=== PATIENT | female | born 1995 | race Caucasian/White ===

== ENCOUNTER → 2018-04-14 16:23 | Outpatient (CLI) | payer BC, SELFPAY ==
[2018-04-14 19:50] LABS: Chlamydia Trachomatis by PCR Negative (Negative); Neisserai gonorrhoeae by PCR Negative (Negative); Probe Check PASS; Sample Adequacy Control PASS; Specimen Processing Control PASS
[2018-04-19 11:04] LABS: HPV Reflexed? NOT INDICATED
== END ==
PROVIDERS: Visit Provider Obstetrics & Gynecology
DX: Z12.4 Encounter for screening for malignant neoplasm of cervix (principal); Z11.3 Encounter for screening for infections with a predominantly sexual mode of transmission
CPT/HCPCS: 87491; 87591; 88175; G0145

== ENCOUNTER → 2019-06-27 11:53 | Outpatient (CLI) | payer BC, SELFPAY ==
[2017-06-30 07:44] VITALS: BMI 26.7
[2019-06-27 16:48] LABS: Estradiol 56.1 pg/mL; Follicle Stimulating Hormone 3.7 mIU/mL; Free T3 3.3 pg/mL (2.18-3.98); Prolactin 6.4 ng/mL; T4 Free Direct 0.84 ng/dL (0.76-1.46); Thyroid Stim Hormone (TSH) 1.53 uIU/mL (0.358-3.74)
[2019-06-27 16:53] LABS: Vitamin D,25 Hydroxy 18.6 ng/mL (29.95-100.01)
[2019-06-30 04:07] LABS: DHEA Sulfate 304.4 ug/dL (110.0-431.7)
[2019-06-30 13:21] LABS: Sex Hormone-binding Globulin 51.8 nmol/L (24.6-122.0)
[2019-07-04 12:08] LABS: 17-Hydroxyprogesterone 73 ng/dL (.)
== END ==
PROVIDERS: Visit Provider Obstetrics & Gynecology
DX: N91.2 Amenorrhea, unspecified (principal); R73.09 Other abnormal glucose
CPT/HCPCS: 36415; 82306; 82533; 82627; 82670; 83001; 83498; 84144; 84146; 84270; 84403; 84439; 84443; 84481; 82626

== ENCOUNTER → 2020-08-20 | Outpatient (CLI) | payer BC, SELFPAY ==
[2017-06-30 07:44] VITALS: BMI 26.7
[2020-08-23 12:07] LABS: Chlamydia By Nucleic Acid AMP Negative (Negative)
[2020-08-23 18:02] LABS: Gonococcus By Nucleic Acid AMP Negative (Negative)
[2020-08-25 13:53] LABS: HPV Reflexed? NOT INDICATED
== END | disposition home or self-care (01) ==
LOC: LABSPEC 15:51
PROVIDERS: Visit Provider Obstetrics & Gynecology
DX: Z12.4 Encounter for screening for malignant neoplasm of cervix (principal); Z11.3 Encounter for screening for infections with a predominantly sexual mode of transmission
CPT/HCPCS: 87491; 87591; 88175; G0145

== ENCOUNTER → 2020-09-07 03:29 | Outpatient (CLI) | payer SELFPAY ==
[2020-09-08 09:46] LABS: Hepatitis B Surface Antibody Reactive
== END ==
DX: Z11.59 Encounter for screening for other viral diseases (principal)
CPT/HCPCS: 86706

== ENCOUNTER 2021-10-09 11:27 | Outpatient (CLI) | payer BC, SELFPAY ==
[2021-10-09 13:52] LABS: Vitamin D,25 Hydroxy 28.2 ng/mL
[2021-10-12 15:08] LABS: Chlamydia By Nucleic Acid AMP Negative (Negative)
[2021-10-12 20:51] LABS: Gonococcus By Nucleic Acid AMP Negative (Negative)
== END 2021-10-09 23:59 | disposition home or self-care (01) ==
PROVIDERS: Visit Provider Obstetrics & Gynecology
DX: E55.9 Vitamin D deficiency, unspecified (principal); Z13.1 Encounter for screening for diabetes mellitus; Z11.3 Encounter for screening for infections with a predominantly sexual mode of transmission; E28.2 Polycystic ovarian syndrome
CPT/HCPCS: 36415; 82306; 83036; 87491; 87591

== ENCOUNTER → 2022-03-04 | Outpatient (CLI) | payer BC, SELFPAY ==
[2022-03-04 09:56] LABS: hCG Titer Quant., Serum 350 mIU/mL (1-3)
== END | disposition home or self-care (01) ==
LOC: PAVLAB 09:03
PROVIDERS: Referring Provider Obstetrics & Gynecology; Visit Provider Obstetrics & Gynecology
DX: O36.80X0 Pregnancy with inconclusive fetal viability, not applicable or unspecified (principal)
CPT/HCPCS: 36415; 84702

== ENCOUNTER → 2022-03-06 | Outpatient (CLI) | payer BC, SELFPAY ==
[2022-03-06 07:05] LABS: hCG Titer Quant., Serum 487 mIU/mL (1-3)
== END | disposition home or self-care (01) ==
LOC: LABSPEC 02:07
PROVIDERS: Visit Provider Obstetrics & Gynecology
DX: O36.80X0 Pregnancy with inconclusive fetal viability, not applicable or unspecified (principal)
CPT/HCPCS: 84702

== ENCOUNTER 2022-03-07 10:56 | Outpatient (CLI) | payer BC, SELFPAY ==
[2022-03-07 12:56] LABS: hCG Titer Quant., Serum 562 mIU/mL (1-3)
== END 2022-03-07 23:59 | disposition home or self-care (01) ==
LOC: LAB 10:59
PROVIDERS: Visit Provider Obstetrics & Gynecology
DX: O36.80X0 Pregnancy with inconclusive fetal viability, not applicable or unspecified (principal)
CPT/HCPCS: 36415; 84702

== ENCOUNTER 2022-03-07 13:21 | Emergency (ER) | payer BC, SELFPAY ==
[2022-03-07 13:23] VITALS: BP 130/78; PULSE 80; RESP 16; TEMP 36.2; O2SAT 100; BMI 34.3
--- NOTE | 2022-03-07 13:39 | US_ITS ---
EXAM: US , TRANSVAGINAL CLINICAL INDICATION: pelvic pain -- brown discharge TECHNIQUE: Real-time transvaginal obstetrical ultrasound of the maternal pelvis and a first trimester with image documentation. Transvaginal imaging was used for better evaluation of the fetus and adnexa. This report was created using [employer] ([email or web address]) report generation technology. COMPARISON: None. FINDINGS: GESTATION: There is a hypoechoic area in the fundus of the endometrium that measures 1.0 x 0.4 cm. This does not have the appearance of the gestational sac. PLACENTA/AMNIOTIC FLUID: Cannot be adequately evaluated due to the early gestational age. UTERUS/CERVIX: Uterus measures 7.2 x 3.8 x 5.6 cm. The endometrium measures 9 mm. No myometrial mass. OVARIES: The right ovary measures 2.9 x 2.3 x 2.0 cm. The left ovary measures 2.5-2 0.1 x 2.2 cm. There is a 1.8 x 1.6 x 2.2 cm thick walled cyst in left ovary which may represent a corpus luteum. No mass. FREE FLUID: No free fluid. US/Transvaginal w/Preg US IMPRESSION: Thick-walled cystic structure in the left ovary may represent a corpus luteum. There is no normal-appearing gestational sac present. There is a slightly hypoechoic area seen in the endometrium which is not cystic and does not have the appearance of the gestational sac. No other abnormalities are identified. Electronically Signed: Paul Samuel MD at 15:22 EDT ,
--- NOTE | 2022-03-07 13:40 | ED.VIS.FEGU ---
HPI HPI - Female History of Present Illness Chief Complaint: Vag Bld, Preg Narrative Narrative: Patient has had some vaginal spotting and some intermittent abdominal cramping. She is 5 weeks by dates, she has not had an ultrasound this , this is her first . Currently she has minimal abdominal pain. She has no fevers or chills, she has no dysuria hematuria or frequency. [facility] Medical History PCOS (polycystic ovarian syndrome) Home Medications norethindrone 1 mg-ethinyl estradiol 20 mcg (24)-iron 75 mg (4) tablet (Blisovi 24 Fe) 1 ea PO DAILY 06/30/17 [History Last Taken Unknown] Allergy/AdvReac Type Severity Reaction Status Date / Time No Known Allergies Allergy Verified 03/07/22 13:22 Social History Smoking Status: Never smoker ROS ROS ED ROS Narrative Past medical history: Reviewed Medications: Reviewed Social history: Noncontributory Review of systems: All systems negative except as indicated General: No fever Eyes: No visual changes ENT: No upper airway congestion, normal voice Neck: No neck pain Cardiovascular: No chest pain Respiratory: No shortness of breath or cough Gastrointestinal: Intermittent abdominal cramping mostly in the pelvic region. Genitourinary: As in HPI Musculoskeletal: Denies myalgias no difficulty with ambulation Skin: No rash Neurological: No memory loss, confusion or any focal weakness Psych: No recent behavioral changes Hematologic: No easy bleeding or easy bruising EXAM Physical Exam Narrative Exam Narrative: Physical exam General: Well nourished, Well developed, No Acute Distress Head: Normocephalic, Atraumatic Eyes: Conjunctiva not pale ENT: Moist mucous membranes Neck: Supple, Nontender, No lymphadenopathy Cardiovascular: Regular rate, Regular rhythm Respiratory: No distress, CTA bilaterally Abdomen: Soft, Nontender, Nondistended Back: Nontender, Normal Inspection. Negative for: CVA tenderness Extremities: Nontender, No edema Skin: Normal color, No rash Neurological: Alert, Normal Strength, Normal Sensation Psychological: Normal affect Const Vital Signs: 03/07/22 13:23 Temperature 97.2 F L Temperature Source Temporal Pulse Rate 80 Respiratory Rate 16 Blood Pressure 130/78 H Blood Pressure Mean 95 Pulse Ox 100 Oxygen Delivery Method Room Air MDM MDM MDM Narrative Medical decision making narrative: Patient likely has an ectopic . She has a complex thick-walled structure in the left ovary which likely represent a corpus luteum, she does not have an intrauterine thus I believe she has an ectopic . She does meet criteria for methotrexate. I will check LFTs, if these are normal she can get the methotrexate I will turn the patient over to the oncoming ED physician. Lab Data Labs: Laboratory Results - last 24 hr 03/07/22 03/07/22 13:45 13:59 Urine Color Yellow Urine Clarity Sl. Cloudy Urine pH 6.5 Ur Specific [place] 1.015 Urine Protein Negative Urine Glucose (UA) Normal Urine Ketones Negative Urine Occult Blood 150 H Urine Nitrite Negative Urine Bilirubin Negative Urine Urobilinogen 1 H Ur Leukocyte Esterase Negative Urine RBC 10-25 SEEN Urine WBC 0 SEEN Ur Squamous Epith Cells 0-5 SEEN Urine Bacteria 1+ Urine Mucus 0 SEEN Blood Type O POSITIVE Radiography Diagnostic Testing: Clinical Impression(s) from Imaging Studies Obstetrics Ultrasound 03/07/22 13:39 IMPRESSION: Thick-walled cystic structure in the left ovary may represent a corpus luteum. There is no normal-appearing gestational sac present. There is a slightly hypoechoic area seen in the endometrium which is not cystic and does not have the appearance of the gestational sac. No other abnormalities are identified. Electronically Signed: Paul Samuel MD at 15:22 EDT Reading Location ID and State: [facility] / [place] Tel , Service support , Discharge Plan Triage Chief Complaint: Vag Bld, Preg ED Provider: Jayant Prieto Dx/Rx/DC Orders Clinical Impression: Ectopic , Pelvic pain Instructions: ED Methotrexate for Ectopic ... Prescriptions: No Action norethindrone-e.estradiol-iron [Blisovi 24 Fe] 1 EACH tablet 1 ea PO DAILY Primary Care Provider: Oma Bentley Referrals: Danette Garber [Registered Nurse] - Oma Bentley DO [Primary Care Provider] - 3-5 Days Disposition Disposition: Home, Self Care
[2022-03-07 13:58] LABS: Mucous, Urine 0 SEEN /hpf (<or=2+); White Blood Cells 0 SEEN /hpf (0-5)
[2022-03-07 14:20] LABS: Color, Urine Yellow (Yellow); Glucose, Dipstick Normal (Normal); Ketone-Dipstick Negative (Negative); Leukocyte Esterase-Dipstick Negative /ul (Negative); Nitrite-Dipstick Negative (Negative); Occult Blood-Urine 150 /ul (Negative); Protein-Dipstick Negative (Negative); Specific Gravity, Urine 1.015 (1.002-1.030); Urine Bilirubin Dipstick Negative (Negative); Urine Clarity Sl. Cloudy (Clear); Urine Urobilinogen 1 mg/dl (Normal); Urine pH 6.5 (5.0 - 8.0)
[2022-03-07 14:26] LABS: Bacteria 1+ /hpf (None Seen); Red Blood Cells-Urine 10-25 SEEN /hpf (0-5); Squamous Epithelial Cells - UA 0-5 SEEN /hpf (5-10)
[2022-03-07 15:57] VITALS: RESP 16
[2022-03-07 16:11] LABS: Absolute Lymphocyte Count 2.67 X10^3/uL (0.83-4.51); Absolute Neutrophil Count 4.3 X10^3/uL (2.0-7.7); Basophil# 0.04 X10^3/uL; Basophil% 0.5 % (0-1); Eosinophil# 0.04 X10^3/uL; Eosinophils% 0.5 % (0-5); Hematocrit 37.4 % (37-47); Hemoglobin 12.6 g/dL (12.0-15.0); Lymphocyte # 2.67 X10^3/ul (0.83-4.51); Lymphocyte % 35.3 % (19-41); Mean Corp Hgb Conc 33.7 g/dL (32-36); Mean Corpuscular Hgb 28.3 pg (27.0-32.0); Mean Platelet Vol. 9.3 fl (6.2-12.0); Monocyte# 0.45 X10^3/uL; NRBC Flagged by Analyzer 0 % (0-5); Neutrophil # 4.34 X10^3/uL (2.7-7.7); Neutrophil % 57.4 % (47-70); Platelet Count 287 K/mm3 (150-450); RBC Distribution Width CV 12.9 % (11.6-14.6); RBC Distribution Width SD 39.3 fl (35.1-43.9); Red Blood Count 4.45 M/mm3 (4.2-5.4); White Blood Count 7.6 K/mm3 (4.4-11.0)
[2022-03-07 16:28] LABS: ALB/GLOB Ratio 1.1 RATIO (0.9-2.4); AST(SGOT) 32 U/L (15-37); Alanine Aminotransfer ALT/SGPT 43 U/L (13-56); Albumin, Serum 3.7 g/dL (3.2-5.0); Alkaline Phosphatase 90 U/L (45-117); Anion Gap 5 (5-15); BUN 7 mg/dL (7-18); BUN/Creat Ratio 9.1 RATIO (10-20); Calcium,Total 9.3 mg/dL (8.5-10.1); Chloride 109 mmol/L (98-107); Creatinine, Serum 0.77 mg/dL (0.55-1.02); EST Glomerular Filtration Rate 97 mL/min (>60); Est Glom Filt Rate - Afr Amer 117 mL/min (>60); Estimated Creatinine Clearance 120.78 ml/min; Globulin 3.5 g/dL (2.2-4.2); Glucose 96 mg/dL (74-106); Potassium 4.1 mmol/L (3.5-5.1); Protein, Total 7.2 g/dL (6.4-8.2); Sodium Level 139 mmol/L (136-145)
--- NOTE | 2022-03-07 16:41 | ED.RN ---
DR TRUONG MADE AWARE THAT BLOOD RESULTS ARE BACK AND WAITING FOR HIM TO ADMINISTER MEDICATION.
== END 2022-03-07 17:38 | disposition home or self-care (01) ==
PROVIDERS: Emergency Provider Emergency Medicine; PCP Obstetrics & Gynecology; Visit Provider Emergency Medicine
DX: O00.202 Left ovarian pregnancy without intrauterine pregnancy (principal); R10.2 Pelvic and perineal pain
CPT/HCPCS: 76817; 80053; 81001; 85025; 86900; 86901; 93976; 96372; 99282; A4216; J9250

== ENCOUNTER → 2022-03-11 | Outpatient (CLI) | payer BC, SELFPAY ==
[2022-03-11 07:00] LABS: hCG Titer Quant., Serum 940 mIU/mL (1-3)
== END | disposition home or self-care (01) ==
LOC: LABSPEC 06:28
PROVIDERS: PCP Obstetrics & Gynecology; Visit Provider Obstetrics & Gynecology
DX: O09.90 Supervision of high risk pregnancy, unspecified, unspecified trimester (principal)
CPT/HCPCS: 84702

== ENCOUNTER → 2022-03-14 | Outpatient (CLI) | payer BC, SELFPAY ==
[2022-03-14 12:25] LABS: hCG Titer Quant., Serum 734 mIU/mL (1-3)
== END | disposition home or self-care (01) ==
LOC: LAB 11:32
PROVIDERS: PCP Obstetrics & Gynecology; Visit Provider Obstetrics & Gynecology
DX: O09.90 Supervision of high risk pregnancy, unspecified, unspecified trimester (principal)
CPT/HCPCS: 36415; 84702

== ENCOUNTER → 2022-03-22 | Outpatient (CLI) | payer BC, SELFPAY ==
[2022-03-22 05:10] LABS: hCG Titer Quant., Serum 203 mIU/mL (1-3)
== END | disposition home or self-care (01) ==
PROVIDERS: PCP Obstetrics & Gynecology; Visit Provider Obstetrics & Gynecology
DX: O00.90 Unspecified ectopic pregnancy without intrauterine pregnancy (principal)
CPT/HCPCS: 84702

== ENCOUNTER → 2022-03-29 | Outpatient (CLI) | payer BC, SELFPAY ==
[2022-03-29 05:29] LABS: hCG Titer Quant., Serum 17 mIU/mL (1-3)
== END | disposition home or self-care (01) ==
LOC: LAB 03:20
PROVIDERS: Obstetrics & Gynecology; PCP Obstetrics & Gynecology; Visit Provider Obstetrics & Gynecology
DX: O02.1 Missed abortion (principal)
CPT/HCPCS: 84702

== ENCOUNTER → 2022-04-06 | Outpatient (CLI) | payer BC, SELFPAY ==
[2022-04-06 14:02] LABS: hCG Titer Quant., Serum 1 mIU/mL (1-3)
== END | disposition home or self-care (01) ==
LOC: PAVLAB 13:18
PROVIDERS: Obstetrics & Gynecology; Referring Provider Obstetrics & Gynecology; Visit Provider Obstetrics & Gynecology
DX: O02.1 Missed abortion (principal)
CPT/HCPCS: 36415; 84702

== ENCOUNTER → 2022-06-03 | Outpatient (CLI) | payer BC, SELFPAY ==
--- NOTE | 2022-06-03 12:00 | RAD_ITS ---
STUDY: HYSTEROSALPINGOGRAM. REASON FOR EXAM: Female, 27 years old. Fertility FLUOROSCOPY TIME (if supplied): ( 6 seconds ) minutes/seconds. 2 images were obtained. TECHNIQUE: A hysterosalpingogram was performed by the receiving teller. Imaging was provided. COMPARISON: None. FINDINGS: The uterus is unremarkable. Both fallopian tubes are patent with free spill. RAD/Salpingogram IMPRESSION: Unremarkable hysterosalpingogram. Electronically Signed: Lennox Wilcox MD at 13:19 EDT ,
== END | disposition home or self-care (01) ==
LOC: RAD 11:48
PROVIDERS: Referring Provider Obstetrics & Gynecology; Visit Provider Obstetrics & Gynecology
DX: Z31.41 Encounter for fertility testing (principal)
CPT/HCPCS: 58340; 74740; Q9967

== ENCOUNTER → 2022-10-01 | Outpatient (CLI) | payer BC, SELFPAY | END | disposition home or self-care (01) | LOC: PAVLAB 11:20 | PROVIDERS: Referring Provider Obstetrics & Gynecology; Visit Provider Obstetrics & Gynecology | DX: E28.2 Polycystic ovarian syndrome (principal) | CPT/HCPCS: 36415; 84144 ==

== ENCOUNTER → 2022-11-09 | Outpatient (CLI) | payer BC, SELFPAY ==
[2022-11-09 08:40] LABS: Progesterone Level 1.05 ng/mL (See Comment)
== END | disposition home or self-care (01) ==
PROVIDERS: Referring Provider Registered Nurse; Visit Provider Registered Nurse
DX: E28.2 Polycystic ovarian syndrome (principal)
CPT/HCPCS: 36415; 84144

== ENCOUNTER → 2022-11-23 | Outpatient (CLI) | payer BC, SELFPAY ==
[2022-11-23 13:08] LABS: hCG Titer Quant., Serum < 1 mIU/mL (1-3)
== END | disposition home or self-care (01) ==
LOC: PAVLAB 12:14
PROVIDERS: Obstetrics & Gynecology; Referring Provider Nurse Practitioner Women's Health; Visit Provider Nurse Practitioner Women's Health
DX: O02.1 Missed abortion (principal)
CPT/HCPCS: 36415; 84702; 96365

== ENCOUNTER → 2022-12-21 | Outpatient (CLI) | payer BC, SELFPAY ==
[2022-12-21 11:12] LABS: hCG Titer Quant., Serum 26 mIU/mL (1-3)
== END | disposition home or self-care (01) ==
PROVIDERS: Referring Provider Obstetrics & Gynecology; Visit Provider Obstetrics & Gynecology
DX: Z32.01 Encounter for pregnancy test, result positive (principal)
CPT/HCPCS: 36415; 84702

== ENCOUNTER → 2022-12-23 | Outpatient (CLI) | payer BC, SELFPAY ==
[2022-12-23 12:38] LABS: hCG Titer Quant., Serum 73 mIU/mL (1-3)
== END | disposition home or self-care (01) ==
LOC: PAVLAB 11:45
PROVIDERS: Referring Provider Obstetrics & Gynecology; Visit Provider Obstetrics & Gynecology
DX: N91.2 Amenorrhea, unspecified (principal)
CPT/HCPCS: 36415; 84702

== ENCOUNTER → 2023-01-07 | Outpatient (CLI) | payer BC, SELFPAY ==
--- NOTE | 2023-01-07 12:21 | US_ITS ---
HISTORY: hx of ectopic --. LMP: [11/25/2022 . TECHNIQUE: Transabdominal and transvaginal pelvic ultrasound was performed. 102 images. COMPARISON: 03/07/2022. FINDINGS: UTERUS: 6.8 x 4.1 x 5.8 cm. Retroverted. RIGHT OVARY: 1.7 x 3.2 x 1.9 cm with small follicles. No adnexal masses. LEFT OVARY: 2.5 x 3.5 x 2.8 cm with small follicles. No adnexal masses. FREE FLUID: None. INTRAUTERINE GESTATIONAL SAC: Single. Mean sac diameter 14 mm corresponding to 6 weeks 2 days. YOLK SAC: 2 mm. POLE: [place]-rump length 3-4 mm corresponding to 6 weeks 2 days. ESTIMATED DELIVERY DATE: 08/31/2023. HEART MOTION: 96 bpm. PLACENTA: Not visualized due to age. US/Transvaginal w/Preg US IMPRESSION: Intrauterine with an estimated gestational age of 6 weeks 2 days and heart tones demonstrated. Mild bradycardia; recommend follow-up. Electronically Signed: Leonela Looney MD at 13:50 EDT ,
== END | disposition home or self-care (01) ==
LOC: OPUS 12:21
PROVIDERS: Referring Provider Obstetrics & Gynecology; Visit Provider Obstetrics & Gynecology
DX: O09.90 Supervision of high risk pregnancy, unspecified, unspecified trimester (principal)
CPT/HCPCS: 76817

== ENCOUNTER → 2023-01-12 | Outpatient (CLI) | payer BC, SELFPAY ==
--- NOTE | 2023-01-12 16:43 | US_ITS ---
EXAM: US , TRANSVAGINAL CLINICAL INDICATION: viability TECHNIQUE: Real-time transvaginal obstetrical ultrasound of the maternal pelvis and a first trimester with image documentation. Transvaginal imaging was used for better evaluation of the fetus and adnexa. COMPARISON: 01/07/2023. FINDINGS: GESTATION: Single live intrauterine gestation. Cardiac activity is documented with heart rate of 109. Mean sonographic estimated gestational age based on crown-rump length measures 6 weeks 6 days with estimated date of delivery 09/01/2023. PLACENTA/AMNIOTIC FLUID: Cannot be adequately evaluated due to the early gestational age. UTERUS/CERVIX: No myometrial mass. OVARIES: Left ovary is normal in size and echogenicity measuring 2.9 x 1.7 x 1.9 cm. No mass or dominant cyst. Right ovary not imaged. FREE FLUID: No free fluid. US/Transvaginal w/Preg US IMPRESSION: Single live intrauterine gestation with EGA 6 weeks 6 days. Electronically Signed: Cata Elena MD at 20:27 EDT Reading Location ID and State: [id number] / Tel , Service support ,
== END | disposition home or self-care (01) ==
LOC: US 16:42
PROVIDERS: Referring Provider Registered Nurse; Visit Provider Registered Nurse
DX: O36.80X0 Pregnancy with inconclusive fetal viability, not applicable or unspecified (principal); Z3A.00 Weeks of gestation of pregnancy not specified
CPT/HCPCS: 76817

== ENCOUNTER → 2023-01-26 | Outpatient (CLI) | payer BC, SELFPAY ==
[2023-01-28 00:06] LABS: Chlamydia By Nucleic Acid AMP Negative (Negative); Gonococcus By Nucleic Acid AMP Negative (Negative)
== END | disposition home or self-care (01) ==
LOC: LABSPEC 10:07
PROVIDERS: Referring Provider Obstetrics & Gynecology; Visit Provider Obstetrics & Gynecology
DX: Z34.90 Encounter for supervision of normal pregnancy, unspecified, unspecified trimester (principal); Z3A.00 Weeks of gestation of pregnancy not specified
CPT/HCPCS: 87086; 87088; 87491; 87591

== ENCOUNTER → 2023-02-07 | Outpatient (CLI) | payer BC, SELFPAY ==
[2023-02-07 07:14] LABS: NATERA MAILED SPECIMEN
[2023-02-07 07:31] LABS: Absolute Lymphocyte Count 3.15 X10^3/uL (0.83-4.51); Absolute Neutrophil Count 5.2 X10^3/uL (2.0-7.7); Basophil# 0.04 X10^3/uL; Basophil% 0.4 % (0-1); Eosinophil# 0.07 X10^3/uL; Eosinophils% 0.8 % (0-5); Hematocrit 34.2 % (37-47); Hemoglobin 11.5 g/dL (12.0-15.0); Lymphocyte # 3.15 X10^3/ul (0.83-4.51); Lymphocyte % 34.8 % (19-41); Mean Corp Hgb Conc 33.6 g/dL (32-36); Mean Corpuscular Hgb 29.4 pg (27.0-32.0); Mean Corpuscular Volume 87.5 fL (81-99); Mean Platelet Vol. 9.7 fl (6.2-12.0); Monocyte# 0.55 X10^3/uL; Monocyte% 6.1 % (0-10); NRBC Flagged by Analyzer 0 % (0-5); Neutrophil # 5.21 X10^3/uL (2.7-7.7); Neutrophil % 57.6 % (47-70); Platelet Count 267 K/mm3 (150-450); RBC Distribution Width CV 12.5 % (11.6-14.6); Red Blood Count 3.91 M/mm3 (4.2-5.4); White Blood Count 9.1 K/mm3 (4.4-11.0)
[2023-02-07 09:29] LABS: HIV - WCH Non-Reactive (Nonreactive); Hepatitis B Surface Antigen Non-Reactive (Nonreactive); Hepatitis C Antibody Non-Reactive (Nonreactive); Rubella IgG Reactive (Nonreactive); Syphilis Antibodies Non-reactive
[2023-02-07 09:36] LABS: Glucose Challenge Gest 1H 50g 84 mg/dL (70-140)
== END | disposition home or self-care (01) ==
LOC: LAB 06:12
PROVIDERS: Referring Provider Obstetrics & Gynecology; Visit Provider Obstetrics & Gynecology
DX: O99.210 Obesity complicating pregnancy, unspecified trimester (principal); Z3A.00 Weeks of gestation of pregnancy not specified
CPT/HCPCS: 36415; 82950; 85025; 86703; 86762; 86780; 86803; 86850; 86900; 86901; 87340

== ENCOUNTER → 2023-02-16 | Outpatient (CLI) | payer BC, SELFPAY | END | disposition home or self-care (01) | LOC: LABSPEC 13:26 | PROVIDERS: Referring Provider Obstetrics & Gynecology; Visit Provider Obstetrics & Gynecology | DX: O23.40 Unspecified infection of urinary tract in pregnancy, unspecified trimester (principal); Z3A.00 Weeks of gestation of pregnancy not specified | CPT/HCPCS: 87086; 87088 ==

== ENCOUNTER → 2023-04-12 | Outpatient (CLI) | payer OTHER, SELFPAY ==
--- NOTE | 2023-04-12 13:28 | US_ITS ---
STUDY: SECOND AND THIRD TRIMESTER OBSTETRICAL ULTRASOUND REASON FOR EXAM: Female, 28 years old routine survey LMP: 11/25/2022 TECHNIQUE: Transabdominal TECHNICAL QUALITY: Adequate. PRIOR ULTRASOUND: 01/12/2023 FINDINGS: There is a single intrauterine fetus. The fetus is in a breech presentation. There is demonstrated cardiac activity with a heart rate of 143 bpm. There is a subjectively normal amniotic fluid volume. The largest amniotic fluid pocket measures 3.5 cm. . The placenta is anterior in location and is not low lying. There are Grade 0 placental changes. The cervix measures 3.7 cm in length. The bilateral adnexal regions are normal. BIOMETRY: BPD: 4.26 cm: 18 weeks, 6 days HC: 16.49 cm: 19 weeks, 1 days AC: 13.84 cm: 19 weeks, 2 days FL: 3.01 cm: 19 weeks, 2 days age by current US: 19 weeks, 1 days. DOMITILA by current US: 09/05/2023. Estimated weight: 281 grams, +/- 42 grams, 21 %. age by prior US: 19 weeks, 4 days. DOMITILA by prior US: 09/02/2023. Age by LMP: 19 weeks, 5 days. DOMITILA by LMP: 09/01/2023. ANATOMY: Gender: Female Cranium: Normal lateral ventricles. Normal choroid plexus. Normal cerebellum. Normal cisterna magna. Normal face, nose and lips. Chest: Normal 4-chamber heart. Abdomen/Pelvis: Normal diaphragm. Normal stomach. Normal abdominal wall. Normal cord insertion. Normal 3 vessel cord. Normal kidneys. Normal bladder. Right kidney shows mild renal pelvis dilatation and 0.5 cm. Spine: Normal cervical spine. Normal thoracic spine. Normal lumbar spine. Normal sacrum. Extremities: Normal bilateral upper extremities. Normal bilateral lower extremities. US/OB Anatomy Scan IMPRESSION: Single live intrauterine 19 weeks, 1 day by current ultrasound with DOMITILA of 09/05/2023. Heart rate of 143 bpm. Presentation is breech There is nonspecific mild dilatation of the right renal pelvis Follow-up ultrasound recommended to ensure that the presentation changes to cephalic and the right renal pelvis dilatation is transient Electronically Signed: Tigre Driscoll MD at 16:52 EDT ,
== END | disposition home or self-care (01) ==
LOC: OPUS 13:27
PROVIDERS: Referring Provider Nurse Practitioner Women's Health; Visit Provider Nurse Practitioner Women's Health
DX: O09.90 Supervision of high risk pregnancy, unspecified, unspecified trimester (principal); Z3A.00 Weeks of gestation of pregnancy not specified
CPT/HCPCS: 76805; 76817

== ENCOUNTER → 2023-05-12 | Outpatient (CLI) | payer OTHER, SELFPAY ==
--- NOTE | 2023-05-12 16:01 | US_ITS ---
STUDY: SECOND AND THIRD TRIMESTER OBSTETRICAL ULTRASOUND - LIMITED REASON FOR EXAM: Female, 28 years old follow-up on kidneys -- 24 weeks LMP: 4 PRIOR ULTRASOUND: TECHNIQUE: Transabdominal TECHNICAL QUALITY: Adequate. FINDINGS: There is a single intrauterine fetus. The fetus is in a breech presentation. There is demonstrated cardiac activity with a heart rate of 143 bpm. There is a normal amniotic fluid volume. The largest amniotic fluid pocket measures 3.3 x 6.2 cm. The amniotic fluid index (JESÚS) is within normal limits cm. The placenta is anterior not low-lying The cervix measures 4.0 cm in length. BIOMETRY: BPD: 5.87 cm: 24 weeks, 0 days HC: 21.66 cm: 23 weeks, 5 days AC: 19.02 cm: 23 weeks, 5 days FL: 4.25 cm: 23 weeks, 6 days Age by LMP: 24 weeks, 0 days. DOMITILA by LMP: 09/01/2023. age by current US: 23 weeks, 5 days. DOMITILA by current US: 09/03/2023. Estimated weight: 637 grams, +/- 96 grams, 36 percentile. Bilaterally there is mild renal pyelectasis with the AP diameter of the right kidney 0.42 cm and of the left kidney 0.30 cm. US/OB Limited With Biometrics IMPRESSION: Single viable intrauterine gestation in breech presentation. Mean gestational age 23 weeks 5 days based upon concordant ultrasound parameters. Mild bilateral renal pyelectasis. Follow-up ultrasound advised to evaluate for the possibility of posterior urethral valves. Electronically Signed: eHath Recinos MD at 15:03 EDT ,
== END | disposition home or self-care (01) ==
LOC: US 16:00
PROVIDERS: Referring Provider Obstetrics & Gynecology; Visit Provider Obstetrics & Gynecology
DX: O35.EXX0 Maternal care for other (suspected) fetal abnormality and damage, fetal genitourinary anomalies, not applicable or unspecified (principal); Z3A.24 24 weeks gestation of pregnancy
CPT/HCPCS: 76816

== ENCOUNTER → 2023-06-07 | Outpatient (CLI) | payer OTHER, SELFPAY ==
[2023-06-07 09:50] LABS: Basophil# 0.03 X10^3/uL; Basophil% 0.3 % (0-1); Eosinophil# 0.01 X10^3/uL; Eosinophils% 0.1 % (0-5); Hematocrit 31.2 % (37-47); Hemoglobin 10.7 g/dL (12.0-15.0); Lymphocyte % 17.7 % (19-41); Mean Corp Hgb Conc 34.3 g/dL (32-36); Mean Corpuscular Hgb 30.6 pg (27.0-32.0); Mean Corpuscular Volume 89.1 fL (81-99); Mean Platelet Vol. 9.1 fl (6.2-12.0); Monocyte# 0.37 X10^3/uL; Monocyte% 4.1 % (0-10); NRBC Flagged by Analyzer 0 % (0-5); Neutrophil # 6.99 X10^3/uL (2.7-7.7); Neutrophil % 77.5 % (47-70); Platelet Count 252 K/mm3 (150-450); RBC Distribution Width CV 12.7 % (11.6-14.6); RBC Distribution Width SD 41.2 fl (35.1-43.9)
[2023-06-07 10:33] LABS: Glucose Challenge Gest 1H 50g 170 mg/dL (70-140)
[2023-06-07 11:08] LABS: HIV - WCH Non-Reactive (Nonreactive); Syphilis Antibodies Non-reactive
== END | disposition home or self-care (01) ==
LOC: PAVLAB 09:28
PROVIDERS: Obstetrics & Gynecology; Referring Provider Nurse Practitioner Women's Health; Visit Provider Nurse Practitioner Women's Health
DX: O09.90 Supervision of high risk pregnancy, unspecified, unspecified trimester (principal); Z3A.00 Weeks of gestation of pregnancy not specified
CPT/HCPCS: 36415; 82950; 85025; 86703; 86780

== ENCOUNTER → 2023-06-13 | Outpatient (CLI) | payer OTHER, SELFPAY ==
[2023-06-13 07:35] LABS: Glucose GTT-Gestation. Fasting 83 mg/dL (<105)
[2023-06-13 08:44] LABS: Glucose GTT-Gestational 1 Hr 162 mg/dL (<190)
[2023-06-13 09:16] LABS: Glucose GTT-Gestational 2 Hr 121 mg/dL (<165)
[2023-06-13 10:48] LABS: Glucose GTT-Gestational 3 Hr 76 L (<145)
--- NOTE | 2023-06-13 14:30 | US_ITS ---
STUDY: SECOND AND THIRD TRIMESTER OBSTETRICAL ULTRASOUND - LIMITED REASON FOR EXAM: Female, 28 years old pyelectasis LMP: 11/25/2022 PRIOR ULTRASOUND: Prior study dated: 05/12/2023 TECHNIQUE: Transabdominal TECHNICAL QUALITY: Adequate. FINDINGS: There is a single intrauterine fetus. The fetus is in a cephalic presentation. There is demonstrated cardiac activity with a heart rate of 143 bpm. There is a normal amniotic fluid volume. The largest amniotic fluid pocket measures 3.4 cm. The amniotic fluid index (JESÚS) is 15 cm. The placenta is anterior in location and is not low lying. There are Grade 0 placental changes. The cervix measures 3.5 cm in length. BIOMETRY: BPD: 7.1 cm: 28 weeks, 3 days HC: 27.3 cm: 29 weeks, 5 days AC: 23.8 cm: 28 weeks, 1 days FL: 5.4 cm: 28 weeks, 4 days age by prior US: 23 weeks, 5 days. DOMITILA by prior US: 09/03/2023. age by current US: 28 weeks, 3 days. DOMITILA by current US: 09/02/2023. Estimated weight: 1217 grams, +/- 182 grams, 30 percentile. Persistent mild bilateral pelviectasis measuring about 5 mm on the right side and 4 mm on the left side. anatomy otherwise is not evaluated this time. US/OB Limited With Biometrics IMPRESSION: 1. Single live intrauterine fetus with an estimated gestational age of 28 weeks and 3 days. 2. Persistent mild bilateral renal pelvocaliectasis. Further follow-up exam is recommended. Electronically Signed: Dc Pollack MD at 15:49 EST ,
== END | disposition home or self-care (01) ==
LOC: LAB 14:29
PROVIDERS: Referring Provider Nurse Practitioner Women's Health; Visit Provider Nurse Practitioner Women's Health
DX: O35.EXX0 Maternal care for other (suspected) fetal abnormality and damage, fetal genitourinary anomalies, not applicable or unspecified (principal); Z3A.00 Weeks of gestation of pregnancy not specified
CPT/HCPCS: 36415; 76816; 82951; 82952

== ENCOUNTER 2023-06-16 18:45 | Outpatient (CLI) | payer OTHER, SELFPAY ==
[2023-06-16 18:51] VITALS: BP 146/83; PULSE 93; TEMP 36.1
[2023-06-16 18:55] VITALS: BMI 37.7
[2023-06-16 19:48] VITALS: BP 121/73; PULSE 83; PULSE 88; O2SAT 89
--- NOTE | 2023-06-21 17:04 | OB.TRI.PN_ITS ---
Progress Notes Date of Service: 06/16/23 Progress Note: Patient presents for triage evaluation secondary to abdominal trauma fall FHT: 140 Moderate variability reactive no decelerations category I tracing [place]: no regular Contractions Assessment and plan: abdominal trauma s/p fall Reactive NST, reassuring maternal and status patient discharged to home to follow-up as sheudle. See problem list details for additional plan information. Charges/Coding Procedures Urinary/Genital [id number]: [id number] non-stress test Interp
== END 2023-06-16 21:00 | disposition home or self-care (01) ==
LOC: WPOUT 18:49 → WP 18:51
PROVIDERS: Referring Provider Obstetrics & Gynecology; Visit Provider Obstetrics & Gynecology
DX: O9A.219 Injury, poisoning and certain other consequences of external causes complicating pregnancy, unspecified trimester (principal); S39.91XA Unspecified injury of abdomen, initial encounter; W19.XXXA Unspecified fall, initial encounter; Z3A.00 Weeks of gestation of pregnancy not specified
CPT/HCPCS: 59025; 59050; 99221; G0378

== ENCOUNTER → 2023-07-08 | Outpatient (CLI) | payer OTHER, SELFPAY ==
--- NOTE | 2023-07-08 14:23 | US_ITS ---
STUDY: SECOND AND THIRD TRIMESTER OBSTETRICAL ULTRASOUND - LIMITED REASON FOR EXAM: Female, 28 years old 32 wk growth -- PREVIOUS COVID -- HX OF RENAL PYELECTASIS LMP: November 25, 2022. PRIOR ULTRASOUND: Comparison is made with prior study dated June 13, 2023 TECHNIQUE: Transabdominal TECHNICAL QUALITY: Adequate. FINDINGS: There is a single intrauterine fetus. The fetus is in a cephalic presentation. There is demonstrated cardiac activity with a heart rate of 132 bpm. There is a normal amniotic fluid volume. The largest amniotic fluid pocket measures 4.7 cm x 4.9 cm. The amniotic fluid index (JESÚS) is 14.5 cm. The placenta is anterior in location and is not low lying. There are Grade 2 placental changes. The cervix measures 3.7 cm in length. BIOMETRY: BPD: 8.18 cm: 32 weeks, 6 days HC: 30.38 cm: 33 weeks, 5 days AC: 28.14 cm: 32 weeks, 1 days FL: 6.08 cm: 31 weeks, 4 days Age by LMP: 32 weeks, 1 days. DOMITILA by LMP: September 01, 2023. age by prior US: 32 weeks, 0 days. DOMITILA by prior US: September 02, 2023. age by current US: 32 weeks, 4 days. DOMITILA by current US: August 29, 2023. Estimated weight: 1926 grams, +/- 289 grams, 41.5 percentile. renal pelves measure 5 to 6 mm. The bladder was full during the examination. US/OB Limited With Biometrics IMPRESSION: Single live intrauterine gestation with mean gestational age of 32 weeks. The measurements obtained today fall within normal expected range. Electronically Signed: Lennox Wilcox MD at 14:23 EST ,
== END | disposition home or self-care (01) ==
LOC: OPUS 14:21
PROVIDERS: Referring Provider Nurse Practitioner Women's Health; Visit Provider Nurse Practitioner Women's Health
DX: O98.513 Other viral diseases complicating pregnancy, third trimester (principal); U07.1 COVID-19; Z3A.32 32 weeks gestation of pregnancy
CPT/HCPCS: 76816

== ENCOUNTER → 2023-07-14 | Outpatient (CLI) | payer OTHER, SELFPAY ==
[2023-07-14 16:14] LABS: Absolute Lymphocyte Count 2.72 X10^3/uL (0.83-4.51); Absolute Neutrophil Count 7.3 X10^3/uL (2.0-7.7); Basophil# 0.04 X10^3/uL; Basophil% 0.4 % (0-1); Eosinophil# 0.07 X10^3/uL; Eosinophils% 0.6 % (0-5); Hematocrit 32.2 % (37-47); Hemoglobin 10.8 g/dL (12.0-15.0); Lymphocyte # 2.72 X10^3/ul (0.83-4.51); Mean Corp Hgb Conc 33.5 g/dL (32-36); Mean Corpuscular Hgb 29.7 pg (27.0-32.0); Mean Corpuscular Volume 88.5 fL (81-99); Mean Platelet Vol. 9.3 fl (6.2-12.0); Monocyte# 0.67 X10^3/uL; Monocyte% 6.2 % (0-10); NRBC Flagged by Analyzer 0 % (0-5); Neutrophil # 7.31 X10^3/uL (2.7-7.7); Neutrophil % 67.3 % (47-70); Platelet Count 274 K/mm3 (150-450); RBC Distribution Width CV 12.6 % (11.6-14.6); RBC Distribution Width SD 40.2 fl (35.1-43.9); Red Blood Count 3.64 M/mm3 (4.2-5.4); White Blood Count 10.9 K/mm3 (4.4-11.0)
== END | disposition home or self-care (01) ==
LOC: PAVLAB 15:34
PROVIDERS: Referring Provider Obstetrics & Gynecology; Visit Provider Obstetrics & Gynecology
DX: O99.019 Anemia complicating pregnancy, unspecified trimester (principal); Z3A.00 Weeks of gestation of pregnancy not specified
CPT/HCPCS: 36415; 85025

== ENCOUNTER → 2023-08-05 | Outpatient (CLI) | payer OTHER, SELFPAY ==
--- NOTE | 2023-08-05 14:36 | US_ITS ---
We are attempting to reach an attending provider to discuss findings. An addendum with communication details will be sent when the communication is complete. STUDY: SECOND AND THIRD TRIMESTER OBSTETRICAL ULTRASOUND REASON FOR EXAM: Female, 28 years old 36 wk growth LMP: TECHNIQUE: Transabdominal TECHNICAL QUALITY: Adequate. PRIOR ULTRASOUND: None. FINDINGS: There is a single intrauterine fetus. The fetus is in a cephalic presentation. There is demonstrated cardiac activity with a heart rate of 164 bpm. There is a normal amniotic fluid volume. The largest amniotic fluid pocket measures 5.5 cm. The amniotic fluid index (JESÚS) is 17.4 cm. The placenta is anterior and not low-lying There are Grade 2 placental changes. The cervix measures 4.5 cm in length. The bilateral adnexal regions are normal. BIOMETRY: BPD: 9.2 cm: 37 weeks, 2 days HC: 33.6 cm: 38 weeks, 4 days AC: 32.9 cm: 36 weeks, 6 days FL: 7.1 cm: 36 weeks, 2 days CI: 0.78 FL/BPD: 0.77 FL/HC: FL/AC: 0.21 HC/AC: 1.0 age by current US: 37 weeks, 3 days. DOMITILA by current US: August 23, 2023. Estimated weight: 3069 grams, +/- 460 grams, 72.5 %. Age by LMP: 36 weeks, 1 days. DOMITILA by LMP: September 01, 2023. ANATOMY: Cranium: Normal lateral ventricles. Normal choroid plexus. Normal cerebellum. Normal cisterna magna. Normal face, nose and lips. Chest: Normal 4-chamber heart. Abdomen/Pelvis: Normal diaphragm. Normal stomach. Normal abdominal wall. Normal cord insertion. Normal 3 vessel cord. There is asymmetric prominence of the right renal pelvis and apparent distended bladder of uncertain etiology.. . Spine: Normal cervical spine. Normal thoracic spine. Normal lumbar spine. Normal sacrum. Extremities: Normal bilateral upper extremities. Normal bilateral lower extremities. US/OB Limited With Biometrics IMPRESSION: Viable intrauterine gestation approximately 37-38 weeks gestational age. Evaluation of anatomy demonstrated mild right renal pelvic prominence and apparent distended bladder though cannot definitively exclude other cystic lesion within the pelvis. Recommend clinical correlation and follow-up studies to assess for interval changes Electronically Signed: Jacob Santiago MD at 16:41 EST ,
--- OUTSIDE RECORDS SUMMARY | 2023-08-05 15:00 | XMS RPT_ITS | CCD ---
Author Name Unknown Address [address] [place] [address] Organization [facility] Care Team Providers Care Fishing Accessories Maker Name Role Phone Chidi Lazo Unavailable Unavailable NoreenFabienne head Unavailable Alexandrea Zelaya Unavailable Teena Ortiz Unavailable Unavailable Elba Jackson Unavailable Unavailable Unavailable Primary Care Provider Unavailabl e Medications Current Medications Medication Drug Class(es) Dates Sig (Normalized) Sig (Original) nitrofurantoin, macrocrystals 25 mg / nitrofurantoin, monohydrate 75 mg oral capsule (1 source) Nitrofuran Antibacterial Start: 02-16-2022 End: 02-21-2022 take 1 capsule by mouth twice daily nitrofurantoin monohydrate and macrocrystal (MACROBID) 100 mg capsule Indications: Leukocytes in urine Take 1 capsule by mouth twice daily for 5 days. 10 capsule 0 02/16/2022 02/21/2022 Active Completed/Discontinued Medications Medication Drug Class(es) Dates Sig (Normalized) Sig (Original) metFORMIN hydrochloride 500 mg oral tablet (1 source) Biguanide take 1 tablet by once daily at breakfast metFORMIN (GLUCOPHAGE) 500 mg tablet Take 500 mg by mouth daily with breakfast. 0 Active Problems Active Problems Problem Classification Problem Date Documented Da te Episodic/Chronic Genitourinary symptoms and ill-defined conditions (3 sources) Leukocytes in urine; Translations: [Other abnormal findings in urine] Episodic Residual codes; unclassified (4 sources) Requires diphtheria, tetanus and pertussis vaccination; Translations: [Need for Tdap vaccination (Renamed from Need for diphtheria-tetanus- pertussis (Tdap) vaccine, adult/adolescent)] 02-07-2019 Episodic Unclassified (1 source) Unknown / UNK(Unknown) Onset: 03-14-2017 Past or Other Problems Problem Classification Problem Date Documented Da te Episodic/Chronic Tuberculosis (14 sources) Tuberculosis Unclassified (1 source) SCREENING TO DETERMINE IMMUNITY Onset: 03-14-2017 Unclassified (6 sources) Tuberculosis screening status; Translations: [Screening for tuberculosis] 02-07-2019 Unclassified (2 sources) Results Test Name Value Interpretation Reference Range Facil ity Vital Signs Date Time Vital Sign Value Performing Clinician Faci lity 02-16-2022 11:10-0400 Body height 177.8 cm Lorie Wormald PA-C Work Phone: [facility] 02-16-2022 11:10-0400 Body temperature 98.6 [degF] Lorie Wormald PA-C Work Phone: [facility] 02-16-2022 11:10-0400 Body weight 109.77 kg Lorie Wormald PA-C Work Phone: [facility] 02-16-2022 11:10-0400 Diastolic blood pressure 70 mm[Hg] Lorie Wormald PA-C Work Phone: [facility] 02-16-2022 11:10-0400 Heart rate 70 /min Lorie Wormald PA-C Work Phone: [facility] 02-16-2022 11:10-0400 Respiratory rate 16 /min Lorie Wormald PA-C Work Phone: [facility] 02-16-2022 11:10-0400 SaO2% (BldA) [Mass fraction] 97 % Lorie Wormald PA-C Work Phone: [facility] 02-16-2022 11:10-0400 Systolic blood pressure 110 mm[Hg] Lorie Wormald PA-C Work Phone: [facility] Encounters Encounter Date Encounter Type Care Provider Facility Start: 02-16-2022 End: 02-16-2022 Patient encounter procedure Lorie Earnest Wormald PA-C Work Phone: [facility] Procedures Date Procedure Procedure Detail Performing Clinician Start: 02-16-2022 Urnls dip stick/tabl et rgnt auto w/o microscopy [facility] Provider Plan of Treatment Date Care Activity Detail Author Start: 04-01-2022 Influenza vaccination INFLUENZA (#1) [facility] Start: 02-07-2019 Skin test tuberculos is intradermal PPD (00382) [facility] Work Phone: Payers Date Payer Category Payer Unknown RICHAR[employer]ON [employer]AE PPO [id number] 2020-Present [phone] [address] [place] [address] PPO [id number] 2016 Unknown [id number] Unknown [place] BC/BS Social History Date Type Detail Facility Start: 02-16-2022 Tobacco smoking stat [facility] Never smoked tobacco [facility] Start: 02-16-2022 Tobacco use and exposure Smoke less tobacco non-user [facility] Start: 1995 Sex Assigned At Not on file C [facility] Start: 02-06-2022 End: 02-16-2022 Exposure to SARS-CoV-2 (event) Not sure [facility] Progress note 02-16-2022 Note Date & Type Note Facility 02-16-2022 Note HNO ID: [id number] Author: Lorie Baires PA-C Service: ? Author Type: Physician Supervisor Grips Type: Progress Notes Filed: 02/16/2022 11:24 AM Note Text: Subjective Chelita Romero is a 27 year old female with no significant past medical history who presents to [facility] today for evaluation of urinary urgency and malodorous urine x3 days. She denies any fevers, sweats, chills, nausea, vomiting, abdominal pain, or flank pain. Review of Systems Constitutional: Negative for chills, diaphoresis and fever. Gastrointestinal: Negative for abdominal pain, constipation, diarrhea, nausea and vomiting. Genitourinary: Positive for urgency. Negative for difficulty urinating, dysuria, flank pain and frequency. Malodorous urine All other systems reviewed and are negative. Objective BP 110/70 Pulse 70 Temp 37 ?C (98.6 ?F) (Temporal) Resp 16 Ht 177.8 cm (5' 10 ) Wt 109.8 kg (242 lb) LMP 01/17/2022 SpO2 97% BMI 34.72 kg/m? Physical Exam Vitals reviewed. Constitutional: General: She is not in acute distress. Appearance: Normal appearance. She is normal weight. She is not ill-appearing. Comments: The patient appears to be non-toxic, in no acute distress, and resting comfortably on a chair. HENT: Head: Normocephalic and atraumatic. Cardiovascular: Rate and Rhythm: Normal rate and regular rhythm. Heart sounds: Normal heart sounds. No murmur heard. No gallop. Pulmonary: Effort: Pulmonary effort is normal. No respiratory distress. Breath sounds: Normal breath sounds. No wheezing. Abdominal: General: Bowel sounds are normal. There is no distension. Palpations: Abdomen is soft. There is no mass. Tenderness: There is no abdominal tenderness. There is no right CVA tenderness, left CVA tenderness, guarding or rebound. Musculoskeletal: General: Normal range of motion. Cervical back: Normal range of motion. Skin: General: Skin is warm. Findings: No erythema or rash. Neurological: General: No focal deficit present. Mental Status: She is alert and oriented to person, place, and time. Mental status is at baseline. Psychiatric: Mood and Affect: Mood normal. Behavior: Behavior normal. Thought Content: Thought content normal. Assessment and Plan UA consistent with urinary tract infection. Urine culture obtained. Results discussed with patient. Patient counseled regarding suspected diagnosis and given a prescription for Macrobid. Patient advised to follow-up with her primary care provider as needed for any new or worsening symptoms. ASSESSMENT/PLAN: 1. Leukocytes in urine - ICD9: 791.7, ICD10: R82.998 (primary diagnosis) - URINE CULTURE - NITROFURANTOIN MONOHYDRATE AND MACROCRYSTAL 100 MG ORAL CAP 2. Urinary frequency - ICD9: 788.41, ICD10: R35.0 3. Abnormal urine odor - ICD9: 791.9, ICD10: R82.90 Medical Decision Making: Problems: Low: Acute, uncomplicated illness or injury Risk: Minimal: Minimal risk from testing/treatment Moderate: Drug management Medical Decision Making Level: 3 - Low I spent a total of 20 minutes on the date of the service which included preparing to see the patient, [id number] patient care, completing clinical documentation, performing a medically appropriate examination, counseling and educating the patient/family/caregiver and ordering medications, tests, or procedures. [facility]-16-[facility]22 Patient Instructions Note Date & Type Note Facility 02-16-2022 Instructions Lorie Baires PA-C - 02/16/2022 11:17 AM EDT Images from the original note were not included. Urinary Problem-When to Seek Help? Symptoms of a urinary problem may lead to a bladder infection. Women are at greater risk of a urinary tract infection than are men. Most urinary tract infections in women are caused by bacteria and involve the lower urinary tract including the bladder and urethra. Symptoms: Pain or burning when passing urine, urgency, frequency, blood in the urine, difficult emptying your bladder, and lower abdominal fullness or pressure. Common Causes: Sexual intercourse, menopause, constipation, uncontrolled diabetes, dehydration and feminine products such as tampons, and kidney stones. When to Get Help: Seek medical attention if you get frequent bladder infections, urinary concerns such as leakage, blood in the urine or frequent need to urinate. You may be recommended to get help from a specialist, such as a urologist. Diagnosis & Treatment: Lab testing may include: urinalysis, and urine culture that can be collected in the lab or walk-in clinic. Most bladder infections can easily be treated. A physician, nurse practitioner or physician assistant bookkeeper may treat with a short course of an antibiotic. Delaying treatment can lead to worsening symptoms, like a kidney infection. Self-Care: Avoid a full bladder, bubble baths, bath oils, food and beverages that may irritate the bladder such as caffeine. Avoid spermicide foam and diaphragms Void before and after sexual intercourse Wipe front to back after using the bathroom. Stay hydrated Stop Smoking Follow-up Care: Follow up testing is not needed in healthy young women if symptoms resolve. documented in this encounter [facility] History of Present illness Narrative 02-16-2022 Lorie Baires PA-C - 02/16/2022 11:02 AM EDT Note Date & Type Note Facility 02-16-2022 History of Presen t illness Narrative Subjective Chelita Romero is a 27 year old female with no significant past medical history who presents to [facility] today for evaluation of urinary urgency and malodorous urine x3 days. She denies any fevers, sweats, chills, nausea, vomiting, abdominal pain, or flank pain. Review of Systems Constitutional: Negative for chills, diaphoresis and fever. Gastrointestinal: Negative for abdominal pain, constipation, diarrhea, nausea and vomiting. Genitourinary: Positive for urgency. Negative for difficulty urinating, dysuria, flank pain and frequency. Malodorous urine All other systems reviewed and are negative. Objective BP 110/70 Pulse 70 Temp 37 C (98.6 F) (Temporal) Resp 16 Ht 177.8 cm (5' 10 ) Wt 109.8 kg (242 lb) LMP 01/17/2022 SpO2 97% BMI 34.72 kg/m Physical Exam Vitals reviewed. Constitutional: General: She is not in acute distress. Appearance: Normal appearance. She is normal weight. She is not ill-appearing. Comments: The patient appears to be non-toxic, in no acute distress, and resting comfortably on a chair. HENT: Head: Normocephalic and atraumatic. Cardiovascular: Rate and Rhythm: Normal rate and regular rhythm. Heart sounds: Normal heart sounds. No murmur heard. No gallop. Pulmonary: Effort: Pulmonary effort is normal. No respiratory distress. Breath sounds: Normal breath sounds. No wheezing. Abdominal: General: Bowel sounds are normal. There is no distension. Palpations: Abdomen is soft. There is no mass. Tenderness: There is no abdominal tenderness. There is no right CVA tenderness, left CVA tenderness, guarding or rebound. Musculoskeletal: General: Normal range of motion. Cervical back: Normal range of motion. Skin: General: Skin is warm. Findings: No erythema or rash. Neurological: General: No focal deficit present. Mental Status: She is alert and oriented to person, place, and time. Mental status is at baseline. Psychiatric: Mood and Affect: Mood normal. Behavior: Behavior normal. Thought Content: Thought content normal. Assessment and Plan UA consistent with urinary tract infection. Urine culture obtained. Results discussed with patient. Patient counseled regarding suspected diagnosis and given a prescription for Macrobid. Patient advised to follow-up with her primary care provider as needed for any new or worsening symptoms. ASSESSMENT/PLAN: 1. Leukocytes in urine - ICD9: 791.7, ICD10: R82.998 (primary diagnosis) - URINE CULTURE - NITROFURANTOIN MONOHYDRATE & MACROCRYSTAL 100 MG ORAL CAP 2. Urinary frequency - ICD9: 788.41, ICD10: R35.0 3. Abnormal urine odor - ICD9: 791.9, ICD10: R82.90 Medical Decision Making: Problems: Low: Acute, uncomplicated illness or injury Risk: Minimal: Minimal risk from testing/treatment Moderate: Drug management Medical Decision Making Level: 3 - Low I spent a total of 20 minutes on the date of the service which included preparing to see the patient, [id number] patient care, completing clinical documentation, performing a medically appropriate examination, counseling and educating the patient/family/caregiver and ordering medications, tests, or procedures. documented in this encounter [facility] Evaluation note Note Date & Type Note Facility documented in this encounter [facility] Summary Purpose Family History No Family History Records FoundNo Family History Records Found Advance Directives No Advanced Directives Records FoundNo Advanced Directives Records Found Additional Source Comments INFORMATION SOURCE (unrecogn ized section and content) DATE CREATED AUTHOR AUTHOR'S ORGANIZ ATION 02/19/2022 [facility] Source Comments (unrecognize d section and content) In the event this informatio n is protected by the Federal Confidentiality of Alcohol and Drug Abuse Patient Records regulations: The Federal rules restrict any use of the information to criminally investigate or prosecute any alcohol or drug abuse patient.[facility] Reason for Visit (unrecogniz ed section and content) FOR RECORDS PERTAINING TO PATIENTS WHO ARE OR HAVE BEEN ENROLLED IN A CHEMICAL DEPENDENCY/SUBSTANCEABUSE PROGRAM, SOME INFORMATION MAY BE OMITTED. This clinical summary was aggregated from multiple sources. Caution should be exercised in using it in the provision of clinical care. This summary normalizes information from multiple sources, and as a consequence, information in this document may materially change the coding, format and clinical context of patient data. In addition, data may be omitted in some cases. CLINICAL DECISIONS SHOULD BE BASED ON THE PRIMARY CLINICAL RECORDS. [facility] [employer] [facility]. provides no warranty or guarantee of the accuracy or completeness of information in this document.
== END | disposition home or self-care (01) ==
PROVIDERS: Referring Provider Nurse Practitioner Women's Health; Visit Provider Nurse Practitioner Women's Health
DX: O09.90 Supervision of high risk pregnancy, unspecified, unspecified trimester (principal); Z3A.00 Weeks of gestation of pregnancy not specified
CPT/HCPCS: 76816; 87081

== ENCOUNTER → 2023-08-23 | Outpatient (CLI) | payer OTHER, SELFPAY ==
--- NOTE | 2023-08-23 18:27 | US_ITS ---
STUDY: OBSTETRICAL ULTRASOUND - BIOPHYSICAL PROFILE REASON FOR EXAM: Female, 28 years old WELL BEING LMP: Unknown. PRIOR ULTRASOUND: None. TECHNIQUE: Transabdominal TECHNICAL QUALITY: Adequate. FINDINGS: There is a single intrauterine fetus. The fetus is in a cephalic presentation. There is demonstrated cardiac activity with a heart rate of 180 bpm. There is a normal amniotic fluid volume. The largest amniotic fluid pocket measures 6.2 cm. The amniotic fluid index (JESÚS) is 15.1 cm. The placenta is anterior in location and is not low lying. There are Grade 3 placental changes. age by prior US: 40 weeks, 0 days. DOMITILA by prior US: August 23, 2023. BIOPHYSICAL PROFILE: Breathing Movements (FBM): 2 Gross Body Movements (GBM): 2 Tone (FT): 2 Amniotic Fluid Volume (AFV): 2 TOTAL SCORE: 8 / 8 US/Biophysical Prof W/O Non Stres IMPRESSION: Normal biophysical profile of 8/8. Electronically Signed: Zeus Salas MD at 19:11 EST ,
--- OUTSIDE RECORDS SUMMARY | 2023-08-23 18:27 | XMS RPT_ITS | CCD ---
Author Name Unknown Address [address] [place] [address] Organization [facility] Care Team Providers Care Oil Well Driller Name Role Phone Chidi Lazo Unavailable Unavailable NoreenFabienne head Unavailable Itzel Zelayaeen Unavailable Teena Ortiz Unavailable Unavailable Elba Jackson Unavailable Unavailable Unavailable Primary Care Provider DEJA Villavicencio Attending Unavailable MARISSA BAEZA Referring MARISSA Sood Primary Care UnavailMARISSA Cervantes Referring Unavailabl MARISSA Sellers Primary Care UnavailDEJA Taylor Attending Unavailable Medications Current Medications Medication Drug Class(es) Dates [...] 177.8 cm Lorie Wormald PA-C Work Phone: [facility] 02-16-2022 11:10-0400 Body temperature 98.6 [degF] Lorie Wormald PA-C Work Phone: [facility] 02-16-2022 11:10-0400 Body weight 109.77 kg Lorie Wormald PA-C Work Phone: [facility] 02-16-2022 11:10-0400 Diastolic blood pressure 70 mm[Hg] Lorie Wormald PA-C Work Phone: [facility] 02-16-2022 11:10-0400 Heart rate 70 /min Lorie Wormald PA-C Work Phone: [facility] 02-16-2022 11:10-0400 Respiratory rate 16 /min Lorie Wormald PA-C Work Phone: [facility] 02-16-2022 11:10-0400 SaO2% (BldA) [Mass fraction] 97 % Lorie Wormald PA-C Work Phone: [facility] 02-16-2022 11:10-0400 Systolic blood pressure 110 mm[Hg] Lorie Wormald PA-C Work Phone: [facility] Encounters Encounter Date Encounter Type Care Provider Facility Start: 08-10-2023 End: 08-10-2023 ambulatory DEJA YOUNG [facility] Start: 02-16-2022 End: 02-16-2022 Patient encounter procedure Lorie Baires PA-C Work Phone: [facility] Procedures Date Procedure Procedure Detail Performing Clinician Start: 02-16-2022 Urnls dip stick/tabl et rgnt auto w/o microscopy [facility] Provider Plan of Treatment Date Care Activity Detail Author Start: 04-01-2022 Influenza vaccination INFLUENZA (#1) [facility] Start: 02-07-2019 Skin test tuberculos is intradermal PPD (97939) [facility] Work Phone: Payers Date Payer Category Payer Unknown RICHARDSON SALAZAR SS PPO [id number] 2020-Present [phone] [address] [place] [address] PPO [id number] 2016 Unknown [id number] 1997 Unknown [id number] 1997 Unknown [id number] Unknown [employer] BC/BS Unknown [id number] Social History Date Type Detail Facility Start: 02-16-2022 [facility] Start: 02-16-2022 Tobacco use and exposure Smoke less tobacco non-user [facility] Start: 1995 Sex Assigned At Not on file C [facility] Start: 02-06-2022 End: 02-16-2022 Exposure to SARS-CoV-2 (event) Not sure [facility] Progress note 02-16-2022 Note Date & Type Note Facility 02-16-2022 Note HNO ID: [id number] Author: Lorie Baires PA-C Service: ? Author Type: Physician Cigar Machine Feeder Type: Progress Notes Filed: 02/16/2022 11:24 AM Note Text: Subjective Chelita Romero is a 27 year old female with no significant past medical history who presents to [facility] today for evaluation of urinary urgency and [...] which included preparing to see the patient, [id number] patient care, completing clinical documentation, performing a medically appropriate examination, counseling and educating the patient/family/caregiver and ordering medications, tests, or procedures. [facility] Instructions 02-16-2022 Patient Instructions Note Date & [...] treated. A physician, nurse practitioner or physician equity sales assistant may treat with a short course of [...] if symptoms resolve. documented in this encounter [facility] History of Present illness Narrative 02-16-2022 Lorie Baires PA-C - 02/16/2022 11:02 AM EDT Note Date & Type Note Facility 02-16-2022 History of Presen t illness Narrative Subjective Chelita Romero is a 27 year old female with no significant past medical history who presents to [facility] today for evaluation of urinary urgency and [...] which included preparing to see the patient, [id number]-rz-kjgs patient care, completing clinical documentation, performing a medically appropriate examination, counseling and educating the patient/family/caregiver and ordering medications, tests, or procedures. documented in this encounter [facility] Evaluation note Note Date & Type Note Facility documented in this encounter [facility] Summary Purpose Family History No Family History Records FoundNo Family History Records FoundNo Family History Records Found Advance Directives No Advanced Directives Records FoundNo Advanced Directives Records FoundNo Advanced Directives Records Found Additional Source Comments INFORMATION SOURCE (unrecogn ized section and content) DATE CREATED AUTHOR AUTHOR'S ORGANIZ ATION 02/19/2022 [facility] DATE CREATED AUTHOR AUTHOR'S ORGANIZ ATION 08/13/2023 [facility] Source Comments (unrecognize d section and content) In the event this informatio n is protected by the Federal Confidentiality of Alcohol and Drug Abuse Patient Records regulations: The Federal rules restrict any use of the information to criminally investigate or prosecute any alcohol or drug abuse patient.[facility] Reason for Visit (unrecogniz ed section and [...] BE BASED ON THE PRIMARY CLINICAL RECORDS. [facility] [employer] [facility]. provides no warranty or guarantee of the accuracy or completeness of information in this document.
== END | disposition home or self-care (01) ==
PROVIDERS: Visit Provider Obstetrics & Gynecology
DX: Z34.90 Encounter for supervision of normal pregnancy, unspecified, unspecified trimester (principal); Z3A.00 Weeks of gestation of pregnancy not specified
CPT/HCPCS: 76819

== ENCOUNTER → 2023-08-31 | Outpatient (CLI) | payer OTHER, SELFPAY ==
--- NOTE | 2023-08-31 12:51 | US_ITS ---
STUDY: OBSTETRICAL ULTRASOUND - BIOPHYSICAL PROFILE REASON FOR EXAM: Female, 28 years old pyelectasis LMP: November 25, 2022. PRIOR ULTRASOUND: Comparison is made with prior study dated August 23, 2023. TECHNIQUE: Transabdominal TECHNICAL QUALITY: Adequate. FINDINGS: There is a single intrauterine fetus. The fetus is in a cephalic presentation. There is demonstrated cardiac activity with a heart rate of 126 bpm. There is a normal amniotic fluid volume. The largest amniotic fluid pocket measures 6.4 cm. The amniotic fluid index (JESÚS) is 17.3 cm. The placenta is anterior in location and is not low lying. There are Grade 3 placental changes. Age by LMP: 39 weeks, 6 days. DOMITILA by LMP: September 01, 2023. Gender: Female Persistent right renal pelvic dilatation measuring up to 22 mm. The bladder is distended. BIOPHYSICAL PROFILE: Breathing Movements (FBM): 2 Gross Body Movements (GBM): 2 Tone (FT): 2 Amniotic Fluid Volume (AFV): 2 TOTAL SCORE: 8 / 8 US/Biophysical Prof W/O Non Stres IMPRESSION: Normal biophysical profile of 8/8. Persistent right renal pelvis dilatation up to 22 mm. Electronically Signed: Lennox Wilcox MD at 14:38 EST ,
--- OUTSIDE RECORDS SUMMARY | 2023-08-31 13:11 | XMS RPT_ITS | CCD ---
Author Name Unknown Address [address] [place] [address] Organization [facility] Care Team Providers Care Hand Crown Pouncer Name Role Phone Chidi Lazo Unavailable Unavailable [...] 177.8 cm Lorie Wormald PA-C Work Phone: [facility] 02-16-2022 11:10-0400 Body temperature 98.6 [degF] Lorie Wormald PA-C Work Phone: [facility] 02-16-2022 11:10-0400 Body weight 109.77 kg Lorie Wormald PA-C Work Phone: [facility] 02-16-2022 11:10-0400 Diastolic blood pressure 70 mm[Hg] Lorie Wormald PA-C Work Phone: [facility] 02-16-2022 11:10-0400 Heart rate 70 /min Lorie Wormald PA-C Work Phone: [facility] 02-16-2022 11:10-0400 Respiratory rate 16 /min Lorie Wormald PA-C Work Phone: [facility] 02-16-2022 11:10-0400 SaO2% (BldA) [Mass fraction] 97 % Lorie Wormald PA-C Work Phone: [facility] 02-16-2022 11:10-0400 Systolic blood pressure 110 mm[Hg] Lorie Wormald PA-C Work Phone: [facility] Encounters Encounter Date Encounter Type Care Provider Facility Start: 08-10-2023 End: 08-10-2023 ambulatory DEJA YOUNG [facility] Start: 02-16-2022 End: 02-16-2022 Patient encounter procedure Lorie Baires PA-C Work Phone: [facility] Procedures Date Procedure Procedure Detail Performing Clinician Start: 02-16-2022 Urnls dip stick/tabl et rgnt auto w/o microscopy [facility] Provider Plan of Treatment Date Care Activity Detail Author Start: 04-01-2022 Influenza vaccination INFLUENZA (#1) [facility] Start: 02-07-2019 Skin test tuberculos is intradermal PPD (49834) [facility] Work Phone: Payers Date Payer Category Payer Unknown [employer]AR[employer] PPO [id number] 2020-Present [phone] [address] [place] [address] PPO [id number] 2016 Unknown [id number] 1997 Unknown [id number] 1997 Unknown [id number] Unknown Richardson BC/BS Unknown [id number] Social History Date Type Detail Facility Start: [facility]-16-2022 [facility] Start: 02-16-2022 Tobacco use and exposure Smoke less tobacco non-user [facility] Start: 1995 Sex Assigned At Not on file C [facility] Start: 02-06-2022 End: 02-16-2022 Exposure to SARS-CoV-2 (event) Not sure [facility] Progress note 02-16-2022 Note Date & Type Note Facility 02-16-2022 Note HNO ID: [id number] Author: Lorie Baires PA-C Service: ? Author Type: Physician Marshmallow Runner Type: Progress Notes Filed: 02/16/2022 11:24 AM Note Text: Subjective Chelita Romero is a 27 year old female with no significant past medical history who presents to [facility] today for evaluation of urinary urgency [...] which included preparing to see the patient, [id number] patient care, completing clinical documentation, performing a medically appropriate examination, counseling and educating the patient/family/caregiver and ordering medications, tests, or procedures. [facility] Instructions 02-16-2022 Patient Instructions Note Date & [...] treated. A physician, nurse practitioner or physician minister assistant may treat with a short course [...] if symptoms resolve. documented in this encounter [facility] History of Present illness Narrative 02-16-2022 Lorie Baires PA-C - 02/16/2022 11:02 AM EDT Note Date & Type Note Facility 02-16-2022 History of Presen t illness Narrative Subjective Chelita Romero is a 27 year old female with no significant past medical history who presents to [facility] today for evaluation of urinary urgency [...] which included preparing to see the patient, [id number] patient care, completing clinical documentation, performing a medically appropriate examination, counseling and educating the patient/family/caregiver and ordering medications, tests, or procedures. documented in this encounter [facility] Evaluation note Note Date & Type Note Facility documented in this encounter [facility] Summary Purpose Family History No Family History Records FoundNo Family History Records FoundNo Family History Records Found Advance Directives No Advanced Directives Records FoundNo Advanced Directives Records FoundNo Advanced Directives Records Found Additional Source Comments INFORMATION SOURCE (unrecogn ized section and content) DATE CREATED AUTHOR AUTHOR'S ORGANIZ ATION 02/19/2022 [facility] DATE CREATED AUTHOR AUTHOR'S ORGANIZ ATION 08/13/2023 [facility] Source Comments (unrecognize d section and content) In the event this informatio n is protected by the Federal Confidentiality of Alcohol and Drug Abuse Patient Records regulations: The Federal rules restrict any use of the information to criminally investigate or prosecute any alcohol or drug abuse patient.[facility] Reason for Visit (unrecogniz ed section and [...] BE BASED ON THE PRIMARY CLINICAL RECORDS. [facility] [employer] [facility]. provides no warranty or guarantee of the accuracy or completeness of information in this document.
== END | disposition home or self-care (01) ==
LOC: OPUS 12:51
PROVIDERS: Referring Provider Obstetrics & Gynecology; Visit Provider Obstetrics & Gynecology
DX: O35.EXX0 Maternal care for other (suspected) fetal abnormality and damage, fetal genitourinary anomalies, not applicable or unspecified (principal); Z3A.00 Weeks of gestation of pregnancy not specified
CPT/HCPCS: 76819

== ENCOUNTER 2023-09-04 18:55 | Inpatient (IN) | payer OTHER, SELFPAY ==
--- OUTSIDE RECORDS SUMMARY | 2023-09-04 19:01 | XMS RPT_ITS | CCD ---
Author Name Unknown Address [address] [place] [address] Organization [facility] Care Team Providers Care Sludge Filtration Attendant Name Role Phone Chidi Lazo Unavailable Unavailable [...] 177.8 cm Lorie Wormald PA-C Work Phone: [facility] 02-16-2022 11:10-0400 Body temperature 98.6 [degF] Lorie Wormald PA-C Work Phone: [facility] 02-16-2022 11:10-0400 Body weight 109.77 kg Lorie Wormald PA-C Work Phone: [facility] 02-16-2022 11:10-0400 Diastolic blood pressure 70 mm[Hg] Lorie Wormald PA-C Work Phone: [facility] 02-16-2022 11:10-0400 Heart rate 70 /min Lorie Wormald PA-C Work Phone: [facility] 02-16-2022 11:10-0400 Respiratory rate 16 /min Lorie Wormald PA-C Work Phone: [facility] 02-16-2022 11:10-0400 SaO2% (BldA) [Mass fraction] 97 % Lorie Wormald PA-C Work Phone: [facility] 02-16-2022 11:10-0400 Systolic blood pressure 110 mm[Hg] Lorie Wormald PA-C Work Phone: [facility] Encounters Encounter Date Encounter Type Care Provider Facility Start: 08-10-2023 End: 08-10-2023 ambulatory DEJA YOUNG [facility] Start: 02-16-2022 End: 02-16-2022 Patient encounter procedure Lorie Baires PA-C Work Phone: [facility] Procedures Date Procedure Procedure Detail Performing Clinician Start: 02-16-2022 Urnls dip stick/tabl et rgnt auto w/o microscopy [facility] Provider Plan of Treatment Date Care Activity Detail Author Start: 04-01-2022 Influenza vaccination INFLUENZA (#1) [facility] Start: 02-07-2019 Skin test tuberculos is intradermal PPD (04574) [facility] Work Phone: Payers Date Payer Category Payer Unknown RICHAR[employer]ON SALAZ[employer] SS PPO [id number] 2020-Present [phone] [address] [place] [address] PPO [id number] 2016 Unknown [id number] 1997 Unknown [id number] 1997 Unknown [id number] Unknown Richardson BC/BS Unknown [id number] Social History Date Type Detail Facility Start: 02-16-2022 [facility] Start: 02-16-2022 Tobacco use and exposure Smoke less tobacco non-user [facility] Start: 1995 Sex Assigned At Not on file C [facility] Start: 02-06-2022 End: 02-16-2022 Exposure to SARS-CoV-2 (event) Not sure [facility] Progress note 02-16-2022 Note Date & Type Note Facility 02-16-2022 Note HNO ID: [id number] Author: Lorie Baires PA-C Service: ? Author Type: Physician Shirt Cleaner Type: Progress Notes Filed: 02/16/2022 11:24 AM Note Text: Subjective Chelita Romero is a 27 year old female with no significant past medical history who presents to [facility] today for evaluation of urinary urgency and [...] which included preparing to see the patient, eiiv-[id number] patient care, completing clinical documentation, performing a medically appropriate examination, counseling and educating the patient/family/caregiver and ordering medications, tests, or procedures. [facility] Instructions 02-16-2022 Patient Instructions Note [...] treated. A physician, nurse practitioner or physician registrar assistant may treat with a short course [...] if symptoms resolve. documented in this encounter [facility] History of Present illness Narrative 02-16-2022 Lorie Baires PA-C - 02/16/2022 11:02 AM EDT Note Date & Type Note Facility 02-16-2022 History of Presen t illness Narrative Subjective Chelita Romeor is a 27 year old female with no significant past medical history who presents to [facility] today for evaluation of urinary urgency and [...] which included preparing to see the patient, [id number]-[id number] patient care, completing clinical documentation, performing a medically appropriate examination, counseling and educating the patient/family/caregiver and ordering medications, tests, or procedures. documented in this encounter [facility] Evaluation note Note Date & Type Note Facility documented in this encounter [facility] Summary Purpose Family History No Family History Records FoundNo Family History Records FoundNo Family History Records Found Advance Directives No Advanced Directives Records FoundNo Advanced Directives Records FoundNo Advanced Directives Records Found Additional Source Comments INFORMATION SOURCE (unrecogn ized section and content) DATE CREATED AUTHOR AUTHOR'S ORGANIZ ATION 02/19/2022 [facility] DATE CREATED AUTHOR AUTHOR'S ORGANIZ ATION 08/13/2023 [facility] Source Comments (unrecognize d section and content) In the event this informatio n is protected by the Federal Confidentiality of Alcohol and Drug Abuse Patient Records regulations: The Federal rules restrict any use of the information to criminally investigate or prosecute any alcohol or drug abuse patient.[facility] Reason for Visit (unrecogniz ed section [...] BE BASED ON THE PRIMARY CLINICAL RECORDS. [facility] [employer] [facility]. provides no warranty or guarantee of the accuracy or completeness of information in this document.
[2023-09-04 19:21] VITALS: PULSE 93; O2SAT 98
[2023-09-04 19:23] VITALS: TEMP 36.6
[2023-09-04 19:25] VITALS: BP 146/82; PULSE 100
[2023-09-04 19:42] VITALS: BMI 38.9
[2023-09-04 19:59] LABS: Absolute Lymphocyte Count 2.24 X10^3/uL (0.83-4.51); Absolute Neutrophil Count 9.5 X10^3/uL (2.0-7.7); Basophil# 0.03 X10^3/uL; Basophil% 0.2 % (0-1); Eosinophil# 0.05 X10^3/uL; Eosinophils% 0.4 % (0-5); Hematocrit 33.8 % (37-47); Hemoglobin 11.3 g/dL (12.0-15.0); Lymphocyte # 2.24 X10^3/ul (0.83-4.51); Lymphocyte % 17.7 % (19-41); Mean Corp Hgb Conc 33.4 g/dL (32-36); Mean Corpuscular Hgb 29.4 pg (27.0-32.0); Mean Corpuscular Volume 87.8 fL (81-99); Mean Platelet Vol. 9.7 fl (6.2-12.0); Monocyte# 0.78 X10^3/uL; Monocyte% 6.2 % (0-10); NRBC Flagged by Analyzer 0 % (0-5); Neutrophil # 9.49 X10^3/uL (2.7-7.7); Platelet Count 300 K/mm3 (150-450); RBC Distribution Width CV 13.2 % (11.6-14.6); RBC Distribution Width SD 42.2 fl (35.1-43.9); Red Blood Count 3.85 M/mm3 (4.2-5.4); White Blood Count 12.7 K/mm3 (4.4-11.0)
[2023-09-04 20:31] LABS: Syphilis Antibodies Non-reactive
[2023-09-04] MEDS: 0.9% Normal Saline Single 100 ML IV.SOLN. INTRA-UTER (20:37)
[2023-09-04] MEDS: miSOPROStol 25 MCG TABLET PO (20:45)
[2023-09-04 21:34] VITALS: BP 131/73; PULSE 85; O2SAT 94
[2023-09-05] VITALS (49 sets, daily range): BP systolic 99–137; BP diastolic 57–80; PULSE 69–104; RESP 16; TEMP 36.1–36.9; O2SAT 87–100
[2023-09-05] MEDS: Lactated Ringers 1,000 ML 50 ML IV (00:50)
[2023-09-05] MEDS: Oxytocin 15 Units/NS 250ml 15 UNITS/250 ML IV.SOLN 2 UNITS IV (00:50)
[2023-09-05] MEDS: LACTATED RINGERS 500 ML 999 ML IV ×2 (02:00→06:46)
--- NOTE | 2023-09-05 02:08 | HP.PCM.OB_ITS ---
HPI - General General Date of Admission: 09/04/23 HPI Narrative CHELITA ROMERO, is a 28 F who presents for elective IOL postdates and pyelectasis on ultrasound. Maternal Data Information DOMITILA Calculator Estimated Delivery Date Method Current WG Current Estimate 09/01/23 LMP (Certain) 40w 4d Other Estimates 08/31/23 Ultrasound #1 40w 5d PFSH PFSH Medical History Ectopic PCOS (polycystic ovarian syndrome) Home Medications cholecalciferol (vitamin D3) 125 mcg (5,000 unit) capsule 125 mcg PO DAILY 01/18/23 [History Last Taken 09/04/23] multivit-min no.71-iron fum 28 mg-folate no.1 1 mg-dha 300 mg capsule (PNV- [place]) 1 cap PO 01/18/23 [History Last Taken Unknown] Allergy/AdvReac Type Severity Reaction Status Date / Time No Known Allergies Allergy Verified 09/04/23 19:44 Family History Grandfather CVA (cerebral vascular accident) Grandmother CVA (cerebral vascular accident) Diabetes Other Idiopathic pulmonary fibrosis Social History adopted: No household members: spouse current occupational status: employed current occupation: [employer] pets and animals: Yes (not managing litterbox while ) pets and animals: cat(s) and dog(s) history of recent travel: Yes ([facility] 08/23) out of state: No out of country: Yes sexually active: Yes Smoking Status: Never smoker alcohol intake: never substance use type: does not use well-balanced diet: daily or most days caffeine: No eating out: 1-3 times/week during the past year weight has: remained stable what type of physical activity do you participate in: walking frequency: 1-2 times per week duration: 30-45 minutes/day lindsay/jehovah's witness: Faith seatbelt use: always do you feel safe at home: Yes 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 Date Name GA/Weeks Outcome Route Bth Weight Infant [facility] ectopic Delivery Date: 03/08/22 Last Updated by: Laney Kathleen methotrexate Visit Details Expected Delivery Route/Plan Labor Preferences- CB/BF classes: just breathe class labor support person: Compa labor intervention preferences: none pain management options preferred: epidural cut cord/dad catch: cord yes, catch/maybe : yes PP control planned: discussed, IUD discussed possible routes of delivery and associated risks: discussed possible delivery modalities and possible indications for each including R/B/A of , VAVD, and CS. questions answered. special requests: none Plans Covid status: completed vaccines Flu vaccine: given Tdap vaccine: given Rhogam: NA LARC form signed: yes movement and labor precautions reviewed. Problem list reviewed and updated with the most current plan of care details and appropriate orders placed. Relevant counseling for the gestational age provided. Continue routine care and follow up unless otherwise noted in visit notes/problem list details OB Flowsheet Initial Weight: Not Recorded Date -?-?-?-?-?-?-?-?-?-?-?-?- EGA Weight BP Urine Prot -?-?-?-?-?-?-?-?-?-?-?-?- Glucose FHR FuHt Pres Dilation -?-?-?-?-?-?-?-?-?-?-?-?- Effaced St Visit Note 01/26/23 -?-?-?-?-?-?-?-?-?-?-?-?- 8w 6d 240 lb 2 oz 116/74 -?-?-?-?-?-?-?-?-?-?-?-?- 160 -?-?-?-?-?-?-?-?-?-?-?-?- JV- CRL consiste nt with LMP. NIPT ordered. pt feeling great, no complaints. 02/23/23 -?-?-?-?-?-?-?-?-?-?-?-?- 12w 6d 238 lb 2 oz 119/75 -?-?-?-?-?-?-?-?-?-?-?-?- 140 -?-?-?-?-?-?-?-?-?-?-?-?- LC- no vb/crampi ng. discussed and declines afp. [facility] anatomy ordered. LC- no vb/cramping. its a GI RL!discussed and declines afp. [facility] anatomy ordered. 03/22/23 -?-?-?-?-?-?-?-?-?-?-?-?- 16w 5d 241 lb 110/60 Negative -?-?-?-?-?-?-?-?-?-?-?-?- Negative 151 -?-?-?-?-?-?-?-?-?-?-?-?- MH-No VB or naus ea. Denies concerns. 04/21/23 -?-?-?-?-?-?-?-?-?-?-?-?- 21w 0d 244 lb 4 oz 107/68 Nega tive -?-?-?-?-?-?-?-?-?-?-?-?- Negative 149 -?-?-?-?-?-?-?-?-?-?-?-?- JV- no cramping or lof. ultrasound shows mild right pyelectasis. rpt at 24 weeks. 05/19/23 -?-?-?-?-?-?-?-?-?-?-?-?- 25w 0d 252 lb 6 oz 114/74 Nega tive -?-?-?-?-?-?-?-?-?-?-?-?- Negative 140 26 -?-?-?-?-?-?-?-?-?-?-?-?- KW- no vb/lof/ct x. good fm. repeat US at 28 weeks. 28 week labs next visit 06/07/23 -?-?-?-?-?-?-?-?-?-?-?-?- 27w 5d 257 lb 4 oz 114/70 Nega tive -?-?-?-?-?-?-?-?-?-?-?-?- Negative 142 28 -?-?-?-?-?-?-?-?-?-?-?-?- MH-No VB, LOF. G ood FM. 28 wk labs pending. Larc. 06/27/23 -?-?-?-?-?-?-?-?-?-?-?-?- 30w 4d 263 lb 113/69 Negative -?-?-?-?-?-?-?-?-?-?-?-?- Negative 151 31 -?-?-?-?-?-?-?-?-?-?-?-?- JV- passed 3 hr. no complaints today. tdap today. 07/14/23 -?-?-?-?-?-?-?-?-?-?--?-?- 33w 0d 267 lb 8 oz 115/73 Nega tive -?-?-?-?-?-?-?-?-?-?-?-?- Negative 140 33 Cephalic -?-?-?-?-?-?-?-?-?-?-?-?- SM- no vb lof go od fm no reuglar ctx discussed tail bone pain and supportive care delivery preferences 07/29/23 -?-?-?-?-?-?-?-?-?-?-?-?- 35w 1d 270 lb 2 oz 106/73 Nega tive -?-?--?-?-?-?-?-?-?-?-?-?- Negative 140 36 Cephalic -?-?-?-?-?-?-?-?-?-?-?-?- SM- no vb lof go od fm no regular ctx 08/05/23 -?-?-?-?-?-?-?-?-?-?-?-?- 36w 1d 270 lb 128/83 Negative -?-?-?-?-?-?-?-?-?-?-?-?- Negative 140 37 Cephalic -?-?-?-?-?-?-?-?-?-?-?-?- SM- no vb lof go od fm no regular ctx 08/11/23 -?-?-?-?-?-?-?-?-?-?-?-?- 37w 0d 272 lb 125/79 -?-?-?-?-?-?-?-?-?-?-?-?- 140 39 Cephalic -?-?-?-?-?-?-?-?-?-?-?-?- SM- no vb lof go od fm no regular ctx 08/19/23 -?-?-?-?-?-?-?-?-?-?-?-?- 38w 1d 279 lb 6 oz 126/89 Nega tive -?-?-?-?-?-?-?-?-?-?-?-?- Negative 115 38 Cephalic 1 -?-?-?-?-?-?-?-?-?-?-?-?- 60 -2 KW-no vb/l of/ctx. good fm. modified BPP today. NST. SM scanned JESÚS: KW-no vb/lof/ctx. good fm. m odified BPP today. reactive NST. SM scanned JESÚS: 16 08/24/23 -?-?-?-?-?-?-?-?-?-?-?-?- 38w 6d 278 lb 8 oz 122/77 Nega tive -?-?-?-?-?-?-?-?-?-?-?-?- Negative 130 38 Cephalic 1 -?-?-?-?-?-?-?-?-?-?-?-?- 60 -2 J- membra kenneth stripped and some bloody show resulted in this. no lof or vaginal bleeding spontaneously. yesterday bpp was 03/0808/31/23 -?-?-?-?-?-?-?-?-?-?-?-?- 39w 6d 279 lb 107/71 -?-?-?-?-?-?-?-?-?-?-?-?- 140 Cephalic 1 -?-?-?-?-?-?-?-?-?-?-?-?- 60 -2 J- planni ng IOL tuesday night cytotec and parmar. no complaints. pt had an 8/8 bpp today. NST FHR Rate Baby A Baseline: 140 Variability:: Moderate Accelerations:: 15 x 15 Decelerations:: None NST Reactive:: Yes FHR Category:: Category I Uterine Activity:: irregular ROS Constitutional Constitutional: Reports systems reviewed and no addt'l complaints, except as documented Eyes Eyes: Denies change in vision ENT HEENT: Reports systems reviewed and no addt'l complaints, except as documented; Denies headache(s) Cardiovascular Cardiovascular: Reports systems reviewed and no addt'l complaints, except as documented; Denies chest pain or dyspnea Respiratory/Chest Respiratory/Chest: Reports systems reviewed and no addt'l complaints, except as documented Gastrointestinal Gastrointestinal: Reports systems reviewed and no addt'l complaints, except as documented; Denies abdominal pain Genitourinary Genitourinary: Reports systems reviewed and no addt'l complaints, except as documented, contractions Details: present (irregular) and movement Details: present; Denies dysuria or genital lesions Musculoskeletal Musculoskeletal: Reports systems reviewed and no addt'l complaints, except as documented Neurologic Neurologic: Reports systems reviewed and no addt'l complaints, except as documented Endocrine Endocrinology: Reports systems reviewed and no addt'l complaints, except as documented Vital Signs Vital Signs Vital Signs: 09/04/23 19:21 09/04/23 19:21 09/04/23 19:25 Temperature Temperature Source Pulse Rate 93 Blood Pressure 146/82 H BP Systolic 146 BP Diastolic 82 Pulse Ox 98 09/04/23 19:25 09/04/23 19:23 09/04/23 19:23 Temperature 97.9 F Temperature Source Temporal Pulse Rate 100 Blood Pressure BP Systolic BP Diastolic Pulse Ox 09/04/23 21:34 09/04/23 21:34 09/04/23 21:34 Temperature Temperature Source Pulse Rate 85 Blood Pressure 131/73 H BP Systolic 131 BP Diastolic 73 Pulse Ox 94 09/05/23 00:15 09/05/23 00:15 09/05/23 00:52 Temperature Temperature Source Temporal Pulse Rate 77 Blood Pressure BP Systolic BP Diastolic Pulse Ox 97 09/05/23 00:53 09/05/23 00:53 09/05/23 00:52 Temperature Temperature Source Pulse Rate 78 Blood Pressure 120/68 BP Systolic 120 BP Diastolic 68 Pulse Ox 93 09/05/23 00:52 Temperature 98.5 F Temperature Source Pulse Rate Blood Pressure BP Systolic BP Diastolic Pulse Ox Weight Weight: 279 lb Body Mass Index (BMI) 38.9 Physical Exam Const alert, oriented x3, no apparent distress and healthy appearing HEENT normocephalic and moist oral mucous membranes Head and Scalp: atraumatic Neck full ROM, no lymphadenopathy, supple and thyroid normal General: trachea midline Lymph Lymphatic: no lymphadenopathy noted Chest inspection of chest normal Resp normal respiratory effort Cardio regular rate GI normal to inspection, nondistended, normoactive bowel sounds, soft to palpation and non-tender Inspection: gravid external exam normal Manual OB Exam: estimated gestational size appropriate, presentation cephalic, dilated, effaced and station Extremity normal to inspection General Extremity: Negative for edema Skin no rashes or lesions noted Neuro no focal motor deficits and deep tendon reflexes 2+ bilaterally Motor Exam: strength 5/5 throughout and clonus absent Psych mental status grossly normal Labs Labs Labs: Blood Type O POSITIVE Antibody Screen NEGATIVE Hct 33.8 % (37-47) L Hgb 11.3 g/dL (12.0-15.0) L Obstetrics Ultrasound Syphilis Total Ab Non-reactive Rubella IgG Antibody Reactive (Nonreactive) Hep Bs Antigen Non-Reactive (Nonreactive) Hepatitis C Antibody Non-Reactive (Nonreactive) Chlamydia DNA (LEXII) Negative (Negative) N.gonorrhoeae DNA (LEXII) Negative (Negative) HIV 1&2 Antibody Non-Reactive (Nonreactive) Glucose 1 Hr 50 gm 170 mg/dL (70-140) H Gest Glucose Tolerance MG/DL Assessment & Plan (1) COVID-19 affecting , antepartum: COMMENT: asa 81mg daily, growth US 32 & 36 weeks: 32 wk: 41% (2) Anemia during : COMMENT: add FE (3) Pyelectasis of fetus on ultrasound: COMMENT: possible intermittent obstruction, mild right pyelectasis recommend weekly bpps until delivery. antibiotics after delivery, see MFM consult note for plan for peds after delivery (4) Obesity affecting : QUALIFIERS: Trimester: second trimester Obesity type affecting : unspecified obesity Qualified Code(s): O99.212 - Obesity complicating , second trimester COMMENT: normal 3 hr GTT (5) Supervision of high-risk : QUALIFIERS: Trimester: second trimester Qualified Code(s): O09.92 - Supervision of high risk , unspecified, second trimester COMMENT: [id number], ODMITILA 09/01/23 GIRL! Alicia Compa prefers doc only for delivery (6) : QUALIFIERS: Weeks of gestation: 39 weeks Qualified Code(s): Z3A.39 - 39 weeks gestation of COMMENT: GBS neg, Declined carrier and ntd screening. NIPT LR. anatomy reviewed (7) Encounter for induction of labor: PLAN: Plan Patient presents IOL, plan management for with fb/cytotec then pitocin. Pain management: plans epidural. GBS negative. Management of any complications: see a/p I have reviewed the PFS and made any clinically relevant updates.
--- NOTE | 2023-09-05 02:11 | PCM.PN.BLA ---
Progress Note fb out and cervical change to 5-6 cm current tracing: FHT: 130 min- Moderate variability reactive occasional early decelerations category I tracing [place]: q 2-3 Contractions reviewed tracing abnormalities since last note: no signficiant A/P: arom clear fluid, will obtain epidural
[2023-09-05] MEDS: fentaNYL-bupivacaine (epidural) 100 ML BAG EPIDURAL ×2 (02:51→09:02)
[2023-09-05] MEDS: Ondansetron 4 MG/2 ML Vial IV (06:06)
--- NOTE | 2023-09-05 06:56 | PN_ITS ---
Progress Note pt is sitting up in bed without complaints. epidural in place current tracing: FHT: Moderate variability reactive no decelerations category I tracing [place]: q 2-4 min Contractions cx: per nurse- 7 cm A/P: IOL- progressing well. continue current management
[2023-09-05] MEDS: Lactated Ringers 1,000 ML 200 ML IV (07:30)
[2023-09-05] MEDS: Methylergonovine 0.2 MG/ML Ampul 0.200000000000000011 MG IM (11:00)
--- NOTE | 2023-09-05 11:11 | EX.PCM.OBRPT ---
Assessment & Plan (1) Encounter for induction of labor: (2) COVID-19 affecting , antepartum: COMMENT: asa 81mg daily, growth US 32 & 36 weeks: 32 wk: 41% (3) Anemia during : COMMENT: add FE (4) Pyelectasis of fetus on ultrasound: COMMENT: possible intermittent obstruction, mild right pyelectasis recommend weekly bpps until delivery. antibiotics after delivery, see MFM consult note for plan for peds after delivery (5) Obesity affecting : QUALIFIERS: Trimester: second trimester Obesity type affecting : unspecified obesity Qualified Code(s): O99.212 - Obesity complicating , second trimester COMMENT: normal 3 hr GTT (6) Supervision of high-risk : QUALIFIERS: Trimester: second trimester Qualified Code(s): O09.92 - Supervision of high risk , unspecified, second trimester COMMENT: [id number], DOMITILA 09/01/23 GIRL! Alicia Compa prefers doc only for delivery (7) : QUALIFIERS: Weeks of gestation: 39 weeks Qualified Code(s): Z3A.39 - 39 weeks gestation of COMMENT: GBS neg, Declined carrier and ntd screening. NIPT LR. anatomy reviewed Maternal Data Information DOMITILA Calculator Estimated Delivery Date Method Current WG Current Estimate 09/01/23 LMP (Certain) 40w 4d Other Estimates 08/31/23 Ultrasound #1 40w 5d Final DMOITILA: 09/01/23 Vaginal Delivery Operative Information Date of Procedure: 09/05/23 Pre-Operative Diagnosis: 28 y/o @ 40 weeks 4 days gestation Post-Operative Diagnosis: 28 y/o @ 40 weeks 4 days gestation Surgery / Procedure Performed: Spontaneous Vaginal Delivery Type of Anesthesia: Epidural Drain: Perez to straight drain Estimated Blood Loss: 300cc Time of Delivery: 10:54 Findings Description of Procedure: Patient began pushing and delivered the head in the CALI presentation. The head was delivered atraumatically and a loose nuchal cord ?1 was identified and easily reduced over the 's head. The anterior and posterior shoulders delivered without complication followed by the rest of the and the infant was placed on the maternal abdomen. Delayed cord clamping was employed for approximately 60 seconds. Cord was clamped and cut and gentle traction was applied to the cord and the placenta delivered spontaneously immediately following it was noted to be intact with three-vessel cord. The perineum and vagina were inspected and noted to have a first degree perineal laceration. This was repaired with a 3-0 vicryl rapide suture. EBL was 300cc. Patient and tolerated delivery well. Presentation: Vertex Amniotic Membrane Rupture Type: Spontaneous Amniotic Fluid Description: Clear Placenta Disposition: [facility] Cord Vessel Description: 3 Vessels Cord Entanglement: Around neck x 1, loose Nuchal Cord Compression: Without compression A Gender: Female (1 minute): 8 (5 minute): 9 Delayed Cord Clamping: Yes Post Vaginal Delivery Medications Given After Delivery: IV Pitocin and IM Methergin Laceration: 1st degree Complication Complications: None Multi Select Codes Urinary/Genital Urinary/Genital CPT Codes: 18018 Vaginal Delivery [facility] [place]
--- NOTE | 2023-09-05 11:14 | DCINST_ITS ---
Discharge Instructions Diet Discharge Diet: No restrictions Activity Discharge Activity: Return to Normal Activity, May Not Drive (while taking narcotic pain medications.) and May Shower May resume sexual activity in: 4-6 weeks Dressing / Incision Call your doctor if your incision/area has: Continuous Slow Oozing, Sudden Increased Bleeding, Increased Pain/ Swelling, Increased Redness and Foul Smelling Discharge Follow Up Care Please Follow Up With: Oma Bentley, DO When: Call [phone] to make an appointment with your doctor in 6 weeks. If you had elevated blood pressure or 4th degree laceration, you will need to be seen in 2 weeks. Test Results: Test results from this visit will be discussed in further detail at your follow- up appointment, if applicable. Discharge Plan Admission Admit Date/Time: 09/04/23 18:55 Attending Provider: Oma Bentley Primary Care Provider: Care Physician,No Primary Discharge Orders/Prescriptions Prescriptions: No Action cholecalciferol (vitamin D3) 125 mcg (5,000 unit) capsule 125 mcg PO DAILY PNV-[place] 28-1-300 mg capsule 1 cap PO Referrals / Follow Up: Care Physician,No Primary [Primary Care Provider] -
[2023-09-05] MEDS: Oxytocin 15 Units/NS 250ml 15 UNITS/250 ML IV.SOLN 83 UNITS IV (12:00)
[2023-09-05] MEDS: Ibuprofen 600 MG Tablet PO (13:45)
[2023-09-06 05:09] VITALS: BP 129/65; PULSE 77; RESP 16; TEMP 36.6
[2023-09-06] MEDS: Ibuprofen 600 MG Tablet PO (05:10)
[2023-09-06 07:42] VITALS: BP 119/58; PULSE 76; O2SAT 96
[2023-09-06 07:44] VITALS: BP 119/58; PULSE 75; RESP 16; TEMP 36.1; O2SAT 99
--- NOTE | 2023-09-06 08:32 | PN.OBGYN_ITS ---
Subjective Subjective Patient doing well without complaints. Tolerating PO. Ambulating and voiding without difficulty. Feeding well. Denies chest pain, shortness of breath, calf pain/swelling, fevers, chills, lightheadedness. Objective Data Objective Data Vital Signs: Vital Signs Temp Pulse Resp BP Pulse Ox O2 Del Method 97.0 F L 75 16 119/58 L 99 Room Air 09/06/23 07:44 09/06/23 07:44 09/06/23 07:44 09/06/23 07:44 09/06/23 07:44 09/06/23 07:44 Oxygen Delivery Method Room Air Weight: 279 lb Body Mass Index (BMI) 38.9 Intake & Output: Intake and Output for Last 24 Hours 09/04/23 09/05/23 09/06/23 23:59 23:59 23:59 Intake Total 3004.33 / 3004.33 Output Total 2300 / 2300 Balance 704.33 / 704.33 Lab / Micro Data Attestation: I reviewed the patient's lab results. 09/04/23 19:30 ROS Constitutional Constitutional: Reports systems reviewed and no addt'l complaints, except as documented; Denies anorexia or headache(s) Cardiovascular Cardiovascular: Reports systems reviewed and no addt'l complaints, except as documented; Denies dizziness, dyspnea, nausea or tachypnea Respiratory/Chest Respiratory/Chest: Reports systems reviewed and no addt'l complaints, except as documented; Denies cough, dyspnea, shortness of breath at rest or tachypnea Gastrointestinal Gastrointestinal: Reports systems reviewed and no addt'l complaints, except as documented; Denies abdominal pain, constipation or nausea Genitourinary Genitourinary: Reports systems reviewed and no addt'l complaints, except as documented; Denies burning urination, difficulty urinating, dysuria, urinary frequency or urinary incontinence Musculoskeletal Musculoskeletal: Reports systems reviewed and no addt'l complaints, except as documented Integumentary Integumentary: Reports systems reviewed and no addt'l complaints, except as documented Neurologic Neurologic: Reports systems reviewed and no addt'l complaints, except as doc umented; Denies abnormal speech, dizziness or headache(s) Psychiatric Psychiatric: Reports systems reviewed and no addt'l complaints, except as documented Endocrine Endocrinology: Reports systems reviewed and no addt'l complaints, except as documented Hematologic/Lymphatic Hematologic/Lymphatic: Reports systems reviewed and no addt'l complaints, except as documented Physical Exam Const alert, oriented x3 and no apparent distress Neck full ROM Resp normal respiratory effort, normal air movement and no retractions Effort and Inspection: able to speak in complete sentences and symmetric chest movement GI soft to palpation Bladder / Kidney Exam: bladder normal to palpation Uterus Palpation: uterus fundus firm Extremity normal to inspection and full ROM Psych mental status grossly normal, thought process normal and cooperative Assessment & Plan (1) Vaginal delivery: PLAN: s/p PPD # 1 1. routine post delivery care 2. breast feeding- support given 3. rh positive 4. rubella immune 5. Discharge Home (2) COVID-19 affecting , antepartum: COMMENT: asa 81mg daily, growth US 32 & 36 weeks: 32 wk: 41% (3) Anemia during : COMMENT: add FE (4) Obesity affecting : QUALIFIERS: Trimester: second trimester Obesity type affecting : unspecified obesity Qualified Code(s): O99.212 - Obesity complicating , second trimester COMMENT: normal 3 hr GTT Charges/Coding Multi Select Codes Urinary/Genital Urinary/Genital CPT Codes: No Charge
[2023-09-06 13:15] VITALS: BP 115/70; PULSE 72; RESP 16; TEMP 36.4; O2SAT 99
== END 2023-09-06 14:55 | disposition home or self-care (01) | DRG 807 ==
PROVIDERS: Admitting Provider Obstetrics & Gynecology; Referring Provider Obstetrics & Gynecology; Visit Provider Obstetrics & Gynecology
DX: O48.0 Post-term pregnancy (principal); Z37.0 Single live birth; O35.8XX0 Maternal care for other (suspected) fetal abnormality and damage, not applicable or unspecified; O99.214 Obesity complicating childbirth; O69.81X0 Labor and delivery complicated by cord around neck, without compression, not applicable or unspecified; O70.0 First degree perineal laceration during delivery; O99.02 Anemia complicating childbirth; Z3A.40 40 weeks gestation of pregnancy
CPT/HCPCS: 59025; 59050; 85025; 86780; 86850; 86900; 86901; 99221; J7120; G0378; J2405

== ENCOUNTER → 2023-10-19 | Outpatient (CLI) | payer OTHER, SELFPAY ==
[2023-10-24 19:21] LABS: HPV Reflexed? NOT INDICATED
== END | disposition home or self-care (01) ==
PROVIDERS: Referring Provider Registered Nurse; Visit Provider Registered Nurse
DX: Z12.4 Encounter for screening for malignant neoplasm of cervix (principal)
CPT/HCPCS: 88175; G0145

== ENCOUNTER → 2024-10-10 | Outpatient (CLI) | payer OTHER, SELFPAY ==
[2024-10-10 17:05] LABS: Absolute Lymphocyte Count 2.39 X10^3/uL (0.83-4.51); Absolute Neutrophil Count 5.6 X10^3/uL (2.0-7.7); Basophil# 0.04 X10^3/uL; Basophil% 0.5 % (0-1); Eosinophil# 0.06 X10^3/uL; Eosinophils% 0.7 % (0-5); Hematocrit 39.1 % (37-47); Hemoglobin 13.2 g/dL (12.0-15.0); Lymphocyte # 2.39 X10^3/ul (0.83-4.51); Lymphocyte % 27.9 % (19-41); Mean Corp Hgb Conc 33.8 g/dL (32-36); Mean Corpuscular Hgb 27.9 pg (27.0-32.0); Mean Corpuscular Volume 82.7 fL (81-99); Monocyte# 0.46 X10^3/uL; Monocyte% 5.4 % (0-10); NRBC Flagged by Analyzer 0 % (0-5); Neutrophil # 5.58 X10^3/uL (2.7-7.7); Neutrophil % 65.1 % (47-70); Platelet Count 342 K/mm3 (150-450); RBC Distribution Width CV 12.7 % (11.6-14.6); RBC Distribution Width SD 38.3 fl (35.1-43.9); Red Blood Count 4.73 M/mm3 (4.2-5.4); White Blood Count 8.6 K/mm3 (4.4-11.0)
[2024-10-10 18:33] LABS: Hemoglobin A1c 5.5 % (<=5.6)
[2024-10-10 18:55] LABS: ALB/GLOB Ratio 1.2 RATIO (0.9-2.4); AST(SGOT) 20 U/L (<=31); Alanine Aminotransfer ALT/SGPT 12 U/L (<=34); Albumin, Serum 4.4 g/dL (3.5-5.0); Alkaline Phosphatase 159 U/L (35-104); Anion Gap 13 (5-15); BUN 14 mg/dL (4-19); BUN/Creat Ratio 16.5 RATIO (10-20); Calcium,Total 9.6 mg/dL (7.6-11.0); Carbon Dioxide 23.7 mmol/L (21.0-32.0); Chloride 102 mmol/L (98-108); Cholesterol 155 mg/dL (<=200); Creatinine, Serum 0.82 mg/dL (0.70-1.20); EST Glomerular Filtration Rate 101 (>60); Free T3 3.2 pg/mL (2.18-3.98); Globulin 3.6 g/dL (2.2-4.2); Glucose 81 mg/dL (70-99); High Density Lipoprotein 40 mg/dL; Low Density Lipoprotein Calc. 99 mg/dL; Potassium 4.1 mmol/L (3.3-5.1); Sodium Level 138 mmol/L (133-145); Total Bilirubin 0.35 mg/dL (0.00-1.30); Triglycerides 83 mg/dL; Very Low Density Lipoprotein 17 mg/dL (5-40); Vitamin B12 652 pg/mL (180-914)
[2024-10-12 15:08] LABS: Thyroglobulin Antibody < 1.0 IU/mL (0.0-0.9); Thyroid Peroxidase AB 38 IU/mL (0-34)
== END | disposition home or self-care (01) ==
LOC: VSLAB 16:43
PROVIDERS: PCP Nurse Practitioner Family; Visit Provider Nurse Practitioner Family
DX: E28.2 Polycystic ovarian syndrome (principal); E55.9 Vitamin D deficiency, unspecified; E04.9 Nontoxic goiter, unspecified
CPT/HCPCS: 36415; 80053; 80061; 82306; 82607; 83036; 84443; 84481; 85025; 86376; 86800

== ENCOUNTER → 2024-10-19 | Outpatient (CLI) | payer OTHER, SELFPAY ==
--- NOTE | 2024-10-19 13:38 | US_ITS ---
PROCEDURE: THYROID 10/19/2024 REASON FOR EXAM: 29-year-old female, nontoxic goiter, unspecified. TECHNIQUE: Thyroid ultrasound COMPARISON: None. FINDINGS: Right thyroid lobe measures 5.6 x 2.3 x 1.1 cm. Left thyroid lobe measures 5.7 x 2.0 x 1.3 cm. Isthmus thickness is0.24 cm. Thyroid Size: Normal Background Echotexture: Normal Thyroid Nodules: No suspicious nodules are identified. There are a few bilateral physiologic colloid cysts. US/Thyroid IMPRESSION: NORMAL THYROID ULTRASOUND Reading Location: [facility]
== END | disposition home or self-care (01) ==
PROVIDERS: PCP Nurse Practitioner Family; Referring Provider Nurse Practitioner Family; Visit Provider Nurse Practitioner Family
DX: E04.9 Nontoxic goiter, unspecified (principal)
CPT/HCPCS: 76536

== ENCOUNTER → 2025-01-02 | Outpatient (CLI) | payer OTHER, SELFPAY ==
[2025-01-02 13:08] LABS: Thyroid Stim Hormone (TSH) 0.037 uIU/mL (0.300-4.200)
== END | disposition home or self-care (01) ==
LOC: VSLAB 10:58
PROVIDERS: PCP Nurse Practitioner Family; Visit Provider Nurse Practitioner Family
DX: E06.3 Autoimmune thyroiditis (principal)
CPT/HCPCS: 36415; 84439; 84443

== ENCOUNTER → 2025-04-09 | Outpatient (CLI) | payer OTHER, SELFPAY | END | disposition home or self-care (01) | LOC: PAVLAB 15:15 | PROVIDERS: PCP Nurse Practitioner Family; Referring Provider Internal Medicine Endocrinology, Diabetes & Metabolism; Visit Provider Internal Medicine Endocrinology, Diabetes & Metabolism | DX: E06.3 Autoimmune thyroiditis (principal) | CPT/HCPCS: 36415; 84443; 86376 ==

== ENCOUNTER → 2025-07-08 | Outpatient (CLI) | payer OTHER, SELFPAY ==
[2025-07-08 09:30] LABS: hCG Titer Quant., Serum 40 mIU/mL (<9 non-preg)
== END | disposition home or self-care (01) ==
LOC: LAB 07:25
PROVIDERS: PCP Nurse Practitioner Family; Referring Provider Student in an Organized Health Care Education/Training Program; Visit Provider Student in an Organized Health Care Education/Training Program
DX: N91.1 Secondary amenorrhea (principal)
CPT/HCPCS: 36415; 84702

== ENCOUNTER → 2025-07-10 | Outpatient (CLI) | payer OTHER, SELFPAY ==
--- OUTSIDE RECORDS SUMMARY | 2025-07-10 08:30 | XMS RPT_ITS | CCD ---
Author Organization [facility] Care Team Providers Care Real Estate Development Manager Name Role Phone Clifton Chidi Devi Unavailable Unavailable Fabienne Stiles Unavailable Alexandrea Zelaya Unavailable Teena Ortiz Unavailable Unavailable SlaElba thompson Unavailable Unavailable Unavailable Primary Care Provider Unavailpayton e Dr. Oma Bentley Primary Care Provider Dr. Oma Bentley Attending Provider 1(10 28) Dr. Oma Bentley Referring Provider 1(10 28) Dr. Oma Bentley Primary Care Provider Dr. Oma Bentley Attending Provider 1(10 28) Dr. Oma Bentley Referring Provider 1(10 28) Care Physician, No Primary Primary Care Provider Unavailable Care Physician, No Primary Referring Provider Un available Dr. Claribel Marino Attending Provider 1(330 ) Care Physician, No Primary Primary Care Provider Unavailable Care Physician, No Primary Referring Provider Un available Dr. Claribel Marino Attending Provider 1(330 ) Care Physician, No Primary Primary Care Provider Unavailable Care Physician, No Primary Referring Provider Un available Dr. Oma Bentley Attending Provider 1( 30) JABARI Dao Attending Provider 1(330) Alexy ANDERSON, ALEXIA Prabhakar Attending Provider 1(330 ) Care Physician, No Primary Primary Care Provider Unavailable Care Physician, No Primary Referring Provider Un available Dr. Oma Bentley Attending Provider 1( 30) JABARI Dao Attending Provider [phone] Alexy DEALER RELATIONSHIP MANAGER, DEALER RELATIONSHIP MANAGER-C Vanna Attending Provider 1(330 ) JABARI So Attending Provider 1(330) Care Physician, No Primary Primary Care Provider Unavailable Care Physician, No Primary Referring Provider Un available Dr. Oma Bentlye Attending Provider 1(3 30) Dr. Claribel Marino Attending Provider 1(330 ) Dr. Claribel Marino Referring Provider 1(330 ) Dr. Claribel Marino Other Provider [phone] Care Physician, No Primary Primary Care Provider Unavailable Care Physician, No Primary Referring Provider Un available Alexy DEALER RELATIONSHIP MANAGER, DEALER RELATIONSHIP MANAGER-C Vanna Attending Provider 1(330 ) DEJA YOUNG Attending Unavailable MARCANTHLESLIE, CLARIBEL Gibson Referring Unavailabl e MARCANTHLESLIE, CLARIBEL E Primary Care Unavailabl e MARCANTHLESLIE, CLARIBEL E Referring Unavailabl e MARCANTHONY, CLARIBEL E Primary Care Unavailabl e DEJA YOUNG Attending Unavailable Care Physician, No Primary Primary Care Provider Unavailable Care Physician, No Primary Referring Provider Un available Dr. Oma Bentley Attending Provider 1(3 30) Dr. Oma Bentley Admit Provider Dr. Oma Bentley Referring Provider 1( 30) Dr. Oma Bentley Other Provider Care Physician, No Primary Primary Care Provider Unavailable Care Physician, No Primary Referring Provider Un available Dr. Claribel Marino Attending Provider 1(330 ) JABARI So Attending Provider 1(330) Dr. Oma Bentlye Attending Provider 1(3 30) Dr. Oma Bentley Admit Provider Dr. Oma Bentley Referring Provider 1(3 30) Dr. Oma Bentley Other Provider JABARI Dao Attending Provider Sebastian DEALER RELATIONSHIP MANAGER-C, Heath Primary Care Provider Sebastian DEALER RELATIONSHIP MANAGER-C, Heath Attending Provider Sebastian DEALER RELATIONSHIP MANAGER-C, Heath Referring Provider Sebastian DEALER RELATIONSHIP MANAGER-C, Heath Primary Care Provider Sebastian DEALER RELATIONSHIP MANAGER-C, Heath Attending Provider Sebastian DEALER RELATIONSHIP MANAGER-C, Heath Referring Provider King TAVARES, Dr. Nelson Attending Provider Sebastian DEALER RELATIONSHIP MANAGER-C, Heath Primary Care Physician Sebastian DEALER RELATIONSHIP MANAGER-C, Heath Attending Physician King TAVARES, Dr. Nelson Attending Physician [phone] King TAVARES, Dr. Nelson Referring Provider Dr. Oma Bentley DO Attending Physician Oma Bentley Attending Unavailabl e Sebastian VSC, Heath Referring Unavailable Sebastian VSC, Heath Primary Care Unavailable Sebastian VSC, Heath Primary Care Unavailable Omar Boothe Attending Unavailable Sebastian VSC, Heath Referring Unavailable Sebastian VSC, Heath Primary Care Unavailable Sebastian VSC, Heath Attending Unavailable Sebastian VSC, Heath Primary Care Unavailable Omar Boothe Attending Unavailable Omar Boothe Referring Unavailable Sebastian VSC, Heath Primary Care Unavailable Sebastian VSC, Heath Attending Unavailable Sebastian VSC, Heath Primary Care Unavailable Sebastian VSC, Heath Attending Unavailable Sebastina VSC, Heath Referring Unavailable Medications Current Medications Medication Drug Class(es) Dates Sig (Normalized) Sig (Original) cholecalciferol 0.125 mg oral capsule (20 sources) Vitamin D Start: 04-08-2025 take 1 capsule by mouth once daily Cholecalciferol (Vitamin D3) 125 mcg (5,000 unit) capsule Active 125 ug PO daily April 08, 2025 12:00am Complies with drug therapy Start: 01-04-2025 End: 04-08-2025 take 1 capsule by mouth every week Cholecalciferol (Vitamin D3) 1,250 mcg (50,000 unit) capsule Discontinued 1250 ug PO EVERY WEEK January 04, 2025 12:00am April 08, 2025 9:37am Start: 01-18-2023 End: 01-04-2025 take 1 capsule by mouth once daily Cholecalciferol (Vitamin D3) 125 mcg (5,000 unit) capsule Discontinued 125 ug PO DAILY January 18, 2023 12:00am January 04, 2025 4:44pm Compound Semaglutide (4 sources) Start: 01-04-2025 Compound Semag lutide Active SC January 04, 2025 12:00am Complies with drug therapy Start: 01-04-2025 Compound Semag lutide Active SC January 04, 2025 12:00am letrozole 2.5 mg oral tablet (20 sources) Aromatase Inhibitor Start: 04-29-2025 take 3 tablets by mouth once daily Letrozole (Femara) 2.5 mg tablet Active 2.5 mg PO daily 5 5 2 April 29, 2025 12:00am start on day 3 of menses and take for 5 days Complies with drug therapy Start: 04-29-2025 take 3 tablets by mo uth once daily Letrozole (Femara) 2.5 mg tablet Active 2.5 mg PO daily 5 5 2 April 29, 2025 12:00am start on day 3 of menses and take for 5 days Complies with drug therapy Start: 11-10-2022 End: 03-22-2023 Letrozole Discontinued 7.5 M G PO daily November 10, 2022 12:25pm March 22, 2023 9:04am take 2 daily cycle day 3-7 Start: 10-04-2022 End: 03-22-2023 Letrozole 2.5 mg tablet Disc ontinued 7.5 mg PO daily 15 0 November 10, 2022 12:25pm March 22, 2023 9:04am take 2 daily cycle day 3-7 Start: 10-04-2022 End: 11-10-2022 Letrozole Discontinued 5 MG PO daily October 04, 2022 1:08pm November 10, 2022 12:26pm take 2 daily cycle day 3-7 Start: 09-14-2022 End: 10-04-2022 Letrozole 2.5 mg tablet Disc ontinued 2.5 mg PO daily 5 0 September 14, 2022 1:00am October 04, 2022 1:09pm take one daily cycle day 3-7 levothyroxine sodium 0.025 mg oral tablet (7 sources) l-Thyroxine Start: 04-08-2025 take 1 tablet by mouth once daily Levothyroxine 25 mcg tablet Active 25 ug PO daily April 08, 2025 12:00am Complies with drug therapy Start: 01-04-2025 End: 04-08-2025 take 1 tablet by mouth once daily Levothyroxine (Synthroid) 50 mcg tablet Discontinued 50 ug PO daily January 04, 2025 12:00am April 08, 2025 9:38am medroxyPROGESTERone acetate 5 mg oral tablet (20 sources) Progestin Start: 04-29-2025 take 1 tablet by mouth once daily Medroxyprogesterone (Provera) 5 mg tablet Active 5 mg PO daily 10 April 29, 2025 12:00am Complies with drug therapy Start: 04-29-2025 take 1 tablet by omid th once daily Medroxyprogesterone (Provera) 5 mg tablet Active 5 mg PO daily 10 April 29, 2025 12:00am Complies with drug therapy Start: 10-04-2022 End: 01-18-2023 take 1 tablet by mouth once daily Medroxyprogesterone (Provera) 10 mg tablet Discontinued 10 mg PO DAILY 10 10 October 04, 2022 1:00am January 18, 2023 11:12am Mv-Mins 82-Hmoa-Kpsyr No.1-D gonzalez (Pnv-Borger) 28-1-300 mg capsule (20 sources) Start: 01-18-2023 Mv-Mins 71-Iro n-Folic No.1-Dha (Pnv-Borger) 28-1-300 mg capsule Active 1 NMA PO January 18, 2023 12:00am Complies with drug therapy Start: 01-18-2023 Mv-Mins 71-Iro n-Folic No.1-Dha (Pnv-Borger) 28-1-300 mg capsule Active 1 NMA PO January 18, 2023 12:00am Start: 01-18-2023 take 1 capsule by mouth once M v-Mins 17-Rwjx-Ublee No.1-Dha (Pnv-Borger) 28-1-300 mg capsule Active 1 CAP PO January 18, 2023 12:00am Start: 01-18-2023 take 1 capsule by mouth once M v-Mins 29-Wzti-Iogcd No.1-Dha (Pnv-Borger) 28-1-300 mg capsule Active 1 CAP PO January 17, 2023 11:00pm Start: 01-18-2023 take 1 capsule by mouth once M v-Mins 38-Lxmr-Pybow No.1-Dha (Pnv-Borger) 28-1-300 mg capsule Active CAP PO January 17, 2023 11:00pm Start: 01-18-2023 take 1 capsule by mouth once M v-Mins 45-Ybkl-Ikzkn No.1-Dha (Pnv-Borger) 28-1-300 mg capsule Active CAP PO January 18, 2023 12:00am nitrofurantoin, macrocrystals 25 mg / nitrofurantoin, monohydrate 75 mg oral capsule (1 source) Nitrofuran Antibacterial Start: 02-16-2022 End: 02-21-2022 take 1 capsule by mouth twice daily nitrofurantoin monohydrate and macrocrystal (MACROBID) 100 mg capsule Indications: Leukocytes in urine Take 1 capsule by mouth twice daily for 5 days. 10 capsule 0 02/16/2022 02/21/2022 Active Comment on above: Take 1 capsule by mo [facility] twice daily for 5 days. Completed/Discontinued Medications Medication Drug Class(es) Dates Sig (Normalized) Sig (Original) doxycycline hyclate 100 mg oral capsule (6 sources) Tetracycline-cla ss Drug Start: 08-22-2024 End: 08-27-2024 take 1 capsule by mouth twice daily Doxycycline Hyclate 100 mg capsule Discontinued 100 mg PO TWICE A DAY 10 5 0 August 22, 2024 1:00am August 26, 2024 1:00am August 27, 2024 1:11am Abdominal pain Unspecified abdominal pain Norethindrone-E.Est radiol-Iron (20 sources) Estrogen Start: 03-24-2022 End: 09-14-2022 Norethindrone-E.Est radiol-Iron (Blisovi Fe 08/20 ()) 1 mg-20 mcg (21)/75 mg (7) tablet Discontinued 1 {tbl} PO DAILY 30 March 24, 2022 12:00am September 14, 2022 4:01pm Start: 03-24-2022 End: 09-14-2022 Norethindrone-E.Estradiol-Ir on (Blisovi Fe 08/20 ()) 1 mg-20 mcg (21)/75 mg (7) tablet Discontinued 1 {tbl} PO DAILY March 24, 2022 12:00am September 14, 2022 4:01pm Start: 03-24-2022 End: 09-14-2022 Norethindrone-E.Estradiol-Ir on (Blisovi Fe 08/20 ()) 1 mg-20 mcg (21)/75 mg (7) tablet Discontinued 1 TABLET PO DAILY March 24, 2022 12:00am September 14, 2022 4:01pm Start: 03-24-2022 End: 09-14-2022 Norethindrone-E.Estradiol-Ir on (Blisovi Fe 08/20 ()) 1 mg-20 mcg (21)/75 mg (7) tablet Discontinued 1 TABLET PO DAILY March 23, 2022 11:00pm September 14, 2022 3:01pm Start: 03-24-2022 Norethindrone- E.Estradiol-Iron (Blisovi Fe 08/20 ()) 1 mg-20 mcg (21)/75 mg (7) tablet Active 1 TABLET PO DAILY March 23, 2022 11:00pm Start: 03-24-2022 Norethindrone- E.Estradiol-Iron (Blisovi Fe 08/20 ()) 1 mg-20 mcg (21)/75 mg (7) tablet Active 1 TABLET PO DAILY March 24, 2022 12:00am Start: 06-30-2017 End: 03-24-2022 Norethindrone-E.Estradiol-Ir on (Blisovi 24 Fe Tablet) 1 EACH tablet Discontinued 1 NMA PO DAILY June 30, 2017 1:00am March 24, 2022 2:27pm Start: 06-30-2017 End: 03-24-2022 Norethindrone-E.Estradiol-Ir on (Blisovi 24 Fe Tablet) 1 EACH tablet Discontinued 1 EACH PO DAILY June 30, 2017 12:00am March 24, 2022 1:27pm Start: 06-30-2017 End: 03-24-2022 Norethindrone-E.Estradiol-Ir on (Blisovi 24 Fe Tablet) 1 EACH tablet Discontinued 1 EACH PO DAILY June 30, 2017 1:00am March 24, 2022 2:27pm Start: 06-30-2017 Norethindrone- E.Estradiol-Iron (Blisovi 24 Fe Tablet) 1 EACH tablet Active 1 EACH PO DAILY June 30, 2017 1:00am fluconazole 200 mg oral tablet (7 sources) Azole Antifungal Start: 09-29-2023 End: 01-04-2025 Fluconazole 200 mg tablet Discontinued 200 mg PO DAILY 15 0 September 29, 2023 1:00am January 04, 2025 4:47pm Take 2 tablets PO on day 1 then 1 tablet PO day 2-14 metFORMIN hydrochloride 500 mg oral tablet (1 source) Biguanide take 1 tablet by mouth once daily at breakfast metFORMIN (GLUCOPHAGE) 500 mg tablet Take 500 mg by mouth daily with breakfast. 0 Active Comment on above: Take 500 mg by mouth daily with breakfast. Problems Active Problems Problem Classification Problem Date Documented Date Episodic/Chronic Abdominal pain (20 sources) Pain in pelvis; Translations: [Pelvic and perineal pain] 03-15-2022 Episodic Contraceptive and procreative management (20 sources) Patient encounter status; Translations: [Encounter for fertility testing] 09-19-2022 Episodic Comment on above: HSG 05/10/22 mirena iud placed. f /u in 4-6 weeks Ectopic (20 sources) Ectopic ; Translations: [Unspecified ectopic without intrauterine ] Episodic Comment on above: MTX 8/7, day 4 quant 8/11- 940. repeat day 7. Genitourinary symptoms and ill-defined conditions (3 sources) Leukocytes in urine; Translations: [Other abnormal findings in urine] Episodic Other complications of (19 sources) Maternal obesity complicating , childbirth and the puerperium, antepartum; Translations: [Obesity complicating , unspecified trimester] 02-07-2023 Chronic Comment on above: normal 3 hr GTT Other complications of (20 sources) Obesity complicating , unspecified trimester; Translations: [Obesity complicating , childbirth, or the puerperium, unspecified as to episode of care or not applicable] 02-23-2023 Chronic Other complications of (14 sources) Anemia; Translations: [Anemia complicating , unspecified trimester] 06-07-2023 Chronic Comment on above: add FE Other complications of (20 sources) Anemia complicating , unspecified trimester; Translations: [Anemia of mother, unspecified as to episode of care or not applicable] 06-07-2023 Chronic Other complications of (20 sources) High risk ; Translations: [Supervision of high risk , unspecified, unspecified trimester] 01-18-2023 Episodic Comment on above: [id number], DOMITILA 4 GIRL! Alicia Brandonprefers doc only for delivery Other complications of (20 sources) Supervision of high risk , unspecified, unspecified trimester; Translations: [Supervision of unspecified high-risk ] 01-26-2023 Episodic Other complications of (14 sources) Disease caused by 2019-nCoV; Translations: [Other viral diseases complicating , unspecified trimester] 06-08-2023 Episodic Comment on above: asa 81mg daily, [facility] 32 & 36 weeks: 32 wk: 41% Other complications of (20 sources) Other viral diseases complicating , unspecified trimester; Translations: [Other viral diseases in the mother, antepartum condition or complication] 06-27-2023 Episodic Other endocrine disorders (20 sources) Polycystic ovary syndrome; Translations: [Polycystic ovarian syndrome] 09-19-2022 Chronic Comment on above: counseling and educa tion provided. patient has already been working on weight loss and been successful, add femara x 3 cycles. progesterone level to confirm ovulation. if no after 3 cycles plan SA. Other endocrine disorders (20 sources) Polycystic ovarian syndrome; Translations: [Polycystic ovaries] Onset: 10-18-2024 09-14-2022 Chronic Other female genital disorders (4 sources) H/O: Disorder; Translations: [Personal history of other diseases of the female genital tract] 04-29-2025 Episodic Other and delivery including normal (20 sources) ; Translations: [Encounter for supervision of normal , unspecified, unspecified trimester] 01-18-2023 Episodic Comment on above: GBS neg, Declined ca rrier and ntd screening. NIPT LR. anatomy reviewed Residual codes; unclassified (15 sources) Requires diphtheria, tetanus and pertussis vaccination; Translations: [Encounter for immunization] 02-07-2019 Episodic Comment on above: Given 06/27/23 Residual codes; unclassified (20 sources) ultrasound scan abnormal; Translations: [Pyelectasis of fetus on ultrasound] 05-16-2023 Episodic Comment on above: possible intermitten t obstruction, mild right pyelectasis recommend weekly bpps until delivery. antibiotics after delivery, see MFM consult note for plan for peds after delivery Thyroid disorders (8 sources) Bruno thyroiditis; Translations: [Autoimmune thyroiditis] Onset: 10-25-2024 04-08-2025 Chronic Unclassified (1 source) Unknown / UNK(Unknown) Onset: 03-14-2017 Past or Other Problems Problem Classification Problem Date Documented Da te Episodic/Chronic Tuberculosis (14 sources) Tuberculosis Unclassified (1 source) SCREENING TO DETERMINE IMMUNITY Onset: 03-14-2017 Unclassified (6 sources) Tuberculosis screening status; Translations: [Screening for tuberculosis] 02-07-2019 Unclassified (2 sources) Results Test Name Value Interpretation Reference Range Facility Pool Installer Office Visit Reporton 04-29-2025 Pool Installer Office Visit Report [facility] [address], [address] [place] [address] OFFICE VISIT Date of Service: 04/29/25 MR#: [id number] Acct: [id number] Name: CHELITA ROMERO Rep #: [id number] : 1995 Provider: Dr. Oma Lawrence DO Age/Sex: 30/F [place] [facility] [place] Status: Signed with Addenda ADDENDUM by Dr. Oma Bentley DO on 05/23/25 at 1999 Office Procedure Documentation entered by Oma Bentley DO 05/23/25 20:00: IUD Removal IUD Removal Details: Sign out documentation: Completed. Procedure: Speculum placed in vagina, IUD string visualized and grasped with ring forceps. IUD easily removed in its entirety and patient tolerated well. 05/23/251999 Date Oma Bentley DO cc: * Signed Intake Vital Signs 10/21/23 16:10 04/08/25 09:35 04/29/25 15:18 Height 5 ft 11 in 5 ft 11 in 5 ft 11 in Weight: 205 lb 194 lb 6 oz BMI 28.5 27.1 BP 107/70 130/76 H Blood Pressure Location Lt brachial Position Sitting Pulse 77 Pulse Source Monitor Pulse Oximetry (%) 98 Oxygen Delivery Method room air Intake Visit Reasons: Mirena Removal *copay $20 Chief Complaint: Mirena Removal Home Health Clinical Supervisor Required: No Is patient in pain?: No Allergies No Known Allergies Allergy (Verified 04/29/25 15:16) Medications ???Medication ???Instructions ???Recorded ???Confirmed ???Type multivit-min no.71-iron fum 28 1 cap PO 01/18/23 04/29/25 History mg-folate no.1 1 mg-dha 300 mg capsule (PNV-Borger) Compound Semaglutide subcut 01/04/25 04/29/25 History cholecalciferol (vitamin D3) 125 125 mcg PO QDAY 04/08/25 04/29/25 History mcg (5,000 unit) capsule levothyroxine 25 mcg tablet 25 mcg PO QDAY 04/08/25 04/29/25 H istory letrozole 2.5 mg tablet (Femara) 2.5 mg PO QDAY 5 days #5 tabs 04/0204/29/25 Rx medroxyprogesterone 5 mg tablet 5 mg PO QDAY #10 tabs 04/29/25 Rx (Provera) Post menopausal: No Patient : No : [facility] History Bruno's thyroiditis Thyroid disease Ectopic PCOS (polycystic ovarian syndrome) Family History Grandfather CVA (cerebral vascular accident) Grandmother CVA (cerebral vascular accident) Diabetes Other Idiopathic pulmonary fibrosis Social History adopted: No household members: spouse current occupational status: employed current occupation: [employer] pets and animals: Yes (not managing litterbox while ) pets and animals: cat(s) and dog(s) history of recent travel: Yes ([place] 08/23) out of state: No out of country: Yes sexually active: Yes Smoking Status: Never smoker alcohol intake: never substance use type: does not use well-balanced diet: daily or most days caffeine: No eating out: 1-3 times/week during the past year weight has: remained stable what type of physical activity do you participate in: walking frequency: 1-2 times per week duration: 30-45 minutes/day lindsay/protestant: Buddhist seatbelt use: always do you feel safe at home: Yes 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 Date Name GA/Weeks Outcome Route Bth Weight Infant Gen Labor Lgth Anesthesia Del Locatn Provider FOB 03/08/22 ectopic 09/05/23 Alicia 40 live - full term Female [facility] [place] Delivery Date: 03/08/22 Last Updated by: Laney Kathleen methotrexate HPI Mirena Removal *copay $20 Details: CHELITA ROMERO is a 30 year old who presents for IUD removal. She is ready for baby #2. It took a long time for baby #1 and she wants to skip right to the provera challenge and femara if possible. SHe has lost a significant amount of weight since her last baby however. ROS Const ROS Unobtainable: All systems reviewed are unremarkable except as noted in H Resp Resp: Reports system reviewed and no additional complaints, except as documented; Denies cough GI GI: Reports as per HPI Psych Psych: Reports system reviewed and no additional complaints, except as documented Exam Const General: cooperative, healthy appearing, comfortable and no acute distress Resp Effort Inspection: normal respiratory effort General: bimanual renal exam normal bilaterally External Female Exam: normal appearance of the urethra Urethra: normal appearance of the urethra (more content not included)... Normal [facility] Thyroid Peroxidase ABon 09- THYR PEROX AB 41 IU/mL High 0-34 [facility] Comment on above: Result Comment: Perf ormed at: - [facility] [address] [id number] Exercise Manager: Asa Bateman PhD, Phone: [phone] Performed By: #### L 3300.6750, L500.4050, L100.0100, L501.88564, L501.9520, L503.0106, L506.1001, L500.4100, L501.9985 #### [facility] [address] [place], [place], [id number] Serum or plasma thyroperoxid ase antibody assay (units/volume)Ordered By: Omar Boothe on 04-09-2025 TPO Ab Qn 41 [IU]/mL High 0-34 [facility] Comment on above: Performed at: [address] [id number] Director: Asa Bateman PhD, Phone: [phone] TSH DL <= 0.005 mIU/L QnOrde red By: Omar Boothe on 04-09-2025 TSH Qn 1.570 uIU/mL 0.300-4.200 [facility] Thyroid Stim Hormone (TSH)on 04-09-2025 TSH 1.570 uIU/mL Normal 0.300-4.200 [facility] Comment on above: Performed By: #### L 3300.6750, L500.4050, L100.0100, L501.61189, L501.9520, L503.0106, L506.1001, L500.4100, L501.9985 #### [facility] [address] [place], [place], [id number] Endocrinology Visit Reporton 04-08-2025 Endocrinology Visit Report [facility] [address] [place], [place] [address] OFFICE VISIT Date of Service: 04/08/25 MR#: [id number] Acct: [id number] Name: CHELITA ROMERO Rep #: [id number] : 1995 Provider: Zeynep Ellison Age/Sex: 30/F Location: [facility] [place] Status: Signed Intake Vital Signs 10/21/23 16:10 04/08/25 09:35 Height 5 ft 11 in 5 ft 11 in Weight: 205 lb BMI 28.5 BP 107/70 Blood Pressure Location Lt brachial Position Sitting Pulse 77 Pulse Source Monitor Pulse Oximetry (%) 98 Oxygen Delivery Method room air Intake Visit Reasons: Thyroid Chief Complaint: Thyroid, PCOS Home Health Clinical Supervisor Required: No Accompanied by: Self Is patient in pain?: No Allergies No Known Allergies Allergy (Verified 04/08/25 09:35) Medications ???Medication ???Instructions ???Recorded ???Confirmed ???Type multivit-min no.71-iron fum 28 1 cap PO 01/18/23 04/08/25 History mg-folate no.1 1 mg-dha 300 mg capsule (PNV-Borger) Compound Semaglutide subcut 01/04/25 04/08/25 History cholecalciferol (vitamin D3) 125 125 mcg PO QDAY 04/08/25 04/08/25 History mcg (5,000 unit) capsule levothyroxine 25 mcg tablet 25 mcg PO QDAY 04/08/25 04/08/25 H istory [facility] Medical History (Updated 04/08/25 @ 10:[address] Omar Boothe MD) Bruno's thyroiditis Thyroid disease Ectopic PCOS (polycystic ovarian syndrome) Family History Grandfather CVA (cerebral vascular accident) Grandmother CVA (cerebral vascular accident) Diabetes Other Idiopathic pulmonary fibrosis Social History adopted: No household members: spouse current occupational status: employed current occupation: [employer] pets and animals: Yes (not managing litterbox while ) pets and animals: cat(s) and dog(s) history of recent travel: Yes ([place] 08/23) out of state: No out of country: Yes sexually active: Yes Smoking Status: Never smoker alcohol intake: never substance use type: does not use well-balanced diet: daily or most days caffeine: No eating out: 1-3 times/week during the past year weight has: remained stable what type of physical activity do you participate in: walking frequency: 1-2 times per week duration: 30-45 minutes/day lindsay/protestant: Buddhist seatbelt use: always do you feel safe at home: Yes 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 She delivered a healthy baby in September,: Alicia. After delivery she was unable to lose weight and gained 10 pounds, putting her BMI over 40. She has successfully lost 85 pounds. She is taking semaglutide. Right thyroid lobe measures 5.6 x 2.3 x 1.1 cm. Left thyroid lobe measures 5.7 x 2.0 x 1.3 cm. Isthmus thickness is0.24 cm. Thyroid Size: Normal Background Echotexture: Normal Thyroid Nodules: No suspicious nodules are identified. There are a few bilateral physiologic colloid cysts. In September, TSH 1.19 TPO 38 (34) She was started on levothyroxine 75 mcg in preparation for . In December, TSH 0.037 Levothyroxine was reduced to 25 mcg. She is feeling well. She has IUD, she will have this removed later this year. She will stop semaglutide at that time. ROS Const Constitutional: No fatigue, weakness, weight change or change in appetite Eyes Eyes: No change in vision ENT ENT: No hearing loss, nasal congestion or difficulty swallowing Cardio Cardiology: No chest pain at rest, chest pain with exertion or shortness of breath Musc Musculoskeletal: No numbness Neuro Neurology: No weakness, memory loss or numbness Psych Psychiatric: No change in appetite, No memory loss and No Thoughts of harming yourself/Others Resp Respiratory: No cough or chest congestion Gastro GI: No difficulty swallowing Genitourinary-Female: No burning urination Skin Skin: No itchy eyes or wounds Endo Endocrine: No fatigue or weight change Aller/Imm Allergy/Immunologic: No itchy eyes Assessment and Plan Assessment and Plan (1) Bruno's thyroiditis: Status: Chronic Plan: Low positive TPO. I agree with treating this with levothyroxine prior to . Check labs to see where she is. Repeat TPO as they were low positive. Discussed options and will make decision once labs are resulted. (2) PCOS (polycystic ovarian syndrome): Status: Chronic Plan: Discussed PCOS etiology and ramifications. Discussed use o (more content not included)... Normal [facility] T4 Free Directon 01-02-2025 T4 FREE DIRECT 1.50 ng/dL High 0.76-1.46 [facility] Comment on above: Performed By: #### L 3300.6750, L500.4050, L100.0100, L501.76051, L501.9520, L503.0106, L506.1001, L500.4100, L501.9985 #### [facility] [address] [place], [address] T4 freeOrdered By: Heath garcia on 01-02-2025 Free T4 [Mass/Vol] 1.50 ng/dL High 0.76-1.46 [facility] TSH DL <= 0.005 mIU/L QnOrde red By: Heath Sebastian on 01-02-2025 TSH Qn 0.037 uIU/mL Low 0.300-4.200 [facility] Thyroid Stim Hormone (TSH)on 01-02-2025 TSH 0.037 uIU/mL Low 0.300-4.200 [facility] Comment on above: Performed By: #### L 3300.6750, L500.4050, L100.0100, L501.27424, L501.9520, L503.0106, L506.1001, L500.4100, L501.9985 #### [facility] [address], [place], [id number] Thyroidon 10-19-2024 Thyroid [facility] [address] [place] [address] Thyroid MR#: [id number] Acct: [id number] Name: CHELITA ROMERO Rep #: [id number] : 1995 F 29 From: Gayla Aguirre nd, MD PCP: Heath Sebastian 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 TECHNIQUE: Thyroid ultrasound COMPARISON: None. FINDINGS: Right thyroid lobe measures 5.6 x 2.3 x 1.1 cm. Left thyroid lobe measures 5.7 x 2.0 x 1.3 cm. Isthmus thickness is0.24 cm. Thyroid Size: Normal Background Echotexture: Normal Thyroid Nodules: No suspicious nodules are identified. There are a few bilateral physiologic colloid cysts. US/Thyroid IMPRESSION: NORMAL THYROID ULTRASOUND Reading Location: [facility] CC: ALEXIA Sebastian Demo Coordinator: Signed Normal [facility] Thyroid Antibodieson 025 TG AB < 1.0 Normal 0.0-0.9 [facility] Comment on above: Result Comment: Thyr oglobulin Antibody measured by Michael [place] Methodology It should be noted that the presence of thyroglobulin antibodies may not be pathogenic nor diagnostic, especially at very low levels. The assay corporate compliance manager has found that four percent of individuals without evidence of thyroid disease or autoimmunity will have positive TgAb levels up to 4 IU/mL. Performed at: [address] [id number] Exercise Manager: Asa Bateman PhD, Phone: [phone] Performed By: #### L 3300.6750, L500.4050, L100.0100, L501.60712, L501.9520, L503.0106, L506.1001, L500.4100, L501.9985 #### [facility] [address] [place], [address] THYR PEROX AB 38 IU/mL High 0-34 [facility] Comment on above: Performed By: #### L 3300.6750, L500.4050, L100.0100, L501.37632, L501.9520, L503.0106, L506.1001, L500.4100, L501.9985 #### [facility] [address] [place], [address] Absolute lymphocyte countOrd ered By: Heath Romulo on 10-10-2024 Lymphocytes Auto (Unsp spec) [#/Vol] 2.39 10*3/uL 0.83-4.51 [facility] Absolute neutrophil countOrd ered By: Heath Romulo on 10-10-2024 Neutrophils (Bld) [#/Vol] 5.6 10*3/uL 2.0-7.7 [facility] Anion gap in Serum or Plasma Ordered By: Heath Sebastian on 10-10-2024 Anion gap [Moles/Vol] 13 mmol/L 5- [facility] Automated lymphocyte count a s percentage of total leukocytesOrdered By: Heath Sebastian on 10-10-2024 Lymphocytes/100 WBC Auto (Unsp spec) 27.9 % - [facility] BUN/creatinine ratioOrdered By: Heath Sebastian on 10-10-2024 Urea nitrogen/Creatinine [Mass ratio] 16.5 mg/mg 10- [facility] Basophil percentageOrdered B y: Heath Sebastian on 10-10-2024 Basophils/100 WBC (Bld) 0.5 % 0- [facility] Bilirubin, totalOrdered By: Heath Romulo on 10-10-2024 Bilirubin [Mass/Vol] 0.35 mg/dL 0.00-1.30 [facility] CBC W/Diff, Automatedon 09-29 Absolute Lymph 2.39 X10 3/uL Normal 0.83-4.51 [facility] Comment on above: Performed By: #### L 3300.6750, L500.4050, L100.0100, L501.56431, L501.9520, L503.0106, L506.1001, L500.4100, L501.9985 #### [facility] [address] [place], [address] Absolute Neut 5.6 X10 3/uL Normal 2.0-7.7 [facility] Comment on above: Performed By: #### L 3300.6750, L500.4050, L100.0100, L501.21649, L501.9520, L503.0106, L506.1001, L500.4100, L501.9985 #### [facility] [address] [place], [address] Basophils/100 WBC (Bld) 0.5 % Normal 0-1 [facility] Comment on above: Performed By: #### L 3300.6750, L500.4050, L100.0100, L501.75652, L501.9520, L503.0106, L506.1001, L500.4100, L501.9985 #### [facility] [address] [place], [address] Eosinophils/100 WBC (Bld) 0.7 % Normal 0-5 [facility] Comment on above: Performed By: #### L 3300.6750, L500.4050, L100.0100, L501.74840, L501.9520, L503.0106, L506.1001, L500.4100, L501.9985 #### [facility] [address] [place], [address] Erythrocyte distribution width (RBC) [Ratio] 12.7 % Normal 11.6-14.6 [facility] Comment on above: Performed By: #### L 3300.6750, L500.4050, L100.0100, L501.23764, L501.9520, L503.0106, L506.1001, L500.4100, L501.9985 #### [facility] [address] [place], [address] Hematocrit (Bld) [Volume fraction] 39.1 % Normal 37-47 [facility] Comment on above: Performed By: #### L 3300.6750, L500.4050, L100.0100, L501.03370, L501.9520, L503.0106, L506.1001, L500.4100, L501.9985 #### [facility] [address] [place], [address] Hemoglobin (Bld) [Mass/Vol] 13.2 g/dL Normal 12.0-15.0 [facility] Comment on above: Performed By: #### L 3300.6750, L500.4050, L100.0100, L501.18136, L501.9520, L503.0106, L506.1001, L500.4100, L501.9985 #### [facility] [address] [place], [address] IG% 0.400 Normal 0.0-0.9 [facility] Comment on above: Result Comment: IG% - Immature Granulocytes (promyelocytes, myelocytes and metamyelocytes) > 1% indicates that a LEFT SHIFT is Present. Performed By: #### L 3300.6750, L500.4050, L100.0100, L501.48970, L501.9520, L503.0106, L506.1001, L500.4100, L501.9985 #### [facility] [address] [place], [address] Lymphocytes/100 WBC (Bld) 27.9 % Normal 19-41 [facility] Comment on above: Performed By: #### L 3300.6750, L500.4050, L100.0100, L501.99477, L501.9520, L503.0106, L506.1001, L500.4100, L501.9985 #### [facility] [address] [place], [address] MCH (RBC) [Entitic mass] 27.9 pg Normal 27.0-32.0 [facility] Comment on above: Performed By: #### L 3300.6750, L500.4050, L100.0100, L501.39855, L501.9520, L503.0106, L506.1001, L500.4100, L501.9985 #### [facility] [address] [place], [address] MCHC (RBC) [Mass/Vol] 33.8 g/dL Normal 32-36 [facility] Comment on above: Performed By: #### L 3300.6750, L500.4050, L100.0100, L501.84282, L501.9520, L503.0106, L506.1001, L500.4100, L501.9985 #### [facility] [address] [place], [address] MCV (RBC) [Entitic vol] 82.7 fL Normal 81-99 [facility] Comment on above: Performed By: #### L 3300.6750, L500.4050, L100.0100, L501.02397, L501.9520, L503.0106, L506.1001, L500.4100, L501.9985 #### [facility] [address] [facility] [place], [address] Monocytes/100 WBC (Bld) 5.4 % Normal 0-10 [facility] Comment on above: Performed By: #### L 3300.6750, L500.4050, L100.0100, L501.67068, L501.9520, L503.0106, L506.1001, L500.4100, L501.9985 #### [facility] [address] [facility] [place], [address] Neutrophils/100 WBC (Bld) 65.1 % Normal 47-70 [facility] Comment on above: Performed By: #### L 3300.6750, L500.4050, L100.0100, L501.68785, L501.9520, L503.0106, L506.1001, L500.4100, L501.9985 #### [facility] [address] [place], [address] Nucleated RBC (Bld) [#/Vol] 0 10*3/uL Normal 0-5 [facility] Comment on above: Performed By: #### L 3300.6750, L500.4050, L100.0100, L501.89055, L501.9520, L503.0106, L506.1001, L500.4100, L501.9985 #### [facility] [address] [place], [address] Platelet mean volume (Bld) [Entitic vol] 9.0 fL Normal 6.2-12.0 [facility] Comment on above: Performed By: #### L 3300.6750, L500.4050, L100.0100, L501.25649, L501.9520, L503.0106, L506.1001, L500.4100, L501.9985 #### [facility] [address] [place], [address] Platelets (Bld) [#/Vol] 342 10*3/uL Normal 150-450 [facility] Comment on above: Performed By: #### L 3300.6750, L500.4050, L100.0100, L501.81574, L501.9520, L503.0106, L506.1001, L500.4100, L501.9985 #### [facility] [address] [place], [address] RBC (Bld) [#/Vol] 4.73 10*6/uL Normal 4.2-5.4 [facility] Comment on above: Performed By: #### L 3300.6750, L500.4050, L100.0100, L501.73313, L501.9520, L503.0106, L506.1001, L500.4100, L501.9985 #### [facility] [address] [place], [place], [id number] RDW SD 38.3 fl Normal 35.1-43.9 [facility] Comment on above: Performed By: #### L 3300.6750, L500.4050, L100.0100, L501.01682, L501.9520, L503.0106, L506.1001, L500.4100, L501.9985 #### [facility] [address] [place], [address] WBC (Bld) [#/Vol] 8.6 10*3/uL Normal 4.4-11.0 [facility] Comment on above: Performed By: #### L 3300.6750, L500.4050, L100.0100, L501.21580, L501.9520, L503.0106, L506.1001, L500.4100, L501.9985 #### [facility] [address] [place], [place], [address] Calculated very low density lipoprotein (VLDL) cholesterol measurementOrdered By: Heath Sebastian on 10-10-2024 Calculated very low density lipoprotein (VLDL) cholesterol measurement 17 mg/dL 5-40 [facility] VLDL Cholesterol 17 mg/dL 5-40 [facility] Carbon dioxide, total [Moles /volume] in Central venous bloodOrdered By: Heath Sebastian on 10-10-2024 CO2 [Moles/Vol] 23.7 mmol/L 21.0-32.0 [facility] Chloride assayOrdered By: Monet Sebastian on 10-10-2024 Chloride [Moles/Vol] 102 mmol/L 98-108 [facility] Comprehensive Metabolic Prof ilon 10-10-2024 Albumin [Mass/Vol] 4.4 g/dL Normal 3.5-5.0 [facility] Comment on above: Performed By: #### L 3300.6750, L500.4050, L100.0100, L501.97713, L501.9520, L503.0106, L506.1001, L500.4100, L501.9985 #### [facility] [address] [place], [place], [id number] Albumin/Globulin [Mass ratio] 1.2 {ratio} Normal 0.9-2.4 [facility] Comment on above: Performed By: #### L 3300.6750, L500.4050, L100.0100, L501.39307, L501.9520, L503.0106, L506.1001, L500.4100, L501.9985 #### [facility] [address] [place], [address] ALK PHOS 159 U/L High 35-104 [facility] Comment on above: Performed By: #### L 3300.6750, L500.4050, L100.0100, L501.84067, L501.9520, L503.0106, L506.1001, L500.4100, L501.9985 #### [facility] [address] [place], [place], [id number] ALT [Catalytic activity/Vol] 12 U/L Normal <=34 [facility] Comment on above: Performed By: #### L 3300.6750, L500.4050, L100.0100, L501.96779, L501.9520, L503.0106, L506.1001, L500.4100, L501.9985 #### [facility] [address] [place], [address] AST [Catalytic activity/Vol] 20 U/L Normal <=31 [facility] Comment on above: Performed By: #### L 3300.6750, L500.4050, L100.0100, L501.12968, L501.9520, L503.0106, L506.1001, L500.4100, L501.9985 #### [facility] [address] [place], [address] Bilirubin [Mass/Vol] 0.35 mg/dL Normal 0.00-1.30 [facility] Comment on above: Performed By: #### L 3300.6750, L500.4050, L100.0100, L501.22207, L501.9520, L503.0106, L506.1001, L500.4100, L501.9985 #### [facility] [address] [place], [address] BUN/CRE 16.5 RATIO Normal 10-20 [facility] Comment on above: Performed By: #### L 3300.6750, L500.4050, L100.0100, L501.41163, L501.9520, L503.0106, L506.1001, L500.4100, L501.9985 #### [facility] [address] [place], [address] Calcium [Mass/Vol] 9.6 mg/dL Normal 7.6-11.0 [facility] Comment on above: Performed By: #### L 3300.6750, L500.4050, L100.0100, L501.61975, L501.9520, L503.0106, L506.1001, L500.4100, L501.9985 #### [facility] [address] [place], [address] Chloride [Moles/Vol] 102 mmol/L Normal 98-108 [facility] Comment on above: Performed By: #### L 3300.6750, L500.4050, L100.0100, L501.91721, L501.9520, L503.0106, L506.1001, L500.4100, L501.9985 #### [facility] [address] [place], [place], [id number] CO2 [Moles/Vol] 23.7 mmol/L Normal 21.0-32.0 [facility] Comment on above: Performed By: #### L 3300.6750, L500.4050, L100.0100, L501.06722, L501.9520, L503.0106, L506.1001, L500.4100, L501.9985 #### [facility] [address] [place], [address] Creatinine [Mass/Vol] 0.82 mg/dL Normal 0.70-1.20 [facility] Comment on above: Performed By: #### L 3300.6750, L500.4050, L100.0100, L501.99389, L501.9520, L503.0106, L506.1001, L500.4100, L501.9985 #### [facility] [address] [place], [place], [id number] GAP 13 Normal 5-15 [facility] Comment on above: Performed By: #### L 3300.6750, L500.4050, L100.0100, L501.36504, L501.9520, L503.0106, L506.1001, L500.4100, L501.9985 #### [facility] [address] [place], [address] GFR/1.73 sq M.predicted among non-blacks MDRD (S/P/Bld) [Vol rate/Area] 101 mL/min/{1.73_m2} Normal >60 [facility] Comment on above: Result Comment: mL/m in/1.73m2 CKD-EPI Creatinine Equation (2020) Performed By: #### L 3300.6750, L500.4050, L100.0100, L501.99427, L501.9520, L503.0106, L506.1001, L500.4100, L501.9985 #### [facility] [address] [place], [address] Globulin (S) [Mass/Vol] 3.6 g/dL Normal 2.2-4.2 [facility] Comment on above: Performed By: #### L 3300.6750, L500.4050, L100.0100, L501.45512, L501.9520, L503.0106, L506.1001, L500.4100, L501.9985 #### [facility] [address] [place], [address] Glucose [Mass/Vol] 81 mg/dL Normal 70-99 [facility] Comment on above: Performed By: #### L 3300.6750, L500.4050, L100.0100, L501.49974, L501.9520, L503.0106, L506.1001, L500.4100, L501.9985 #### [facility] [address] [place], [address] Potassium [Moles/Vol] 4.1 mmol/L Normal 3.3-5.1 [facility] Comment on above: Performed By: #### L 3300.6750, L500.4050, L100.0100, L501.26756, L501.9520, L503.0106, L506.1001, L500.4100, L501.9985 #### [facility] [address] [place], [address] Sodium [Moles/Vol] 138 mmol/L Normal 133-145 [facility] Comment on above: Performed By: #### L 3300.6750, L500.4050, L100.0100, L501.86814, L501.9520, L503.0106, L506.1001, L500.4100, L501.9985 #### [facility] [address] [place], [address] T PROT 8.0 g/dL Normal 5.9-8.4 [facility] Comment on above: Performed By: #### L 3300.6750, L500.4050, L100.0100, L501.71070, L501.9520, L503.0106, L506.1001, L500.4100, L501.9985 #### [facility] [address] [place], [address] Urea nitrogen [Mass/Vol] 14 mg/dL Normal 4-19 [facility] Comment on above: Performed By: #### L 3300.6750, L500.4050, L100.0100, L501.26711, L501.9520, L503.0106, L506.1001, L500.4100, L501.9985 #### [facility] [address] [place], [address] Eosinophil percentageOrdered By: Heath Sebastian on 10-10-2024 Eosinophils/100 WBC (Bld) 0.7 % 0-5 [facility] Erythrocyte distribution wid th ratioOrdered By: Heath Sebastian on 10-10-2024 Erythrocyte distribution width (RBC) [Ratio] 12.7 % 11.6-14.6 [facility] Erythrocyte distribution wid th standard deviationOrdered By: Heath Sebastian on 10-10-2024 Erythrocyte distribution width (RBC) [Entitic vol] 38.3 fL 35.1-43.9 [facility] Erythrocyte distribution width (RBC) [Ratio] 38.3 fl 35.1-43.9 [facility] Free T3on 10-10-2024 Free T3 [Mass/Vol] 3.2 pg/mL Normal 2.18-3.98 [facility] Comment on above: Performed By: #### L 3300.6750, L500.4050, L100.0100, L501.90190, L501.9520, L503.0106, L506.1001, L500.4100, L501.9985 #### [facility] [address] [place], [place], [id number] Free D0Ypaebax By: Heath garcia on 10-10-2024 Free T3 [Mass/Vol] 3.2 pg/mL 2.18-3.98 [facility] Free Triiodothyronine (T3) pg/dL 3.2 pg/mL 2.18-3.98 [facility] GFR/1.73 sq M.predicted jasvir g non-blacks MDRD (S/P/Bld) [Vol rate/Area]Ordered By: Heath Sebastian on 10-10-2024 Estimated GFR (MDRD) Non-Af Amer 101 >60 [facility] Comment on above: mL/min/1.73m2 CKD-EP I Creatinine Equation (2020) Glomerular filtration rate ( GFR) estimation/1.73 sq m using serum, plasma, or whole bOrdered By: Heath Sebastian on 10-10-2024 GFR/1.73 sq M.predicted among non-blacks MDRD (S/P/Bld) [Vol rate/Area] 101 mL/min/{1.73_m2} >60 [facility] Comment on above: mL/min/1.73m2 CKD-EP I Creatinine Equation (2020) Hematocrit Auto (Bld) [Volum e fraction]Ordered By: Heath Sebastian on 10-10-2024 Hematocrit (Bld) [Volume fraction] 39.1 % 37-47 [facility] Hemoglobin A1con 10-10-2024 HbA1c (Bld) [Mass fraction] 5.5 % Low <=5.6 [facility] Comment on above: Performed By: #### L 3300.6750, L500.4050, L100.0100, L501.28376, L501.9520, L503.0106, L506.1001, L500.4100, L501.9985 #### [facility] [address] [place], [place], [id number] Hemoglobin A1c percentageOrd ered By: Heath Sebastian on 10-10-2024 HbA1c (Bld) [Mass fraction] 5.5 % Low >5.7 [facility] Hemoglobin measurementOrdere d By: Heath Sebastian on 10-10-2024 Hemoglobin (Bld) [Mass/Vol] 13.2 g/dL 12.0-15.0 [facility] Immature granulocytes/100 WB C Auto (Bld)Ordered By: Heath Sebastian on 10-10-2024 Immature granulocytes/100 WBC (Bld) 0.400 % 0.0-0.9 [facility] Comment on above: IG% - Immature Granu locytes (promyelocytes, myelocytes and metamyelocytes) > 1% indicates that a LEFT SHIFT is Present. L503.0106on 10-10-2024 Cobalamin (Vitamin B12) [Mass/Vol] 652 pg/mL Normal 180-914 [facility] Comment on above: Performed By: #### L 3300.6750, L500.4050, L100.0100, L501.29196, L501.9520, L503.0106, L506.1001, L500.4100, L501.9985 #### [facility] [address] [place], [place], [id number] L506.1001on 10-10-2024 Vitamin D 25-OH 17.0 ng/mL Low 30-100 [facility] Comment on above: Result Comment: [place] min D Status Deficiency: <20 ng/mL (50nmol/L) Insufficiency: 20-30 ng/mL (50-75 nmol/L) Sufficiency: 30-100 ng/mL (75-250 nmol/L) Toxicity: >100 ng/mL (>250 nmol/L) Performed By: #### L 3300.6750, L500.4050, L100.0100, L501.42617, L501.9520, L503.0106, L506.1001, L500.4100, L501.9985 #### [facility] [address] [facility] [place], [place], [id number] LDL calc ser/plasOrdered By: Heath Sebastian on 10-10-2024 Cholesterol in LDL [Mass/Vol] 99 mg/dL [facility] Comment on above: Flomnzjrgq=136-571 m g/dL & Higher Eqxv=900 mg/dL or greater LDL Cholesterol, Calculated 99 mg/dL [facility] Comment on above: Khcrdutxog=622-890 m g/dL & Higher Rwdj=221 mg/dL or greater Laboratory - Chemistry and C hemistry - challengeOrdered By: Heath Sebastian on 10-10-2024 AST [Catalytic activity/Vol] 20 U/L <32 [facility] Lipid Profileon 10-10-2024 CHOL:HDL 3.90 Normal [facility] Comment on above: Performed By: #### L 3300.6750, L500.4050, L100.0100, L501.97887, L501.9520, L503.0106, L506.1001, L500.4100, L501.9985 #### [facility] [address] [place], [address] Cholesterol [Mass/Vol] 155 mg/dL Normal <=200 [facility] Comment on above: Result Comment: Chol esterol level, Desirable <200 mg/dL Borderline high cholesterol 200-239 mg/dL High cholesterol >=240 mg/dL Recommendations of the NCEP Adult Treatment Panel for the following risk-cutoff thresholds for the [place] population. Performed By: #### L 3300.6750, L500.4050, L100.0100, L501.62734, L501.9520, L503.0106, L506.1001, L500.4100, L501.9985 #### [facility] [address] [place], [address] Cholesterol in HDL [Mass/Vol] 40 mg/dL Normal [facility] Comment on above: Result Comment: Judy onal Cholesterol Education Program (NCEP) guidelines: <40 mg/dL: Low HDL-cholesterol (major risk factor for CHD) >= 60 mg/dL: High HDL-cholesterol (negative risk factor for CHD) HDL-cholesterol is affected by a number of factors, e.g. smoking, exercise, hormones, sex and age. Performed By: #### L 3300.6750, L500.4050, L100.0100, L501.72091, L501.9520, L503.0106, L506.1001, L500.4100, L501.9985 #### [facility] [address] [place], [address] Cholesterol in LDL [Mass/Vol] 99 mg/dL Normal [facility] Comment on above: Result Comment: Bord ewiesl=061-505 mg/dL Higher Aiav=266 mg/dL or greater Performed By: #### L 3300.6750, L500.4050, L100.0100, L501.61964, L501.9520, L503.0106, L506.1001, L500.4100, L501.9985 #### [facility] [address] [place], [address] Cholesterol in VLDL [Mass/Vol] 17 mg/dL Normal 5-40 [facility] Comment on above: Performed By: #### L 3300.6750, L500.4050, L100.0100, L501.49097, L501.9520, L503.0106, L506.1001, L500.4100, L501.9985 #### [facility] [address] [place], [address] Triglyceride [Mass/Vol] 83 mg/dL Normal [facility] Comment on above: Result Comment: The drugs N-Acetylcysteine and Metamizole may falsely depress this assay. Normal range: <150 mg/dL Borderline High: 150-199 mg/dL High: 200-499 mg/dL Very High: >500 mg/dL Performed By: #### L 3300.6750, L500.4050, L100.0100, L501.38908, L501.9520, L503.0106, L506.1001, L500.4100, L501.9985 #### [facility] [address] [place], [address] Lymphocytes Auto (Unsp spec) [#/Vol]Ordered By: Heath Sebastian on 10-10-2024 Lymphocytes (Bld) [#/Vol] 2.39 10*3/uL 0.83-4.51 [facility] Lymphocytes/100 WBC Auto (Un sp spec)Ordered By: Heath Sebastian on 10-10-2024 Lymphocytes/100 WBC (Bld) 27.9 % 19-41 [facility] MCV (mean corpuscular volume ) determinationOrdered By: Heath Sebastian on 10-10-2024 MCV (RBC) [Entitic vol] 82.7 fL 81-99 [facility] Mean corpuscular hemoglobin (MCH) determinationOrdered By: Heath Sebastian on 10-10-2024 MCH (RBC) [Entitic mass] 27.9 pg 27.0-32.0 [facility] Mean corpuscular hemoglobin concentration (MCHC) determinationOrdered By: Heath Sebastian on 10-10-2024 MCHC (RBC) [Mass/Vol] 33.8 g/dL 32-36 [facility] Mean platelet volume determi nationOrdered By: Heath Sebastian on 10-10-2024 Platelet mean volume (Bld) [Entitic vol] 9.0 fL 6.2-12.0 [facility] Monocyte percentageOrdered B y: Heath Sebastian on 10-10-2024 Monocytes/100 WBC (Bld) 5.4 % 0-10 [facility] Neutrophil percentageOrdered By: Heath Sebastian on 10-10-2024 Neutrophils/100 WBC (Bld) 65.1 % 47-70 [facility] Nucleated red blood cell per centageOrdered By: Heath Sebastian on 10-10-2024 Nucleated RBC/100 WBC (Bld) [Ratio] 0 % 0-5 [facility] Platelet countOrdered By: Monet Sebastian on 10-10-2024 Platelets (Bld) [#/Vol] 342 10*3/uL 150-450 [facility] Potassium (Unsp spec) [Mass/ Vol]Ordered By: Heath Sebastian on 10-10-2024 Potassium [Moles/Vol] 4.1 mmol/L 3.3-5.1 [facility] Potassium measurement (mass/ volume)Ordered By: Heath Sebastian on 10-10-2024 Potassium (Unsp spec) [Mass/Vol] 4.1 mmol/L 3.3-5.1 [facility] RBC Auto (Bld) [#/Vol]Ordere d By: Heath Sebastian on 10-10-2024 RBC (Bld) [#/Vol] 4.73 10*6/uL 4.2-5.4 [facility] Screening total cholesterol/ high density lipoprotein (HDL) cholesterol ratioOrdered By: Heath Sebastian on 10-10-2024 Cholesterol.total/Chol esterol in HDL [Mass ratio] 3.90 {ratio} [facility] Serum creatinine measurement (mass/volume)Ordered By: Heath Sebastian on 10-10-2024 Creatinine [Mass/Vol] 0.82 mg/dL 0.70-1.20 [facility] Serum globulin measurementOr dered By: Heath Sebastian on 10-10-2024 Globulin (S) [Mass/Vol] 3.6 g/dL 2.2-4.2 [facility] Serum glucose measurement (m ass/volume)Ordered By: Heath Sebastian on 10-10-2024 Glucose [Mass/Vol] 81 mg/dL 70-99 [facility] Serum or plasma alanine linda otransferase (ALT) measurementOrdered By: Heath Sebastian on 10-10-2024 ALT [Catalytic activity/Vol] 12 U/L <35 [facility] Serum or plasma albumin christiane urement (mass/volume)Ordered By: Heath Sebastian on 10-10-2024 Albumin [Mass/Vol] 4.4 g/dL 3.5-5.0 [facility] Serum or plasma albumin/glob ulin mass ratioOrdered By: Heath Sebastian on 10-10-2024 Albumin/Globulin [Mass ratio] 1.2 {ratio} 0.9-2.4 [facility] Serum or plasma alkaline jadon sphatase measurementOrdered By: Heath Sebastian on 10-10-2024 ALP [Catalytic activity/Vol] 159 U/L High 35-104 [facility] Serum or plasma calcium christiane urement (mass/volume)Ordered By: Heath Sebastian on 10-10-2024 Calcium [Mass/Vol] 9.6 mg/dL 7.6-11.0 [facility] Serum or plasma cholesterol in HDL measurement (mass/volume)Ordered By: Heath Sebastian on 10-10-2024 Cholesterol in HDL [Mass/Vol] 40 mg/dL >40 [facility] Comment on above: National Cholesterol Education Program (NCEP) guidelines:<40 mg/dL: Low HDL-cholesterol (major risk factor for CHD)>= 60 mg/dL: High HDL-cholesterol (negative risk factor for CHD)HDL-cholesterol is affected by a number of factors, e.g. smoking, exercise, hormones, sex and age. Serum or plasma cholesterol measurement (mass/volume)Ordered By: Heath Sebastian on 10-10-2024 Cholesterol [Mass/Vol] 155 mg/dL <201 [facility] Comment on above: Cholesterol level, D esirable <200 mg/dLBorderline high cholesterol 200-239 mg/dLHigh cholesterol >=240 mg/dLRecommendations of the NCEP Adult Treatment Panel for the following risk-cutoff thresholds for the [place] population. Serum or plasma thyroperoxid ase antibody assay (units/volume)Ordered By: Heath Sebastian on 10-10-2024 TPO Ab Qn 38 [IU]/mL High 0-34 [facility] Serum or plasma urea nitroge n measurement (mass/volume)Ordered By: Heath Sebastian on 10-10-2024 Urea nitrogen [Mass/Vol] 14 mg/dL 4-19 [facility] Sodium levelOrdered By: Heath Sebastian on 10-10-2024 Sodium [Moles/Vol] 138 mmol/L 133-145 [facility] TPO Ab QnOrdered By: Heath basurto on 10-10-2024 Thyroid Peroxidase Antibodies 38 IU/mL High 0-34 [facility] TSH DL <= 0.005 mIU/L QnOrde red By: Heath Sebastian on 10-10-2024 Thyroid Stimulating Hormone (TSH) 1.190 uIU/mL 0.300-4.200 [facility] TSH Qn 1.190 uIU/mL 0.300-4.200 [facility] Thyroglobulin Ab serumOrdere d By: Heath Sebastian on 10-10-2024 Thyroglobulin Antibody < 1.0 IU/mL 0.0-0.9 [facility] Comment on above: Thyroglobulin Antibo dy measured by Base79MethodologyIt should be noted that the presence of thyroglobulinantibodies may not be pathogenic nor diagnostic, especiallyat very low levels. The assay corporate compliance manager has found thatfour percent of individuals without evidence of thyroiddisease or autoimmunity will have positive TgAb levels upto 4 IU/mL.Performed at: [facility] [id number] Director: Asa Bateman PhD, Phone: [phone] Thyroid Stim Hormone (TSH)on 10-10-2024 TSH 1.190 uIU/mL Normal 0.300-4.200 [facility] Comment on above: Performed By: #### L 3300.6750, L500.4050, L100.0100, L501.52034, L501.9520, L503.0106, L506.1001, L500.4100, L501.9985 #### [facility] [address] [place], [address] Total proteinOrdered By: Mariposa Sebastian on 10-10-2024 Protein [Mass/Vol] 8.0 g/dL 5.9-8.4 [facility] Triglycerides measurementOrd ered By: Heath Sebastian on 10-10-2024 Triglyceride [Mass/Vol] 83 mg/dL <199 [facility] Comment on above: The drugs N-Acetylcy steine and Metamizole may falsely depress this assay. Normal range: <150 mg/dLBorderline High: 150-199 mg/dLHigh: 200-499 mg/dLVery High: >500 mg/dL Vitamin B12 ser/plasOrdered By: Heath Sebastian on 10-10-2024 Cobalamin (Vitamin B12) [Mass/Vol] 652 pg/mL 180-914 [facility] Vitamin D, 25-hydroxyOrdered By: Heath Sebastian on 10-10-2024 Vitamin D 25-Hydroxy 17.0 ng/mL Low 30-100 [facility] Comment on above: Vitamin D StatusDefi ciency: <20 ng/mL (50nmol/L)Insufficiency: 20-30 ng/mL (50-75 nmol/L)Sufficiency: 30-100 ng/mL (75-250 nmol/L)Toxicity: >100 ng/mL (>250 nmol/L) White blood cell (WBC) count Ordered By: Heath Sebastian on 10-10-2024 WBC (Bld) [#/Vol] 8.6 10*3/uL 4.4-11.0 [facility] - Chemistry and C hemistry - challengeon 10-21-2023 HCG ( test) Ql (U) Negative [facility] Cervical or vagninal specime n microscopic examination by cytology stain (reported asOrdered By: Jes Dao on 10-19-2023 Cytology report Cyto stain Doc (Cvx/Vag) Comment . [facility] Comment on above: The Pap smear is a s creening test designed to aid in thedetection of premalignant and malignant conditions of theuterine cervix. It is not a diagnostic procedure andshould not be used as the sole means of detecting cervicalcancer. Both false-positive and false-negative reports dooccur. Laboratory - CytologyOrdered By: Jes Dao on 10-19-2023 Granite Installer Cyto stain Nom (Cvx/Vag) [ID] Comment . [facility] Comment on above: Duke Koenig totechnologist (ASCP) Laboratory - Miscellaneous t estsOrdered By: Jes Dao on 10-19-2023 Service comment (Unsp spec) [Interp] . . [facility] No Panel InformationOrdered By: Jes Dao on 10-19-2023 Human Papillomavirus Screen Comment . [facility] Comment on above: The HPV DNA reflex jemal leyva were not met with this specimenresult therefore, no HPV testing was performed.Performed at: [address] [id number] Director: Yanira Coffey MD, Phone: [phone] Thin prep Papanicolaou smear with manual screeningOrdered By: Jes Dao on 10-19-2023 Thin prep Papanicolaou smear with manual screening Comment . [facility] Comment on above: NEGATIVE FOR INTRAEP ITHELIAL LESION OR MALIGNANCY. This liquid based Th inPrep(R) pap test was screened withthe use of an image guided system. Absolute lymphocyte countOrd ered By: Oma Catherine on 09-04-2023 Lymphocytes Auto (Unsp spec) [#/Vol] 2.24 10*3/uL 0.83-4.51 [facility] Automated lymphocyte count a s percentage of total leukocytesOrdered By: Oma Catherine on 09-04-2023 Lymphocytes/100 WBC Auto (Unsp spec) 17.7 % 19-41 [facility] Basophil percentageOrdered B y: Oma Catherine on 09-04-2023 Basophils/100 WBC (Bld) 0.2 % 0-1 [facility] Eosinophils/100 WBC (Bld) 0.4 % 0-5 [facility] Hemoglobin (Bld) [Mass/Vol] 11.3 g/dL 12.0-15.0 [facility] Monocytes/100 WBC (Bld) 6.2 % 0-10 [facility] Neutrophils (Bld) [#/Vol] 9.5 10*3/uL 2.0-7.7 [facility] Neutrophils/100 WBC (Bld) 75.0 % 47-70 [facility] WBC (Bld) [#/Vol] 12.7 10*3/uL 4.4-11.0 [facility] Determination of erythrocyte mean corpuscular volume (MCV)Ordered By: Oma Catherine on 09-04-2023 MCV (RBC) [Entitic vol] 87.8 fL 81-99 [facility] Erythrocyte distribution wid th ratioOrdered By: Oma Catherine on 09-04-2023 Erythrocyte distribution width (RBC) [Ratio] 13.2 % 11.6-14.6 [facility] Erythrocyte distribution wid th standard deviationOrdered By: Omasuzanne Catherine on 09-04-2023 Erythrocyte distribution width (RBC) [Entitic vol] 42.2 fL 35.1-43.9 [facility] Hematocrit Auto (Bld) [Volum e fraction]Ordered By: Omasuzanne Catherine on 09-04-2023 Hematocrit (Bld) [Volume fraction] 33.8 % 37-47 [facility] Immature granulocytes/100 WB C Auto (Bld)Ordered By: Oma Catherine on 09-04-2023 Immature granulocytes/100 WBC (Bld) 0.500 % 0.0-0.9 [facility] Comment on above: IG% - Immature Granu locytes (promyelocytes, myelocytes and metamyelocytes) > 1% indicates that a LEFT SHIFT is Present. Laboratory - Hematology and Cell countsOrdered By: Oma Catherine on 09-04-2023 MCH (RBC) [Entitic mass] 29.4 pg 27.0-32.0 [facility] MCHC (RBC) [Mass/Vol] 33.4 g/dL 32-36 [facility] Nucleated RBC/100 WBC (Bld) [Ratio] 0 % 0-5 [facility] Platelets (Bld) [#/Vol] 300 10*3/uL 150-450 [facility] Platelet mean volume Aftab-Ec ker (Bld) [Entitic vol]Ordered By: Oma Catherine on 09-04-2023 Platelet mean volume (Bld) [Entitic vol] 9.7 fL 6.2-12.0 [facility] RBC Auto (Bld) [#/Vol]Ordere d By: Oma Catherine on 09-04-2023 RBC (Bld) [#/Vol] 3.85 10*6/uL 4.2-5.4 [facility] Serum Treponema species anti body detectionOrdered By: Oma Catherine on 09-04-2023 Treponema sp Ab Ql (S) Non-Reactive [facility] - Chemistry and C hemistry - challengeon 08-24-2023 Glucose Ql (U) Negative [facility] - Urinalysison Protein Ql (U) Negative [facility] - Chemistry and C hemistry - challengeon 08-19-2023 Glucose Ql (U) Negative [facility] - Urinalysison Protein Ql (U) Negative [facility] Progress Noteon 08-10-2023 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 female, and is at 37w1d Reason for the visit: UTD A2-3 HPI: The patient is her to evaluate UTD A2-3. Chelita denies nausea, vomiting, vaginal bleeding, vaginal discharge, and/or cramping. Review of Systems Constitutional: Negative. HENT: Negative. Eyes: Negative. Respiratory: Negative. Cardiovascular: Negative. Gastrointestinal: Negative. Genitourinary: Negative. Musculoskeletal: Negative. Skin: Negative. Neurological: Negative. Endo/Heme/Allergies: Negative. Psychiatric/Behavioral : Negative. PHYSICAL EXAM: BP 126/75 Pulse 77 Resp 18 Ht 177.8 cm Wt (!) 123.3 kg (271 lb 12.8 oz) LMP 11/25/2022 SpO2 97% BMI 39.00 kg/m Constitutional: General: She is active. HENT: Head: Atraumatic. Eyes: Extraocular Movements: EOM normal. Conjunctiva/sclera: Conjunctivae normal. Pulmonary: Effort: Pulmonary effort is normal. Abdominal: Comments: gravid uterus Musculoskeletal: Normal range of motion. Neurological: Mental Status: She is alert. X 3. Ultrasound report: 1. Single, living IUP at 36w 6d by clinical DOMITILA. 2. There is appropriate interval growth: EFW is 3193 g at 63%. 3. Amniotic fluid volume appeared normal, 18.8 cm. 4. Placenta is normal without evidence of previa. 5. UTD A2-3 is noted. Right kidney: abnormal, 23.5 mm renal pelvis. No hydroureter noted. Left kidney: normal Bladder: large, 66 x 39 x 50 mm 6. Persistent left umbilical vein 7. The rest of the visualized anatomy appears normal, with limitations as noted above. Urinary tract dilation is noted. Evaluation of the urinary tract. - The kidneys are noted to be located in the renal fossa. The renal measurements are in the normal range for the gestational age. The renal arteries are noted. The renal parenchyma has normal echogenicity. No renal cysts are noted. The thickness of the renal parenchyma is normal. . The fatal bladder is visualized and appears normal. The bladder size is in the normal range. The bladder wall is normal. The overall impression is urinary tract dilation UTD A2-3. The differential diagnosis includes: Physiologic renal pelvis dilation, UPJ, reflex, urinary obstruction, aneuploidy, and/or a genetic syndrome. [facility] Plan of Care Diagnosis: UTD A2-3, left UTD A2-3 and large bladder. Possible intermittent bladder neck obstruction. Low risk Cell free DNA aneuploidy screening Plan: 1. Continued obstetrical care with her primary parking garage manager is recommended. 2. Follow up q4 weeks to evaluate biometric parameters and renals. These are planned with the [facility]. 3. surveillance as follows: as clinically indicated. 4. consultation with Pediatric Urology will be arranged. 5. Delivery is appropriate at your local institution. 6. Mode and timing of delivery are based on the usual obstetrical indications. 7. Pediatric provider to determine if additional evaluations are recommended prior to discharge. 8. Amoxicillin prophylaxis, 10 mg/kg per day. 9. Renal ultrasound and consultation with Pediatric Urology within 1 week after . Please call [facility] at [phone]. 10. Possible additional imaging and follow up as per Pediatric Urology. 11. Other follow up as clinically indicated. Chart review and preparation: 10 minutes. Face to face: 20 minutes. Documentation and care coordination: 10 minutes. Total time spent on patient care today: 40 minutes. Normal [facility] Laboratory - Chemistry and C hemistry - challengeon 08-05-2023 Glucose Ql (U) Negative [facility] - Urinalysison Protein Ql (U) Negative [facility] No Panel InformationOrdered By: Claribel Marino on 08-05-2023 Group B Streptococcus Culture Group B Beta Streptococcus is not isolated. [facility] Group B Streptococcus Culture Group B Beta Streptococcus is not isolated. [facility] - Chemistry and C hemistry - challengeon 07-29-2023 Glucose Ql (U) Negative [facility] - Urinalysison Protein Ql (U) Negative [facility] Absolute lymphocyte countOrd ered By: Oma Catherine on 07-14-2023 Lymphocytes Auto (Unsp spec) [#/Vol] 2.72 10*3/uL 0.83-4.51 [facility] Basophil percentageOrdered B y: Oma Catherine on 07-14-2023 Basophils/100 WBC (Bld) 0.4 % 0-1 [facility] Eosinophils/100 WBC (Bld) 0.6 % 0-5 [facility] Neutrophils (Bld) [#/Vol] 7.3 10*3/uL 2.0-7.7 [facility] Neutrophils/100 WBC (Bld) 67.3 % 47-70 [facility] WBC (Bld) [#/Vol] 10.9 10*3/uL 4.4-11.0 [facility] Blood erythrocytes count (nu mber/volume)Ordered By: Oma Catherine on 07-14-2023 RBC (Bld) [#/Vol] 3.64 10*6/uL 4.2-5.4 [facility] Blood hemoglobin measurement (mass/volume)Ordered By: Oma Catherine on 07-14-2023 Hemoglobin (Bld) [Mass/Vol] 10.8 g/dL 12.0-15.0 [facility] Blood lymphocytes/100 leukoc ytesOrdered By: Oma Catherine on 07-14-2023 Lymphocytes/100 WBC (Bld) 25.0 % 19-41 [facility] Blood monocytes/100 leukocyt esOrdered By: Oma Catherine on 07-14-2023 Monocytes/100 WBC (Bld) 6.2 % 0-10 [facility] Blood platelet mean volumeOr dered By: Oma Catherine on 07-14-2023 Platelet mean volume (Bld) [Entitic vol] 9.3 fL 6.2-12.0 [facility] Determination of erythrocyte mean corpuscular volume (MCV)Ordered By: Oma Catherine on 07-14-2023 MCV (RBC) [Entitic vol] 88.5 fL 81-99 [facility] Hematocrit Auto (Bld) [Volum e fraction]Ordered By: Oma Catherine on 07-14-2023 Hematocrit (Bld) [Volume fraction] 32.2 % 37-47 [facility] - Chemistry and C hemistry - challengeon 07-14-2023 Glucose Ql (U) Negative [facility] - Hematology and Cell countsOrdered By: Oma Catherine on 07-14-2023 Erythrocyte distribution width (RBC) [Entitic vol] 40.2 fL 35.1-43.9 [facility] Erythrocyte distribution width (RBC) [Ratio] 12.6 % 11.6-14.6 [facility] Immature granulocytes/100 WBC (Bld) 0.500 % 0.0-0.9 [facility] Comment on above: IG% - Immature Granu locytes (promyelocytes, myelocytes and metamyelocytes) > 1% indicates that a LEFT SHIFT is Present. MCH (RBC) [Entitic mass] 29.7 pg 27.0-32.0 [facility] Nucleated RBC/100 WBC (Bld) [Ratio] 0 % 0-5 [facility] Laboratory - Urinalysison Protein Ql (U) Negative [facility] MCHC Auto (RBC) [Mass/Vol]Or dered By: Oma Catherine on 07-14-2023 MCHC (RBC) [Mass/Vol] 33.5 g/dL 32-36 [facility] Platelets bldOrdered By: Brittney Catherine on 07-14-2023 Platelets (Bld) [#/Vol] 274 10*3/uL 150-450 [facility] - Chemistry and C hemistry - challengeon 06-27-2023 Glucose Ql (U) Negative [facility] - Urinalysison Protein Ql (U) Negative [facility] Quantitative serum or plasma 3 hour gestational glucose tolerance panelOrdered By: Vanna Tracey on 06-13-2023 Glucose tolerance 3 hours gestational panel See comment [facility] Comment on above: FASTING 83 Col: 06/01 10/21 0657GLUCOSE TOLERANCE TEST FOR Reference Interval GESTATIONAL DIABETES Fasting <105 mg/dL 1 hour <190 mg/dl 2 hour <165 mg/dl 3 hour <145 mg/dl 1 HR GLU 162 Col: 06/13/23 0801 2 HR GLU 121 Col: 06/13/23 0859 3 HR GLU 76 Col: 06/13/23 1004 Absolute lymphocyte countOrd ered By: Oma Catherine on 06-07-2023 Lymphocytes Auto (Unsp spec) [#/Vol] 1.60 10*3/uL 0.83-4.51 [facility] Basophil percentageOrdered B y: Oma Catherine on 06-07-2023 Basophils/100 WBC (Bld) 0.3 % 0-1 [facility] Eosinophils/100 WBC (Bld) 0.1 % 0-5 [facility] Neutrophils (Bld) [#/Vol] 7.0 10*3/uL 2.0-7.7 [facility] Neutrophils/100 WBC (Bld) 77.5 % 47-70 [facility] WBC (Bld) [#/Vol] 9.0 10*3/uL 4.4-11.0 [facility] Blood erythrocytes count (nu mber/volume)Ordered By: Oma Catherine on 06-07-2023 RBC (Bld) [#/Vol] 3.50 10*6/uL 4.2-5.4 [facility] Blood hemoglobin measurement (mass/volume)Ordered By: Oma Catherine on 06-07-2023 Hemoglobin (Bld) [Mass/Vol] 10.7 g/dL 12.0-15.0 [facility] Blood lymphocytes/100 leukoc ytesOrdered By: Oma Catherine on 06-07-2023 Lymphocytes/100 WBC (Bld) 17.7 % 19-41 [facility] Blood monocytes/100 leukocyt esOrdered By: Oma Catherine on 06-07-2023 Monocytes/100 WBC (Bld) 4.1 % 0-10 [facility] Blood platelet mean volumeOr dered By: Oma Catherine on 06-07-2023 Platelet mean volume (Bld) [Entitic vol] 9.1 fL 6.2-12.0 [facility] Determination of erythrocyte mean corpuscular volume (MCV)Ordered By: Oma Catherine on 06-07-2023 MCV (RBC) [Entitic vol] 89.1 fL 81-99 [facility] Gestational diabetes screen 1-hour screen with 50g oral glucose loadOrdered By: Oma Catherine on 06-07-2023 Glucose 1 Hr post 50 g glucose PO [Mass/Vol] 170 mg/dL 70-140 [facility] HIV 1 and HIV-2 antibody ass ay with HIV-1 p24 antigen detectionOrdered By: Oma Catherine on 06-07-2023 HIV 1+2 Ab+HIV1 p24 Ag IA Ql Non-Reactive Nonreactive [facility] Hematocrit Auto (Bld) [Volum e fraction]Ordered By: Oma Catherine on 06-07-2023 Hematocrit (Bld) [Volume fraction] 31.2 % 37-47 [facility] Laboratory - Chemistry and C hemistry - challengeon 06-07-2023 Glucose Ql (U) Negative [facility] - Hematology and Cell countsOrdered By: Oma Catherine on 06-07-2023 Erythrocyte distribution width (RBC) [Entitic vol] 41.2 fL 35.1-43.9 [facility] Erythrocyte distribution width (RBC) [Ratio] 12.7 % 11.6-14.6 [facility] Immature granulocytes/100 WBC (Bld) 0.300 % 0.0-0.9 [facility] Comment on above: IG% - Immature Granu locytes (promyelocytes, myelocytes and metamyelocytes) > 1% indicates that a LEFT SHIFT is Present. MCH (RBC) [Entitic mass] 30.6 pg 27.0-32.0 [facility] Nucleated RBC/100 WBC (Bld) [Ratio] 0 % 0-5 [facility] Laboratory - Urinalysison Protein Ql (U) Negative [facility] MCHC Auto (RBC) [Mass/Vol]Or dered By: Oma Catherine on 06-07-2023 MCHC (RBC) [Mass/Vol] 34.3 g/dL 32-36 [facility] Platelets bldOrdered By: Brittney Catherine on 06-07-2023 Platelets (Bld) [#/Vol] 252 10*3/uL 150-450 [facility] Serum Treponema species anti body detectionOrdered By: Oma Catherine on 06-07-2023 Treponema sp Ab Ql (S) Non-Reactive [facility] Laboratory - Chemistry and C hemistry - challengeon 05-19-2023 Glucose Ql (U) Negative [facility] Laboratory - Urinalysison Protein Ql (U) Negative [facility] Laboratory - Chemistry and C hemistry - challengeon 04-21-2023 Glucose Ql (U) Negative [facility] Laboratory - Urinalysison Protein Ql (U) Negative [facility] Laboratory - Chemistry and C hemistry - challengeon 03-22-2023 Glucose Ql (U) Negative [facility] Laboratory - Urinalysison Protein Ql (U) Negative [facility] Culture, urineOrdered By: Benjamín Catherine on 02-16-2023 Bacteria identified Cx Nom (U) Positive [facility] Bacteria identified Cx Nom (U) Positive [facility] Laboratory - Chemistry and C hemistry - challengeon 02-16-2023 Bilirubin Ql (U) Negative [facility] Glucose Ql (U) Negative [facility] Ketones Ql (U) Trace (5) [facility] Specific gravity (U) [Rel density] 1.005 [facility] Urobilinogen (U) [Mass/Vol] Negative [facility] Laboratory - Hematology and Cell countson 02-16-2023 Hemoglobin Ql (U) Negative [facility] Laboratory - Specimen inform ationon 02-16-2023 Clarity (U) Clear [facility] Color (U) Colorless [facility] Laboratory - Urinalysison Nitrite Ql (U) Negative [facility] Protein Ql (U) Negative [facility] No Panel Informationon 02-16 Urine Leukocytes Negatve [facility] Urine Non-Hemolyzed Blood [facility] Absolute lymphocyte countOrd ered By: Oma Catherine on 02-07-2023 Lymphocytes Auto (Unsp spec) [#/Vol] 3.15 10*3/uL 0.83-4.51 [facility] Basophil percentageOrdered B y: Oma Catherine on 02-07-2023 Basophils/100 WBC (Bld) 0.4 % 0-1 [facility] Eosinophils/100 WBC (Bld) 0.8 % 0-5 [facility] Neutrophils (Bld) [#/Vol] 5.2 10*3/uL 2.0-7.7 [facility] Neutrophils/100 WBC (Bld) 57.6 % 47-70 [facility] WBC (Bld) [#/Vol] 9.1 10*3/uL 4.4-11.0 [facility] Blood erythrocytes count (nu mber/volume)Ordered By: Oma Catherine on 02-07-2023 RBC (Bld) [#/Vol] 3.91 10*6/uL 4.2-5.4 [facility] Blood hemoglobin measurement (mass/volume)Ordered By: Oma Catherine on 02-07-2023 Hemoglobin (Bld) [Mass/Vol] 11.5 g/dL 12.0-15.0 [facility] Blood lymphocytes/100 leukoc ytesOrdered By: Oma Catherine on 02-07-2023 Lymphocytes/100 WBC (Bld) 34.8 % 19-41 [facility] Blood monocytes/100 leukocyt esOrdered By: Oma Catherine on 02-07-2023 Monocytes/100 WBC (Bld) 6.1 % 0-10 [facility] Blood platelet mean volumeOr dered By: Oma Catherine on 02-07-2023 Platelet mean volume (Bld) [Entitic vol] 9.7 fL 6.2-12.0 [facility] Determination of erythrocyte mean corpuscular volume (MCV)Ordered By: Oma Catherine on 02-07-2023 MCV (RBC) [Entitic vol] 87.5 fL 81-99 [facility] Gestational diabetes screen 1-hour screen with 50g oral glucose loadOrdered By: Oma Catherine on 02-07-2023 Glucose 1 Hr post 50 g glucose PO [Mass/Vol] 84 mg/dL 70-140 [facility] HIV 1 and HIV-2 antibody ass ay with HIV-1 p24 antigen detectionOrdered By: Oma Catherine on 02-07-2023 HIV 1+2 Ab+HIV1 p24 Ag IA Ql Non-Reactive Nonreactive [facility] Hematocrit Auto (Bld) [Volum e fraction]Ordered By: Oma Catherine on 02-07-2023 Hematocrit (Bld) [Volume fraction] 34.2 % 37-47 [facility] Laboratory - Hematology and Cell countsOrdered By: Oma Catherine on 02-07-2023 Erythrocyte distribution width (RBC) [Entitic vol] 40.0 fL 35.1-43.9 [facility] Erythrocyte distribution width (RBC) [Ratio] 12.5 % 11.6-14.6 [facility] Immature granulocytes/100 WBC (Bld) 0.300 % 0.0-0.9 [facility] Comment on above: IG% - Immature Granu locytes (promyelocytes, myelocytes and metamyelocytes) > 1% indicates that a LEFT SHIFT is Present. MCH (RBC) [Entitic mass] 29.4 pg 27.0-32.0 [facility] Nucleated RBC/100 WBC (Bld) [Ratio] 0 % 0-5 [facility] Auto (RBC) [Mass/Vol]Or dered By: Oma Catherine on 02-07-2023 MCHC (RBC) [Mass/Vol] 33.6 g/dL 32-36 [facility] No Panel InformationOrdered By: Oma Catherine on 02-07-2023 Hepatitis B Surface Antigen Non-Reactive Nonreactive [facility] Hepatitis C Antibody Non-Reactive Nonreactive [facility] Comment on above: Non Reactive: < 0.8 Equivocal: >/= 0.8 to < 1.0 Reactive: >/= 1.0The CDC recommends that a reactive/equivocal HCV antibody result be followed up by the HCV Nucleic Acid Amplificationtest (025433) Miscellaneous Test Comment MAILED SPECIMEN [facility] Rubella IgG Antibody Reactive Nonreactive [facility] Comment on above: Antibody Results Int erpretation of Immune Status Non Reactive Presumed Non-Immune Equivocal Equivocal Reactive Presumed Immune Platelets bldOrdered By: Brittney Catherine on 02-07-2023 Platelets (Bld) [#/Vol] 267 10*3/uL 150-450 [facility] Serum Treponema species anti body detectionOrdered By: Oma Catherine on 02-07-2023 Treponema sp Ab Ql (S) Non-Reactive [facility] Chlamydia trachomatis rRNA d etection by probe and target amplification methodOrdered By: Oma Catherine on 01-26-2023 C. trachomatis rRNA LEXII+probe Ql (Unsp spec) Negative Negative [facility] Culture, urineOrdered By: Benjamín Catherine on 01-26-2023 Bacteria identified Cx Nom (U) Presumptive C albicans [facility] Laboratory - Microbiology an d Antimicrobial susceptibilityOrdered By: Oma Catherine on 01-26-2023 N. gonorrhoeae DNA LEXII+probe Ql (Unsp spec) Negative Negative [facility] Comment on above: Performed at: =[address] [place] [id number] Director: Yanira Coffey MD, Phone: [phone] Serum or plasma choriogonado tropin detectionOrdered By: Dr. Marino on 12-23-2022 HCG ( test) Ql 73 mIU/mL <4 [facility] Comment on above: hCG levels with Gest ational AgeGestational Age hCG mIU/mL (IU/L)0.2 - 1 week 5 - 501-2 weeks 50 - 5002-3 weeks 100 - 97200-7 weeks 500 - 520563-7 weeks 1000 - 803525-5 weeks 06443 - 100,0006-8 weeks 42597 - 200,0002-3 months 10005 - 100,000 Serum or plasma choriogonado tropin detectionOrdered By: Dr. Marino on 12-21-2022 HCG ( test) Ql 26 mIU/mL <4 [facility] Comment on above: hCG levels with Gest ational AgeGestational Age hCG mIU/mL (IU/L)0.2 - 1 week 5 - 501-2 weeks 50 - 5002-3 weeks 100 - 45872-8 weeks 500 - 427453-1 weeks 1000 - 171447-9 weeks 86493 - 100,0006-8 weeks 00152 - 200,0002-3 months 79265 - 100,000 Serum or plasma choriogonado tropin detectionOrdered By: Dr. Marino on 11-23-2022 HCG ( test) Ql < 1 mIU/mL <4 [facility] Comment on above: hCG levels with Gest ational AgeGestational Age hCG mIU/mL (IU/L)0.2 - 1 week 5 - 501-2 weeks 50 - 5002-3 weeks 100 - 53478-1 weeks 500 - 915277-8 weeks 1000 - 147826-4 weeks 44351 - 100,0006-8 weeks 42762 - 200,0002-3 months 50328 - 100,000 Serum or plasma progesterone measurement (mass/volume)Ordered By: Jes Dao on 11-09-2022 Progesterone [Mass/Vol] 1.05 ng/mL See Comment [facility] Comment on above: Progesterone Referen ce Table: UNITS Female: Follicular 0.15 - 1.40 ng/mL Luteal 3.34 - 25.56 ng/mL Mid-luteal 4.44 - 28.03 ng/mL Postmenopausal 0.0 - 0.73 ng/mL : 1st Trimester 11.22 - 90.00 ng/mL 2nd Trimester 25.55 - 89.40 ng/mL 3rd Trimester 48.40 -422.50 ng/mL Serum or plasma progesterone measurement (mass/volume)Ordered By: Dr. Marino on 10-01-2022 Progesterone [Mass/Vol] 0.50 ng/mL See Comment [facility] Comment on above: Progesterone Referen ce Table: UNITS Female: Follicular 0.15 - 1.40 ng/mL Luteal 3.34 - 25.56 ng/mL Mid-luteal 4.44 - 28.03 ng/mL Postmenopausal 0.0 - 0.73 ng/mL : 1st Trimester 11.22 - 90.00 ng/mL 2nd Trimester 25.55 - 89.40 ng/mL 3rd Trimester 48.40 -422.50 ng/mL Serum or plasma choriogonado tropin detectionon 04-06-2022 HCG ( test) Ql 1 mIU/mL <4 [facility] Work Phone: Comment on above: hCG levels with Gest ational AgeGestational Age hCG mIU/mL (IU/L)0.2 - 1 week 5 - 501-2 weeks 50 - 5002-3 weeks 100 - 42912-6 weeks 500 - 569694-7 weeks 1000 - 689294-9 weeks 89178 - 100,0006-8 weeks 09845 - 200,0002-3 months 58626 - 100,000 Serum or plasma choriogonado tropin detectionon 03-29-2022 HCG ( test) Ql 17 mIU/mL <4 [facility] Work Phone: Comment on above: hCG levels with Gest ational AgeGestational Age hCG mIU/mL (IU/L)0.2 - 1 week 5 - 501-2 weeks 50 - 5002-3 weeks 100 - 73002-6 weeks 500 - 310206-1 weeks 1000 - 296522-6 weeks 32167 - 100,0006-8 weeks 61508 - 200,0002-3 months 23511 - 100,000 Serum or plasma choriogonado tropin detectionon 03-22-2022 HCG ( test) Ql 203 mIU/mL <4 [facility] Work Phone: Comment on above: hCG levels with Gest ational AgeGestational Age hCG mIU/mL (IU/L)0.2 - 1 week 5 - 501-2 weeks 50 - 5002-3 weeks 100 - 27041-8 weeks 500 - 721975-6 weeks 1000 - 325823-8 weeks 77825 - 100,0006-8 weeks 04347 - 200,0002-3 months 61758 - 100,000 Serum or plasma choriogonado tropin detectionon 03-14-2022 HCG ( test) Ql 734 mIU/mL <4 [facility] Work Phone: Comment on above: hCG levels with Gest ational AgeGestational Age hCG mIU/mL (IU/L)0.2 - 1 week 5 - 501-2 weeks 50 - 5002-3 weeks 100 - 10586-8 weeks 500 - 668413-6 weeks 1000 - 221565-1 weeks 94234 - 100,0006-8 weeks 22959 - 200,0002-3 months 71891 - 100,000 Serum or plasma choriogonado tropin detectionon 03-11-2022 HCG ( test) Ql 940 mIU/mL <4 [facility] Work Phone: Comment on above: hCG levels with Gest ational AgeGestational Age hCG mIU/mL (IU/L)0.2 - 1 week 5 - 501-2 weeks 50 - 5002-3 weeks 100 - 68590-8 weeks 500 - 782753-6 weeks 1000 - 781424-0 weeks 04217 - 100,0006-8 weeks 94490 - 200,0002-3 months 28588 - 100,000 Absolute lymphocyte counton 03-07-2022 Lymphocytes Auto (Unsp spec) [#/Vol] 2.67 10*3/uL 0.83-4.51 [facility] Work Phone: Basophil percentageon 2021 Basophils/100 WBC (Bld) 0.5 % 0-1 [facility] Work Phone: Bilirubin [Mass/Vol] 0.30 mg/dL 0.20-1.00 [facility] Work Phone: Comment on above: For patients on eltr ombopag therapy, use of Dimension [place] TBIL is not recommended. Chloride [Moles/Vol] 109 mmol/L 98-107 [facility] Work Phone: Eosinophils/100 WBC (Bld) 0.5 % 0-5 [facility] Work Phone: Glucose [Mass/Vol] 96 mg/dL 74-106 [facility] Work Phone: Neutrophils (Bld) [#/Vol] 4.3 10*3/uL 2.0-7.7 [facility] Work Phone: Neutrophils/100 WBC (Bld) 57.4 % 47-70 [facility] Work Phone: Potassium [Moles/Vol] 4.1 mmol/L 3.5-5.1 [facility]: Protein [Mass/Vol] 7.2 g/dL 6.4-8.2 [facility] Work Phone: Sodium [Moles/Vol] 139 mmol/L 136-145 [facility] Work Phone: WBC (Bld) [#/Vol] 7.6 10*3/uL 4.4-11.0 [facility] Work Phone: Basophil percentage 0 SEEN /hpf 0-5 [facility] Work Phone: Bilirubin Test strip Ql (U)o n 03-07-2022 Bilirubin Ql (U) Negative Negative [facility] Work Phone: Blood erythrocytes count (nu mber/volume)on 03-07-2022 RBC (Bld) [#/Vol] 4.45 10*6/uL 4.2-5.4 [facility] Work Phone: Blood hemoglobin measurement (mass/volume)on 03-07-2022 Hemoglobin (Bld) [Mass/Vol] 12.6 g/dL 12.0-15.0 [facility] Work Phone: Blood lymphocytes/100 leukoc yteson 03-07-2022 Lymphocytes/100 WBC (Bld) 35.3 % 19-41 [facility] Work Phone: Blood monocytes/100 leukocyt eson 03-07-2022 Monocytes/100 WBC (Bld) 6.0 % 0-10 [facility] Work Phone: Blood platelet mean volumeon 03-07-2022 Platelet mean volume (Bld) [Entitic vol] 9.3 fL 6.2-12.0 [facility] Work Phone: Determination of erythrocyte mean corpuscular volume (MCV)on 03-07-2022 MCV (RBC) [Entitic vol] 84.0 fL 81-99 [facility] Work Phone: Hematocrit Auto (Bld) [Volum e fraction]on 03-07-2022 Hematocrit (Bld) [Volume fraction] 37.4 % 37-47 [facility] Work Phone: Ketones Test strip Ql (U)on 03-07-2022 Ketones Ql (U) Negative Negative [facility] Work Phone: Laboratory - Chemistry and C hemistry - challengeon 03-07-2022 ALP [Catalytic activity/Vol] 90 U/L 45-117 [facility] Work Phone: ALT [Catalytic activity/Vol] 43 U/L 13-56 [facility] Work Phone: CO2 [Moles/Vol] 25.0 mmol/L 21.0-32.0 [facility] Work Phone: Globulin (S) [Mass/Vol] 3.5 g/dL 2.2-4.2 [facility] Work Phone: Urea nitrogen/Creatinine [Mass ratio] 9.1 mg/mg 10-20 [facility] Work Phone: Laboratory - Hematology and Cell countson 03-07-2022 Erythrocyte distribution width (RBC) [Entitic vol] 39.3 fL 35.1-43.9 [facility] Work Phone: Erythrocyte distribution width (RBC) [Ratio] 12.9 % 11.6-14.6 [facility] Work Phone: Immature granulocytes/100 WBC (Bld) 0.300 % 0.0-0.9 [facility] Work Phone: Comment on above: IG% - Immature Granu locytes (promyelocytes, myelocytes and metamyelocytes) > 1% indicates that a LEFT SHIFT is Present. MCH (RBC) [Entitic mass] 28.3 pg 27.0-32.0 [facility] Work Phone: Nucleated RBC/100 WBC (Bld) [Ratio] 0 % 0-5 [facility] Work Phone: MCHC Auto (RBC) [Mass/Vol]on 03-07-2022 MCHC (RBC) [Mass/Vol] 33.7 g/dL 32-36 [facility] Work Phone: Mucus LM Ql (Urine sed)on Mucus Ql (Urine sed) 0 SEEN /hpf [facility] Work Phone: Nitrite Test strip Ql (U)on 03-07-2022 Nitrite Ql (U) Negative Negative [facility] Work Phone: No Panel Informationon 03-07 Estimated Creatinine Clearance Calc 120.78 ml/min [facility] Work Phone: Estimated GFR (MDRD) Amer 117 mL/min >60 [facility] Work Phone: Comment on above: GFR Calc Estimated GFR (MDRD) Non-Af Amer 97 mL/min >60 [facility] Work Phone: Comment on above: Non- GFR Calc Platelets bldon 03-07-2022 Platelets (Bld) [#/Vol] 287 10*3/uL 150-450 [facility] Work Phone: Protein Test strip Ql (U)on 03-07-2022 Protein Ql (U) Negative Negative [facility] Work Phone: Serum or plasma albumin christiane urement (mass/volume)on 03-07-2022 Albumin [Mass/Vol] 3.7 g/dL 3.2-5.0 [facility] Work Phone: Serum or plasma albumin/glob ulin mass ratioon 03-07-2022 Albumin/Globulin [Mass ratio] 1.1 {ratio} 0.9-2.4 [facility] Work Phone: Serum or plasma calcium christiane urement (mass/volume)on 03-07-2022 Calcium [Mass/Vol] 9.3 mg/dL 8.5-10.1 [facility] Work Phone: Serum or plasma choriogonado tropin detectionon 03-07-2022 HCG ( test) Ql 562 mIU/mL <4 [facility] Work Phone: Comment on above: hCG levels with Gest ational AgeGestational Age hCG mIU/mL (IU/L)0.2 - 1 week 5 - 501-2 weeks 50 - 5002-3 weeks 100 - 16475-1 weeks 500 - 277963-9 weeks 1000 - 117117-0 weeks 13106 - 100,0006-8 weeks 22362 - 200,0002-3 months 45337 - 100,000 Serum or plasma creatinine m easurement (mass/volume)on 03-07-2022 Creatinine [Mass/Vol] 0.77 mg/dL 0.55-1.02 [facility] Work Phone: Comment on above: The validity of the calculated GFR & GFRAA in patients over 70 years has not been determined. Clinical correlation is essential. Serum or plasma urea nitroge n measurement (mass/volume)on 03-07-2022 Urea nitrogen [Mass/Vol] 7 mg/dL 7-18 [facility] Work Phone: Squamous epithelial cells de tection in urine sediment by light microscopyon 03-07-2022 Epithelial cells.squamous LM Ql (Urine sed) 0-5 SEEN /hpf 5-10 [facility] Work Phone: Thin prep Papanicolaou smear with manual screeningon 03-07-2022 Thin prep Papanicolaou smear with manual screening 32 U/L 15-37 [facility] Work Phone: Thin prep Papanicolaou smear with manual screening 5 5-15 [facility] Work Phone: Urine blood detectionon 08-0 RBC Ql (U) 150 /ul Negative [facility] Work Phone: RBC Ql (U) 10-25 SEEN /hpf 0-5 [facility] Work Phone: Urine clarityon 03-07-2022 Clarity (U) Sl. Cloudy Clear [facility] Work Phone: Urine color determinationon 03-07-2022 Color (U) Yellow Yellow [facility] Work Phone: Urine glucose detectionon Glucose Ql (U) Normal mg/dl Normal [facility] Work Phone: Urine leukocyte esterase det ection by dipstickon 03-07-2022 Leukocyte esterase Test strip Ql (U) Negative Negative [facility] Work Phone: Urine pHon 03-07-2022 pH (U) 6.5 [pH] 5.0 - 8.0 [facility] Work Phone: Urine sediment bacteria coun t by microscopy (number/high power field)on 03-07-2022 Bacteria LM.HPF (Urine sed) [#/Area] 1 /[HPF] None Seen [facility] Work Phone: Urine specific gravity measu rementon 03-07-2022 Specific gravity (U) [Rel density] 1.015 1.002-1.030 [facility] Work Phone: Urobilinogen Auto test strip Ql (U)on 03-07-2022 Urobilinogen Ql (U) 1 mg/dl Normal [facility] Work Phone: Serum or plasma choriogonado tropin detectionon 03-06-2022 HCG ( test) Ql 487 mIU/mL <4 [facility] Work Phone: Comment on above: hCG levels with Gest ational AgeGestational Age hCG mIU/mL (IU/L)0.2 - 1 week 5 - 501-2 weeks 50 - 5002-3 weeks 100 - 84424-7 weeks 500 - 391839-3 weeks 1000 - 915971-3 weeks 15372 - 100,0006-8 weeks 11636 - 200,0002-3 months 22096 - 100,000 Serum or plasma choriogonado tropin detectionon 03-04-2022 HCG ( test) Ql 350 mIU/mL <4 [facility] Work Phone: Comment on above: hCG levels with Gest ational AgeGestational Age hCG mIU/mL (IU/L)0.2 - 1 week 5 - 501-2 weeks 50 - 5002-3 weeks 100 - 31688-1 weeks 500 - 400275-1 weeks 1000 - 220197-1 weeks 85702 - 100,0006-8 weeks 60090 - 200,0002-3 months 53506 - 100,000 Bacteria Ur Culton 2 Bacteria identified Cx Nom (U) ORGANISM ID: 1 >=100,000 CFU/ml Escherichia coli ORGANISM ID: 1 (ESCHERICHIA COLI) -- ANTIBIOTIC INTERPRETATION ESME STATUS REFERENCE RANGE -- Ampicillin S <=2 F Susceptible <=8 , Intermediate >8 , Resistant >16 Ampicillin/Sulbact S <=2 F Susceptible <=8 , Intermediate >8 , Resistant >16 Cefazolin S <=4 F Susceptible 0-16 , Intermediate <0 or >16 , Resistant >16 Cefepime S <=1 F Susceptible <=2 , Intermediate >2 , Resistant >=16 Ceftriaxone S <=1 F Susceptible <=1 , Intermediate >1 , Resistant >=4 Ciprofloxacin S <=0.25 F Susceptible <0.5 , Intermediate >=.5 , Resistant >=1 Ertapenem S <=0.5 F Susceptible <=0.5 , Intermediate >.5 , Resistant >1 Gentamicin S <=1 F Susceptible <=4 , Intermediate >4 , Resistant >8 Meropenem S <=0.25 F Susceptible <=1 , Intermediate >1 , Resistant >2 Nitrofurantoin S <=16 F Susceptible <=32 , Intermediate >32 , Resistant >64 Piperacillin/Tazobac S <=4 F Susceptible <=16 , Intermediate >16 , Resistant >64 Tobramycin S <=1 F Susceptible <=4 , Intermediate >4 , Resistant >8 Trimeth sulfameth S <=20 F Susceptible <=40 , Resistant >40 Abnormal [facility] Comment on above: Performed By: #### 6 30-4 #### [facility] CLIA [id number] [address] [place] [address] OF [facility] CNOVon 02-16-2022 CNOV Office Visit (KAVITA ) CHELITA ROMERO ([id number]) 1995 F Date Time Provider Department 02/16/22 11:00 AM SHAI BAIRES During your visit today, we recorded the following information about you: Temperature Pulse Respiration Blood pressure 98.6 degrees 70/minute 16/minute 110/70 Weight Height Last Period 109.8 kg 1.778 m 01/17/22 Shai Baires PA-C 02/16/2022 11:24 AM Signed Subjective Chelita Romero is a 27 year old female with no significant past medical history who presents to [facility] today for evaluation of urinary urgency [...] (Temporal) Resp 16 Ht 177.8 cm (5' 10) Wt 109.8 kg (242 lb) LMP 01/17/2022 [...] which included preparing to see the patient, [id number] patient care, completing clinical documentation, performing a medically appropriate examination, counseling and educating the patient/family/caregiv er and ordering medications, tests, or procedures. Shai Baires PA-C 02/16/2022 11:18 AM Signed Urinary Problem-When to Seek Help? Symptoms of a urinary problem may lead to a?bladder?infection. Women are at greater risk of a [...] a specialist, such as a urologist. Diagnosis AND Treatment: Lab testing may include: urinalysis, and urine culture that can be collected in the lab or walk-in clinic. Most bladder infections can easily be treated. A physician, nurse practitioner or physician business assistant may treat with a short course of an antibiotic. Delaying treatment can lead to worsening sympto (more content not included)... Normal [facility] UA DIP, URINE (POC)on 2021 BILIRUBIN UA (POCT) Negative Negative [facility] CLARITY UA (POCT) Clear [facility] COLOR UA (POCT) Yellow [facility] GLUCOSE UA (POCT) Negative Negative mg/dL [facility] HEMOGLOBIN/BLOOD UA (POCT) Trace-intact Abnormal Negative [facility] KETONE UA (POCT) Negative Negative mg/dL [facility] LEUKOCYTES UA (POCT) Trace Abnormal Negative [facility] NITRITE UA (POCT) Positive Abnormal Negative [facility] PH UA (POCT) 6.0 4.5 - 8.0 [facility] Protein Ql (U) Negative Negative mg/dL [facility] SPECIFIC GRAVITY UA (POCT) 1.020 1.005 - 1.030 [facility] UROBILINOGEN UA (POCT) 0.2 E.U./dL Alyssa l E.U./dL [facility] PPD (32345)Ordered By: Khoa Jackson on 02-09-2019 PPD (24658) 0mm Normal [facility] Work Phone: Comment on above: Negative SKIN TEST INTRADERMAL TB (86 580)Ordered By: MELLISSA Kimball on 03-08-2018 SKIN TEST INTRADERMAL TB (62884) Negative Normal [facility] Work Phone: Comment on above: read and negative lot:[id number] te:intra dermal Left forearm dose:0.5mlgiven by:stan Koehler LPN V ZOSTER IGG ABon 03-18-2017 V ZOSTER IGG AB < 135 Low Immune >165 [facility] Comment on above: Result Comment: Plea se Note: Specimen is hemolyzed. Negative <135 Equivocal 135 - 165 Positive >165A positive result generally indicates exposure to thepathogen or administration of specific immunoglobulins,but it is not indication of active infection or stageof disease.Performed At: [facility] [place], [place] [id number] [id number] Performed By: #### L [phone] ####[facility] [place] [address]Fy# [phone] Vital Signs Date Time Vital Sign Value Performing Clinician Camille glez 04-29-2025 15:18-0400 Body height 180.34 cm Heath BRENNANC Work Phone: [facility] 04-29-2025 15:18-0400 Body mass index (BMI) [Ratio] 27.1 kg/m2 Heath Sebastian NP-C Work Phone: [facility] 04-29-2025 15:18-0400 Body weight 88.16 kg Heath Sebastian NP-C Work Phone: [facility] 04-29-2025 15:18-0400 Diastolic blood pressure 76 mm[Hg] Heath Sebastian DEALER RELATIONSHIP MANAGER-C Work Phone: [phone] [place] [address] 04-29-2025 15:18-0400 Systolic blood pressure 130 mm[Hg] Heath Sebastian DEALER RELATIONSHIP MANAGER-C Work Phone: [phone] [address] 04-08-2025 09:35-0400 Body height 180.34 cm Heath Sebastian DEALER RELATIONSHIP MANAGER-C Work Phone: [phone] [place] [address] 04-08-2025 09:35-0400 Body mass index (BMI) [Ratio] 28.5 kg/m2 Heath Sebastian DEALER RELATIONSHIP MANAGER-C Work Phone: [phone] [address] 04-08-2025 09:35-0400 Body weight 92.98 kg Heath Sebastian DEALER RELATIONSHIP MANAGER-C Work Phone: [phone] [place] [address] 04-08-2025 09:35-0400 Diastolic blood pressure 70 mm[Hg] Heath Sebastian DEALER RELATIONSHIP MANAGER-C Work Phone: [phone] [place] [address] 04-08-2025 09:35-0400 Heart rate 77 /min Heath Sebastian DEALER RELATIONSHIP MANAGER-C Work Phone: [phone] [place] [address] 04-08-2025 09:35-0400 SaO2% (BldA) [Mass fraction] 98 % Heath Sebastian DEALER RELATIONSHIP MANAGER-C Work Phone: [phone] [place] [address] 04-08-2025 09:35-0400 Systolic blood pressure 107 mm[Hg] Heath Sebastian DEALER RELATIONSHIP MANAGER-C Work Phone: [phone] [address] 10-21-2023 16:10-0400 Body height 180.34 cm No Primary Care Physician [facility] 10-21-2023 15:36-0400 Body mass index (BMI) [Ratio] 37.6 kg/m2 No Primary Care Physician [facility] 10-21-2023 15:36-0400 Body weight 122.52 kg No Primary Care Physician [facility] 10-21-2023 15:36-0400 Diastolic blood pressure 68 mm[Hg] No Primary Care Physician [facility] 10-21-2023 15:36-0400 Systolic blood pressure 118 mm[Hg] No Primary Care Physician [facility] 10-19-2023 15:41-0400 Body mass index (BMI) [Ratio] 37.5 kg/m2 No Primary Care Physician [facility] 10-19-2023 15:41-0400 Body weight 122.24 kg No Primary Care Physician [facility] 10-19-2023 15:41-0400 Diastolic blood pressure 71 mm[Hg] No Primary Care Physician [facility] 10-19-2023 15:41-0400 Systolic blood pressure 120 mm[Hg] No Primary Care Physician [facility] 09-06-2023 13:15-0500 Body temperature 97.6 [degF] No Primary Care Physician [facility] 09-06-2023 13:15-0500 Diastolic blood pressure 70 mm[Hg] No Primary Care Physician [facility] 09-06-2023 13:15-0500 Heart rate 72 /min No Primary Care Physician [facility] 09-06-2023 13:15-0500 Respiratory rate 16 /min No Primary Care Physician [facility] 09-06-2023 13:15-0500 SaO2% (BldA) [Mass fraction] 99 % No Primary Care Physician [facility] 09-06-2023 13:15-0500 Systolic blood pressure 115 mm[Hg] No Primary Care Physician [facility] 09-05-2023 06:50-0500 Body temperature 97.9 [degF] No Primary Care Physician [facility] 09-05-2023 06:50-0500 Diastolic blood pressure 59 mm[Hg] No Primary Care Physician [facility] 09-05-2023 06:50-0500 Heart rate 71 /min No Primary Care Physician [facility] 09-05-2023 06:50-0500 SaO2% (BldA) [Mass fraction] 100 % No Primary Care Physician [facility] 09-05-2023 06:50-0500 Systolic blood pressure 106 mm[Hg] No Primary Care Physician [facility] 09-04-2023 19:42-0500 Body height 180.34 cm No Primary Care Physician [facility] 09-04-2023 19:42-0500 Body mass index (BMI) [Ratio] 38.9 kg/m2 No Primary Care Physician [facility] 09-04-2023 19:42-0500 Body weight 126.55 kg No Primary Care Physician [facility] 08-31-2023 14:06-0500 Body mass index (BMI) [Ratio] 40 kg/m2 No Primary Care Physician [facility] 08-31-2023 14:06-0500 Body weight 126.55 kg No Primary Care Physician [facility] 08-31-2023 14:06-0500 Diastolic blood pressure 71 mm[Hg] No Primary Care Physician [facility] 08-31-2023 14:06-0500 Systolic blood pressure 107 mm[Hg] No Primary Care Physician [facility] 08-24-2023 10:27-0500 Body mass index (BMI) [Ratio] 39.9 kg/m2 No Primary Care Physician [facility] 08-24-2023 10:27-0500 Body weight 126.32 kg No Primary Care Physician [facility] 08-24-2023 10:27-0500 Diastolic blood pressure 77 mm[Hg] No Primary Care Physician [facility] 08-24-2023 10:27-0500 Systolic blood pressure 122 mm[Hg] No Primary Care Physician [facility] 08-19-2023 08:13-0500 Body mass index (BMI) [Ratio] 40.1 kg/m2 No Primary Care Physician [facility] 08-19-2023 08:13-0500 Body weight 126.72 kg No Primary Care Physician [facility] 08-19-2023 08:13-0500 Diastolic blood pressure 89 mm[Hg] No Primary Care Physician [facility] 08-19-2023 08:13-0500 Systolic blood pressure 126 mm[Hg] No Primary Care Physician [facility] 08-11-2023 14:13-0500 Body mass index (BMI) [Ratio] 39 kg/m2 No Primary Care Physician [facility] 08-11-2023 14:13-0500 Body weight 123.37 kg No Primary Care Physician [facility] 08-11-2023 14:13-0500 Diastolic blood pressure 79 mm[Hg] No Primary Care Physician [facility] 08-11-2023 14:13-0500 Systolic blood pressure 125 mm[Hg] No Primary Care Physician [facility] 08-05-2023 15:14-0500 Body height 177.8 cm No Primary Care Physician [facility] 08-05-2023 15:14-0500 Body mass index (BMI) [Ratio] 38.7 kg/m2 No Primary Care Physician [facility] 08-05-2023 15:14-0500 Body weight 122.46 kg No Primary Care Physician [facility] 08-05-2023 15:14-0500 Diastolic blood pressure 83 mm[Hg] No Primary Care Physician [facility] 08-05-2023 15:14-0500 Systolic blood pressure 128 mm[Hg] No Primary Care Physician [facility] 07-29-2023 14:06-0500 Body mass index (BMI) [Ratio] 38.7 kg/m2 No Primary Care Physician [facility] 07-29-2023 14:06-0500 Body weight 122.52 kg No Primary Care Physician [facility] 07-29-2023 14:06-0500 Diastolic blood pressure 73 mm[Hg] No Primary Care Physician [facility] 07-29-2023 14:06-0500 Systolic blood pressure 106 mm[Hg] No Primary Care Physician [facility] 07-14-2023 15:07-0500 Body mass index (BMI) [Ratio] 38.3 kg/m2 No Primary Care Physician [facility] 07-14-2023 15:07-0500 Body weight 121.33 kg No Primary Care Physician [facility] 07-14-2023 15:07-0500 Diastolic blood pressure 73 mm[Hg] No Primary Care Physician [facility] 07-14-2023 15:07-0500 Systolic blood pressure 115 mm[Hg] No Primary Care Physician [facility] 06-27-2023 10:25-0500 Body height 177.8 cm No Primary Care Physician [facility] 06-27-2023 10:24-0500 Body mass index (BMI) [Ratio] 37.7 kg/m2 No Primary Care Physician [facility] 06-27-2023 10:24-0500 Body weight 119.29 kg No Primary Care Physician [facility] 06-27-2023 10:24-0500 Diastolic blood pressure 69 mm[Hg] No Primary Care Physician [facility] 06-27-2023 10:24-0500 Systolic blood pressure 113 mm[Hg] No Primary Care Physician [facility] 06-16-2023 19:48-0500 Diastolic blood pressure 73 mm[Hg] No Primary Care Physician [facility] 06-16-2023 19:48-0500 Heart rate 83 /min No Primary Care Physician [facility] 06-16-2023 19:48-0500 SaO2% (BldA) [Mass fraction] 89 % No Primary Care Physician [facility] 06-16-2023 19:48-0500 Systolic blood pressure 121 mm[Hg] No Primary Care Physician [facility] 06-16-2023 18:55-0500 Body height 177.8 cm No Primary Care Physician [facility] 06-16-2023 18:55-0500 Body mass index (BMI) [Ratio] 37.7 kg/m2 No Primary Care Physician [facility] 06-16-2023 18:55-0500 Body weight 119.2 kg No Primary Care Physician [facility] 06-16-2023 18:51-0500 Body temperature 97 [degF] No Primary Care Physician [facility] 06-07-2023 09:56-0500 Body height 177.8 cm No Primary Care Physician [facility] 06-07-2023 09:56-0500 Body mass index (BMI) [Ratio] 36.9 kg/m2 No Primary Care Physician [facility] 06-07-2023 09:56-0500 Body weight 116.68 kg No Primary Care Physician [facility] 06-07-2023 09:56-0500 Diastolic blood pressure 70 mm[Hg] No Primary Care Physician [facility] 06-07-2023 09:56-0500 Systolic blood pressure 114 mm[Hg] No Primary Care Physician [facility] 05-19-2023 10:37-0400 Body mass index (BMI) [Ratio] 36.2 kg/m2 No Primary Care Physician [facility] 05-19-2023 10:37-0400 Body weight 114.47 kg No Primary Care Physician [facility] 05-19-2023 10:37-0400 Diastolic blood pressure 74 mm[Hg] No Primary Care Physician [facility] 05-19-2023 10:37-0400 Systolic blood pressure 114 mm[Hg] No Primary Care Physician [facility] 04-21-2023 14:16-0400 Body height 177.8 cm No Primary Care Physician [facility] 04-21-2023 14:15-0400 Body mass index (BMI) [Ratio] 35 kg/m2 No Primary Care Physician [facility] 04-21-2023 14:15-0400 Body weight 110.78 kg No Primary Care Physician [facility] 04-21-2023 14:15-0400 Diastolic blood pressure 68 mm[Hg] No Primary Care Physician [facility] 04-21-2023 14:15-0400 Systolic blood pressure 107 mm[Hg] No Primary Care Physician [facility] 03-22-2023 09:05-0400 Body height 177.8 cm No Primary Care Physician [facility] 03-22-2023 09:05-0400 Body mass index (BMI) [Ratio] 34.5 kg/m2 No Primary Care Physician [facility] 03-22-2023 09:05-0400 Body weight 109.31 kg No Primary Care Physician [facility] 03-22-2023 09:05-0400 Diastolic blood pressure 60 mm[Hg] No Primary Care Physician [facility] 03-22-2023 09:05-0400 Systolic blood pressure 110 mm[Hg] No Primary Care Physician [facility] 02-23-2023 09:58-0400 Body mass index (BMI) [Ratio] 34.1 kg/m2 No Primary Care Physician [facility] 02-23-2023 09:58-0400 Body weight 108.01 kg No Primary Care Physician [facility] 02-23-2023 09:58-0400 Diastolic blood pressure 75 mm[Hg] No Primary Care Physician [facility] 02-23-2023 09:58-0400 Systolic blood pressure 119 mm[Hg] No Primary Care Physician [facility] 02-16-2023 07:56-0400 Body mass index (BMI) [Ratio] 34.4 kg/m2 No Primary Care Physician [facility] 02-16-2023 07:56-0400 Body weight 108.91 kg No Primary Care Physician [facility] 01-26-2023 09:08-0400 Body height 177.8 cm No Primary Care Physician [facility] 01-26-2023 09:08-0400 Body mass index (BMI) [Ratio] 34.4 kg/m2 No Primary Care Physician [facility] 01-26-2023 09:08-0400 Body weight 108.91 kg No Primary Care Physician [facility] 01-26-2023 09:08-0400 Diastolic blood pressure 74 mm[Hg] No Primary Care Physician [facility] 01-26-2023 09:08-0400 Systolic blood pressure 116 mm[Hg] No Primary Care Physician [facility] 09-14-2022 15:02-0500 Body height 177.8 cm No Primary Care Physician [facility] 09-14-2022 14:59-0500 Body mass index (BMI) [Ratio] 31.8 kg/m2 No Primary Care Physician [facility] 09-14-2022 14:59-0500 Body weight 100.86 kg No Primary Care Physician [facility] 09-14-2022 14:59-0500 Diastolic blood pressure 84 mm[Hg] No Primary Care Physician [facility] 09-14-2022 14:59-0500 Systolic blood pressure 130 mm[Hg] No Primary Care Physician [facility] 03-24-2022 14:42-0400 Body height 177.[address] Oma Bentley Work Phone: [facility] Work Phone: 03-24-2022 14:42-0400 Body mass index (BMI) [Ratio] 34.6 kg/m2 Dr. Oma Bentley Work Phone: [facility] Work Phone: 03-24-2022 14:28-0400 Body weight 109.[address] Oma Bentley Work Phone: [facility] Work Phone: 03-24-2022 14:28-0400 Diastolic blood pressure 72 mm[Hg] Dr. Oma Bentley Work Phone: [facility] Work Phone: 03-24-2022 14:28-0400 Systolic blood pressure 110 mm[Hg] Dr. Oma Bentley Work Phone: [facility] Work Phone: 03-07-2022 15:57-0400 Respiratory rate 16 /min [facility] Work Phone: 03-07-2022 13:23-0400 Body height 177.8 cm [facility] Work Phone: 03-07-2022 13:23-0400 Body mass index (BMI) [Ratio] 34.3 kg/m2 [facility] Work Phone: 03-07-2022 13:23-0400 Body temperature 97.2 [degF] [facility] Work Phone: 03-07-2022 13:23-0400 Body weight 108.5 kg [facility] Work Phone: 03-07-2022 13:23-0400 Diastolic blood pressure 78 mm[Hg] [facility] Work Phone: 03-07-2022 13:23-0400 Heart rate 80 /min [facility] Work Phone: 03-07-2022 13:23-0400 SaO2% (BldA) [Mass fraction] 100 % [facility] Work Phone: 03-07-2022 13:23-0400 Systolic blood pressure 130 mm[Hg] [facility] Work Phone: 02-16-2022 11:10-0400 Body height 177.8 cm Shai Wormald PA-C Work Phone: [facility] 02-16-2022 11:10-0400 Body temperature 98.6 [degF] Shai Wormald PA-C Work Phone: [facility] 02-16-2022 11:10-0400 Body weight 109.77 kg Shai Wormald PA-C Work Phone: [facility] 02-16-2022 11:10-0400 Diastolic blood pressure 70 mm[Hg] Shai Wormald PA-C Work Phone: [facility] 02-16-2022 11:10-0400 Heart rate 70 /min Shai Wormald PA-C Work Phone: [facility] 02-16-2022 11:10-0400 Respiratory rate 16 /min Shai Wormald PA-C Work Phone: [facility] 02-16-2022 11:10-0400 SaO2% (BldA) [Mass fraction] 97 % Shai Wormald PA-C Work Phone: [facility] 02-16-2022 11:10-0400 Systolic blood pressure 110 mm[Hg] Shai Wormald PA-C Work Phone: [facility] Encounters Encounter Date Encounter Type Care Provider Facility Start: 04-29-2025 End: 04-29-[address] Oma Bentley DO -[facility] Work Phone: Start: 04-29-2025 End: 04-29-2025 ambulatory Heath Sebastian DEALER RELATIONSHIP MANAGER-C Work Phone: -[facility] Start: 04-09-2025 End: 04-09-2025 ambulatory Heath Sebastian DEALER RELATIONSHIP MANAGER-C Work Phone: -[facility] Start: 04-09-2025 End: 04-09-[address] Omar Boothe MD -[facility] Start: 04-08-2025 End: 04-08-[address] Omar Boothe MD -[facility] Work Phone: Start: 04-08-2025 End: 04-09-2025 ambulatory Heath Sebastian DEALER RELATIONSHIP MANAGER-C Work Phone: [facility] Start: 01-02-2025 End: 01-02-2025 ambulatory Heath Sebastian DEALER RELATIONSHIP MANAGER-C Work Phone: [facility] Work Phone: Start: 01-02-2025 End: 01-02-2025 Patient encounter procedure Heath Sebastian DEALER RELATIONSHIP MANAGER-C -[facility] Start: 01-02-2025 End: 01-02-2025 ambulatory Heath Sebastian VSC Facility:[facility] Start: 10-19-2024 End: 10-19-2024 ambulatory Heath Sebastian DEALER RELATIONSHIP MANAGER-C Work Phone: [facility] Work Phone: Start: 10-19-2024 End: 10-19-2024 Patient encounter procedure Heath Sebastian DEALER RELATIONSHIP MANAGER-C -[facility] Work Phone: Start: 10-19-2024 End: 10-19-2024 ambulatory Heath Sebastian VSC Facility:[facility] Start: 10-10-2024 End: 10-10-2024 ambulatory Heath Sebastian DEALER RELATIONSHIP MANAGER-C Work Phone: [facility] Work Phone: Start: 10-10-2024 End: 10-10-2024 Patient encounter procedure Heath Sebastian DEALER RELATIONSHIP MANAGER-C -Laboratory, [facility] Start: 10-10-2024 End: 10-10-2024 ambulatory Heath Sebastian C Facility:[facility] Start: 10-21-2023 End: 10-21-2023 Patient encounter procedure No Primary Care Physician [facility] Work Phone: Start: 10-19-2023 End: 10-19-2023 ambulatory No Primary Care Physician [facility] Work Phone: Start: 10-19-2023 End: 10-19-2023 Patient encounter procedure No Primary Care Physician [facility]-Laboratory, Specimen Work Phone: Start: 10-19-2023 End: 10-19-2023 Patient encounter procedure No Primary Care Physician [facility] Work Phone: Start: 09-06-2023 Non-patient / Non-visit No Primary Care Physician [facility] Start: 09-05-2023 Non-patient / Non-visit No Primary Care Physician [facility] Start: 09-04-2023 End: 09-06-2023 Evaluation and management of inpatient No Primary Care Physician [facility] Work Phone: Start: 08-31-2023 End: 08-31-2023 Patient encounter procedure No Primary Care Physician [facility] Work Phone: Start: 08-31-2023 End: 08-31-2023 ambulatory No Primary Care Physician [facility] Work Phone: Start: 08-31-2023 End: 08-31-2023 Patient encounter procedure No Primary Care Physician [facility] Work Phone: Start: 08-24-2023 End: 08-24-2023 Patient encounter procedure No Primary Care Physician [facility] Work Phone: Start: 08-23-2023 End: 08-23-2023 Patient encounter procedure No Primary Care Physician [facility] Work Phone: Start: 08-19-2023 End: 08-19-2023 Patient encounter procedure No Primary Care Physician [facility] Work Phone: Start: 08-11-2023 End: 08-11-2023 Patient encounter procedure No Primary Care Physician [facility] Work Phone: Start: 08-10-2023 End: 08-10-2023 ambulatory [facility] Start: 08-05-2023 End: 08-05-2023 ambulatory No Primary Care Physician [facility] Work Phone: Start: 08-05-2023 End: 08-05-2023 Patient encounter procedure No Primary Care Physician [facility] Work Phone: Start: 07-29-2023 End: 07-29-2023 Patient encounter procedure No Primary Care Physician [facility] Work Phone: Start: 07-14-2023 End: 07-14-2023 Patient encounter procedure No Primary Care Physician [facility] Work Phone: Start: 07-08-2023 End: 07-08-2023 ambulatory No Primary Care Physician [facility] Work Phone: Start: 07-08-2023 End: 07-08-2023 Patient encounter procedure No Primary Care Physician [facility] Work Phone: Start: 06-27-2023 End: 06-27-2023 Patient encounter procedure No Primary Care Physician [facility] Work Phone: Start: 06-21-2023 Non-patient / Non-visit No Primary Care Physician [facility] Start: 06-16-2023 End: 06-16-2023 ambulatory No Primary Care Physician [facility] Work Phone: Start: 06-16-2023 End: 06-16-2023 Patient encounter procedure No Primary Care Physician [facility], Outpatients Work Phone: Start: 06-13-2023 End: 06-13-2023 ambulatory No Primary Care Physician [facility] Work Phone: Start: 06-13-2023 End: 06-13-2023 Patient encounter procedure No Primary Care Physician [facility]-Laboratory Work Phone: Start: 06-07-2023 End: 06-07-2023 ambulatory No Primary Care Physician [facility] Work Phone: Start: 06-07-2023 End: 06-07-2023 Patient encounter procedure No Primary Care Physician [facility] Work Phone: Start: 05-19-2023 End: 05-19-2023 Patient encounter procedure No Primary Care Physician [facility] Work Phone: Start: 05-12-2023 End: 05-12-2023 ambulatory No Primary Care Physician [facility] Work Phone: Start: 05-12-2023 End: 05-12-2023 Patient encounter procedure No Primary Care Physician [facility]-Ultrasound, [facility] Work Phone: Start: 04-21-2023 End: 04-21-2023 Patient encounter procedure No Primary Care Physician [facility] Work Phone: Start: 04-12-2023 End: 04-12-2023 ambulatory No Primary Care Physician [facility] Work Phone: Start: 04-12-2023 End: 04-12-2023 Patient encounter procedure No Primary Care Physician [facility] Work Phone: Start: 03-22-2023 End: 03-22-2023 Patient encounter procedure No Primary Care Physician [facility] Work Phone: Start: 02-23-2023 End: 02-23-2023 Patient encounter procedure No Primary Care Physician [facility] Work Phone: Start: 02-16-2023 End: 02-16-2023 Patient encounter procedure No Primary Care Physician [facility]-Laboratory, Specimen Work Phone: Start: 02-16-2023 End: 02-16-2023 Patient encounter procedure No Primary Care Physician [facility] Work Phone: Start: 02-07-2023 End: 02-07-2023 ambulatory No Primary Care Physician [facility] Work Phone: Start: 02-07-2023 End: 02-07-2023 Patient encounter procedure No Primary Care Physician [facility]-Laboratory Work Phone: Start: 01-26-2023 End: 01-26-2023 ambulatory No Primary Care Physician [facility] Work Phone: Start: 01-26-2023 End: 01-26-2023 Patient encounter procedure No Primary Care Physician [facility] Work Phone: Start: 01-12-2023 End: 01-12-2023 ambulatory [facility] Work Phone: Start: 01-12-2023 End: 01-12-2023 Patient encounter procedure [facility], [facility] Start: 01-07-2023 End: 01-07-2023 Patient encounter procedure [facility] Start: 12-23-2022 End: 12-23-2022 ambulatory No Primary Care Physician [facility] Work Phone: Start: 12-23-2022 End: 12-23-2022 Patient encounter procedure [facility], [facility] Start: 12-21-2022 End: 12-21-2022 ambulatory No Primary Care Physician [facility] Work Phone: Start: 12-21-2022 End: 12-21-2022 Patient encounter procedure [facility], [facility] Start: 11-23-2022 End: 11-23-2022 ambulatory No Primary Care Physician [facility] Work Phone: Start: 11-23-2022 End: 11-23-2022 Patient encounter procedure No Primary Care Physician [facility] [facility] Start: 11-09-2022 End: 11-09-2022 ambulatory No Primary Care Physician [facility] Work Phone: Start: 11-09-2022 End: 11-09-2022 Patient encounter procedure No Primary Care Physician [facility] Start: 10-01-2022 End: 10-01-2022 ambulatory No Primary Care Physician [facility] Work Phone: Start: 10-01-2022 End: 10-01-2022 Patient encounter procedure No Primary Care Physician [facility] Start: 09-14-2022 End: 09-14-2022 Patient encounter procedure No Primary Care Physician [facility] Start: 06-03-2022 End: 06-03-[address] Oma Bentley Work Phone: [facility] Work Phone: Start: 06-03-2022 End: 06-03-[address] Oma Bentley Work Phone: [facility], [facility] Start: 04-06-2022 End: 04-06-[address] Oma Bentley Work Phone: [facility] Work Phone: Start: 04-06-2022 End: 04-06-[address] Oma Bentley Work Phone: [facility] Start: 03-29-2022 End: 03-29-[address] Oma Bentley Work Phone: [facility] Work Phone: Start: 03-29-2022 End: 03-29-[address] [facility] Start: 03-24-2022 End: 03-24-[address] Oma Bentley Work Phone: [facility] Start: 03-22-2022 End: 03-22-[address] Oma Bentley Work Phone: [facility] Work Phone: Start: 03-22-2022 End: 03-22-[address] O[facility] Bentley [facility] Start: 03-14-2022 End: 03-14-2022 Patient encounter procedure [facility] Start: 03-11-2022 End: 03-11-2022 [facility] Start: 03-07-2022 End: 03-07-2022 Emergency department patient visit [facility] Start: 03-07-2022 End: 03-07-2022 [facility] Start: 03-06-2022 End: 03-06-2022 Patient encounter procedure [facility], Specimen Start: 03-04-2022 End: 03-04-2022 Patient encounter procedure [facility] Start: 02-16-2022 End: 02-16-2022 Patient encounter procedure Shai Baires PA-C Work Phone: [facility] Comment on above: Leukocytes in urine (Primary Dx); Urinary frequency; Abnormal urine odor Start: 02-09-2019 End: 02-09-2019 Office outpatient visit 5 minutes [facility] Start: 02-07-2019 End: 02-07-2019 Office outpatient visit 5 minutes [facility] Start: 03-10-2018 End: 03-10-2018 Office outpatient visit 5 minutes [facility] Start: 03-08-2018 End: 03-08-2018 Office outpatient visit 5 minutes [facility] Start: 03-14-2017 Ambulatory Chidi Stephenson y:[facility] Procedures Date Procedure Procedure Detail Performing Clinician Start: 10-19-2024 US scan of thyroid Heath Sebastian NP-C Work Phone: Start: 10-10-2024 Thyroglobulin antibo dy measurement Heath Sebastian NP-C Work Phone: Comment on above: Thyroglobulin Antibo dy measured by Michael CoulterMethodologyIt should be noted that the presence of thyroglobulinantibodies may not be pathogenic nor diagnostic, especiallyat very low levels. The assay corporate compliance manager has found thatfour percent of individuals without evidence of thyroiddisease or autoimmunity will have positive TgAb levels upto 4 IU/mL.Performed at: [address] [id number] Director: Asa Bateman PhD, Phone: [phone] Start: 10-10-2024 Vitamin D, 25-hydrox y measurement Heath Sebastian NP-C Work Phone: Comment on above: Vitamin D StatusDefi ciency: <20 ng/mL (50nmol/L)Insufficiency: 20-30 ng/mL (50-75 nmol/L)Sufficiency: 30-100 ng/mL (75-250 nmol/L)Toxicity: >100 ng/mL (>250 nmol/L) Start: 08-31-2023 Ultrasonography for biophysical profile without non-stress testing No Primary Care Physician Start: 08-23-2023 Ultrasonography for biophysical profile without non-stress testing No Primary Care Physician Start: 08-05-2023 Ultrasound scan for growth No Primary Care Physician Start: 08-05-2023 Group B Streptococcus Culture No Primary Care Physician Start: 07-08-2023 Ultrasound scan for growth No Primary Care Physician Start: 06-13-2023 Ultrasound scan for growth No Primary Care Physician Start: 05-12-2023 Ultrasound scan for growth No Primary Care Physician Start: 04-12-2023 anatomy study No Primary Care Physician Start: 02-16-2023 Urine culture No Primar y Care Physician Start: 01-26-2023 Urine culture No Primar y Care Physician Start: 01-12-2023 Transvaginal obstetr ic ultrasonography Start: 01-07-2023 Transvaginal obstetr ic ultrasonography Start: 06-03-[address] Berenice Bentley Work Phone: Start: 03-07-2022 Transvaginal obstetr ic ultrasonography Start: 02-16-2022 Urnls dip stick/tabl et rgnt auto w/o microscopy [facility] Provider Plan of Treatment Date Care Activity Detail Author Start: 04-29-2025 End: 04-29-2025 Patient encounter procedure Encounter for IUD removal -[facility] Work Phone: Start: 04-29-2025 [facility] Start: 09-06-2023 Patient discharge [facility] Start: 09-05-2023 Administration of medication [facility] Start: 09-05-2023 Application of ice collar, cap or bag [facility] Start: 09-05-2023 Catheterization of vein [facility] Start: 09-05-2023 Introduction of urin senia catheter [facility] Start: 09-05-2023 Measuring intake and output [facility] Start: 09-05-2023 Notification of physician [facility] Start: 09-05-2023 Procedure discontinued [facility] Start: 09-05-2023 Provision of activit y privileges [facility] Start: 09-05-2023 Vital signs measurements [facility] Start: 09-05-2023 [facility] Start: 09-05-2023 [facility] Start: 09-04-2023 Notification of physician [facility] Start: 09-04-2023 [facility] Start: 09-04-2023 acoustic stimulation test [facility] Start: 09-04-2023 Intrauterine catheterization [facility] Start: 09-04-2023 End: 09-04-2023 [facility] Start: 09-04-2023 End: 09-04-2023 Notification of physician [facility] Start: 09-04-2023 Admission procedure [facility] Start: 09-04-2023 Anesthesia consultation [facility] Start: 09-04-2023 Application of intermittent pneumatic compression device [facility] Start: 09-04-2023 Insertion of cathete r into peripheral vein [facility] Start: 09-04-2023 Introduction of urin senia catheter [facility] Start: 09-04-2023 Obstetric monitoring [facility] Start: 09-04-2023 Provision of activit y privileges [facility] Start: 09-04-2023 Verification routine [facility] Start: 09-04-2023 Vital signs measurements [facility] Start: 06-16-2023 Patient discharge [facility] Start: 04-01-2022 Influenza vaccination INFLUENZA (#1) [facility] Start: 02-07-2019 Skin test tuberculos is intradermal PPD (66900) [facility] Work Phone: Comment on above: lot [id number] October 12ite right forearm subcdose 0.1mlJC, LPNABN signed Start: 2018 PAP TESTING PAP TESTING [facility] Start: 02-14-2016 Urine microalbumin profile DTAP,TDAP,TD (1 - Tdap) [facility] Start: 2015 HEPATITIS C SCREENING HEPATITIS C SC REEELSA [facility] Start: 2015 HIV SCREENING HIV SCREENING [facility] Start: 2011 PEDS TO ADULT TRANSI TION ANNUAL ASSESSMENT PEDS TO ADULT TRANSITION ANNUAL ASSESSMENT [facility] Start: 2009 Adult depression screening assessment DEPRESSION SCREENING [facility] Start: 2009 PEDS TO ADULT TRANSI TION INITIAL DISCUSSION PEDS TO ADULT TRANSITION INITIAL DISCUSSION [facility] Start: 02-14-2008 HPV VACCINE (1 - 2-d ose series) HPV VACCINE (1 - 2-dose series) [facility] Bacteria identified in Urine by Culture URINE CULTURE Microbiology Routine Leukocytes in urine Ordered: 02/16/2022 [facility] Work Phone: Comment on above: Ordered: 02/16/2022 CBC W Auto Different ial panel - Blood [facility] CBC W Auto Different ial panel - Blood [facility] CBC W Auto Different ial panel - Blood [facility] Biophysical pr ofile panel US [facility] Glucose [Mass/volume ] in Serum or Plasma --1 hour post 50 g glucose PO [facility] Hepatitis B surface antigen measurement [facility] Hepatitis C antibody measurement [facility] HIV 1+2 Ab+HIV1 p24 Ag [Presence] in Serum or Plasma by Immunoassay [facility] HIV 1+2 Ab+HIV1 p24 Ag [Presence] in Serum or Plasma by Immunoassay [facility] Patient Education ED Methotrexat e for Ectopic ... [facility] Work Phone: Patient referral [facility] Work Phone: Rubella IgG measurement [facility] Thyroid stimulating hormone measurement [facility] Thyroperoxidase Ab [Units/volume] in Serum or Plasma [facility] Treponema sp Ab [Presence] in Serum [facility] Treponema sp Ab [Presence] in Serum [facility] [place] Phone[place] [facility] [place] Immunization Date Immunization Notes Care Provider Shahnaz medel 05-04-2024 influenza, seasonal, injectable, preservative free Heath HALE Work Phone: [facility] 06-27-2023 tetanus toxoid, redu kathy diphtheria toxoid, and acellular pertussis vaccine, adsorbed No Primary Care Physician [facility] 05-17-2023 influenza, injectabl e, quadrivalent, preservative free No Primary Care Physician [facility] 05-04-2022 influenza, injectabl e, quadrivalent, preservative free No Primary Care Physician [facility] 05-04-2022 influenza, seasonal, injectable Dr. Oma Bentley Work Phone: [facility] 05-07-2021 influenza, injectabl e, quadrivalent, preservative free No Primary Care Physician [facility] 05-07-2021 influenza, seasonal, injectable [facility] 10-03-2020 Covid (Moderna) [facility] 09-05-2020 Covid (Moderna) [facility] 04-30-2020 hepatitis B vaccine, adult dosage [facility] 04-29-2020 influenza, injectabl e, quadrivalent, preservative free No Primary Care Physician [facility] 04-29-2020 influenza, seasonal, injectable [facility] 11-21-2019 hepatitis B vaccine, adult dosage [facility] 10-08-2019 hepatitis B vaccine, adult dosage [facility] Payers Date Payer Category Payer Self-pay [id number] 2024 Unknown [id number] 2020 Unknown RICHARDSON SALAZAR PPO [id number] 2020-Present [phone] [facility] [id number] [place] [address] PPO [id number] 2016 Unknown [id number] 1995 Unknown [id number] 1995 Unknown [id number] Unknown [place] BC/BS Unknown [id number] Unknown BC ANTHEM 332 COMM CHOICE XY [id number] Unknown [id number] Unknown [id number] Unknown [id number] Unknown [id number] Unknown [id number] Unknown [id number] Social History Date Type Detail Facility Start: 02-16-2022 End: 10-19-2023 Tobacco smoking status NHIS Never smoked tobacco [facility] Start: 02-16-2022 Tobacco use and exposure Smokeless tobacco non-user [facility] Start: 1995 Sex Assigned At Not on file C [facility] Start: 02-06-2022 End: 02-16-2022 Exposure to SARS-CoV-2 (event) Not sure [facility] Start: 03-07-2022 End: 10-19-2023 Tobacco smoking status NYIS Unknown if ever smoked [facility] Start: 1995 Sex Assigned At Female [facility] Start: 10-18-2024 End: 10-25-2024 Sex Female (finding) [facility] Sex Female [facility] Goals Date Patient Goal Desired Activity /State Clinical Notes 02-16-2022 to 04-29-2025 Note Date & Type Note Facility 04-29-2025 Progress note [facility] 04-29-2025 Progress note Note Date/Time April 29, 2025 3:37pm [facility] [address], [address] [place] [address] OFFICE VISIT Date of Service: 04/29/25 MR#: [id number] Acct: [id number] Name: CHELITA ROMERO Rep #: [id number] : 1995 Provider: Dr. Berenice Bentley DO Age/Sex: 30/F [place] [facility] [place]: Signed Intake Vital Signs 10/21/23 16:10 04/08/25 09:35 04/29/25 15:18 Height 5 ft 11 in 5 ft 11 in 5 ft 11 in Weight: 205 lb 194 lb 6 oz BMI 28.5 27.1 BP 107/70 130/76 H Blood Pressure Location Lt brachial Position Sitting Pulse 77 Pulse Source Monitor Pulse Oximetry (%) 98 Oxygen Delivery Method room air Intake Visit Reasons: Mirena Removal *copay $20 Chief Complaint: Mirena Removal Home Health Clinical Supervisor Required: No Is patient in pain?: No Allergies No Known Allergies Allergy (Verified 04/29/25 15:16) Medications ?Medication ?Instructions ?Recorded ?Confirmed ?Type multivit-min no.71-iron fum 28 1 cap PO 01/18/2304/29 History mg-folate no.1 1 mg-dha 300 mg capsule (PNV-Borger) Compound Semaglutide subcut 01/04/25 04/29/25 His tory cholecalciferol (vitamin D3) 125 125 mcg PO QDAY 04/0804/29/25 History mcg (5,000 unit) capsule levothyroxine 25 mcg tablet 25 mcg PO QDAY 04/08/25 History letrozole 2.5 mg tablet (Femara) 2.5 mg PO QDAY 5 days #5 tabs 04/29/25 04/29/25 Rx medroxyprogesterone 5 mg tablet 5 mg PO QDAY #10 tabs 04/29/25 04/29/25 Rx (Provera) Post menopausal: No Patient : No : No PFSH PFSH Medical History Bruno's thyroiditis Thyroid disease Ectopic PCOS (polycystic ovarian syndrome) Family History Grandfather CVA (cerebral vascular accident) Grandmother CVA (cerebral vascular accident) Diabetes Other Idiopathic pulmonary fibrosis Social History adopted: No household members: spouse current occupational status: employed current occupation: [employer] pets and animals: Yes (not managing litterbox while ) pets and animals:cat(s) and dog(s) history of recent travel: Yes ([place]irt Nobles 08/23) out of state: No out of country: Yes sexually active: Yes Smoking Status: Never smoker alcohol intake: never substance use type: does not use well-balanced diet: daily or most days caffeine: No eating out: 1-3 times/week during the past year weight has: remained stable what type of physical activity do you participate in: walking frequency: 1-2 times per week duration: 30-45 minutes/day lindsay/protestant: Buddhist seatbelt use: always do you feel safe at home: Yes 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 Date Name GA/Weeks Outcome Route Bth Weight Gen Labor Lgth Anesthesia Del Locatn Provider FOB 03/08/22 ectopic 09/05/23 Alicia 40 live - full term Female [facility] [place] Delivery Date: 03/08/22 Last Updated by: Laney Kathleen methotrexate HPI Mirena Removal *copay $20 Details: CHELITA ROMERO is a 30 year old who presents for IUD removal. She is ready for baby #2. It took a long time for baby #1 and she wants to skip right to the provera challenge and femara if possible. SHe has lost a significant amount of weight since her last baby however. ROS Const ROS Unobtainable: All systems reviewed & are unremarkable except as noted in H Resp Resp: Reports system reviewed and no additional complaints, except as documented; Denies cough GI GI: Reports as per HPI Psych Psych: Reports system reviewed and no additional complaints, except as documented Exam Const General: cooperative, healthy appearing, comfortable and no acute distress Resp Effort & Inspection: normal respiratory effort General: bimanual renal exam normal bilaterally External Female Exam: normal appearance of the urethra Urethra: normal appearance of the urethra Speculum Exam - Vagina: normal appearance of the vagina Speculum Exam - Cervix: normal appearance of the cervix Bimanual Exam- Adnexa, other: normal adnexae and normal Pelvic Support: normal Other: The IUD strings appear normal and adequately placed IUD is suspected based on the exam today. Skin General: no rashes or lesions noted Psych Appearance: grossly normal Speech and Movement: speech and movement normal Coding Level of Care Code Off vis,est,level 4 Diagnoses Encounter for IUD removal Z30.432 History of infertility Z87.42 PCOS (polycystic ovarian syndrome) E28.2 Assessment and Plan Assessment and Plan (1) Encounter for IUD removal: Status: Acute (2) History of infertility: Status: Acute (3) PCOS (polycystic ovarian syndrome): Status: Chronic Orders: Orders IUD Removal Today Z30.432 - Encounter for removal of intrauterine contraceptivedevice Medications: New medroxyprogesterone (Provera) 5 mg PO QDAY 10 tabs 3RF letrozole (Femara) start on day 3 of menses and take for 5 days 2.5 mg PO QDAY 5 tabs 2RF 5 days Plan plan to wait 30 days then start provera x 10 days. on 3rd day of withdrawal bleed, take femara 2.5 mg x 5 days. patient understands the risks, benefits, and alternatives to ovulation inductionmedication. 04/29/25 1540 <Electronically signed by Oma Mackey DO> Date _ Oma Bentley DO Cosigner Signature: Date (if applicable) CC: ~ [facility] Work Phone: 1(345) 518-437009-08-2025 Evaluation note* Diagnosis Onset Date Resolution Status Admit Date Bruno's thyroiditis chronic S eptember 2024 9:35am PCOS (polycystic ovarian syndrome) chronic April 08 025 9:35am Encounter for IUD removal acute April 29, 2025 3:08pm History of infertility acute Se ptember 2024 3:08pm PCOS (polycystic ovarian syndrome) chronic April 29, 2025 3:08pm [facility] Work Phone: 1(529) 650-716503-21-2025 Radiology Diagnostic study note [facility] Imaging Services [address] [place], [place] [address] Thyroid MR#: [id number] Acct: [id number] Name: CHELITA ROMERO Rep #: [id number] : 1995 F 29 From: Francine Roman MD PCP: ALEXIA Sanderson Status: REG CLI Study:Thyroid Date of Exam: 10/19/24 Exam# [id number] Ordering Dr: Monte Sebastian [facility] 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 TECHNIQUE: Thyroid ultrasound COMPARISON: None. FINDINGS: Right thyroid lobe measures 5.6 x 2.3 x 1.1 cm. Left thyroid lobe measures 5.7 x 2.0 x 1.3 cm. Isthmus thickness is0.24 cm. Thyroid Size: Normal Background Echotexture: Normal Thyroid Nodules: No suspicious nodules are identified. There are a few bilateral physiologic colloid cysts. US/Thyroid IMPRESSION: NORMAL THYROID ULTRASOUND Reading Location: [facility] CC: ALEXIA Sebastian ~ Demo Coordinator: Signed [facility]03-20-2024 NotePap Smear Specimen AdequacyMarch 2023 11:59pmComment.Satisfactory for evaluation. Endocervical and/or squamous metaplasticcells (endocervical component)are present.[facility] A#[id number] HospitalComment on above:Satisfactory for evaluation. Endocervical and/or squamous metaplasticcells (endocervical component)are present.09-06-2023 Progress note Author Mireya So [facility] September 06, 2023 8:34am Note Date/Time September 06, 2023 8 :34am [facility] Medical Records Department [address] [place] [address] Progress Note - OBGYN 09/06/23 0832 MR#: [id number] Acct: [id number] Name: CHELITA ROMERO Rep #:[id number] : 1995 28 From: Mireya So CNM PCP: Care Physician,No Primary Status :ADM IN Location: [place] [address] Subjective Subjective Patient doing well without complaints. Tolerating PO. Ambulating and voiding without difficulty. Feeding well. Denies chest pain, shortness of breath, calf pain/swelling, fevers, chills, lightheadedness. Objective Data Objective Data Vital Signs: Vital Signs Temp Pulse Resp BP Pulse Ox O2 Del Method 97.0 F L 75 16 119/58 L 99 Room Air 09/06/23 07:44 09/06/23 07:44 09/06/23 07:44 09/06/23 07:44 09/06/23 07:44 09/06/23 07:44 Oxygen Delivery Method Room Air Weight: 279 lb Body Mass Index (BMI) 38.9 Intake & Output: Intake and Output for Last 24 Hours 09/04/23 09/05/23 09/06/23 23:59 23:59 23:59 Intake Total 3004.33 / 3004.33 Output Total 2300 / 2300 Balance 704.33 / 704.33 Lab / Micro Data Attestation: I reviewed the patient's lab results. 09/04/23 19:30 ROS Constitutional Constitutional: Reports systems reviewed and no addt'l complaints, except as documented; Denies anorexia or headache(s) Cardiovascular Cardiovascular: Reports systems reviewed and no addt'l complaints, except as documented; Denies dizziness, dyspnea, nausea or tachypnea Respiratory/Chest Respiratory/Chest: Reports systems reviewed and no addt'l complaints, except as documented; Denies cough, dyspnea, shortness of breath at rest or tachypnea Gastrointestinal Gastrointestinal: Reports systems reviewed and no addt'l complaints, except as documented; Denies abdominal pain, constipation or nausea Genitourinary Genitourinary: Reports systems reviewed and no addt'l complaints, except as documented; Denies burning urination, difficulty urinating, dysuria, urinary frequency or urinary incontinence Musculoskeletal Musculoskeletal: Reports systems reviewed and no addt'l complaints, except as documented Integumentary Integumentary: Reports systems reviewed and no addt'l complaints, except as documented Neurologic Neurologic: Reports systems reviewed and no addt'l complaints, except as documented; Denies abnormal speech, dizziness or headache(s) Psychiatric Psychiatric: Reports systems reviewed and no addt'l complaints, except as documented Endocrine Endocrinology: Reports systems reviewed and no addt'l complaints, except as documented Hematologic/Lymphatic Hematologic/Lymphatic: Reports systems reviewed and no addt'l complaints, exceptas documented Physical Exam Const alert, oriented x3 and no apparent distress Neck full ROM Resp normal respiratory effort, normal air movement and no retractions Effort and Inspection: able to speak in complete sentences and symmetric chest movement GI soft to palpation Bladder / Kidney Exam: bladder normal to palpation Uterus Palpation: uterus fundus firm Extremity normal to inspection and full ROM Psych mental status grossly normal, thought process normal and cooperative Assessment & Plan (1) Vaginal delivery: PLAN: s/p PPD # 1 1. routine post delivery care 2. breast feeding- support given 3. rh positive 4. rubella immune 5. Discharge Home (2) COVID-19 affecting , antepartum: COMMENT: asa 81mg daily, growth US 32 & 36 weeks: 32 wk: 41% (3) Anemia during : COMMENT: add FE (4) Obesity affecting : QUALIFIERS: Trimester: second trimester Obesity type affecting : unspecified obesity Qualified Code(s): O99.212 - Obesity complicating , second trimester COMMENT: normal 3 hr GTT Charges/Coding Multi Select Codes Urinary/Genital Urinary/Genital CPT Codes: No Charge 09/06/23 0834 <Electronically signed by Mireya So CNM> Cosigner Signature (if applicable): CC: ~ Signed [facility] Work Phone: 1(132) 981-894102-05-2024 Discharge summary Author Oma Catherine [facility] September 05, 2023 11:14am Note Date/Time September 05, 2023 1 1:14am [facility] Medical Records Department [address] [place] [address] Instructions for Home/Discharge Instructions 09/05/23 1114 MR#: [id number] Acct: [id number] Name: CHELITA ROMERO Rep #:[id number] : 1995 28 From: Oma Bentley DO PCP: Care Physician,No Primary Status :ADM IN Discharge Instructions Diet Discharge Diet: No restrictions Activity Discharge Activity: Return to Normal Activity, May Not Drive (while taking narcotic pain medications.) and May Shower May resume sexual activity in: 4-6 weeks Dressing / Incision Call your doctor if your incision/area has: Continuous Slow Oozing, Sudden Increased Bleeding, Increased Pain/ Swelling, Increased Redness and Foul Smelling Discharge Follow Up Care Please Follow Up With: Oma Bentley DO When: Call [phone] to make an appointment with your doctor in 6 weeks. If you had elevated blood pressure or 4th degree laceration, you will need to be seen in 2 weeks. Test Results: Test results from this visit will be discussed in further detail at your follow- up appointment, if applicable. Discharge Plan Admission Admit Date/Time: 09/04/23 18:55 Attending Provider: Oma Bentley Primary Care Provider: Care Physician,No Primary Discharge Orders/Prescriptions Prescriptions: No Action cholecalciferol (vitamin D3) 125 mcg (5,000 unit) capsule 125 mcg PO DAILY PNV-Borger 28-1-300 mg capsule 1 cap PO Referrals / Follow Up: Care Physician,No Primary [Primary Care Provider] - 09/05/23 1114<Electronically signed by Oma Bentley DO>Oma Bentley DO CC: No Primary Care Physician ~ Signed [facility] Work Phone: 1([phone]) 114-446202-05-2024 Procedure [facility] 09-05-2023 Progress note Author Oma Catherine [facility] September 05, 2023 6:57am Note Date/Time September 05, 2023 6 :57am [facility] Medical Records Department [address] [place] [address] Progress Note 09/05/23 0656 MR#: [id number] Acct: [id number] Name: CHELITA ROMERO Rep #:[id number] : 1995 28 From: Oma Bentley DO PCP: Care Physician,No Primary Status :ADM IN Location: [id number] Progress Note pt is sitting up in bed without complaints. epidural in place current tracing: FHT: Moderate variability reactive no decelerations category I tracing [place]: q 2-4 min Contractions cx: per nurse- 7 cm A/P: IOL- progressing well. continue current management 09/05/23 06 <Electronically signed by Oma Bentley DO> Oma Bentley DO Cosigner Signature (if applicable): CC: ~ Signed [facility] Work Phone: 1(754) 633-458402-05-2024 Progress note Author Claribel Marino [facility] September 05, 2023 2:12am Note Date/Time September 05, 2023 2 :12am [facility] Medical Records Department [address] [place] [address] Progress Note 09/05/23210 MR#: [id number] Acct: [id number] Name: CHELITA ROMERO Rep #:[id number] : 1995 28 From: Claribel hawthorne MD PCP: Care Physician,No Primary Status :ADM IN Location: [place] [address] Progress Note fb out and cervical change to 5-6 cm current tracing: FHT: 130 min- Moderate variability reactive occasional early decelerations category I tracing [place]: q 2-3 Contractions reviewed tracing abnormalities since last note: no signficiant A/P: arom clear fluid, will obtain epidural 09/05/23211 <Electronically signed by Claribel Marino MD> Claribel Marino MD Cosigner Signature (if applicable): CC: ~ Signed [facility] Work Phone: 1(285) 481-818102-05-2024 History and physical note Author Claribel Marino [facility] September 05, 2023 2:11am Note Date/Time September 05, 2023 2 :11am [facility] Medical Records Department [address] [place] [address] H&P 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 Maternal Data Information DOMITILA Calculator Estimated Delivery Date Method Current WG Current Estimate 09/01/23 LMP (Certain) 40w 4d Other Estimates 08/31/23 Ultrasound #1 40w 5d PFSH PFS Medical History Ectopic PCOS (polycystic ovarian syndrome) Home Medications cholecalciferol (vitamin D3) 125 mcg (5,000 unit) capsule 125 mcg PO DAILY 01/18/23 [History Last Taken 09/04/23] multivit-min no.71-iron fum 28 mg-folate no.1 1 mg-dha 300 mg capsule (PNV- Borger) 1 cap PO 01/18/23 [History Last Taken Unknown] Allergy/AdvReac Type Severity Reaction Status Date / Time No Known Allergies Allergy Verified 09/04/23 19:44 Family History Grandfather CVA (cerebral vascular accident) Grandmother CVA (cerebral vascular accident) Diabetes Other Idiopathic pulmonary fibrosis Social History adopted: No household members: spouse current occupational status: employed current occupation: [employer] pets and animals: Yes (not managing litterbox while ) pets and animals:cat(s) and dog(s) history of recent travel: Yes ([place] 08/23) out of state: No out of country: Yes sexually active: Yes Smoking Status: Never smoker alcohol intake: never substance use type: does not use well-balanced diet: daily or most days caffeine: No eating out: 1-3 times/week during the past year weight has: remained stable what type of physical activity do you participate in: walking frequency: 1-2 times per week duration: 30-45 minutes/day lindsay/protestant: Buddhist seatbelt use: always do you feel safe at home: Yes 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 Date Name GA/Weeks Outcome Route Bth Weight Gen Labor Lgth Anesthesia Del Erwinatn Provider FOB 03/08/22 ectopic Delivery Date: 03/08/22 Last Updated by: Laney Kathleen methotrexate Visit Details Expected Delivery Route/Plan Labor Preferences- CB/BF classes: just breathe class labor support person: Compa labor intervention preferences: none pain management options preferred: epidural cut cord/dad catch: cord yes, catch/maybe : yes PP control planned: discussed, IUD discussed possible routes of delivery and associated risks: discussed possible delivery modalities and possible indications for each including R/B/A of , VAVD, and CS. questions answered. special requests: none Plans Covid status: completed vaccines Flu vaccine: given Tdap vaccine: given Rhogam: NA LARC form signed: yes movement and labor precautions reviewed. Problem list reviewed and updated with the most current plan of care details andappropriate orders placed. Relevant counseling for the gestational age provided. Continue routine care and follow up unless otherwise noted in visit notes/problem list details OB Flowsheet Initial Weight: Not Recorded Date -?-?-?-?-?-?-?-?-?-?-?-?- EGA Weight BP Urine Prot -?-?-?-?-?-?-?-?-?-?-?-?- Glucose FHR FuHt Pres Dilation -?-?-?-?-?-?-?-?-?-?-?-?- Effaced St Visit Note 01/26/23 -?-?-?-?-?-?-?-?-?-?-?-?- 8w 6d 240 lb 2 oz 116/74 -?-?-?-?-?-?-?-?-?-?-?-?- 160 -?-?-?-?-?-?-?-?-?-?-?-?- JV- CRL consiste nt with LMP. NIPT ordered. pt feeling great, no complaints. 02/23/23 -?-?-?-?-?-?-?-?-?-?-?-?- 12w 6d 238 lb 2 oz 119/75 -?-?-?-?-?-?-?-?-?-?-?-?- 140 -?-?-?-?-?-?-?-?-?-?-?-?- LC- no vb/crampi ng. discussed and declines afp. [facility] anatomy ordered. LC- no vb/cramping. its a GI RL!discussed and declines afp. [facility] anatomy ordered. 03/22/23 -?-?-?-?-?-?-?-?-?-?-?-?- 16w 5d 241 lb 110/60 Negative -?-?-?-?-?-?-?-?-?-?-?-?- Negative 151 -?-?-?-?-?-?-?-?-?-?--?-?- MH-No VB or naus ea. Denies concerns. 04/21/23 -?-?-?-?-?-?-?-?-?-?-?-?- 21w 0d 244 lb 4 oz 107/68 Nega tive -?-?-?-?-?-?-?-?-?-?-?-?- Negative 149 -?-?-?-?-?-?-?-?-?-?-?-?- JV- no cramping or lof. ultrasound shows mild right pyelectasis. rpt at 24 weeks. 05/19/23 -?-?-?-?-?-?-?-?-?-?-?-?- 25w 0d 252 lb 6 oz 114/74 Nega tive -?-?-?-?-?-?-?-?-?-?-?-?- Negative 140 26 -?-?-?-?-?-?-?-?-?-?-?-?- KW- no vb/lof/ct x. good fm. repeat US at 28 weeks. 28 week labs next visit 06/07/23 -?-?-?-?-?-?-?-?-?-?-?-?- 27w 5d 257 lb 4 oz 114/70 Nega tive -?-?-?-?-?-?-?-?-?-?-?-?- Negative 142 28 -?-?-?-?-?-?-?-?-?-?-?-?- MH-No VB, LOF. G ood FM. 28 wk labs pending. Larc. 06/27/23 -?-?-?-?-?-?-?-?-?-?-?-?- 30w 4d 263 lb 113/69 Negative -?-?-?-?-?-?-?-?-?-?-?-?- Negative 151 31 -?-?-?-?-?-?-?-?-?-?-?-?- JV- passed 3 hr. no complaints today. tdap today. 07/14/23 -?-?-?-?-?-?--?-?-?-?-?-?- 33w 0d 267 lb 8 oz 115/73 Nega tive -?-?-?-?-?-?-?-?-?-?-?-?- Negative 140 33 Cephalic -?-?-?-?-?-?-?-?-?-?-?-?- SM- no vb lof go od fm no reuglar ctx discussed tail bone pain and supportive care delivery preferences 07/29/23 -?-?-?-?-?-?-?-?-?-?-?-?- 35w 1d 270 lb 2 oz 106/73 Nega tive -?-?-?-?-?-?-?-?-?-?-?-?- Negative 140 36 Cephalic -?-?-?-?-?-?-?-?-?-?-?-?- SM- no vb lof go od fm no regular ctx 08/05/23 -?-?-?-?-?-?-?-?-?-?-?-?- 36w 1d 270 lb 128/83 Negative -?-?-?-?-?-?-?-?-?-?-?-?- Negative 140 37 Cephalic -?-?-?-?-?-?-?-?-?-?-?-?- SM- no vb lof go od fm no regular ctx 08/11/23 -?-?-?-?-?-?-?-?-?-?-?-?- 37w 0d 272 lb 125/79 -?-?-?-?-?-?-?-?-?-?-?-?- 140 39 Cephalic -?-?-?-?-?-?-?-?-?-?-?-?- SM- no vb lof go od fm no regular ctx 08/19/23 -?-?-?-?-?-?-?-?-?-?-?-?- 38w 1d 279 lb 6 oz 126/89 Nega tive -?-?-?-?-?-?-?-?-?-?-?-?- Negative 115 38 Cephalic 1 -?-?-?-?-?-?-?-?-?-?-?-?- 60 -2 KW-no vb/l of/ctx. good fm. modified BPP today. NST. SM scanned JESÚS: KW-no vb/lof/ctx. good fm. m odified BPP today. reactive NST. SM scanned JESÚS: 16 08/24/23 -?-?-?-?-?-?-?-?-?-?-?-?- 38w 6d 278 lb 8 oz 122/77 Nega tive -?-?-?-?-?-?-?-?-?-?-?-?- Negative 130 38 Cephalic 1 -?-?-?-?-?-?-?-?-?-?-?-?- 60 -2 JV- membra kenneth stripped and some bloody show resulted in this. no lof or vaginal bleeding spontaneously. yesterday bpp was 03/0808/31/23 -?-?-?-?-?-?-?-?-?-?-?-?- 39w 6d 279 lb 107/71 -?-?-?-?-?-?-?-?-?-?-?-?- 140 Cephalic 1 -?-?-?-?-?-?-?-?-?-?-?-?- 60 -2 JV- planni ng IOL tuesday night cytotec and parmar. no complaints. pt had an 8 bpp today. NST FHR Rate Baby A Baseline: 140 Variability:: Moderate Accelerations:: 15 x 15 Decelerations:: None NST Reactive:: Yes FHR Category:: Category I Uterine Activity:: irregular ROS Constitutional Constitutional: Reports systems reviewed and no addt'l complaints, except as documented Eyes Eyes: Denies change in vision ENT HEENT: Reports systems reviewed and no addt'l complaints, except as documented; Denies headache(s) Cardiovascular Cardiovascular: Reports systems reviewed and no addt'l complaints, except as documented; Denies chest pain or dyspnea Respiratory/Chest Respiratory/Chest: Reports systems reviewed and no addt'l complaints, except as documented Gastrointestinal Gastrointestinal: Reports systems reviewed and no addt'l complaints, except as documented; Denies abdominal pain Genitourinary Genitourinary: Reports systems reviewed and no addt'l complaints, except as documented, contractions Details: present (irregular) and movement Details: present; Denies dysuria or genital lesions Musculoskeletal Musculoskeletal: Reports systems reviewed and no addt'l complaints, except as documented Neurologic Neurologic: Reports systems reviewed and no addt'l complaints, except as documented Endocrine Endocrinology: Reports systems reviewed and no addt'l complaints, except as documented Vital Signs Vital Signs Vital Signs: 09/04/23 19:21 09/04/23 19:21 09/04/23 19:25 Temperature Temperature Source Pulse Rate 93 Blood Pressure 146/82 H BP Systolic 146 BP Diastolic 82 Pulse Ox 98 09/04/23 19:25 09/04/23 19:23 09/04/23 19:23 Temperature 97.9 F Temperature Source Temporal Pulse Rate 100 Blood Pressure BP Systolic BP Diastolic Pulse Ox 09/04/23 21:34 09/04/23 21:34 09/04/23 21:34 Temperature Temperature Source Pulse Rate 85 Blood Pressure 131/73 H BP Systolic 131 BP Diastolic 73 Pulse Ox 94 09/05/23 00:15 09/05/23 00:15 09/05/23 00:52 Temperature Temperature Source Temporal Pulse Rate 77 Blood Pressure BP Systolic BP Diastolic Pulse Ox 97 09/05/23 00:53 09/05/23 00:53 09/05/23 00:52 Temperature Temperature Source Pulse Rate 78 Blood Pressure 120/68 BP Systolic 120 BP Diastolic 68 Pulse Ox 93 09/05/23 00:52 Temperature 98.5 F Temperature Source Pulse Rate Blood Pressure BP Systolic BP Diastolic Pulse Ox Weight Weight: 279 lb Body Mass Index (BMI) 38.9 Physical Exam Const alert, oriented x3, no apparent distress and healthy appearing HEENT normocephalic and moist oral mucous membranes Head and Scalp: atraumatic Neck full ROM, no lymphadenopathy, supple and thyroid normal General: trachea midline Lymph Lymphatic: no lymphadenopathy noted Chest inspection of chest normal Resp normal respiratory effort Cardio regular rate GI normal to inspection, nondistended, normoactive bowel sounds, soft to palpation and non-tender Inspection: gravid external exam normal Manual OB Exam: estimated gestational size appropriate, presentation cephalic, dilated, effaced and station Extremity normal to inspection General Extremity: Negative for edema Skin no rashes or lesions noted Neuro no focal motor deficits and deep tendon reflexes 2+ bilaterally Motor Exam: strength 5/5 throughout and clonus absent Psych mental status grossly normal Labs Labs Labs: Blood Type O POSITIVE Antibody Screen NEGATIVE Hct 33.8 % (37-47) L Hgb 11.3 g/dL (12.0-15.0) L Obstetrics Ultrasound Syphilis Total Ab Non-reactive Rubella IgG Antibody Reactive (Nonreactive) Hep Bs Antigen Non-Reactive (Nonreactive) Hepatitis C Antibody Non-Reactive (Nonreactive) Chlamydia DNA (LEXII) Negative (Negative) N.gonorrhoeae DNA (LEXII) Negative (Negative) HIV 1&2 Antibody Non-Reactive (Nonreactive) Glucose 1 Hr 50 gm 170 mg/dL (70-140) H Gest Glucose Tolerance MG/DL Assessment & Plan (1) COVID-19 affecting , antepartum: COMMENT: asa 81mg daily, growth US 32 & 36 weeks: 32 wk: 41% (2) Anemia during : COMMENT: add FE (3) Pyelectasis of fetus on ultrasound: COMMENT: possible intermittent obstruction, mild right pyelectasis recommend weekly bpps until delivery. antibiotics after delivery, see MFM consult note for plan for peds after delivery (4) Obesity affecting : QUALIFIERS: Trimester: second trimester Obesity type affecting : unspecified obesity Qualified Code(s): O99.212 - Obesity complicating , second trimester COMMENT: normal 3 hr GTT (5) Supervision of high-risk : QUALIFIERS: Trimester: second trimester Qualified Code(s): O09.92- Supervision of high risk , unspecified, second trimester COMMENT: [id number], DOMITILA 09/01/23 GIRL! Alicia Compa prefers doc only for delivery (6) : QUALIFIERS: Weeks of gestation: 39 weeks Qualified Code(s): Z3A.39 - 39 weeks gestation of COMMENT: GBS neg, Declined carrier and ntd screening. NIPT LR. anatomy reviewed (7) Encounter for induction of labor: PLAN: Plan Patient presents IOL, plan management for with fb/cytotec then pitocin. Pain management: plans epidural. GBS negative. Management of any complications: see a/p I have reviewed the [facility] and made any clinically relevant updates. 09/05/23210 <Electronically signed by Claribel Marino MD> Cosigner Signature (if applicable): CC: Dr. Claribel Marino MD; No Primary Care Physician~ Signed [facility] Work Phone: 1(608) 773-890407-19-2022 NoteHNO ID: [id number] Author: Shai Baires PA-C Service: ? Author Type: Physician Agency Operator Type: Progress Notes Filed: 02/16/2022 11:24 AM Note Text: Subjective Chelita Romero is a 27 year old female with no significant past medical history who presents to [facility] today for evaluation of urinary urgency [...] (Temporal) Resp 16 Ht 177.8 cm (5' 10) Wt 109.8 kg (242 lb) LMP 01/17/2022 [...] which included preparing to see the patient, [id number] patient care, completing clinical documentation, performing a medically appropriate examination, counseling and educating the patient/family/caregiver and ordering medications, tests, or procedures.[facility]07-19-2022 Instructions* Patient Instructions* Shai Baires PA-C - 02/16/2022 11:17 AM EDT [...] treated. A physician, nurse practitioner or physician business assistant may treat with a short course [...] women if symptoms resolve. [facility] History of Present illness Narrative* Shai Baires PA-C - 02/16/2022 11:02 AM EDT Subjective Chelita Romero is a 27 year old female with no significant past medical history who presents to [facility] today for evaluation of urinary urgency [...] (Temporal) Resp 16 Ht 177.8 cm (5' 10) Wt 109.8 kg(242 lb) LMP 01/17/2022 SpO2 97% BMI 34.72 [...] infection. Urine culture obtained. Results discussed with patient.Patient counseled regarding suspected diagnosis and given a [...] which included preparing to see the patient, [id number] patient care, completing clinical documentation, performing a medically appropriate examination, counseling and educating the patient/family/caregiver and ordering medications, tests, or procedures. [facility] Diagnosis Leukocytes in urine- Primary Other cells and casts in urine Urinary frequency Abnormal urine odor Other nonspecific finding on examination of urine documented in this encounter [facility] noteNo assessment information availableWBlanchard [facility] Work Phone: [employer]* Diagnosis Onset Date Resolution Status Ectopic [facility] Work Phone: TRAation note* Diagnosis Onset Date Resolution Status Polycystic ovarian syndrome [facility] Work Phone: [employer]* Diagnosis Onset Date Resolution Status Polycystic ovarian syndrome acute acute Supervision of high-risk [facility] Work Phone: evaluation note* Diagnosis Onset Date Resolution Status Polycystic ovarian syndrome acute acute Supervision of high-risk acute Obesity affecting acute Polycystic ovarian syndrome acute acute Supervision of high-risk acute Obesity affecting acute Polycystic ovarian syndrome acute acute Supervision of high-risk [facility] Work Phone: evaluation note* Diagnosis Onset Date Resolution Status Polycystic ovarian syndrome acute acute Supervision of high-risk acute Obesity affecting acute Polycystic ovarian syndrome acute acute Supervision of high-risk acute Obesity affecting acute Polycystic ovarian syndrome acute acute Supervision of high-risk acute Obesity affecting acute Polycystic ovarian syndrome acute acute Pyelectasis of fetus on ultrasound acute Supervision of high-risk [facility] Work Phone: evaluation note* Diagnosis Onset Date Resolution Status Obesity affecting acute Polycystic ovarian syndrome acute acute Supervision of high-risk acute Obesity affecting acute Polycystic ovarian syndrome acute acute Supervision of high-risk acute Obesity affecting acute Polycystic ovarian syndrome acute acute Pyelectasis of fetus on ultrasound acute Supervision of high-risk acute Obesity affecting acute Polycystic ovarian syndrome acute acute Pyelectasis of fetus on ultrasound acute Supervision of high-risk acute Anemia during acut e Obesity affecting acute acute Pyelectasis of fetus on ultrasound acute Supervision of high-risk [facility] Work Phone: Evaluation note* Diagnosis Onset Date Resolution Status Obesity affecting acute Polycystic ovarian syndrome acute acute Supervision of high-risk acute Obesity affecting acute Polycystic ovarian syndrome acute acute Pyelectasis of fetus on ultrasound acute Supervision of high-risk acute Obesity affecting acute Polycystic ovarian syndrome acute acute Pyelectasis of fetus on ultrasound acute Supervision of high-risk acute Anemia during acut e Obesity affecting acute acute Pyelectasis of fetus on ultrasound acute Supervision of high-risk acute Anemia during acut e COVID-19 affecting , antepartum acute Obesity affecting acute Polycystic ovarian syndrome acute acute Pyelectasis of fetus on ultrasound acute Supervision of high-risk [facility] Work Phone: Evaluation note* Diagnosis Onset Date Resolution Status Obesity affecting acute acute Pyelectasis of fetus on ultrasound acute Supervision of high-risk acute Polycystic ovarian syndrome resolved Obesity affecting acute acute Pyelectasis of fetus on ultrasound acute Supervision of high-risk acute Polycystic ovarian syndrome resolved Anemia during acut e Obesity affecting acute acute Pyelectasis of fetus on ultrasound acute Supervision of high-risk acute Anemia during acut e COVID-19 affecting , antepartum acute Obesity affecting acute acute Pyelectasis of fetus on ultrasound acute Supervision of high-risk acute Polycystic ovarian syndrome resolved Anemia during acut e COVID-19 affecting , antepartum acute Obesity affecting acute acute Pyelectasis of fetus on ultrasound acute Supervision of high-risk acute Anemia during acut e COVID-19 affecting , antepartum acute Obesity affecting acute acute Pyelectasis of fetus on ultrasound acute Supervision of high-risk acute Anemia during acut e COVID-19 affecting , antepartum acute Obesity affecting acute acute Pyelectasis of fetus on ultrasound acute Supervision of high-risk [facility] Work Phone: Evaluation note* Diagnosis Onset Date Resolution Status Obesity affecting acute acute Pyelectasis of fetus on ultrasound acute Supervision of high-risk acute Polycystic ovarian syndrome resolved Anemia during acut e Obesity affecting acute acute Pyelectasis of fetus on ultrasound acute Supervision of high-risk acute Anemia during acut e COVID-19 affecting , antepartum acute Obesity affecting acute acute Pyelectasis of fetus on ultrasound acute Supervision of high-risk acute Polycystic ovarian syndrome resolved Anemia during acut e COVID-19 affecting , antepartum acute Obesity affecting acute acute Pyelectasis of fetus on ultrasound acute Supervision of high-risk acute Anemia during acut e COVID-19 affecting , antepartum acute Obesity affecting acute acute Pyelectasis of fetus on ultrasound acute Supervision of high-risk acute Anemia during acut e COVID-19 affecting , antepartum acute Obesity affecting acute acute Pyelectasis of fetus on ultrasound acute Supervision of high-risk acute Anemia during acut e COVID-19 affecting , antepartum acute Obesity affecting acute acute Pyelectasis of fetus on ultrasound acute Supervision of high-risk acute Anemia during acut e COVID-19 affecting , antepartum acute Obesity affecting acute acute Pyelectasis of fetus on ultrasound acute Supervision of high-risk acute Anemia during acut e COVID-19 affecting , antepartum acute Obesity affecting acute acute Pyelectasis of fetus on ultrasound acute Supervision of high-risk acute Anemia during acut e COVID-19 affecting , antepartum acute Obesity affecting acute acute Pyelectasis of fetus on ultrasound acute Supervision of high-risk acute Anemia during acut e COVID-19 affecting , antepartum acute Encounter for induction of labor acute Obesity affecting acute acute Pyelectasis of fetus on ultrasound acute Supervision of high-risk [facility] Work Phone: Evaluation note* Diagnosis Onset Date Resolution Status Obesity affecting acute Polycystic ovarian syndrome resolved resolved Pyelectasis of fetus on ultrasound resolved Supervision of high-risk resolved Anemia during acut e Obesity affecting acute resolved Pyelectasis of fetus on ultrasound resolved Supervision of high-risk resolved Anemia during acut e COVID-19 affecting , antepartum acute Obesity affecting acute Polycystic ovarian syndrome resolved resolved Pyelectasis of fetus on ultrasound resolved Supervision of high-risk resolved Anemia during acut e COVID-19 affecting , antepartum acute Obesity affecting acute resolved Pyelectasis of fetus on ultrasound resolved Supervision of high-risk resolved Anemia during acut e COVID-19 affecting , antepartum acute Obesity affecting acute resolved Pyelectasis of fetus on ultrasound resolved Supervision of high-risk resolved Anemia during acut e COVID-19 affecting , antepartum acute Obesity affecting acute resolved Pyelectasis of fetus on ultrasound resolved Supervision of high-risk resolved Anemia during acut e COVID-19 affecting , antepartum acute Obesity affecting acute resolved Pyelectasis of fetus on ultrasound resolved Supervision of high-risk resolved Anemia during acut e COVID-19 affecting , antepartum acute Obesity affecting acute resolved Pyelectasis of fetus on ultrasound resolved Supervision of high-risk resolved Anemia during acut e COVID-19 affecting , antepartum acute Obesity affecting acute resolved Pyelectasis of fetus on ultrasound resolved Supervision of high-risk resolved Anemia during acut e COVID-19 affecting , antepartum acute Obesity affecting acute resolved Pyelectasis of fetus on ultrasound resolved Supervision of high-risk resolved Anemia during acut e COVID-19 affecting , antepartum acute Obesity affecting acute Vaginal delivery acute Encounter for induction of labor resolved resolved Pyelectasis of fetus on ultrasound resolved Supervision of high-risk resolved [facility] Work Phone: Evaluation note* Diagnosis Onset Date Resolution Status Anemia during acut e COVID-19 affecting , antepartum resolved Obesity affecting resolved resolved Pyelectasis of fetus on ultrasound resolved Supervision of high-risk resolved Anemia during acut e COVID-19 affecting , antepartum resolved Obesity affecting resolved resolved Pyelectasis of fetus on ultrasound resolved Supervision of high-risk resolved Anemia during acut e COVID-19 affecting , antepartum resolved Obesity affecting resolved resolved Pyelectasis of fetus on ultrasound resolved Supervision of high-risk resolved Anemia during acut e COVID-19 affecting , antepartum resolved Obesity affecting resolved resolved Pyelectasis of fetus on ultrasound resolved Supervision of high-risk resolved Anemia during acut e COVID-19 affecting , antepartum resolved Obesity affecting resolved resolved Pyelectasis of fetus on ultrasound resolved Supervision of high-risk resolved Anemia during acut e COVID-19 affecting , antepartum resolved Obesity affecting resolved resolved Pyelectasis of fetus on ultrasound resolved Supervision of high-risk resolved Anemia during acut e COVID-19 affecting , antepartum resolved Obesity affecting resolved resolved Pyelectasis of fetus on ultrasound resolved Supervision of high-risk resolved Anemia during acut e COVID-19 affecting , antepartum resolved Encounter for induction of labor resolved Obesity affecting resolved resolved Pyelectasis of fetus on ultrasound resolved Supervision of high-risk resolved Vaginal delivery resolved Routine Follow-Up noneactive Encounter for IUD insertion acute [facility] Work Phone: Evaluation note* Diagnosis Onset Date Resolution Status Admit Date Bruno's thyroiditis acute S [facility] 2024 9:35am [facility] Work Phone: Reason for referral (narrative)No reason for referral [facility]: Summary Purpose Family History No Family History Records Found Relationship Condition Age at Onset Recorded Date/T iain Not Specified Idiopathic pulmonary fibrosis Unknown grandfather Cerebrovascular accident (CVA) Unknown grandmother Cerebrovascular accident (CVA) Unknown Diabetes mellitus Unknown Advance Directives No Advanced Directives Records Found Advance Directive Response Recorded Date/ Time Living Will No March 07, 2022 1:29pm Power of [employer] No March 07 1:29pm Advance Directive Response Recorded Date/ Time Living Will No March 07, 2022 12:29pm Power of [employer] No March 07 12:29pm Advance Directive Response Recorded Date/ Time Living Will No September 04 7:45pm Power of Vice President [employer] No September 04, 2023 7:45pm Advance Directive Response Recorded Date/ Time Living Will No September 04 8:45pm Power of Vice President [employer] No September 04, 2023 8:45pm Chief Complaint and Reason for Visit Chief Complaint possible miscarriage Chief Complaint possible miscarriage LABWORK ectopic/miscarriage Reason for Visit Ectopic Chief Complaint possible miscarriage LABWORK ectopic/miscarriage FERTILITY TESTING Reason for Visit Ectopic Chief Complaint FERTILITY CONSULT Reason for Visit Polycystic ovarian s yndrome Chief Complaint eorder HX OF ECTOPIC with inconclusive viability, not a Chief Complaint eorder HX OF ECTOPIC with inconclusive viability, not a NEW OB Reason for Visit Polycystic ovarian s yndrome Supervision of high-risk Chief Complaint eorder HX OF ECTOPIC with inconclusive viability, not a NEW OB E ORDERS/1 HR GLUCOSE? Reason for Visit Polycystic ovarian s [place]nd[place] Supervision of high-risk Chief Complaint eorder HX OF ECTOPIC with inconclusive viability, not a NEW OB E ORDERS/1 HR GLUCOSE? uti sx 13 WK OB 17 WK OB ANATOMY Reason for Visit Polycystic ovarian s [place]nd[place] Supervision of high-risk Obesity affecting Polycystic ovarian syndrome Supervision of high-risk Obesity affecting Polycystic ovarian syndrome Supervision of high-risk Chief Complaint NEW OB E ORDERS/1 HR GLUCOSE? uti sx 13 WK OB 17 WK OB ANATOMY 21 WK OB 24 WEEK O35.EXX0 Reason for Visit Polycystic ovarian s [place]nd[place] Supervision of high-risk Obesity affecting Polycystic ovarian syndrome Supervision of high-risk Obesity affecting Polycystic ovarian syndrome Supervision of high-risk Obesity affecting Polycystic ovarian syndrome Pyelectasis of fetus on ultrasound Supervision of high-risk Chief Complaint uti sx 13 WK OB 17 WK OB ANATOMY 21 WK OB 24 WEEK O35.EXX0 25 WK OB 28 WK OB /GLUCOSE Reason for Visit Obesity affecting pr egnancy Polycystic ovarian syndrome Supervision of high-risk Obesity affecting Polycystic ovarian syndrome Supervision of high-risk Obesity affecting Polycystic ovarian syndrome Pyelectasis of fetus on ultrasound Supervision of high-risk Obesity affecting Polycystic ovarian syndrome Pyelectasis of fetus on ultrasound Supervision of high-risk Anemia during Obesity affecting Pyelectasis of fetus on ultrasound Supervision of high-risk Chief Complaint uti sx 13 WK OB 17 WK OB ANATOMY 21 WK OB 24 WEEK O35.EXX0 25 WK OB 28 WK OB /GLUCOSE Reason for Visit Obesity affecting pr egnancy Polycystic ovarian syndrome Supervision of high-risk Obesity affecting Polycystic ovarian syndrome Supervision of high-risk Obesity affecting Polycystic ovarian syndrome Pyelectasis of fetus on ultrasound Supervision of high-risk Obesity affecting Polycystic ovarian syndrome Pyelectasis of fetus on ultrasound Supervision of high-risk Anemia during Obesity affecting Pyelectasis of fetus on ultrasound Supervision of high-risk Chief Complaint uti sx 13 WK OB 17 WK OB ANATOMY 21 WK OB 24 WEEK O35.EXX0 25 WK OB 28 WK OB /GLUCOSE FALL Reason for Visit Obesity affecting pr egnancy Polycystic ovarian syndrome Supervision of high-risk Obesity affecting Polycystic ovarian syndrome Supervision of high-risk Obesity affecting Polycystic ovarian syndrome Pyelectasis of fetus on ultrasound Supervision of high-risk Obesity affecting Polycystic ovarian syndrome Pyelectasis of fetus on ultrasound Supervision of high-risk Anemia during Obesity affecting Pyelectasis of fetus on ultrasound Supervision of high-risk Chief Complaint 17 WK OB ANATOMY 21 WK OB 24 WEEK O35.EXX0 25 WK OB 28 WK OB /GLUCOSE FALL FALL 31 WK OB COMPLICATED Reason for Visit Obesity affecting pr egnancy Polycystic ovarian syndrome Supervision of high-risk Obesity affecting Polycystic ovarian syndrome Pyelectasis of fetus on ultrasound Supervision of high-risk Obesity affecting Polycystic ovarian syndrome Pyelectasis of fetus on ultrasound Supervision of high-risk Anemia during Obesity affecting Pyelectasis of fetus on ultrasound Supervision of high-risk Anemia during COVID-19 affecting , antepartum Obesity affecting Polycystic ovarian syndrome Pyelectasis of fetus on ultrasound Supervision of high-risk Chief Complaint ANATOMY 21 WK OB 24 WEEK O35.EXX0 25 WK OB 28 WK OB /GLUCOSE FALL FALL 31 WK OB COMPLICATED 33 WK OB 35 WK OB 36 WEEK GROWTH 36 WK OB, pt has us @ [facility] before appt Reason for Visit Obesity affecting pr egnancy Pyelectasis of fetus on ultrasound Supervision of high-risk Polycystic ovarian syndrome Obesity affecting Pyelectasis of fetus on ultrasound Supervision of high-risk Polycystic ovarian syndrome Anemia during Obesity affecting Pyelectasis of fetus on ultrasound Supervision of high-risk Anemia during COVID-19 affecting , antepartum Obesity affecting Pyelectasis of fetus on ultrasound Supervision of high-risk Polycystic ovarian syndrome Anemia during COVID-19 affecting , antepartum Obesity affecting Pyelectasis of fetus on ultrasound Supervision of high-risk Anemia during COVID-19 affecting , antepartum Obesity affecting Pyelectasis of fetus on ultrasound Supervision of high-risk Anemia during COVID-19 affecting , antepartum Obesity affecting Pyelectasis of fetus on ultrasound Supervision of high-risk Chief Complaint 24 WEEK O35.EXX0 25 WK OB 28 WK OB /GLUCOSE FALL FALL 31 WK OB COMPLICATED 33 WK OB 35 WK OB 36 WEEK GROWTH 36 WK OB, pt has us @ [facility] before appt 37 WK OB 38 WK OB GROWTH 38 WK OB GROWTH 40 WK OB INDUCTION INDUCTION Reason for Visit Obesity affecting pr egnancy Pyelectasis of fetus on ultrasound Supervision of high-risk Polycystic ovarian syndrome Anemia during Obesity affecting Pyelectasis of fetus on ultrasound Supervision of high-risk Anemia during COVID-19 affecting , antepartum Obesity affecting Pyelectasis of fetus on ultrasound Supervision of high-risk Polycystic ovarian syndrome Anemia during COVID-19 affecting , antepartum Obesity affecting Pyelectasis of fetus on ultrasound Supervision of high-risk Anemia during COVID-19 affecting , antepartum Obesity affecting Pyelectasis of fetus on ultrasound Supervision of high-risk Anemia during COVID-19 affecting , antepartum Obesity affecting Pyelectasis of fetus on ultrasound Supervision of high-risk Anemia during COVID-19 affecting , antepartum Obesity affecting Pyelectasis of fetus on ultrasound Supervision of high-risk Anemia during COVID-19 affecting , antepartum Obesity affecting Pyelectasis of fetus on ultrasound Supervision of high-risk Anemia during COVID-19 affecting , antepartum Obesity affecting Pyelectasis of fetus on ultrasound Supervision of high-risk Anemia during COVID-19 affecting , antepartum Obesity affecting Pyelectasis of fetus on ultrasound Supervision of high-risk Anemia during COVID-19 affecting , antepartum Encounter for induction of labor Obesity affecting Pyelectasis of fetus on ultrasound Supervision of high-risk Chief Complaint 24 WEEK O35.EXX0 25 WK OB 28 WK OB /GLUCOSE FALL FALL 31 WK OB COMPLICATED 33 WK OB 35 WK OB 36 WEEK GROWTH 36 WK OB, pt has us @ [facility] before appt 37 WK OB 38 WK OB GROWTH 38 WK OB GROWTH 40 WK OB VAG. DELIVERY INDUCTION VAG. DELIVERY Reason for Visit Obesity affecting pr egnancy Polycystic ovarian syndrome Pyelectasis of fetus on ultrasound Supervision of high-risk Anemia during Obesity affecting Pyelectasis of fetus on ultrasound Supervision of high-risk Anemia during COVID-19 affecting , antepartum Obesity affecting Polycystic ovarian syndrome Pyelectasis of fetus on ultrasound Supervision of high-risk Anemia during COVID-19 affecting , antepartum Obesity affecting Pyelectasis of fetus on ultrasound Supervision of high-risk Anemia during COVID-19 affecting , antepartum Obesity affecting Pyelectasis of fetus on ultrasound Supervision of high-risk Anemia during COVID-19 affecting , antepartum Obesity affecting Pyelectasis of fetus on ultrasound Supervision of high-risk Anemia during COVID-19 affecting , antepartum Obesity affecting Pyelectasis of fetus on ultrasound Supervision of high-risk Anemia during COVID-19 affecting , antepartum Obesity affecting Pyelectasis of fetus on ultrasound Supervision of high-risk Anemia during COVID-19 affecting , antepartum Obesity affecting Pyelectasis of fetus on ultrasound Supervision of high-risk Anemia during COVID-19 affecting , antepartum Obesity affecting Pyelectasis of fetus on ultrasound Supervision of high-risk Anemia during COVID-19 affecting , antepartum Obesity affecting Vaginal delivery Encounter for induction of labor Pyelectasis of fetus on ultrasound Supervision of high-risk Chief Complaint COMPLICATED PREGNANC Y 33 WK OB 35 WK OB 36 WEEK GROWTH 36 WK OB, pt has us @ [facility] before appt 37 WK OB 38 WK OB GROWTH 38 WK OB GROWTH 40 WK OB VAG. DELIVERY INDUCTION VAG. DELIVERY visit (obstetrics) IUD INSERTION Reason for Visit Anemia during pregna ncy COVID-19 affecting , antepartum Obesity affecting Pyelectasis of fetus on ultrasound Supervision of high-risk Anemia during COVID-19 affecting , antepartum Obesity affecting Pyelectasis of fetus on ultrasound Supervision of high-risk Anemia during COVID-19 affecting , antepartum Obesity affecting Pyelectasis of fetus on ultrasound Supervision of high-risk Anemia during COVID-19 affecting , antepartum Obesity affecting Pyelectasis of fetus on ultrasound Supervision of high-risk Anemia during COVID-19 affecting , antepartum Obesity affecting Pyelectasis of fetus on ultrasound Supervision of high-risk Anemia during COVID-19 affecting , antepartum Obesity affecting Pyelectasis of fetus on ultrasound Supervision of high-risk Anemia during COVID-19 affecting , antepartum Obesity affecting Pyelectasis of fetus on ultrasound Supervision of high-risk Anemia during COVID-19 affecting , antepartum Encounter for induction of labor Obesity affecting Pyelectasis of fetus on ultrasound Supervision of high-risk Vaginal delivery Routine Follow-Up Encounter for IUD insertion Chief Complaint Admit Date NONTOXIC GOITER, UNSPECIFIED October 19, 2024 1:32pm Chief Complaint Admit Date Thyroid April 08, 2025 9:35am Reason for Visit Admit Date Bruno's thyroiditis April 08 9:35am Chief Complaint Admit Date Thyroid April 08, 2025 9:35am Mirena Removal *copay $20 April 3:08pm Reason for Visit Admit Date Bruno's thyroiditis April 08 9:35am PCOS (polycystic ovarian syndrome) Arben hebert 2024 9:35am Encounter for IUD removal April 3:08pm History of infertility April 29 3:08pm PCOS (polycystic ovarian syndrome) Arben hebert 2024 3:08pm Additional Source Comments INFORMATION SOURCE (unrecogn ized section and content) DATE CREATED AUTHOR 01/25/2018 [facility] Latisha Neal DATE CREATED AUTHOR AUTHOR'S ORGANIZ ATION 02/19/2022 [facility] DATE CREATED AUTHOR AUTHOR'S ORGANIZ ATION 08/13/2023 [facility] DATE CREATED AUTHOR AUTHOR'S ORGANIZ ATION 05/25/2025 [facility] Source Comments (unrecognize d section and content) In the event this informatio n is protected by the Federal Confidentiality of Alcohol and Drug Abuse Patient Records regulations: The Federal rules restrict any use of the information to criminally investigate or prosecute any alcohol or drug abuse patient.[facility] Reason for Visit (unrecogniz ed section and content) Reason Comments UTI Goals (unrecognized section and content) Type Care Experience svdLabor Preferences -CB/BF classes: just breathe classlabor support person: Jmondulceor intervention preferences: none pain management options preferred: epiduralcut cord/dad catch: cord yes, catch/maybebreastfeeding: yesPP control planned: discussed, IUDdiscussed possible routes of delivery and associated risks: discussed possible delivery modalities and possible indications for each including R/B/A of , VAVD, and CS. questions answered.special requests: none Care Teams (unrecognized sec tion and content) Team Status: Active Member Role Status Dates No Primary Care Physician Primary Care Provider Active Team Status: Inactive Member Role Status Dates No Primary Care Physician Primary Care Provider, Refer ring Provider Active Dr. Claribel Marino MD Attending Provider Active Team Status: Inactive Member Role Status Dates No Primary Care Physician Primary Care Provider Active Dr. Claribel Marino MD Attending Provider, Referr ing Provider Active Team Status: Inactive Member Role Status Dates No Primary Care Physician Primary Care Provider Active Jes Dao CNM Attending Provider, Referring Pr ovider Active Team Status: Inactive Member Role Status Dates No Primary Care Physician Primary Care Provider Active Vanna Tracey NP, DEALER RELATIONSHIP MANAGER-C Attending Provider, Referring Provider Active Team Status: Active Member Role Status Dates No Primary Care Physician Primary Care Provider Active Dr. Claribel Marino MD Attending Provider, Referr ing Provider Active Team Status: Inactive Member Role Status Dates No Primary Care Physician Primary Care Provider, Refer ring Provider Active Dr. Oma Bentley DO Attending Provider Activ e Team Status: Inactive Member Role Status Dates No Primary Care Physician Primary Care Provider Active Dr. Oma Bentley DO Attending Provider, Refe rring Provider Active Team Status: Active Member Role Status Dates No Primary Care Physician Primary Care Provider Active Dr. Oma Bentley DO Attending Provider, Refe rring Provider Active Team Status: Inactive Member Role Status Dates No Primary Care Physician Primary Care Provider, Refer ring Provider Active Jes Dao CNM Attending Provider Active Team Status: Inactive Member Role Status Dates No Primary Care Physician Primary Care Provider, Refer ring Provider Active Vanna Tracey DEALER RELATIONSHIP MANAGER, DEALER RELATIONSHIP MANAGER-C Attending Provider Active Team Status: Inactive Member Role Status Dates No Primary Care Physician Primary Care Provider, Refer ring Provider Active Mireya So CNM Attending Provider Active Team Status: Active Member Role Status Dates No Primary Care Physician Primary Care Provider Active Dr. Claribel Marino MD Attending Pr ovider, Referring Provider, Other Provider Active Team Status: Inactive Member Role Status Dates No Primary Care Physician Primary Care Provider Active Vanna Tracey DEALER RELATIONSHIP MANAGER, DEALER RELATIONSHIP MANAGER-C Attending Provider, Referring Provider Active Dr. Claribel Marino MD Other Provider Active Team Status: Active Member Role Status Dates No Primary Care Physician Primary Care Provider Active Dr. Oma Bentley DO Admit Prov ider, Referring Provider, Other Provider Active Dr. Claribel Marino MD Attending Provider Active Team Status: Inactive Member Role Status Dates No Primary Care Physician Primary Care Provider Active Dr. Claribel Marino MD Attending Provider Active Team Status: Active Member Role Status Dates No Primary Care Physician Primary Care Provider Active Dr. Oma Bentley DO Admit Prov ider, Attending Provider, Referring Provider Active Team Status: Active Member Role Status Dates No Primary Care Physician Primary Care Provider Active Dr. Oma Bentley DO Admit Prov ider, Referring Provider, Other Provider Active Mireya So CNM Attending Provider Active Team Status: Inactive Member Role Status Dates No Primary Care Physician Primary Care Provider Active Dr. Oma Bentley DO Admit Prov ider, Attending Provider, Referring Provider Active Team Status: Active Member Role Status Dates Heath Sebastian VSC, DEALER RELATIONSHIP MANAGER-C Primary Care Provider Active Team Status: Inactive Member Role Status Dates Heath Sebastian VSC, DEALER RELATIONSHIP MANAGER-C Primary Care Provider Active Start: October 10, 2024 End: October 10, 2024 Heath Romulo VSC, DEALER RELATIONSHIP MANAGER-C Attending Provider Active S tart: October 10, 2024 End: October 10, 2024 Team Status: Inactive Member Role Status Dates Heath Romulo VSC, DEALER RELATIONSHIP MANAGER-C Primary Care Provider Active Start: October 19, 2024 End: October 19, 2024 Heath Romulo VSC, DEALER RELATIONSHIP MANAGER-C Attending Provider Active S tart: October 19, 2024 End: October 19, 2024 Heath Sebastian VSC, DEALER RELATIONSHIP MANAGER-C Referring Provider Active S tart: October 19, 2024 End: October 19, 2024 Team Status: Inactive Member Role Status Dates Heath Romulo VSC, DEALER RELATIONSHIP MANAGER-C Primary Care Provider Active Start: January 02, 2025 End: January 02, 2025 Heath Sebastian VSC, DEALER RELATIONSHIP MANAGER-C Attending Provider Active S tart: January 02, 2025 End: January 02, 2025 Team Status: Active Member Role/Relationship Status Dates Heath Sebastian VSC, DEALER RELATIONSHIP MANAGER-C Primary Care Provider Active Team Status: Inactive Member Role/Relationship Status Dates Heath Romulo VSC, DEALER RELATIONSHIP MANAGER-C Primary Care Provider Active Start: January 02, 2025 End: January 02, 2025 Heath Romulo VSC, DEALER RELATIONSHIP MANAGER-C Attending Provider Active S tart: January 02, 2025 End: January 02, 2025 Team Status: Inactive Member Role/Relationship Status Dates Heath Romulo VSC, DEALER RELATIONSHIP MANAGER-C Primary Care Provider Active Start: April 08, 2025 End: April 08, 2025 Heath Sebastian VSC, DEALER RELATIONSHIP MANAGER-C Referring Provider Active S tart: April 08, 2025 End: April 08, 2025 Dr. Omar Boothe MD Attending Provider Active Sta rt: April 08, 2025 End: April 08, 2025 Team Status: Active Member Role/Relationship Status Dates Heath Sebastian VSC, DEALER RELATIONSHIP MANAGER-C Primary care physician Active Team Status: Inactive Member Role/Relationship Status Dates Heath Sebastian VSC, DEALER RELATIONSHIP MANAGER-C Primary care physician Active Start: January 02, 2025 End: January 02, 2025 Heath Sebastian VSC, DEALER RELATIONSHIP MANAGER-C Attending physician Active Start: January 02, 2025 End: January 02, 2025 Team Status: Inactive Member Role/Relationship Status Dates Heath Sebastian VSC, DEALER RELATIONSHIP MANAGER-C Primary care physician Active Start: April 08, 2025 End: April 08, 2025 Heath Sebastian VSC, DEALER RELATIONSHIP MANAGER-C Referring Provider Active S tart: April 08, 2025 End: April 08, 2025 Dr. Omar Boothe MD Attending physician Active St art: April 08, 2025 End: April 08, 2025 Team Status: Inactive Member Role/Relationship Status Dates Heath BANDA, DEALER RELATIONSHIP MANAGER-C Primary care physician Active Start: April 09, 2025 End: April 09, 2025 Dr. Omar Boothe MD Attending physician Active St art: April 09, 2025 End: April 09, 2025 Dr. Omar Boothe MD Referring Provider Active Sta rt: April 09, 2025 End: April 09, 2025 Team Status: Inactive Member Role/Relationship Status Dates Heath Romulo BANDA DEALER RELATIONSHIP MANAGER-C Primary care physician Active Start: April 29, 2025 End: April 29, 2025 Heath BANDA, DEALER RELATIONSHIP MANAGER-C Referring Provider Active S tart: April 29, 2025 End: April 29, 2025 Dr. Oma Bentley DO Attending physician Active Start: April End: April 29, 2025 FOR RECORDS PERTAINING TO PATIENTS WHO ARE [...] BE BASED ON THE PRIMARY CLINICAL RECORDS. [employer] provides no warranty or guarantee of the accuracy or completeness of information in this document.
[2025-07-10 09:09] LABS: hCG Titer Quant., Serum 85 mIU/mL (<9 non-preg)
== END | disposition home or self-care (01) ==
LOC: LAB 08:06
PROVIDERS: PCP Nurse Practitioner Family; Referring Provider Student in an Organized Health Care Education/Training Program; Visit Provider Student in an Organized Health Care Education/Training Program
DX: N91.1 Secondary amenorrhea (principal)
CPT/HCPCS: 36415; 84702

== ENCOUNTER → 2025-07-12 | Outpatient (CLI) | payer OTHER, SELFPAY ==
--- OUTSIDE RECORDS SUMMARY | 2025-07-12 07:46 | XMS RPT_ITS | CCD ---
Author Organization [facility] Care Team Providers Care Chief Architect Name Role Phone Clifton Chidi Devi Unavailable [...] JABARI Dao Attending Provider [phone] Alexy CORE FITTER, CORE FITTER-C Vanna Attending Provider [phone] [phone] JABARI So Attending Provider 1(330) Care Physician, No Primary Primary Care Provider Unavailable Care Physician, No Primary Referring Provider Un available Dr. Oma Bentley Attending Provider 1(3 30) Dr. Claribel Marino Attending Provider 1(330 ) Dr. Claribel Marino Referring Provider 1(330 ) Dr. Claribel Marino Other Provider [phone] Care Physician, No Primary Primary Care Provider Unavailable Care Physician, No Primary Referring Provider Un available Alexy CORE FITTER, CORE FITTER-C Vanna Attending Provider 1(330 ) DEJA YOUNG [...] JABARI So Attending Provider 1(330) Dr. Oma Bentley Attending Provider 1(3 30) Dr. Oma Bentley Admit Provider Dr. Oma Bentley Referring Provider 1(3 30) Dr. Oma Bentley Other Provider JABARI Dao Attending Provider Sebastian CORE FITTER-C, Heath Primary Care Provider Sebastian CORE FITTER-C, Heath Attending Provider Sebastian CORE FITTER-C, Heath Referring Provider Sebastian CORE FITTER-C, Heath Primary Care Provider Sebastian CORE FITTER-C, Heath Attending Provider Sebastian CORE FITTER-C, Heath Referring Provider King TAVARES, Dr. Nelson Attending Provider Sebastian CORE FITTER-C, Heath Primary Care Physician Sebastian CORE FITTER-C, Heath Attending Physician King TAVARES, Dr. Nelson Attending Physician [phone] King TAVARES, Dr. Nelson Referring Provider Dr. Oma Bentley DO Attending Physician Oma Bentely Attending Unavailabl e Sebastian VSC, Heath Referring Unavailable Seabstian VSC, Heath Primary Care Unavailable Sebastian VSC, Heath Primary Care Unavailable Omar Boothe Attending Unavailable Sebastian VSC, Heath Referring Unavailable Sebastian VSC, Heath Primary Care Unavailable Sebastian VSC, Heath Attending Unavailable Sebastian VSC, Heath Primary Care Unavailable Omar Boothe Attending Unavailable Omar Boothe Referring Unavailable Sebastian VSC, Heath Primary Care Unavailable Sebastian VSC, Hetah Attending Unavailable Sebastian VSC, Heath Primary Care Unavailable Sebastian VSC, Heath Attending Unavailable Sebastian VSC, Heath Referring Unavailable Medications Current Medications [...] 2022 1:00am January 18, 2023 11:12am Mv-Mins 01-Pafm-Xmbov No.1-D gonzalez ([facility]) 28-1-300 mg capsule (20 sources) Start: 01-18-2023 Mv-Mins 71-Iro n-Folic No.1-Dha ([facility]) 28-1-300 mg capsule Active 1 NMA PO January 18, 2023 12:00am Complies with drug therapy Start: 01-18-2023 Mv-Mins 71-Iro n-Folic No.1-Dha ([facility]) 28-1-300 mg capsule Active 1 NMA PO January 18, 2023 12:00am Start: 01-18-2023 take 1 capsule by mouth once M v-Mins 81-Cjeu-Bqgkp No.1-Dha ([facility]) 28-1-300 mg capsule Active 1 CAP PO January 18, 2023 12:00am Start: 01-18-2023 take 1 capsule by mouth once M v-Mins 23-Kewg-Sorni No.1-Dha ([facility]) 28-1-300 mg capsule Active 1 CAP PO January 17, 2023 11:00pm Start: 01-18-2023 take 1 capsule by mouth once M v-Mins 28-Dpfy-Gnfpl No.1-Dha ([facility]) 28-1-300 mg capsule Active CAP PO January 17, 2023 11:00pm Start: 01-18-2023 take 1 capsule by mouth once M v-Mins 02-Kxhs-Pdfzy No.1-Dha ([facility]) 28-1-300 mg capsule Active CAP PO January [...] on above: Take 1 capsule by mo [facility] twice daily for 5 days. Completed/Discontinued Medications [...] unspecified trimester] 01-18-2023 Episodic Comment on above: [id number], DOMITILA 4 GIRL! Alicia Brandonprefers doc only for delivery Other complications of (20 sources) Supervision of high risk , unspecified, unspecified trimester; Translations: [Supervision of unspecified high-risk ] 01-26-2023 Episodic Other complications of (14 sources) Disease caused by 2019-nCoV; Translations: [Other viral diseases complicating , unspecified trimester] 06-08-2023 Episodic Comment on above: asa 81mg daily, [facility] 32 & 36 weeks: 32 wk: 41% [...] Test Name Value Interpretation Reference Range Facility [facility] Clerk Office Visit Reporton 04-29-[address] Office Visit Report [facility] [address], [address] [place] [address] OFFICE VISIT Date of Service: 04/29/25 MR#: [id number] Acct: [id number] Name: CHELITA ROMERO Rep #: [id number] : 1995 Provider: Dr. Oma Lawrence DO Age/Sex: 30/F [place] [facility] [place] Signed with Addenda ADDENDUM by Dr. [...] Removal *copay $20 Chief Complaint: Mirena Removal Chain Dyer Required: No Is patient in pain?: No Allergies No Known Allergies Allergy (Verified 04/29/25 15:16) Medications ???Medication ???Instructions ???Recorded ???Confirmed ???Type multivit-min no.71-iron fum 28 1 cap PO 01/18/23 04/29/25 History mg-folate no.1 1 mg-dha 300 mg capsule (PNV-[place]) Compound Semaglutide subcut 01/04/25 04/29/25 History cholecalciferol [...] menopausal: No Patient : No : [facility] Medical History Bruno's thyroiditis Thyroid disease Ectopic PCOS (polycystic ovarian syndrome) Family History Grandfather CVA (cerebral vascular accident) Grandmother CVA (cerebral vascular accident) Diabetes Other Idiopathic pulmonary fibrosis Social History adopted: No household members: spouse current occupational status: employed current occupation: [employer] pets and animals: Yes (not managing litterbox [...] 1-2 times per week duration: 30-45 minutes/day lindsay/adventist: Sabianism seatbelt use: always do you feel safe at home: Yes 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 Date Name GA/Weeks Outcome Route Bth Weight Infant Gen Labor Lgth Anesthesia Del Locatn Provider FOB 03/08/22 ectopic 09/05/23 Alicia 40 live - full term Female [employer] [place] Delivery Date: 03/08/22 Last Updated [...] the urethra (more content not included)... Normal [facility] Thyroid Peroxidase ABon 09- THYR PEROX AB 41 IU/mL High 0-34 [facility] Comment on above: Result Comment: Perf ormed at: - [facility] [address] [id number] Web Content & Social Media Manager: Asa Bateman PhD, Phone: [phone] Performed By: #### L 3300.6750, L500.4050, L100.0100, L501.29622, L501.9520, L503.0106, L506.1001, L500.4100, L501.9985 #### [facility] [address] [place], [place], [id number] Serum or plasma thyroperoxid ase antibody assay (units/volume)Ordered By: Omar Boothe on 04-09-2025 TPO Ab Qn 41 [IU]/mL High 0-34 [facility] Comment on above: Performed at: [address] [id number] Director: Asa Bateman PhD, Phone: [phone] TSH DL <= 0.005 mIU/L QnOrde red By: Oamr Boothe on 04-09-2025 TSH Qn 1.570 uIU/mL 0.300-4.200 [facility] Thyroid Stim Hormone (TSH)on 04-09-2025 TSH 1.570 uIU/mL Normal 0.300-4.200 [facility] Comment on above: Performed By: #### L 3300.6750, L500.4050, L100.0100, L501.71046, L501.9520, L503.0106, L506.1001, L500.4100, L501.9985 #### [facility] [address] [place], [place], [id number] Endocrinology Visit Reporton 04-08-2025 Endocrinology Visit Report [facility] [address] [place], [place] [address] OFFICE VISIT Date of Service: 04/08/25 MR#: [id number] Acct: [id number] Name: CHELITA ROMERO Rep #: [id number] : 1995 Provider: Zeynep Ellison Age/Sex: 30/F Location: [facility] [place] Status: Signed Intake Vital Signs 10/21/23 16:10 04/08/25 09:35 Height 5 ft 11 in 5 ft 11 in Weight: 205 lb BMI 28.5 BP 107/70 Blood Pressure Location Lt brachial Position Sitting Pulse 77 Pulse Source Monitor Pulse Oximetry (%) 98 Oxygen Delivery Method room air Intake Visit Reasons: Thyroid Chief Complaint: Thyroid, PCOS Chain Dyer Required: No Accompanied by: Self Is patient in pain?: No Allergies No Known Allergies Allergy (Verified 04/08/25 09:35) Medications ???Medication ???Instructions ???Recorded ???Confirmed ???Type multivit-min no.71-iron fum 28 1 cap PO 01/18/23 04/08/25 History mg-folate no.1 1 mg-dha 300 mg capsule ([facility]) Compound Semaglutide subcut 01/04/25 04/08/25 History cholecalciferol (vitamin D3) 125 125 mcg PO QDAY 04/08/25 04/08/25 History mcg (5,000 unit) capsule levothyroxine 25 mcg tablet 25 mcg PO QDAY 04/08/25 04/08/25 H istory [facility] Medical History (Updated 04/08/25 @ 10:[address] Omar Boothe MD) Bruno's thyroiditis Thyroid disease Ectopic PCOS (polycystic ovarian syndrome) Family History Grandfather CVA (cerebral vascular accident) Grandmother CVA (cerebral vascular accident) Diabetes Other Idiopathic pulmonary fibrosis Social History adopted: No household members: spouse current occupational status: employed current occupation: [employer] pets and animals: Yes (not managing litterbox while ) pets and animals: cat(s) and dog(s) history of recent travel: Yes ([place] 08/23) out of state: No out of country: Yes sexually active: Yes Smoking Status: Never smoker alcohol intake: never substance use type: does not use well-balanced diet: daily or most days caffeine: No eating out: 1-3 times/week during the past year weight has: remained stable what type of physical activity do you participate in: walking frequency: 1-2 times per week duration: 30-45 minutes/day lindsay/adventist: Sabianism seatbelt use: always do you feel safe at home: Yes 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 Normal [facility] T4 Free Directon 01-02-2025 T4 FREE DIRECT 1.50 ng/dL High 0.76-1.46 [facility] Comment on above: Performed By: #### L 3300.6750, L500.4050, L100.0100, L501.21641, L501.9520, L503.0106, L506.1001, L500.4100, L501.9985 #### [facility] [address] [place], [address] T4 freeOrdered By: Heath garcia on 01-02-2025 Free T4 [Mass/Vol] 1.50 ng/dL High 0.76-1.46 [facility] TSH DL <= 0.005 mIU/L QnOrde red By: Heath Sebastian on 01-02-2025 TSH Qn 0.037 uIU/mL Low 0.300-4.200 [facility] Thyroid Stim Hormone (TSH)on 01-02-2025 TSH 0.037 uIU/mL Low 0.300-4.200 [facility] Comment on above: Performed By: #### L 3300.6750, L500.4050, L100.0100, L501.38901, L501.9520, L503.0106, L506.1001, L500.4100, L501.9985 #### [facility] [address] [place], [place], [id number] Thyroidon 10-19-2024 Thyroid [facility] [address] [place] [address] Thyroid MR#: [id number] Acct: [id number] Name: CHELITA ROMERO Rep #: [id number] : 1995 F 29 From: Gayla Aguirre nd, MD PCP: Heath Sebastian CORE FITTER-C Status: REG CLI Study: Thyroid Date of Exam: 10/19/24 Exam# [id number] Ordering Dr: Heath Sebastian [facility]LEX[facility] PROCEDURE: THYROID 10/19/2024 REASON FOR [...] IMPRESSION: NORMAL THYROID ULTRASOUND Reading Location: [facility] CC: ALEXIA Sebastian Training And Documentation Specialist: Signed Normal [facility] Thyroid Antibodieson 025 TG AB < 1.0 Normal 0.0-0.9 [facility] Comment on above: Result Comment: Thyr oglobulin Antibody measured by [facility] [place] [facility] [employer] It should be noted that the presence of thyroglobulin antibodies may not be pathogenic nor diagnostic, especially at very low levels. The assay television mechanic has found that four percent of individuals without evidence of thyroid disease or autoimmunity will have positive TgAb levels up to 4 IU/mL. Performed at: [address] [id number] Web Content & Social Media Manager: Asa Bateman PhD, Phone: [phone] Performed By: #### L 3300.6750, L500.4050, L100.0100, L501.89873, L501.9520, L503.0106, L506.1001, L500.4100, L501.9985 #### [facility] [address] [place], [address] THYR PEROX AB 38 IU/mL High 0-34 [facility] Comment on above: Performed By: #### L 3300.6750, L500.4050, L100.0100, L501.63450, L501.9520, L503.0106, L506.1001, L500.4100, L501.9985 #### [facility] [address] [place], [address] Absolute lymphocyte countOrd ered By: Heath Romulo on 10-10-2024 Lymphocytes Auto (Unsp spec) [#/Vol] 2.39 10*3/uL 0.83-4.51 [facility] Absolute neutrophil countOrd ered By: Heath Romulo on 10-10-2024 Neutrophils (Bld) [#/Vol] 5.6 10*3/uL 2.0-7.7 [facility] Anion gap in Serum or Plasma Ordered By: Heath Sebastian on 10-10-2024 Anion gap [Moles/Vol] 13 mmol/L 5- [facility] Automated lymphocyte count a s percentage of total leukocytesOrdered By: Heath Sebastian on 10-10-2024 Lymphocytes/100 WBC Auto (Unsp spec) 27.9 % - [facility] BUN/creatinine ratioOrdered By: Heath Sebastian on 10-10-2024 Urea nitrogen/Creatinine [Mass ratio] 16.5 mg/mg 10- [facility] Basophil percentageOrdered B y: Heath Sebastian on 10-10-2024 Basophils/100 WBC (Bld) 0.5 % 0- [facility] Bilirubin, totalOrdered By: Heath Romulo on 10-10-2024 Bilirubin [Mass/Vol] 0.35 mg/dL 0.00-1.30 [facility] CBC W/Diff, Automatedon 09-29 Absolute Lymph 2.39 X10 3/uL Normal 0.83-4.51 [facility] Comment on above: Performed By: #### L 3300.6750, L500.4050, L100.0100, L501.61901, L501.9520, L503.0106, L506.1001, L500.4100, L501.9985 #### [facility] [address] [place], [address] Absolute Neut 5.6 X10 3/uL Normal 2.0-7.7 [facility] Comment on above: Performed By: #### L 3300.6750, L500.4050, L100.0100, L501.12869, L501.9520, L503.0106, L506.1001, L500.4100, L501.9985 #### [facility] [address] [place], [address] Basophils/100 WBC (Bld) 0.5 % Normal 0-1 [facility] Comment on above: Performed By: #### L 3300.6750, L500.4050, L100.0100, L501.09934, L501.9520, L503.0106, L506.1001, L500.4100, L501.9985 #### [facility] [address] [place], [address] Eosinophils/100 WBC (Bld) 0.7 % Normal 0-5 [facility] Comment on above: Performed By: #### L 3300.6750, L500.4050, L100.0100, L501.84496, L501.9520, L503.0106, L506.1001, L500.4100, L501.9985 #### [facility] [address] [place], [address] Erythrocyte distribution width (RBC) [Ratio] 12.7 % Normal 11.6-14.6 [facility] Comment on above: Performed By: #### L 3300.6750, L500.4050, L100.0100, L501.95360, L501.9520, L503.0106, L506.1001, L500.4100, L501.9985 #### [facility] [address] [place], [address] Hematocrit (Bld) [Volume fraction] 39.1 % Normal 37-47 [facility] Comment on above: Performed By: #### L 3300.6750, L500.4050, L100.0100, L501.13626, L501.9520, L503.0106, L506.1001, L500.4100, L501.9985 #### [facility] [address] [place], [address] Hemoglobin (Bld) [Mass/Vol] 13.2 g/dL Normal 12.0-15.0 [facility] Comment on above: Performed By: #### L 3300.6750, L500.4050, L100.0100, L501.02196, L501.9520, L503.0106, L506.1001, L500.4100, L501.9985 #### [facility] [address] [place], [address] IG% 0.400 Normal 0.0-0.9 [facility] Comment on above: Result Comment: IG% - Immature Granulocytes (promyelocytes, myelocytes and metamyelocytes) > 1% indicates that a LEFT SHIFT is Present. Performed By: #### L 3300.6750, L500.4050, L100.0100, L501.63072, L501.9520, L503.0106, L506.1001, L500.4100, L501.9985 #### [facility] [address] [place], [address] Lymphocytes/100 WBC (Bld) 27.9 % Normal 19-41 [facility] Comment on above: Performed By: #### L 3300.6750, L500.4050, L100.0100, L501.38159, L501.9520, L503.0106, L506.1001, L500.4100, L501.9985 #### [facility] [address] [place], [address] MCH (RBC) [Entitic mass] 27.9 pg Normal 27.0-32.0 [facility] Comment on above: Performed By: #### L 3300.6750, L500.4050, L100.0100, L501.10551, L501.9520, L503.0106, L506.1001, L500.4100, L501.9985 #### [facility] [address] [place], [address] MCHC (RBC) [Mass/Vol] 33.8 g/dL Normal 32-36 [facility] Comment on above: Performed By: #### L 3300.6750, L500.4050, L100.0100, L501.29262, L501.9520, L503.0106, L506.1001, L500.4100, L501.9985 #### [facility] [address] [place], [address] MCV (RBC) [Entitic vol] 82.7 fL Normal 81-99 [facility] Comment on above: Performed By: #### L 3300.6750, L500.4050, L100.0100, L501.38840, L501.9520, L503.0106, L506.1001, L500.4100, L501.9985 #### [facility] [address] [facility] [place], [address] Monocytes/100 WBC (Bld) 5.4 % Normal 0-10 [facility] Comment on above: Performed By: #### L 3300.6750, L500.4050, L100.0100, L501.69237, L501.9520, L503.0106, L506.1001, L500.4100, L501.9985 #### [facility] [address] [place], [address] Neutrophils/100 WBC (Bld) 65.1 % Normal 47-70 [facility] Comment on above: Performed By: #### L 3300.6750, L500.4050, L100.0100, L501.03534, L501.9520, L503.0106, L506.1001, L500.4100, L501.9985 #### [facility] [address] [place], [address] Nucleated RBC (Bld) [#/Vol] 0 10*3/uL Normal 0-5 [facility] Comment on above: Performed By: #### L 3300.6750, L500.4050, L100.0100, L501.42739, L501.9520, L503.0106, L506.1001, L500.4100, L501.9985 #### [facility] [address] [place], [address] Platelet mean volume (Bld) [Entitic vol] 9.0 fL Normal 6.2-12.0 [facility] Comment on above: Performed By: #### L 3300.6750, L500.4050, L100.0100, L501.78045, L501.9520, L503.0106, L506.1001, L500.4100, L501.9985 #### [facility] [address] [place], [address] Platelets (Bld) [#/Vol] 342 10*3/uL Normal 150-450 [facility] Comment on above: Performed By: #### L 3300.6750, L500.4050, L100.0100, L501.86974, L501.9520, L503.0106, L506.1001, L500.4100, L501.9985 #### [facility] [address] [place], [address] RBC (Bld) [#/Vol] 4.73 10*6/uL Normal 4.2-5.4 [facility] Comment on above: Performed By: #### L 3300.6750, L500.4050, L100.0100, L501.01054, L501.9520, L503.0106, L506.1001, L500.4100, L501.9985 #### [facility] [address] [place], [place], [id number] RDW SD 38.3 fl Normal 35.1-43.9 [facility] Comment on above: Performed By: #### L 3300.6750, L500.4050, L100.0100, L501.52818, L501.9520, L503.0106, L506.1001, L500.4100, L501.9985 #### [facility] [address] [place], [address] WBC (Bld) [#/Vol] 8.6 10*3/uL Normal 4.4-11.0 [facility] Comment on above: Performed By: #### L 3300.6750, L500.4050, L100.0100, L501.65286, L501.9520, L503.0106, L506.1001, L500.4100, L501.9985 #### [facility] [address] [place], [place], [id number] Calculated very low density lipoprotein (VLDL) cholesterol measurementOrdered By: Heath Sebastian on 10-10-2024 Calculated very low density lipoprotein (VLDL) cholesterol measurement 17 mg/dL 5-40 [facility] VLDL Cholesterol 17 mg/dL 5-40 [facility] Carbon dioxide, total [Moles /volume] in Central venous bloodOrdered By: Heath Sebastian on 10-10-2024 CO2 [Moles/Vol] 23.7 mmol/L 21.0-32.0 [facility] Chloride assayOrdered By: Monet Sebastian on 10-10-2024 Chloride [Moles/Vol] 102 mmol/L 98-108 [facility] Comprehensive Metabolic Prof ilon 10-10-2024 Albumin [Mass/Vol] 4.4 g/dL Normal 3.5-5.0 [facility] Comment on above: Performed By: #### L 3300.6750, L500.4050, L100.0100, L501.52463, L501.9520, L503.0106, L506.1001, L500.4100, L501.9985 #### [facility] [address] [place], [place], [address] Albumin/Globulin [Mass ratio] 1.2 {ratio} Normal 0.9-2.4 [facility] Comment on above: Performed By: #### L 3300.6750, L500.4050, L100.0100, L501.91335, L501.9520, L503.0106, L506.1001, L500.4100, L501.9985 #### [facility] [address] [place], [address] ALK PHOS 159 U/L High 35-104 [facility] Comment on above: Performed By: #### L 3300.6750, L500.4050, L100.0100, L501.57317, L501.9520, L503.0106, L506.1001, L500.4100, L501.9985 #### [facility] [address] [place], [place], [id number] ALT [Catalytic activity/Vol] 12 U/L Normal <=34 [facility] Comment on above: Performed By: #### L 3300.6750, L500.4050, L100.0100, L501.98468, L501.9520, L503.0106, L506.1001, L500.4100, L501.9985 #### [facility] [address] [place], [address] AST [Catalytic activity/Vol] 20 U/L Normal <=31 [facility] Comment on above: Performed By: #### L 3300.6750, L500.4050, L100.0100, L501.89690, L501.9520, L503.0106, L506.1001, L500.4100, L501.9985 #### [facility] [address] [place], [address] Bilirubin [Mass/Vol] 0.35 mg/dL Normal 0.00-1.30 [facility] Comment on above: Performed By: #### L 3300.6750, L500.4050, L100.0100, L501.38941, L501.9520, L503.0106, L506.1001, L500.4100, L501.9985 #### [facility] [address] [place], [address] BUN/CRE 16.5 RATIO Normal 10-20 [facility] Comment on above: Performed By: #### L 3300.6750, L500.4050, L100.0100, L501.72031, L501.9520, L503.0106, L506.1001, L500.4100, L501.9985 #### [facility] [address] [place], [address] Calcium [Mass/Vol] 9.6 mg/dL Normal 7.6-11.0 [facility] Comment on above: Performed By: #### L 3300.6750, L500.4050, L100.0100, L501.90702, L501.9520, L503.0106, L506.1001, L500.4100, L501.9985 #### [facility] [address] [place], [address] Chloride [Moles/Vol] 102 mmol/L Normal 98-108 [facility] Comment on above: Performed By: #### L 3300.6750, L500.4050, L100.0100, L501.93422, L501.9520, L503.0106, L506.1001, L500.4100, L501.9985 #### [facility] [address] [place], [place], [address] CO2 [Moles/Vol] 23.7 mmol/L Normal 21.0-32.0 [facility] Comment on above: Performed By: #### L 3300.6750, L500.4050, L100.0100, L501.76350, L501.9520, L503.0106, L506.1001, L500.4100, L501.9985 #### [facility] [address] [place], [address] Creatinine [Mass/Vol] 0.82 mg/dL Normal 0.70-1.20 [facility] Comment on above: Performed By: #### L 3300.6750, L500.4050, L100.0100, L501.22747, L501.9520, L503.0106, L506.1001, L500.4100, L501.9985 #### [facility] [address] [place], [place], [id number] GAP 13 Normal 5-15 [facility] Comment on above: Performed By: #### L 3300.6750, L500.4050, L100.0100, L501.72420, L501.9520, L503.0106, L506.1001, L500.4100, L501.9985 #### [facility] [address] [place], [address] GFR/1.73 sq M.predicted among non-blacks MDRD (S/P/Bld) [Vol rate/Area] 101 mL/min/{1.73_m2} Normal >60 [facility] Comment on above: Result Comment: mL/m in/1.73m2 CKD-EPI Creatinine Equation (2020) Performed By: #### L 3300.6750, L500.4050, L100.0100, L501.62117, L501.9520, L503.0106, L506.1001, L500.4100, L501.9985 #### [facility] [address] [place], [address] Globulin (S) [Mass/Vol] 3.6 g/dL Normal 2.2-4.2 [facility] Comment on above: Performed By: #### L 3300.6750, L500.4050, L100.0100, L501.41443, L501.9520, L503.0106, L506.1001, L500.4100, L501.9985 #### [facility] [address] [place], [address] Glucose [Mass/Vol] 81 mg/dL Normal 70-99 [facility] Comment on above: Performed By: #### L 3300.6750, L500.4050, L100.0100, L501.46575, L501.9520, L503.0106, L506.1001, L500.4100, L501.9985 #### [facility] [address] [place], [address] Potassium [Moles/Vol] 4.1 mmol/L Normal 3.3-5.1 [facility] Comment on above: Performed By: #### L 3300.6750, L500.4050, L100.0100, L501.28397, L501.9520, L503.0106, L506.1001, L500.4100, L501.9985 #### [facility] [address] [place], [address] Sodium [Moles/Vol] 138 mmol/L Normal 133-145 [facility] Comment on above: Performed By: #### L 3300.6750, L500.4050, L100.0100, L501.56569, L501.9520, L503.0106, L506.1001, L500.4100, L501.9985 #### [facility] [address] [place], [address] T PROT 8.0 g/dL Normal 5.9-8.4 [facility] Comment on above: Performed By: #### L 3300.6750, L500.4050, L100.0100, L501.10835, L501.9520, L503.0106, L506.1001, L500.4100, L501.9985 #### [facility] [address] [place], [address] Urea nitrogen [Mass/Vol] 14 mg/dL Normal 4-19 [facility] Comment on above: Performed By: #### L 3300.6750, L500.4050, L100.0100, L501.80338, L501.9520, L503.0106, L506.1001, L500.4100, L501.9985 #### [facility] [address] [place], [address] Eosinophil percentageOrdered By: Heath Sebastian on 10-10-2024 Eosinophils/100 WBC (Bld) 0.7 % 0-5 [facility] Erythrocyte distribution wid th ratioOrdered By: Heath Sebastian on 10-10-2024 Erythrocyte distribution width (RBC) [Ratio] 12.7 % 11.6-14.6 [facility] Erythrocyte distribution wid th standard deviationOrdered By: Heath Sebastian on 10-10-2024 Erythrocyte distribution width (RBC) [Entitic vol] 38.3 fL 35.1-43.9 [facility] Erythrocyte distribution width (RBC) [Ratio] 38.3 fl 35.1-43.9 [facility] Free T3on 10-10-2024 Free T3 [Mass/Vol] 3.2 pg/mL Normal 2.18-3.98 [facility] Comment on above: Performed By: #### L 3300.6750, L500.4050, L100.0100, L501.92134, L501.9520, L503.0106, L506.1001, L500.4100, L501.9985 #### [facility] [address] [place], [place], [id number] Free Q4Wtepjkx By: Heath garcia on 10-10-2024 Free T3 [Mass/Vol] 3.2 pg/mL 2.18-3.98 [facility] Free Triiodothyronine (T3) pg/dL 3.2 pg/mL 2.18-3.98 [facility] GFR/1.73 sq M.predicted jasvir g non-blacks MDRD (S/P/Bld) [Vol rate/Area]Ordered By: Heath Sebastian on 10-10-2024 Estimated GFR (MDRD) Non-Af Amer 101 >60 [facility] Comment on above: mL/min/1.73m2 CKD-EP I Creatinine Equation (2020) Glomerular filtration rate ( GFR) estimation/1.73 sq m using serum, plasma, or whole bOrdered By: Heath Sebastian on 10-10-2024 GFR/1.73 sq M.predicted among non-blacks MDRD (S/P/Bld) [Vol rate/Area] 101 mL/min/{1.73_m2} >60 [facility] Comment on above: mL/min/1.73m2 CKD-EP I Creatinine Equation (2020) Hematocrit Auto (Bld) [Volum e fraction]Ordered By: Heath Sebastian on 10-10-2024 Hematocrit (Bld) [Volume fraction] 39.1 % 37-47 [facility] Hemoglobin A1con 10-10-2024 HbA1c (Bld) [Mass fraction] 5.5 % Low <=5.6 [facility] Comment on above: Performed By: #### L 3300.6750, L500.4050, L100.0100, L501.99946, L501.9520, L503.0106, L506.1001, L500.4100, L501.9985 #### [facility] [address] [place], [place], [id number] Hemoglobin A1c percentageOrd ered By: Heath Sebastian on 10-10-2024 HbA1c (Bld) [Mass fraction] 5.5 % Low >5.7 [facility] Hemoglobin measurementOrdere d By: Heath Sebastian on 10-10-2024 Hemoglobin (Bld) [Mass/Vol] 13.2 g/dL 12.0-15.0 [facility] Immature granulocytes/100 WB C Auto (Bld)Ordered By: Heath Sebastian on 10-10-2024 Immature granulocytes/100 WBC (Bld) 0.400 % 0.0-0.9 [facility] Comment on above: IG% - Immature Granu locytes (promyelocytes, myelocytes and metamyelocytes) > 1% indicates that a LEFT SHIFT is Present. L503.0106on 10-10-2024 Cobalamin (Vitamin B12) [Mass/Vol] 652 pg/mL Normal 180-914 [facility] Comment on above: Performed By: #### L 3300.6750, L500.4050, L100.0100, L501.26677, L501.9520, L503.0106, L506.1001, L500.4100, L501.9985 #### [facility] [address] [place], [place], [id number] L506.1001on 10-10-2024 Vitamin D 25-OH 17.0 ng/mL Low 30-100 [facility] Comment on above: Result Comment: Nimco min D Status Deficiency: <20 ng/mL (50nmol/L) Insufficiency: 20-30 ng/mL (50-75 nmol/L) Sufficiency: 30-100 ng/mL (75-250 nmol/L) Toxicity: >100 ng/mL (>250 nmol/L) Performed By: #### L 3300.6750, L500.4050, L100.0100, L501.96158, L501.9520, L503.0106, L506.1001, L500.4100, L501.9985 #### [facility] [address] [place], [place], [id number] LDL calc ser/plasOrdered By: Heath Sebastian on 10-10-2024 Cholesterol in LDL [Mass/Vol] 99 mg/dL [facility] Comment on above: Euwjgjkcru=191-002 m g/dL & Higher Pdof=389 mg/dL or greater LDL Cholesterol, Calculated 99 mg/dL [facility] Comment on above: Jillcoiqzz=521-833 m g/dL & Higher Epjg=778 mg/dL or greater Laboratory - Chemistry and C hemistry - challengeOrdered By: Heath Sebastian on 10-10-2024 AST [Catalytic activity/Vol] 20 U/L <32 [facility] Lipid Profileon 10-10-2024 CHOL:HDL 3.90 Normal [facility] Comment on above: Performed By: #### L 3300.6750, L500.4050, L100.0100, L501.57367, L501.9520, L503.0106, L506.1001, L500.4100, L501.9985 #### [facility] [address] [place], [address] Cholesterol [Mass/Vol] 155 mg/dL Normal <=200 [facility] Comment on above: Result Comment: Chol esterol level, Desirable <200 mg/dL Borderline high cholesterol 200-239 mg/dL High cholesterol >=240 mg/dL Recommendations of the NCEP Adult Treatment Panel for the following risk-cutoff thresholds for the [place] population. Performed By: #### L 3300.6750, L500.4050, L100.0100, L501.92726, L501.9520, L503.0106, L506.1001, L500.4100, L501.9985 #### [facility] [address] [place], [address] Cholesterol in HDL [Mass/Vol] 40 mg/dL Normal [facility] Comment on above: Result Comment: Judy onal Cholesterol Education Program (NCEP) guidelines: <40 mg/dL: Low HDL-cholesterol (major risk factor for CHD) >= 60 mg/dL: High HDL-cholesterol (negative risk factor for CHD) HDL-cholesterol is affected by a number of factors, e.g. smoking, exercise, hormones, sex and age. Performed By: #### L 3300.6750, L500.4050, L100.0100, L501.81570, L501.9520, L503.0106, L506.1001, L500.4100, L501.9985 #### [facility] [address] [place], [address] Cholesterol in LDL [Mass/Vol] 99 mg/dL Normal [facility] Comment on above: Result Comment: Bord gnoepv=943-964 mg/dL Higher Kytq=522 mg/dL or greater Performed By: #### L 3300.6750, L500.4050, L100.0100, L501.43609, L501.9520, L503.0106, L506.1001, L500.4100, L501.9985 #### [facility] [address] [place], [address] Cholesterol in VLDL [Mass/Vol] 17 mg/dL Normal 5-40 [facility] Comment on above: Performed By: #### L 3300.6750, L500.4050, L100.0100, L501.32951, L501.9520, L503.0106, L506.1001, L500.4100, L501.9985 #### [facility] [address] [place], [address] Triglyceride [Mass/Vol] 83 mg/dL Normal [facility] Comment on above: Result Comment: The drugs N-Acetylcysteine and Metamizole may falsely depress this assay. Normal range: <150 mg/dL Borderline High: 150-199 mg/dL High: 200-499 mg/dL Very High: >500 mg/dL Performed By: #### L 3300.6750, L500.4050, L100.0100, L501.06427, L501.9520, L503.0106, L506.1001, L500.4100, L501.9985 #### [facility] [address] [place], [address] Lymphocytes Auto (Unsp spec) [#/Vol]Ordered By: Heath Sebastian on 10-10-2024 Lymphocytes (Bld) [#/Vol] 2.39 10*3/uL 0.83-4.51 [facility] Lymphocytes/100 WBC Auto (Un sp spec)Ordered By: Heath Sebastian on 10-10-2024 Lymphocytes/100 WBC (Bld) 27.9 % 19-41 [facility] MCV (mean corpuscular volume ) determinationOrdered By: Heath Sebastian on 10-10-2024 MCV (RBC) [Entitic vol] 82.7 fL 81-99 [facility] Mean corpuscular hemoglobin (MCH) determinationOrdered By: Heath Sebastian on 10-10-2024 MCH (RBC) [Entitic mass] 27.9 pg 27.0-32.0 [facility] Mean corpuscular hemoglobin concentration (MCHC) determinationOrdered By: Heath Sebastian on 10-10-2024 MCHC (RBC) [Mass/Vol] 33.8 g/dL 32-36 [facility] Mean platelet volume determi nationOrdered By: Heath Sebastian on 10-10-2024 Platelet mean volume (Bld) [Entitic vol] 9.0 fL 6.2-12.0 [facility] Monocyte percentageOrdered B y: Heath Sebastian on 10-10-2024 Monocytes/100 WBC (Bld) 5.4 % 0-10 [facility] Neutrophil percentageOrdered By: Heath Sebastian on 10-10-2024 Neutrophils/100 WBC (Bld) 65.1 % 47-70 [facility] Nucleated red blood cell per centageOrdered By: Heath Sebastian on 10-10-2024 Nucleated RBC/100 WBC (Bld) [Ratio] 0 % 0-5 [facility] Platelet countOrdered By: Monet Sebastian on 10-10-2024 Platelets (Bld) [#/Vol] 342 10*3/uL 150-450 [facility] Potassium (Unsp spec) [Mass/ Vol]Ordered By: Heath Sebastian on 10-10-2024 Potassium [Moles/Vol] 4.1 mmol/L 3.3-5.1 [facility] Potassium measurement (mass/ volume)Ordered By: Heath Sebastian on 10-10-2024 Potassium (Unsp spec) [Mass/Vol] 4.1 mmol/L 3.3-5.1 [facility] RBC Auto (Bld) [#/Vol]Ordere d By: Heath Sebastian on 10-10-2024 RBC (Bld) [#/Vol] 4.73 10*6/uL 4.2-5.4 [facility] Screening total cholesterol/ high density lipoprotein (HDL) cholesterol ratioOrdered By: Heath Sebastian on 10-10-2024 Cholesterol.total/Chol esterol in HDL [Mass ratio] 3.90 {ratio} [facility] Serum creatinine measurement (mass/volume)Ordered By: Heath Sebastian on 10-10-2024 Creatinine [Mass/Vol] 0.82 mg/dL 0.70-1.20 [facility] Serum globulin measurementOr dered By: Heath Sebastian on 10-10-2024 Globulin (S) [Mass/Vol] 3.6 g/dL 2.2-4.2 [facility] Serum glucose measurement (m ass/volume)Ordered By: Heath Sebastian on 10-10-2024 Glucose [Mass/Vol] 81 mg/dL 70-99 [facility] Serum or plasma alanine linda otransferase (ALT) measurementOrdered By: Heath Sebastian on 10-10-2024 ALT [Catalytic activity/Vol] 12 U/L <35 [facility] Serum or plasma albumin christiane urement (mass/volume)Ordered By: Heath Sebastian on 10-10-2024 Albumin [Mass/Vol] 4.4 g/dL 3.5-5.0 [facility] Serum or plasma albumin/glob ulin mass ratioOrdered By: Heath Sebastian on 10-10-2024 Albumin/Globulin [Mass ratio] 1.2 {ratio} 0.9-2.4 [facility] Serum or plasma alkaline jadon sphatase measurementOrdered By: Heath Sebastian on 10-10-2024 ALP [Catalytic activity/Vol] 159 U/L High 35-104 [facility] Serum or plasma calcium christiane urement (mass/volume)Ordered By: Heath Sebastian on 10-10-2024 Calcium [Mass/Vol] 9.6 mg/dL 7.6-11.0 [facility] Serum or plasma cholesterol in HDL measurement (mass/volume)Ordered By: Heath Sebastian on 10-10-2024 Cholesterol in HDL [Mass/Vol] 40 mg/dL >40 [facility] Comment on above: National Cholesterol Education Program (NCEP) guidelines:<40 mg/dL: Low HDL-cholesterol (major risk factor for CHD)>= 60 mg/dL: High HDL-cholesterol (negative risk factor for CHD)HDL-cholesterol is affected by a number of factors, e.g. smoking, exercise, hormones, sex and age. Serum or plasma cholesterol measurement (mass/volume)Ordered By: Heath Sebastian on 10-10-2024 Cholesterol [Mass/Vol] 155 mg/dL <201 [facility] Comment on above: Cholesterol level, D esirable <200 mg/dLBorderline high cholesterol 200-239 mg/dLHigh cholesterol >=240 mg/dLRecommendations of the NCEP Adult Treatment Panel for the following risk-cutoff thresholds for the [place] population. Serum or plasma thyroperoxid ase antibody assay (units/volume)Ordered By: Heath Sebastian on 10-10-2024 TPO Ab Qn 38 [IU]/mL High 0-34 [facility] Serum or plasma urea nitroge n measurement (mass/volume)Ordered By: Heath Sebastian on 10-10-2024 Urea nitrogen [Mass/Vol] 14 mg/dL 4-19 [facility] Sodium levelOrdered By: Heath Sebastian on 10-10-2024 Sodium [Moles/Vol] 138 mmol/L 133-145 [facility] TPO Ab QnOrdered By: Heath basurto on 10-10-2024 Thyroid Peroxidase Antibodies 38 IU/mL High 0-34 [facility] TSH DL <= 0.005 mIU/L QnOrde red By: Heath Sebastian on 10-10-2024 Thyroid Stimulating Hormone (TSH) 1.190 uIU/mL 0.300-4.200 [facility] TSH Qn 1.190 uIU/mL 0.300-4.200 [facility] Thyroglobulin Ab serumOrdere d By: Heath Sebastian on 10-10-2024 Thyroglobulin Antibody < 1.0 IU/mL 0.0-0.9 [facility] Comment on above: Thyroglobulin Antibo dy measured by [employer] PharmaMethodologyIt should be noted that the presence of thyroglobulinantibodies may not be pathogenic nor diagnostic, especiallyat very low levels. The assay television mechanic has found thatfour percent of individuals without evidence of thyroiddisease or autoimmunity will have positive TgAb levels upto 4 IU/mL.Performed at: [facility] [id number] Director: Asa Bateman PhD, Phone: [phone] Thyroid Stim Hormone (TSH)on 10-10-2024 TSH 1.190 uIU/mL Normal 0.300-4.200 [facility] Comment on above: Performed By: #### L 3300.6750, L500.4050, L100.0100, L501.28704, L501.9520, L503.0106, L506.1001, L500.4100, L501.9985 #### [facility] [address] [place], [address] Total proteinOrdered By: Mariposa Sebastian on 10-10-2024 Protein [Mass/Vol] 8.0 g/dL 5.9-8.4 [facility] Triglycerides measurementOrd ered By: Heath Sebastian on 10-10-2024 Triglyceride [Mass/Vol] 83 mg/dL <199 [facility] Comment on above: The drugs N-Acetylcy steine and Metamizole may falsely depress this assay. Normal range: <150 mg/dLBorderline High: 150-199 mg/dLHigh: 200-499 mg/dLVery High: >500 mg/dL Vitamin B12 ser/plasOrdered By: Heath Sebastian on 10-10-2024 Cobalamin (Vitamin B12) [Mass/Vol] 652 pg/mL 180-914 [facility] Vitamin D, 25-hydroxyOrdered By: Heath Sebastian on 10-10-2024 Vitamin D 25-Hydroxy 17.0 ng/mL Low 30-100 [facility] Comment on above: Vitamin D StatusDefi ciency: <20 ng/mL (50nmol/L)Insufficiency: 20-30 ng/mL (50-75 nmol/L)Sufficiency: 30-100 ng/mL (75-250 nmol/L)Toxicity: >100 ng/mL (>250 nmol/L) White blood cell (WBC) count Ordered By: Heath Sebastian on 10-10-2024 WBC (Bld) [#/Vol] 8.6 10*3/uL 4.4-11.0 [facility] Laboratory - Chemistry and C hemistry - challengeon 10-21-2023 HCG ( test) Ql (U) Negative [facility] Cervical or vagninal specime n microscopic examination by cytology stain (reported asOrdered By: Jes Dao on 10-19-2023 Cytology report Cyto stain Doc (Cvx/Vag) Comment . [facility] Comment on above: The Pap smear is a s creening test designed to aid in thedetection of premalignant and malignant conditions of theuterine cervix. It is not a diagnostic procedure andshould not be used as the sole means of detecting cervicalcancer. Both false-positive and false-negative reports dooccur. Laboratory - CytologyOrdered By: Jes Dao on 10-19-2023 Animal Care Service Worker Cyto stain Nom (Cvx/Vag) [ID] Comment . [facility] Comment on above: Duke Koenig totechnologist (ASCP) Laboratory - Miscellaneous t estsOrdered By: Jes Dao on 10-19-2023 Service comment (Unsp spec) [Interp] . . [facility] No Panel InformationOrdered By: Jes Dao on 10-19-2023 Human Papillomavirus Screen Comment . [facility] Comment on above: The HPV DNA reflex jemal leyva were not met with this specimenresult therefore, no HPV testing was performed.Performed at: [address] [id number] Director: Yanira Coffey MD, Phone: [phone] Thin prep Papanicolaou smear with manual screeningOrdered By: Jes Dao on 10-19-2023 Thin prep Papanicolaou smear with manual screening Comment . [facility] Comment on above: NEGATIVE FOR INTRAEP ITHELIAL LESION OR MALIGNANCY. This liquid based Th inPrep(R) pap test was screened withthe use of an image guided system. Absolute lymphocyte countOrd ered By: Oma Catherine on 09-04-2023 Lymphocytes Auto (Unsp spec) [#/Vol] 2.24 10*3/uL 0.83-4.51 [facility] Automated lymphocyte count a s percentage of total leukocytesOrdered By: Oma Catherine on 09-04-2023 Lymphocytes/100 WBC Auto (Unsp spec) 17.7 % 19-41 [facility] Basophil percentageOrdered B y: Oma Catherine on 09-04-2023 Basophils/100 WBC (Bld) 0.2 % 0-1 [facility] Eosinophils/100 WBC (Bld) 0.4 % 0-5 [facility] Hemoglobin (Bld) [Mass/Vol] 11.3 g/dL 12.0-15.0 [facility] Monocytes/100 WBC (Bld) 6.2 % 0-10 [facility] Neutrophils (Bld) [#/Vol] 9.5 10*3/uL 2.0-7.7 [facility] Neutrophils/100 WBC (Bld) 75.0 % 47-70 [facility] WBC (Bld) [#/Vol] 12.7 10*3/uL 4.4-11.0 [facility] Determination of erythrocyte mean corpuscular volume (MCV)Ordered By: Oma Catherine on 09-04-2023 MCV (RBC) [Entitic vol] 87.8 fL 81-99 [facility] Erythrocyte distribution wid th ratioOrdered By: Oma Catherine on 09-04-2023 Erythrocyte distribution width (RBC) [Ratio] 13.2 % 11.6-14.6 [facility] Erythrocyte distribution wid th standard deviationOrdered By: Oamsuzanne Catherine on 09-04-2023 Erythrocyte distribution width (RBC) [Entitic vol] 42.2 fL 35.1-43.9 [facility] Hematocrit Auto (Bld) [Volum e fraction]Ordered By: Omasuzanne Catherine on 09-04-2023 Hematocrit (Bld) [Volume fraction] 33.8 % 37-47 [facility] Immature granulocytes/100 WB C Auto (Bld)Ordered By: Oma Catherine on 09-04-2023 Immature granulocytes/100 WBC (Bld) 0.500 % 0.0-0.9 [facility] Comment on above: IG% - Immature Granu locytes (promyelocytes, myelocytes and metamyelocytes) > 1% indicates that a LEFT SHIFT is Present. Laboratory - Hematology and Cell countsOrdered By: Oma Catherine on 09-04-2023 MCH (RBC) [Entitic mass] 29.4 pg 27.0-32.0 [facility] MCHC (RBC) [Mass/Vol] 33.4 g/dL 32-36 [facility] Nucleated RBC/100 WBC (Bld) [Ratio] 0 % 0-5 [facility] Platelets (Bld) [#/Vol] 300 10*3/uL 150-450 [facility] Platelet mean volume Aftab-Ec ker (Bld) [Entitic vol]Ordered By: Oma Catherine on 09-04-2023 Platelet mean volume (Bld) [Entitic vol] 9.7 fL 6.2-12.0 [facility] RBC Auto (Bld) [#/Vol]Ordere d By: Oma Catherine on 09-04-2023 RBC (Bld) [#/Vol] 3.85 10*6/uL 4.2-5.4 [facility] Serum Treponema species anti body detectionOrdered By: Oma Catherine on 09-04-2023 Treponema sp Ab Ql (S) Non-Reactive [facility] - Chemistry and C hemistry - challengeon 08-24-2023 Glucose Ql (U) Negative [facility] - Urinalysison Protein Ql (U) Negative [facility] - Chemistry and C hemistry - challengeon 08-19-2023 Glucose Ql (U) Negative [facility] - Urinalysison Protein Ql (U) Negative [facility] Progress Noteon 08-10-2023 Dealer Account Manager Authentication Interface Message Text MFM attending note: [...] urinary obstruction, aneuploidy, and/or a genetic syndrome. [facility] Plan of Care Diagnosis: UTD A2-3, left UTD A2-3 and large bladder. Possible intermittent bladder neck obstruction. Low risk Cell free DNA aneuploidy screening Plan: 1. 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 2. Follow up q4 weeks to evaluate biometric parameters and renals. These are planned with the [facility]. 3. surveillance as follows: as clinically [...] within 1 week after . Please call [facility] at [phone]. 10. Possible additional imaging and follow up as per Pediatric Urology. 11. Other follow up as clinically indicated. Chart review and preparation: 10 minutes. Face to face: 20 minutes. Documentation and care coordination: 10 minutes. Total time spent on patient care today: 40 minutes. Normal [facility] - Chemistry and C hemistry - challengeon 08-05-2023 Glucose Ql (U) Negative [facility] - Urinalysison Protein Ql (U) Negative [facility] No Panel InformationOrdered By: Claribel Marino on 08-05-2023 Group B Streptococcus Culture Group B Beta Streptococcus is not isolated. [facility] Group B Streptococcus Culture Group B Beta Streptococcus is not isolated. [facility] - Chemistry and C hemistry - challengeon 07-29-2023 Glucose Ql (U) Negative [facility] - Urinalysison Protein Ql (U) Negative [facility] Absolute lymphocyte countOrd ered By: Oma Catherine on 07-14-2023 Lymphocytes Auto (Unsp spec) [#/Vol] 2.72 10*3/uL 0.83-4.51 [facility] Basophil percentageOrdered B y: Oma Catherine on 07-14-2023 Basophils/100 WBC (Bld) 0.4 % 0-1 [facility] Eosinophils/100 WBC (Bld) 0.6 % 0-5 [facility] Neutrophils (Bld) [#/Vol] 7.3 10*3/uL 2.0-7.7 [facility] Neutrophils/100 WBC (Bld) 67.3 % 47-70 [facility] WBC (Bld) [#/Vol] 10.9 10*3/uL 4.4-11.0 [facility] Blood erythrocytes count (nu mber/volume)Ordered By: Oma Catherine on 07-14-2023 RBC (Bld) [#/Vol] 3.64 10*6/uL 4.2-5.4 [facility] Blood hemoglobin measurement (mass/volume)Ordered By: Oma Catherine on 07-14-2023 Hemoglobin (Bld) [Mass/Vol] 10.8 g/dL 12.0-15.0 [facility] Blood lymphocytes/100 leukoc ytesOrdered By: Oma Catherine on 07-14-2023 Lymphocytes/100 WBC (Bld) 25.0 % 19-41 [facility] Blood monocytes/100 leukocyt esOrdered By: Oma Catherine on 07-14-2023 Monocytes/100 WBC (Bld) 6.2 % 0-10 [facility] Blood platelet mean volumeOr dered By: Oma Catherine on 07-14-2023 Platelet mean volume (Bld) [Entitic vol] 9.3 fL 6.2-12.0 [facility] Determination of erythrocyte mean corpuscular volume (MCV)Ordered By: Oma Catherine on 07-14-2023 MCV (RBC) [Entitic vol] 88.5 fL 81-99 [facility] Hematocrit Auto (Bld) [Volum e fraction]Ordered By: Oma Catherine on 07-14-2023 Hematocrit (Bld) [Volume fraction] 32.2 % 37-47 [facility] - Chemistry and C hemistry - challengeon 07-14-2023 Glucose Ql (U) Negative [facility] - Hematology and Cell countsOrdered By: Oma Catherine on 07-14-2023 Erythrocyte distribution width (RBC) [Entitic vol] 40.2 fL 35.1-43.9 [facility] Erythrocyte distribution width (RBC) [Ratio] 12.6 % 11.6-14.6 [facility] Immature granulocytes/100 WBC (Bld) 0.500 % 0.0-0.9 [facility] Comment on above: IG% - Immature Granu locytes (promyelocytes, myelocytes and metamyelocytes) > 1% indicates that a LEFT SHIFT is Present. MCH (RBC) [Entitic mass] 29.7 pg 27.0-32.0 [facility] Nucleated RBC/100 WBC (Bld) [Ratio] 0 % 0-5 [facility] - Urinalysison Protein Ql (U) Negative [facility] MCHC Auto (RBC) [Mass/Vol]Or dered By: Oma Catherine on 07-14-2023 MCHC (RBC) [Mass/Vol] 33.5 g/dL 32-36 [facility] Platelets bldOrdered By: Brittney aCtherine on 07-14-2023 Platelets (Bld) [#/Vol] 274 10*3/uL 150-450 [facility] - Chemistry and C hemistry - challengeon 06-27-2023 Glucose Ql (U) Negative [facility] - Urinalysison Protein Ql (U) Negative [facility] Quantitative serum or plasma 3 hour gestational glucose tolerance panelOrdered By: Vanna Tracey on 06-13-2023 Glucose tolerance 3 hours gestational panel See comment [facility] Comment on above: FASTING 83 Col: 06/01 [...] Auto (Unsp spec) [#/Vol] 1.60 10*3/uL 0.83-4.51 [facility] Basophil percentageOrdered B y: Oma Catherine on 06-07-2023 Basophils/100 WBC (Bld) 0.3 % 0-1 [facility] Eosinophils/100 WBC (Bld) 0.1 % 0-5 [facility] Neutrophils (Bld) [#/Vol] 7.0 10*3/uL 2.0-7.7 [facility] Neutrophils/100 WBC (Bld) 77.5 % 47-70 [facility] WBC (Bld) [#/Vol] 9.0 10*3/uL 4.4-11.0 [facility] Blood erythrocytes count (nu mber/volume)Ordered By: Oma Catherine on 06-07-2023 RBC (Bld) [#/Vol] 3.50 10*6/uL 4.2-5.4 [facility] Blood hemoglobin measurement (mass/volume)Ordered By: Oma Catherine on 06-07-2023 Hemoglobin (Bld) [Mass/Vol] 10.7 g/dL 12.0-15.0 [facility] Blood lymphocytes/100 leukoc ytesOrdered By: Oma Catherine on 06-07-2023 Lymphocytes/100 WBC (Bld) 17.7 % 19-41 [facility] Blood monocytes/100 leukocyt esOrdered By: Oma Catherine on 06-07-2023 Monocytes/100 WBC (Bld) 4.1 % 0-10 [facility] Blood platelet mean volumeOr dered By: Oma Catherine on 06-07-2023 Platelet mean volume (Bld) [Entitic vol] 9.1 fL 6.2-12.0 [facility] Determination of erythrocyte mean corpuscular volume (MCV)Ordered By: Oma Catherine on 06-07-2023 MCV (RBC) [Entitic vol] 89.1 fL 81-99 [facility] Gestational diabetes screen 1-hour screen with 50g oral glucose loadOrdered By: Oma Catherine on 06-07-2023 Glucose 1 Hr post 50 g glucose PO [Mass/Vol] 170 mg/dL 70-140 [facility] HIV 1 and HIV-2 antibody ass ay with HIV-1 p24 antigen detectionOrdered By: Oma Catherine on 06-07-2023 HIV 1+2 Ab+HIV1 p24 Ag IA Ql Non-Reactive Nonreactive [facility] Hematocrit Auto (Bld) [Volum e fraction]Ordered By: Oma Catherine on 06-07-2023 Hematocrit (Bld) [Volume fraction] 31.2 % 37-47 [facility] Laboratory - Chemistry and C hemistry - challengeon 06-07-2023 Glucose Ql (U) Negative [facility] Laboratory - Hematology and Cell countsOrdered By: Oma Catherine on 06-07-2023 Erythrocyte distribution width (RBC) [Entitic vol] 41.2 fL 35.1-43.9 [facility] Erythrocyte distribution width (RBC) [Ratio] 12.7 % 11.6-14.6 [facility] Immature granulocytes/100 WBC (Bld) 0.300 % 0.0-0.9 [facility] Comment on above: IG% - Immature Granu locytes (promyelocytes, myelocytes and metamyelocytes) > 1% indicates that a LEFT SHIFT is Present. MCH (RBC) [Entitic mass] 30.6 pg 27.0-32.0 [facility] Nucleated RBC/100 WBC (Bld) [Ratio] 0 % 0-5 [facility] Laboratory - Urinalysison Protein Ql (U) Negative [facility] MCHC Auto (RBC) [Mass/Vol]Or dered By: Oma Catehrine on 06-07-2023 MCHC (RBC) [Mass/Vol] 34.3 g/dL 32-36 [facility] Platelets bldOrdered By: Brittney Catherine on 06-07-2023 Platelets (Bld) [#/Vol] 252 10*3/uL 150-450 [facility] Serum Treponema species anti body detectionOrdered By: Oma Catherine on 06-07-2023 Treponema sp Ab Ql (S) Non-Reactive [facility] Laboratory - Chemistry and C hemistry - challengeon 05-19-2023 Glucose Ql (U) Negative [facility] Laboratory - Urinalysison Protein Ql (U) Negative [facility] Laboratory - Chemistry and C hemistry - challengeon 04-21-2023 Glucose Ql (U) Negative [facility] Laboratory - Urinalysison Protein Ql (U) Negative [facility] Laboratory - Chemistry and C hemistry - challengeon 03-22-2023 Glucose Ql (U) Negative [facility] Laboratory - Urinalysison Protein Ql (U) Negative [facility] Culture, urineOrdered By: Benjamín Catherine on 02-16-2023 Bacteria identified Cx Nom (U) Positive [facility] Bacteria identified Cx Nom (U) Positive [facility] Laboratory - Chemistry and C hemistry - challengeon 02-16-2023 Bilirubin Ql (U) Negative [facility] Glucose Ql (U) Negative [facility] Ketones Ql (U) Trace (5) [facility] Specific gravity (U) [Rel density] 1.005 [facility] Urobilinogen (U) [Mass/Vol] Negative [facility] Laboratory - Hematology and Cell countson 02-16-2023 Hemoglobin Ql (U) Negative [facility] Laboratory - Specimen inform ationon 02-16-2023 Clarity (U) Clear [facility] Color (U) Colorless [facility] Laboratory - Urinalysison Nitrite Ql (U) Negative [facility] Protein Ql (U) Negative [facility] No Panel Informationon 02-16 Urine Leukocytes Negatve [facility] Urine Non-Hemolyzed Blood [facility] Absolute lymphocyte countOrd ered By: Oma Catherine on 02-07-2023 Lymphocytes Auto (Unsp spec) [#/Vol] 3.15 10*3/uL 0.83-4.51 [facility] Basophil percentageOrdered B y: Oma Catherine on 02-07-2023 Basophils/100 WBC (Bld) 0.4 % 0-1 [facility] Eosinophils/100 WBC (Bld) 0.8 % 0-5 [facility] Neutrophils (Bld) [#/Vol] 5.2 10*3/uL 2.0-7.7 [facility] Neutrophils/100 WBC (Bld) 57.6 % 47-70 [facility] WBC (Bld) [#/Vol] 9.1 10*3/uL 4.4-11.0 [facility] Blood erythrocytes count (nu mber/volume)Ordered By: Oma Catherine on 02-07-2023 RBC (Bld) [#/Vol] 3.91 10*6/uL 4.2-5.4 [facility] Blood hemoglobin measurement (mass/volume)Ordered By: Oma Catherine on 02-07-2023 Hemoglobin (Bld) [Mass/Vol] 11.5 g/dL 12.0-15.0 [facility] Blood lymphocytes/100 leukoc ytesOrdered By: Oma Catherine on 02-07-2023 Lymphocytes/100 WBC (Bld) 34.8 % 19-41 [facility] Blood monocytes/100 leukocyt esOrdered By: Oma Catherine on 02-07-2023 Monocytes/100 WBC (Bld) 6.1 % 0-10 [facility] Blood platelet mean volumeOr dered By: Oma Catherine on 02-07-2023 Platelet mean volume (Bld) [Entitic vol] 9.7 fL 6.2-12.0 [facility] Determination of erythrocyte mean corpuscular volume (MCV)Ordered By: Oma Catherine on 02-07-2023 MCV (RBC) [Entitic vol] 87.5 fL 81-99 [facility] Gestational diabetes screen 1-hour screen with 50g oral glucose loadOrdered By: Oma Catherine on 02-07-2023 Glucose 1 Hr post 50 g glucose PO [Mass/Vol] 84 mg/dL 70-140 [facility] HIV 1 and HIV-2 antibody ass ay with HIV-1 p24 antigen detectionOrdered By: Oma Catherine on 02-07-2023 HIV 1+2 Ab+HIV1 p24 Ag IA Ql Non-Reactive Nonreactive [facility] Hematocrit Auto (Bld) [Volum e fraction]Ordered By: Oma Catherine on 02-07-2023 Hematocrit (Bld) [Volume fraction] 34.2 % 37-47 [facility] Laboratory - Hematology and Cell countsOrdered By: Oma Catherine on 02-07-2023 Erythrocyte distribution width (RBC) [Entitic vol] 40.0 fL 35.1-43.9 [facility] Erythrocyte distribution width (RBC) [Ratio] 12.5 % 11.6-14.6 [facility] Immature granulocytes/100 WBC (Bld) 0.300 % 0.0-0.9 [facility] Comment on above: IG% - Immature Granu locytes (promyelocytes, myelocytes and metamyelocytes) > 1% indicates that a LEFT SHIFT is Present. MCH (RBC) [Entitic mass] 29.4 pg 27.0-32.0 [facility] Nucleated RBC/100 WBC (Bld) [Ratio] 0 % 0-[address] [facility] Auto (RBC) [Mass/Vol]Or dered By: Oma Catherine on 02-07-2023 MCHC (RBC) [Mass/Vol] 33.6 g/dL 32-36 [facility] No Panel InformationOrdered By: Oma Catherine on 02-07-2023 Hepatitis B Surface Antigen Non-Reactive Nonreactive [facility] Hepatitis C Antibody Non-Reactive Nonreactive [facility] Comment on above: Non Reactive: < 0.8 Equivocal: >/= 0.8 to < 1.0 Reactive: >/= 1.0The CDC recommends that a reactive/equivocal HCV antibody result be followed up by the HCV Nucleic Acid Amplificationtest (139686) Miscellaneous Test Comment MAILED SPECIMEN [facility] Rubella IgG Antibody Reactive Nonreactive [facility] Comment on above: Antibody Results Int erpretation of Immune Status Non Reactive Presumed Non-Immune Equivocal Equivocal Reactive Presumed Immune Platelets bldOrdered By: Brittney Catherine on 02-07-2023 Platelets (Bld) [#/Vol] 267 10*3/uL 150-450 [facility] Serum Treponema species anti body detectionOrdered By: Oma Catherine on 02-07-2023 Treponema sp Ab Ql (S) Non-Reactive [facility] Chlamydia trachomatis rRNA d etection by probe and target amplification methodOrdered By: Oma Catherine on 01-26-2023 C. trachomatis rRNA LEXII+probe Ql (Unsp spec) Negative Negative [facility] Culture, urineOrdered By: Benjamín Catherine on 01-26-2023 Bacteria identified Cx Nom (U) Presumptive C albicans [facility] Laboratory - Microbiology an d Antimicrobial susceptibilityOrdered By: Oma Catherine on 01-26-2023 N. gonorrhoeae DNA LEXII+probe Ql (Unsp spec) Negative Negative [facility] Comment on above: Performed at: =[address] [place] [id number] Director: Yanira Coffey MD, Phone: [phone] Serum or plasma choriogonado tropin detectionOrdered By: Dr. Marino on 12-23-2022 HCG ( test) Ql 73 mIU/mL <4 [facility] Comment on above: hCG levels with Gest ational AgeGestational Age hCG mIU/mL (IU/L)0.2 - 1 week 5 - 501-2 weeks 50 - 5002-3 weeks 100 - 93328-2 weeks 500 - 728792-9 weeks 1000 - 509489-5 weeks 13320 - 100,0006-8 weeks 20457 - 200,0002-3 months 93632 - 100,000 Serum or plasma choriogonado tropin detectionOrdered By: Dr. Marino on 12-21-2022 HCG ( test) Ql 26 mIU/mL <4 [facility] Comment on above: hCG levels with Gest ational AgeGestational Age hCG mIU/mL (IU/L)0.2 - 1 week 5 - 501-2 weeks 50 - 5002-3 weeks 100 - 49815-1 weeks 500 - 424441-2 weeks 1000 - 535346-7 weeks 93393 - 100,0006-8 weeks 25508 - 200,0002-3 months 35029 - 100,000 Serum or plasma choriogonado tropin detectionOrdered By: Dr. Marino on 11-23-2022 HCG ( test) Ql < 1 mIU/mL <4 [facility] Comment on above: hCG levels with Gest ational AgeGestational Age hCG mIU/mL (IU/L)0.2 - 1 week 5 - 501-2 weeks 50 - 5002-3 weeks 100 - 54299-0 weeks 500 - 014264-1 weeks 1000 - 045137-2 weeks 06129 - 100,0006-8 weeks 67611 - 200,0002-3 months 65946 - 100,000 Serum or plasma progesterone measurement (mass/volume)Ordered By: Jes Dao on 11-09-2022 Progesterone [Mass/Vol] 1.05 ng/mL See Comment [facility] Comment on above: Progesterone Referen ce Table: [...] 10-01-2022 Progesterone [Mass/Vol] 0.50 ng/mL See Comment [facility] Comment on above: Progesterone Referen ce Table: UNITS Female: Follicular 0.15 - 1.40 ng/mL Luteal 3.34 - 25.56 ng/mL Mid-luteal 4.44 - 28.03 ng/mL Postmenopausal 0.0 - 0.73 ng/mL : 1st Trimester 11.22 - 90.00 ng/mL 2nd Trimester 25.55 - 89.40 ng/mL 3rd Trimester 48.40 -422.50 ng/mL Serum or plasma choriogonado tropin detectionon 04-06-2022 HCG ( test) Ql 1 mIU/mL <4 [facility] Work Phone: Comment on above: hCG levels with Gest ational AgeGestational Age hCG mIU/mL (IU/L)0.2 - 1 week 5 - 501-2 weeks 50 - 5002-3 weeks 100 - 55334-0 weeks 500 - 709426-1 weeks 1000 - 629008-2 weeks 30032 - 100,0006-8 weeks 42528 - 200,0002-3 months 17049 - 100,000 Serum or plasma choriogonado tropin detectionon 03-29-2022 HCG ( test) Ql 17 mIU/mL <4 [facility] Work Phone: Comment on above: hCG levels with Gest ational AgeGestational Age hCG mIU/mL (IU/L)0.2 - 1 week 5 - 501-2 weeks 50 - 5002-3 weeks 100 - 52041-9 weeks 500 - 267789-5 weeks 1000 - 929202-2 weeks 00070 - 100,0006-8 weeks 97648 - 200,0002-3 months 09954 - 100,000 Serum or plasma choriogonado tropin detectionon 03-22-2022 HCG ( test) Ql 203 mIU/mL <4 [facility] Work Phone: Comment on above: hCG levels with Gest ational AgeGestational Age hCG mIU/mL (IU/L)0.2 - 1 week 5 - 501-2 weeks 50 - 5002-3 weeks 100 - 05816-6 weeks 500 - 303552-5 weeks 1000 - 116321-1 weeks 47164 - 100,0006-8 weeks 93307 - 200,0002-3 months 70038 - 100,000 Serum or plasma choriogonado tropin detectionon 03-14-2022 HCG ( test) Ql 734 mIU/mL <4 [facility] Work Phone: Comment on above: hCG levels with Gest ational AgeGestational Age hCG mIU/mL (IU/L)0.2 - 1 week 5 - 501-2 weeks 50 - 5002-3 weeks 100 - 55571-8 weeks 500 - 097959-1 weeks 1000 - 559325-2 weeks 60270 - 100,0006-8 weeks 70022 - 200,0002-3 months 96367 - 100,000 Serum or plasma choriogonado tropin detectionon 03-11-2022 HCG ( test) Ql 940 mIU/mL <4 [facility] Work Phone: Comment on above: hCG levels with Gest ational AgeGestational Age hCG mIU/mL (IU/L)0.2 - 1 week 5 - 501-2 weeks 50 - 5002-3 weeks 100 - 14036-1 weeks 500 - 130059-4 weeks 1000 - 360850-3 weeks 82467 - 100,0006-8 weeks 28726 - 200,0002-3 months 02401 - 100,000 Absolute lymphocyte counton 03-07-2022 Lymphocytes Auto (Unsp spec) [#/Vol] 2.67 10*3/uL 0.83-4.51 [facility] Work Phone: Basophil percentageon 2021 Basophils/100 WBC (Bld) 0.5 % 0-1 [facility] Work Phone: Bilirubin [Mass/Vol] 0.30 mg/dL 0.20-1.00 [facility] Work Phone: Comment on above: For patients on eltr ombopag therapy, use of [employer] TBIL is not recommended. Chloride [Moles/Vol] 109 mmol/L 98-107 [facility] Work Phone: Eosinophils/100 WBC (Bld) 0.5 % 0-5 [facility] Work Phone: Glucose [Mass/Vol] 96 mg/dL 74-106 [facility] Work Phone: Neutrophils (Bld) [#/Vol] 4.3 10*3/uL 2.0-7.7 [facility] Work Phone: Neutrophils/100 WBC (Bld) 57.4 % 47-70 [facility] Work Phone: Potassium [Moles/Vol] 4.1 mmol/L 3.5-5.1 [facility] Work Phone: Protein [Mass/Vol] 7.2 g/dL 6.4-8.2 [facility] Work Phone: Sodium [Moles/Vol] 139 mmol/L 136-145 [facility] Work Phone: WBC (Bld) [#/Vol] 7.6 10*3/uL 4.4-11.0 [facility] Work Phone: Basophil percentage 0 SEEN /h[facility] 0[facility]: Bilirubin Test strip Ql (U)o n 03-07-2022 Bilirubin Ql (U) Negative Negative [facility] Work Phone: Blood erythrocytes count (nu mber/volume)on 03-07-2022 RBC (Bld) [#/Vol] 4.45 10*6/uL 4.2-5.4 [facility] Work Phone: Blood hemoglobin measurement (mass/volume)on 03-07-2022 Hemoglobin (Bld) [Mass/Vol] 12.6 g/dL 12.0-15.0 [facility] Work Phone: Blood lymphocytes/100 leukoc yteson 03-07-2022 Lymphocytes/100 WBC (Bld) 35.3 % 19-41 [facility] Work Phone: Blood monocytes/100 leukocyt eson 03-07-2022 Monocytes/100 WBC (Bld) 6.0 % 0-10 [facility] Work Phone: Blood platelet mean volumeon 03-07-2022 Platelet mean volume (Bld) [Entitic vol] 9.3 fL 6.2-12.0 [facility] Work Phone: Determination of erythrocyte mean corpuscular volume (MCV)on 03-07-2022 MCV (RBC) [Entitic vol] 84.0 fL 81-99 [facility] Work Phone: Hematocrit Auto (Bld) [Volum e fraction]on 03-07-2022 Hematocrit (Bld) [Volume fraction] 37.4 % 37-47 [facility] Work Phone: Ketones Test strip Ql (U)on 03-07-2022 Ketones Ql (U) Negative Negative [facility] Work Phone: Laboratory - Chemistry and C hemistry - challengeon 03-07-2022 ALP [Catalytic activity/Vol] 90 U/L 45-117 [facility] Work Phone: ALT [Catalytic activity/Vol] 43 U/L 13-56 [facility] Work Phone: CO2 [Moles/Vol] 25.0 mmol/L 21.0-32.0 [facility] Work Phone: Globulin (S) [Mass/Vol] 3.5 g/dL 2.2-4.2 [facility] Work Phone: Urea nitrogen/Creatinine [Mass ratio] 9.1 mg/mg 10-20 [facility] Work Phone: Laboratory - Hematology and Cell countson 03-07-2022 Erythrocyte distribution width (RBC) [Entitic vol] 39.3 fL 35.1-43.9 [facility] Work Phone: Erythrocyte distribution width (RBC) [Ratio] 12.9 % 11.6-14.6 [facility] Work Phone: Immature granulocytes/100 WBC (Bld) 0.300 % 0.0-0.9 [facility] Work Phone: Comment on above: IG% - Immature Granu locytes (promyelocytes, myelocytes and metamyelocytes) > 1% indicates that a LEFT SHIFT is Present. MCH (RBC) [Entitic mass] 28.3 pg 27.0-32.0 [facility] Work Phone: Nucleated RBC/100 WBC (Bld) [Ratio] 0 % 0-5 [facility] Work Phone: MCHC Auto (RBC) [Mass/Vol]on 03-07-2022 MCHC (RBC) [Mass/Vol] 33.7 g/dL 32-36 [facility] Work Phone: Mucus LM Ql (Urine sed)on Mucus Ql (Urine sed) 0 SEEN /hpf [facility] Work Phone: Nitrite Test strip Ql (U)on 03-07-2022 Nitrite Ql (U) Negative Negative [facility] Work Phone: No Panel Informationon 03-07 Estimated Creatinine Clearance Calc 120.78 ml/min [facility] Work Phone: Estimated GFR (MDRD) Amer 117 mL/min >60 [facility] Work Phone: Comment on above: GFR Calc Estimated GFR (MDRD) Non-Af Amer 97 mL/min >60 [facility] Work Phone: Comment on above: Non- GFR Calc Platelets bldon 03-07-2022 Platelets (Bld) [#/Vol] 287 10*3/uL 150-450 [facility] Work Phone: Protein Test strip Ql (U)on 03-07-2022 Protein Ql (U) Negative Negative [facility] Work Phone: Serum or plasma albumin christiane urement (mass/volume)on 03-07-2022 Albumin [Mass/Vol] 3.7 g/dL 3.2-5.0 [facility] Work Phone: Serum or plasma albumin/glob ulin mass ratioon 03-07-2022 Albumin/Globulin [Mass ratio] 1.1 {ratio} 0.9-2.4 [facility] Work Phone: Serum or plasma calcium christiane urement (mass/volume)on 03-07-2022 Calcium [Mass/Vol] 9.3 mg/dL 8.5-10.1 [facility] Work Phone: Serum or plasma choriogonado tropin detectionon 03-07-2022 HCG ( test) Ql 562 mIU/mL <4 [facility] Work Phone: Comment on above: hCG levels with Gest ational AgeGestational Age hCG mIU/mL (IU/L)0.2 - 1 week 5 - 501-2 weeks 50 - 5002-3 weeks 100 - 89865-9 weeks 500 - 722670-8 weeks 1000 - 456881-6 weeks 04662 - 100,0006-8 weeks 93497 - 200,0002-3 months 32515 - 100,000 Serum or plasma creatinine m easurement (mass/volume)on 03-07-2022 Creatinine [Mass/Vol] 0.77 mg/dL 0.55-1.02 [facility] Work Phone: Comment on above: The validity of the calculated GFR & GFRAA in patients over 70 years has not been determined. Clinical correlation is essential. Serum or plasma urea nitroge n measurement (mass/volume)on 03-07-2022 Urea nitrogen [Mass/Vol] 7 mg/dL 7-18 [facility] Work Phone: Squamous epithelial cells de tection in urine sediment by light microscopyon 03-07-2022 Epithelial cells.squamous LM Ql (Urine sed) 0-5 SEEN /hpf 5-10 [facility] Work Phone: Thin prep Papanicolaou smear with manual screeningon 03-07-2022 Thin prep Papanicolaou smear with manual screening 32 U/L 15-37 [facility] Work Phone: Thin prep Papanicolaou smear with manual screening 5 5-15 [facility] Work Phone: Urine blood detectionon 08-0 RBC Ql (U) 150 /ul Negative [facility] Work Phone: RBC Ql (U) 10-25 SEEN /hpf 0-5 [facility] Work Phone: Urine clarityon 03-07-2022 Clarity (U) Sl. Cloudy Clear [facility] Work Phone: Urine color determinationon 03-07-2022 Color (U) Yellow Yellow [facility] Work Phone: Urine glucose detectionon Glucose Ql (U) Normal mg/dl Normal [facility] Work Phone: Urine leukocyte esterase det ection by dipstickon 03-07-2022 Leukocyte esterase Test strip Ql (U) Negative Negative [facility] Work Phone: Urine pHon 03-07-2022 pH (U) 6.5 [pH] 5.0 - 8.0 [facility] Work Phone: Urine sediment bacteria coun t by microscopy (number/high power field)on 03-07-2022 Bacteria LM.HPF (Urine sed) [#/Area] 1 /[HPF] None Seen [facility] Work Phone: Urine specific gravity measu rementon 03-07-2022 Specific gravity (U) [Rel density] 1.015 1.002-1.030 [facility] Work Phone: Urobilinogen Auto test strip Ql (U)on 03-07-2022 Urobilinogen Ql (U) 1 mg/dl Normal [facility] Work Phone: Serum or plasma choriogonado tropin detectionon 03-06-2022 HCG ( test) Ql 487 mIU/mL <4 [facility] Work Phone: Comment on above: hCG levels with Gest ational AgeGestational Age hCG mIU/mL (IU/L)0.2 - 1 week 5 - 501-2 weeks 50 - 5002-3 weeks 100 - 15962-7 weeks 500 - 740579-5 weeks 1000 - 902324-6 weeks 74530 - 100,0006-8 weeks 44335 - 200,0002-3 months 56033 - 100,000 Serum or plasma choriogonado tropin detectionon 03-04-2022 HCG ( test) Ql 350 mIU/mL <4 [facility] Work Phone: Comment on above: hCG levels with Gest ational AgeGestational Age hCG mIU/mL (IU/L)0.2 - 1 week 5 - 501-2 weeks 50 - 5002-3 weeks 100 - 89030-4 weeks 500 - 837312-6 weeks 1000 - 696067-4 weeks 83350 - 100,0006-8 weeks 69380 - 200,0002-3 months 56211 - 100,000 Bacteria Ur Culton 2 Bacteria [...] F Susceptible <=40 , Resistant >40 Abnormal [facility] Comment on above: Performed By: #### 6 30-4 #### [facility] CLIA [id number] [address] [place] [address] OF [facility] CNOVon 02-16-2022 CNOV Office Visit (KAVITA ) CHELITA ROMERO ([id number]) 1995 F Date Time Provider Department 02/16/22 [...] significant past medical history who presents to [facility] today for evaluation of urinary urgency [...] which included preparing to see the patient, [id number] patient care, completing clinical documentation, performing a [...] treated. A physician, nurse practitioner or physician research assistant member may treat with a short course of an antibiotic. Delaying treatment can lead to worsening sympto (more content not included)... Normal [facility] UA DIP, URINE (POC)on 2021 BILIRUBIN UA (POCT) Negative Negative [facility] CLARITY UA (POCT) Clear [facility] COLOR UA (POCT) Yellow [facility] GLUCOSE UA (POCT) Negative Negative mg/dL [facility] HEMOGLOBIN/BLOOD UA (POCT) Trace-intact Abnormal Negative [facility] KETONE UA (POCT) Negative Negative mg/dL [facility] LEUKOCYTES UA (POCT) Trace Abnormal Negative [facility] NITRITE UA (POCT) Positive Abnormal Negative [facility] PH UA (POCT) 6.0 4.5 - 8.0 [facility] Protein Ql (U) Negative Negative mg/dL [facility] SPECIFIC GRAVITY UA (POCT) 1.020 1.005 - 1.030 [facility] UROBILINOGEN UA (POCT) 0.2 E.U./dL Alyssa l E.U./dL [facility] PPD (11158)Ordered By: Khoa Jackson on 02-09-2019 PPD (75532) 0mm Normal [facility] Work Phone: Comment on above: Negative SKIN TEST INTRADERMAL TB (86 580)Ordered By: MELLISSA Kimball on 03-08-2018 SKIN TEST INTRADERMAL TB (00948) Negative Normal [facility] Work Phone: Comment on above: read and negative lot:[id number] te:intra dermal Left forearm dose:0.5mlgiven by:stan Koehler LPN V ZOSTER IGG ABon 03-18-2017 V ZOSTER IGG AB < 135 Low Immune >165 [facility] Comment on above: Result Comment: Plea se Note: Specimen is hemolyzed. Negative <135 Equivocal 135 - 165 Positive >165A positive result generally indicates exposure to thepathogen or administration of specific immunoglobulins,but it is not indication of active infection or stageof disease.Performed At: [facility] [place], [place] [id number] Vincent [id number] Performed By: #### L [phone] ####[facility] [place] [address]Bt# [phone] Vital Signs Date Time Vital Sign Value Performing Clinician Camille glez 04-29-2025 15:18-0400 Body height 180.34 cm Heath BRENNANC Work Phone: [facility] 04-29-2025 15:18-0400 Body mass index (BMI) [Ratio] 27.1 kg/m2 Heath Sebastian NP-C Work Phone: [facility] 04-29-2025 15:18-0400 Body weight 88.16 kg Heath Sebastian NP-C Work Phone: [facility] 04-29-2025 15:18-0400 Diastolic blood pressure 76 mm[Hg] Heath Sebastian CORE FITTER-C Work Phone: [phone] [place] [address] 04-29-2025 15:18-0400 Systolic blood pressure 130 mm[Hg] Heath Sebastian CORE FITTER-C Work Phone: [phone] [address] 04-08-2025 09:35-0400 Body height 180.34 cm Heath Sebastian CORE FITTER-C Work Phone: [phone] [place] [address] 04-08-2025 09:35-0400 Body mass index (BMI) [Ratio] 28.5 kg/m2 Heath Sebastian CORE FITTER-C Work Phone: [phone] [address] 04-08-2025 09:35-0400 Body weight 92.98 kg Heath Sebastian CORE FITTER-C Work Phone: [phone] [place] [address] 04-08-2025 09:35-0400 Diastolic blood pressure 70 mm[Hg] Heath Sebastian CORE FITTER-C Work Phone: [phone] [place] [address] 04-08-2025 09:35-0400 Heart rate 77 /min Heath Sebastian CORE FITTER-C Work Phone: [phone] [place] [address] 04-08-2025 09:35-0400 SaO2% (BldA) [Mass fraction] 98 % Heath Sebastian CORE FITTER-C Work Phone: [phone] [place] [address] 04-08-2025 09:35-0400 Systolic blood pressure 107 mm[Hg] Heath Sebastian CORE FITTER-C Work Phone: [phone] [address] 10-21-2023 16:10-0400 Body height 180.34 cm No Primary Care Physician [facility] 10-21-2023 15:36-0400 Body mass index (BMI) [Ratio] 37.6 kg/m2 No Primary Care Physician [facility] 10-21-2023 15:36-0400 Body weight 122.52 kg No Primary Care Physician [facility] 10-21-2023 15:36-0400 Diastolic blood pressure 68 mm[Hg] No Primary Care Physician [facility] 10-21-2023 15:36-0400 Systolic blood pressure 118 mm[Hg] No Primary Care Physician [facility] 10-19-2023 15:41-0400 Body mass index (BMI) [Ratio] 37.5 kg/m2 No Primary Care Physician [facility] 10-19-2023 15:41-0400 Body weight 122.24 kg No Primary Care Physician [facility] 10-19-2023 15:41-0400 Diastolic blood pressure 71 mm[Hg] No Primary Care Physician [facility] 10-19-2023 15:41-0400 Systolic blood pressure 120 mm[Hg] No Primary Care Physician [facility] 09-06-2023 13:15-0500 Body temperature 97.6 [degF] No Primary Care Physician [facility] 09-06-2023 13:15-0500 Diastolic blood pressure 70 mm[Hg] No Primary Care Physician [facility] 09-06-2023 13:15-0500 Heart rate 72 /min No Primary Care Physician [facility] 09-06-2023 13:15-0500 Respiratory rate 16 /min No Primary Care Physician [facility] 09-06-2023 13:15-0500 SaO2% (BldA) [Mass fraction] 99 % No Primary Care Physician [facility] 09-06-2023 13:15-0500 Systolic blood pressure 115 mm[Hg] No Primary Care Physician [facility] 09-05-2023 06:50-0500 Body temperature 97.9 [degF] No Primary Care Physician [facility] 09-05-2023 06:50-0500 Diastolic blood pressure 59 mm[Hg] No Primary Care Physician [facility] 09-05-2023 06:50-0500 Heart rate 71 /min No Primary Care Physician [facility] 09-05-2023 06:50-0500 SaO2% (BldA) [Mass fraction] 100 % No Primary Care Physician [facility] 09-05-2023 06:50-0500 Systolic blood pressure 106 mm[Hg] No Primary Care Physician [facility] 09-04-2023 19:42-0500 Body height 180.34 cm No Primary Care Physician [facility] 09-04-2023 19:42-0500 Body mass index (BMI) [Ratio] 38.9 kg/m2 No Primary Care Physician [facility] 09-04-2023 19:42-0500 Body weight 126.55 kg No Primary Care Physician [facility] 08-31-2023 14:06-0500 Body mass index (BMI) [Ratio] 40 kg/m2 No Primary Care Physician [facility] 08-31-2023 14:06-0500 Body weight 126.55 kg No Primary Care Physician [facility] 08-31-2023 14:06-0500 Diastolic blood pressure 71 mm[Hg] No Primary Care Physician [facility] 08-31-2023 14:06-0500 Systolic blood pressure 107 mm[Hg] No Primary Care Physician [facility] 08-24-2023 10:27-0500 Body mass index (BMI) [Ratio] 39.9 kg/m2 No Primary Care Physician [facility] 08-24-2023 10:27-0500 Body weight 126.32 kg No Primary Care Physician [facility] 08-24-2023 10:27-0500 Diastolic blood pressure 77 mm[Hg] No Primary Care Physician [facility] 08-24-2023 10:27-0500 Systolic blood pressure 122 mm[Hg] No Primary Care Physician [facility] 08-19-2023 08:13-0500 Body mass index (BMI) [Ratio] 40.1 kg/m2 No Primary Care Physician [facility] 08-19-2023 08:13-0500 Body weight 126.72 kg No Primary Care Physician [facility] 08-19-2023 08:13-0500 Diastolic blood pressure 89 mm[Hg] No Primary Care Physician [facility] 08-19-2023 08:13-0500 Systolic blood pressure 126 mm[Hg] No Primary Care Physician [facility] 08-11-2023 14:13-0500 Body mass index (BMI) [Ratio] 39 kg/m2 No Primary Care Physician [facility] 08-11-2023 14:13-0500 Body weight 123.37 kg No Primary Care Physician [facility] 08-11-2023 14:13-0500 Diastolic blood pressure 79 mm[Hg] No Primary Care Physician [facility] 08-11-2023 14:13-0500 Systolic blood pressure 125 mm[Hg] No Primary Care Physician [facility] 08-05-2023 15:14-0500 Body height 177.8 cm No Primary Care Physician [facility] 08-05-2023 15:14-0500 Body mass index (BMI) [Ratio] 38.7 kg/m2 No Primary Care Physician [facility] 08-05-2023 15:14-0500 Body weight 122.46 kg No Primary Care Physician [facility] 08-05-2023 15:14-0500 Diastolic blood pressure 83 mm[Hg] No Primary Care Physician [facility] 08-05-2023 15:14-0500 Systolic blood pressure 128 mm[Hg] No Primary Care Physician [facility] 07-29-2023 14:06-0500 Body mass index (BMI) [Ratio] 38.7 kg/m2 No Primary Care Physician [facility] 07-29-2023 14:06-0500 Body weight 122.52 kg No Primary Care Physician [facility] 07-29-2023 14:06-0500 Diastolic blood pressure 73 mm[Hg] No Primary Care Physician [facility] 07-29-2023 14:06-0500 Systolic blood pressure 106 mm[Hg] No Primary Care Physician [facility] 07-14-2023 15:07-0500 Body mass index (BMI) [Ratio] 38.3 kg/m2 No Primary Care Physician [facility] 07-14-2023 15:07-0500 Body weight 121.33 kg No Primary Care Physician [facility] 07-14-2023 15:07-0500 Diastolic blood pressure 73 mm[Hg] No Primary Care Physician [facility] 07-14-2023 15:07-0500 Systolic blood pressure 115 mm[Hg] No Primary Care Physician [facility] 06-27-2023 10:25-0500 Body height 177.8 cm No Primary Care Physician [facility] 06-27-2023 10:24-0500 Body mass index (BMI) [Ratio] 37.7 kg/m2 No Primary Care Physician [facility] 06-27-2023 10:24-0500 Body weight 119.29 kg No Primary Care Physician [facility] 06-27-2023 10:24-0500 Diastolic blood pressure 69 mm[Hg] No Primary Care Physician [facility] 06-27-2023 10:24-0500 Systolic blood pressure 113 mm[Hg] No Primary Care Physician [facility] 06-16-2023 19:48-0500 Diastolic blood pressure 73 mm[Hg] No Primary Care Physician [facility] 06-16-2023 19:48-0500 Heart rate 83 /min No Primary Care Physician [facility] 06-16-2023 19:48-0500 SaO2% (BldA) [Mass fraction] 89 % No Primary Care Physician [facility] 06-16-2023 19:48-0500 Systolic blood pressure 121 mm[Hg] No Primary Care Physician [facility] 06-16-2023 18:55-0500 Body height 177.8 cm No Primary Care Physician [facility] 06-16-2023 18:55-0500 Body mass index (BMI) [Ratio] 37.7 kg/m2 No Primary Care Physician [facility] 06-16-2023 18:55-0500 Body weight 119.2 kg No Primary Care Physician [facility] 06-16-2023 18:51-0500 Body temperature 97 [degF] No Primary Care Physician [facility] 06-07-2023 09:56-0500 Body height 177.8 cm No Primary Care Physician [facility] 06-07-2023 09:56-0500 Body mass index (BMI) [Ratio] 36.9 kg/m2 No Primary Care Physician [facility] 06-07-2023 09:56-0500 Body weight 116.68 kg No Primary Care Physician [facility] 06-07-2023 09:56-0500 Diastolic blood pressure 70 mm[Hg] No Primary Care Physician [facility] 06-07-2023 09:56-0500 Systolic blood pressure 114 mm[Hg] No Primary Care Physician [facility] 05-19-2023 10:37-0400 Body mass index (BMI) [Ratio] 36.2 kg/m2 No Primary Care Physician [facility] 05-19-2023 10:37-0400 Body weight 114.47 kg No Primary Care Physician [facility] 05-19-2023 10:37-0400 Diastolic blood pressure 74 mm[Hg] No Primary Care Physician [facility] 05-19-2023 10:37-0400 Systolic blood pressure 114 mm[Hg] No Primary Care Physician [facility] 04-21-2023 14:16-0400 Body height 177.8 cm No Primary Care Physician [facility] 04-21-2023 14:15-0400 Body mass index (BMI) [Ratio] 35 kg/m2 No Primary Care Physician [facility] 04-21-2023 14:15-0400 Body weight 110.78 kg No Primary Care Physician [facility] 04-21-2023 14:15-0400 Diastolic blood pressure 68 mm[Hg] No Primary Care Physician [facility] 04-21-2023 14:15-0400 Systolic blood pressure 107 mm[Hg] No Primary Care Physician [facility] 03-22-2023 09:05-0400 Body height 177.8 cm No Primary Care Physician [facility] 03-22-2023 09:05-0400 Body mass index (BMI) [Ratio] 34.5 kg/m2 No Primary Care Physician [facility] 03-22-2023 09:05-0400 Body weight 109.31 kg No Primary Care Physician [facility] 03-22-2023 09:05-0400 Diastolic blood pressure 60 mm[Hg] No Primary Care Physician [facility] 03-22-2023 09:05-0400 Systolic blood pressure 110 mm[Hg] No Primary Care Physician [facility] 02-23-2023 09:58-0400 Body mass index (BMI) [Ratio] 34.1 kg/m2 No Primary Care Physician [facility] 02-23-2023 09:58-0400 Body weight 108.01 kg No Primary Care Physician [facility] 02-23-2023 09:58-0400 Diastolic blood pressure 75 mm[Hg] No Primary Care Physician [facility] 02-23-2023 09:58-0400 Systolic blood pressure 119 mm[Hg] No Primary Care Physician [facility] 02-16-2023 07:56-0400 Body mass index (BMI) [Ratio] 34.4 kg/m2 No Primary Care Physician [facility] 02-16-2023 07:56-0400 Body weight 108.91 kg No Primary Care Physician [facility] 01-26-2023 09:08-0400 Body height 177.8 cm No Primary Care Physician [facility] 01-26-2023 09:08-0400 Body mass index (BMI) [Ratio] 34.4 kg/m2 No Primary Care Physician [facility] 01-26-2023 09:08-0400 Body weight 108.91 kg No Primary Care Physician [facility] 01-26-2023 09:08-0400 Diastolic blood pressure 74 mm[Hg] No Primary Care Physician [facility] 01-26-2023 09:08-0400 Systolic blood pressure 116 mm[Hg] No Primary Care Physician [facility] 09-14-2022 15:02-0500 Body height 177.8 cm No Primary Care Physician [facility] 09-14-2022 14:59-0500 Body mass index (BMI) [Ratio] 31.8 kg/m2 No Primary Care Physician [facility] 09-14-2022 14:59-0500 Body weight 100.86 kg No Primary Care Physician [facility] 09-14-2022 14:59-0500 Diastolic blood pressure 84 mm[Hg] No Primary Care Physician [facility] 09-14-2022 14:59-0500 Systolic blood pressure 130 mm[Hg] No Primary Care Physician [facility] 03-24-2022 14:42-0400 Body height 177.[address] Oma Bentley Work Phone: [facility] Work Phone: 03-24-2022 14:42-0400 Body mass index (BMI) [Ratio] 34.6 kg/m2 Dr. Oma Bentley Work Phone: [facility] Work Phone: 03-24-2022 14:28-0400 Body weight 109.[address] Oma Bentley Work Phone: [facility] Work Phone: 03-24-2022 14:28-0400 Diastolic blood pressure 72 mm[Hg] Dr. Oma Bentley Work Phone: [facility] Work Phone: 03-24-2022 14:28-0400 Systolic blood pressure 110 mm[Hg] Dr. Oma Bentley Work Phone: [facility] Work Phone: 03-07-2022 15:57-0400 Respiratory rate 16 /min [facility] Work Phone: 03-07-2022 13:23-0400 Body height 177.8 cm [facility] Work Phone: 03-07-2022 13:23-0400 Body mass index (BMI) [Ratio] 34.3 kg/m2 [facility] Work Phone: 03-07-2022 13:23-0400 Body temperature 97.2 [degF] [facility] Work Phone: 03-07-2022 13:23-0400 Body weight 108.5 kg [facility] Work Phone: 03-07-2022 13:23-0400 Diastolic blood pressure 78 mm[Hg] [facility] Work Phone: 03-07-2022 13:23-0400 Heart rate 80 /min [facility] Work Phone: 03-07-2022 13:23-0400 SaO2% (BldA) [Mass fraction] 100 % [facility] Work Phone: 03-07-2022 13:23-0400 Systolic blood pressure 130 mm[Hg] [facility] Work Phone: 02-16-2022 11:10-0400 Body height 177.8 cm Shai Wormald PA-C Work Phone: [facility] 02-16-2022 11:10-0400 Body temperature 98.6 [degF] Shai Wormald PA-C Work Phone: [facility] 02-16-2022 11:10-0400 Body weight 109.77 kg Shai Wormald PA-C Work Phone: [facility] 02-16-2022 11:10-0400 Diastolic blood pressure 70 mm[Hg] Shai Wormald PA-C Work Phone: [facility] 02-16-2022 11:10-0400 Heart rate 70 /min Shai Wormald PA-C Work Phone: [facility] 02-16-2022 11:10-0400 Respiratory rate 16 /min Shai Wormald PA-C Work Phone: [facility] 02-16-2022 11:10-0400 SaO2% (BldA) [Mass fraction] 97 % Shai Wormald PA-C Work Phone: [facility] 02-16-2022 11:10-0400 Systolic blood pressure 110 mm[Hg] Shai Wormald PA-C Work Phone: [facility] Encounters Encounter Date Encounter Type Care Provider Facility Start: 04-29-2025 End: 04-29-[address] Oma Bentley DO -[facility] Work Phone: Start: 04-29-2025 End: 04-29-2025 ambulatory Heath Sebastian CORE FITTER-C Work Phone: -[facility] Start: 04-09-2025 End: 04-09-2025 ambulatory Heath Sebastian CORE FITTER-C Work Phone: [facility] Start: 04-09-2025 End: 04-09-[address] Omar Boothe MD -[facility] Start: 04-08-2025 End: 04-08-[address] Omar Boothe MD -[facility] Work Phone: Start: 04-08-2025 End: 04-09-2025 ambulatory Heath Sebastian CORE FITTER-C Work Phone: [facility] Start: 01-02-2025 End: 01-02-2025 ambulatory Heath Sebastian CORE FITTER-C Work Phone: [facility] Work Phone: Start: 01-02-2025 End: 01-02-2025 Patient encounter procedure Heath Sebastian CORE FITTER-C -[facility] Start: 01-02-2025 End: 01-02-2025 ambulatory Heath Sebastian VSC Facility:[facility] Start: 10-19-2024 End: 10-19-2024 ambulatory Heath Sebastian CORE FITTER-C Work Phone: [facility] Work Phone: Start: 10-19-2024 End: 10-19-2024 Patient encounter procedure Heath Sebastian CORE FITTER-C -[facility] Work Phone: Start: 10-19-2024 End: 10-19-2024 ambulatory Heath Sebastian VSC Facility:[facility] Start: 10-10-2024 End: 10-10-2024 ambulatory Heath Sebastian CORE FITTER-C Work Phone: [facility] Work Phone: Start: 10-10-2024 End: 10-10-2024 Patient encounter procedure Heath Sebastian CORE FITTER-C -Laboratory, [facility] Start: 10-10-2024 End: 10-10-2024 ambulatory Heath Sebastian C Facility:[facility] Start: 10-21-2023 End: 10-21-2023 Patient encounter procedure No Primary Care Physician [facility] Work Phone: Start: 10-19-2023 End: 10-19-2023 ambulatory No Primary Care Physician [facility] Work Phone: Start: 10-19-2023 End: 10-19-2023 Patient encounter procedure No Primary Care Physician [facility], Specimen Work Phone: Start: 10-19-2023 End: 10-19-2023 Patient encounter procedure No Primary Care Physician [facility] Work Phone: Start: 09-06-2023 Non-patient / Non-visit No Primary Care Physician [facility] Start: 09-05-2023 Non-patient / Non-visit No Primary Care Physician [facility] Start: 09-04-2023 End: 09-06-2023 Evaluation and management of inpatient No Primary Care Physician [facility] Work Phone: Start: 08-31-2023 End: 08-31-2023 Patient encounter procedure No Primary Care Physician [facility] Work Phone: Start: 08-31-2023 End: 08-31-2023 ambulatory No Primary Care Physician [facility] Work Phone: Start: 08-31-2023 End: 08-31-2023 Patient encounter procedure No Primary Care Physician [facility] Work Phone: Start: 08-24-2023 End: 08-24-2023 Patient encounter procedure No Primary Care Physician [facility] Work Phone: Start: 08-23-2023 End: 08-23-2023 Patient encounter procedure No Primary Care Physician [facility] Work Phone: Start: 08-19-2023 End: 08-19-2023 Patient encounter procedure No Primary Care Physician [facility] Work Phone: Start: 08-11-2023 End: 08-11-2023 Patient encounter procedure No Primary Care Physician [facility] Work Phone: Start: 08-10-2023 End: 08-10-2023 ambulatory [facility] Start: 08-05-2023 End: 08-05-2023 ambulatory No Primary Care Physician [facility] Work Phone: Start: 08-05-2023 End: 08-05-2023 Patient encounter procedure No Primary Care Physician [facility] Work Phone: Start: 07-29-2023 End: 07-29-2023 Patient encounter procedure No Primary Care Physician [facility] Work Phone: Start: 07-14-2023 End: 07-14-2023 Patient encounter procedure No Primary Care Physician [facility] Work Phone: Start: 07-08-2023 End: 07-08-2023 ambulatory No Primary Care Physician [facility] Work Phone: Start: 07-08-2023 End: 07-08-2023 Patient encounter procedure No Primary Care Physician [facility] Work Phone: Start: 06-27-2023 End: 06-27-2023 Patient encounter procedure No Primary Care Physician [facility] Work Phone: Start: 06-21-2023 Non-patient / Non-visit No Primary Care Physician [facility] Start: 06-16-2023 End: 06-16-2023 ambulatory No Primary Care Physician [facility] Work Phone: Start: 06-16-2023 End: 06-16-2023 Patient encounter procedure No Primary Care Physician [facility] Work Phone: Start: 06-13-2023 End: 06-13-2023 ambulatory No Primary Care Physician [facility] Work Phone: Start: 06-13-2023 End: 06-13-2023 Patient encounter procedure No Primary Care Physician [facility] Work Phone: Start: 06-07-2023 End: 06-07-2023 ambulatory No Primary Care Physician [facility] Work Phone: Start: 06-07-2023 End: 06-07-2023 Patient encounter procedure No Primary Care Physician [facility] Work Phone: Start: 05-19-2023 End: 05-19-2023 Patient encounter procedure No Primary Care Physician [facility] Work Phone: Start: 05-12-2023 End: 05-12-2023 ambulatory No Primary Care Physician [facility] Work Phone: Start: 05-12-2023 End: 05-12-2023 Patient encounter procedure No Primary Care Physician [facility], [facility] Work Phone: Start: 04-21-2023 End: 04-21-2023 Patient encounter procedure No Primary Care Physician [facility] Work Phone: Start: 04-12-2023 End: 04-12-2023 ambulatory No Primary Care Physician [facility] Work Phone: Start: 04-12-2023 End: 04-12-2023 Patient encounter procedure No Primary Care Physician [facility] Work Phone: Start: 03-22-2023 End: 03-22-2023 Patient encounter procedure No Primary Care Physician [facility] Work Phone: Start: 02-23-2023 End: 02-23-2023 Patient encounter procedure No Primary Care Physician [facility] Work Phone: Start: 02-16-2023 End: 02-16-2023 Patient encounter procedure No Primary Care Physician [facility], Specimen Work Phone: Start: 02-16-2023 End: 02-16-2023 Patient encounter procedure No Primary Care Physician [facility] Work Phone: Start: 02-07-2023 End: 02-07-2023 ambulatory No Primary Care Physician [facility] Work Phone: Start: 02-07-2023 End: 02-07-2023 Patient encounter procedure No Primary Care Physician [facility] Work Phone: Start: 01-26-2023 End: 01-26-2023 ambulatory No Primary Care Physician [facility] Work Phone: Start: 01-26-2023 End: 01-26-2023 Patient encounter procedure No Primary Care Physician [facility] Work Phone: Start: 01-12-2023 End: 01-12-2023 ambulatory [facility] Work Phone: Start: 01-12-2023 End: 01-12-2023 Patient encounter procedure [facility] Start: 01-07-2023 End: 01-07-2023 Patient encounter procedure [facility] Start: 12-23-2022 End: 12-23-2022 ambulatory No Primary Care Physician [facility] Work Phone: Start: 12-23-2022 End: 12-23-2022 Patient encounter procedure [facility] Start: 12-21-2022 End: 12-21-2022 ambulatory No Primary Care Physician [facility] Work Phone: Start: 12-21-2022 End: 12-21-2022 Patient encounter procedure [facility] Start: 11-23-2022 End: 11-23-2022 ambulatory No Primary Care Physician [facility] Work Phone: Start: 11-23-2022 End: 11-23-2022 Patient encounter procedure No Primary Care Physician [facility] Start: 11-09-2022 End: 11-09-2022 ambulatory No Primary Care Physician [facility] Work Phone: Start: 11-09-2022 End: 11-09-2022 Patient encounter procedure No Primary Care Physician [facility] Start: 10-01-2022 End: 10-01-2022 ambulatory No Primary Care Physician [facility] Work Phone: Start: 10-01-2022 End: 10-01-2022 Patient encounter procedure No Primary Care Physician [facility] Start: 09-14-2022 End: 09-14-2022 Patient encounter procedure No Primary Care Physician [facility] Start: 06-03-2022 End: 06-03-[address] Oma Bentley Work Phone: [facility] Work Phone: Start: 06-03-2022 End: 06-03-[address] Oma Bentley Work Phone: [facility], [facility] Start: 04-06-2022 End: 04-06-[address] Oma Bentley Work Phone: [facility] Work Phone: Start: 04-06-2022 End: 04-06-[address] Oma Bentley Work Phone: [facility] Start: 03-29-2022 End: 03-29-[address] Oma Bentley Work Phone: [facility] Work Phone: Start: 03-29-2022 End: 03-29-[address] [facility] Start: 03-24-2022 End: 03-24-[address] Oma Bentley Work Phone: [facility] Start: 03-22-2022 End: 03-22-[address] Oma Bentley Work Phone: [facility] Work Phone: Start: 03-22-2022 End: 03-22-[address] [facility] Start: 03-14-2022 End: 03-14-2022 Patient encounter procedure [facility] Start: 03-11-2022 End: 03-11-2022 [facility] Start: 03-07-2022 End: 03-07-2022 Emergency department patient visit [facility] Start: 03-07-2022 End: 03-07-2022 [facility]: 03-06-2022 End: 03-06-2022 [facility] [facility] Start: 03-04-2022 End: 03-04-2022 Patient encounter procedure [facility] Start: 02-16-2022 End: 02-16-2022 Patient encounter procedure Shai Baires PA-C Work Phone: [facility] Comment on above: Leukocytes in urine (Primary Dx); Urinary frequency; Abnormal urine odor Start: 02-09-2019 End: 02-09-2019 Office outpatient visit 5 minutes [facility] Start: 02-07-2019 End: 02-07-2019 Office outpatient visit 5 minutes [facility] Start: 03-10-2018 End: 03-10-2018 Office outpatient visit 5 minutes [facility] Start: 03-08-2018 End: 03-08-2018 Office outpatient visit 5 minutes [facility] Start: 03-14-2017 Ambulatory Chidi Stephenson y:[facility] Procedures Date Procedure Procedure Detail Performing Clinician Start: 10-19-2024 US scan of thyroid Heath Sebastian NP-C Work Phone: Start: 10-10-2024 Thyroglobulin antibo dy measurement Heath Sebastian NP-C Work Phone: Comment on above: Thyroglobulin Antibo dy measured by Michael CoulterMethodologyIt should be noted that the presence of thyroglobulinantibodies may not be pathogenic nor diagnostic, especiallyat very low levels. The assay television mechanic has found thatfour percent of individuals without evidence of thyroiddisease or autoimmunity will have positive TgAb levels upto 4 IU/mL.Performed at: [address] [id number] Director: Asa Bateman PhD, Phone: [phone] Start: 10-10-2024 Vitamin D, 25-hydrox y measurement [...] Patient encounter procedure Encounter for IUD removal -[facility] Work Phone: Start: 04-29-2025 [facility] Start: 09-06-2023 Patient discharge [facility] Start: 09-05-2023 Administration of medication [facility] Start: 09-05-2023 Application of ice collar, cap or bag [facility] Start: 09-05-2023 Catheterization of vein [facility] Start: 09-05-2023 Introduction of urin senia catheter [facility] Start: 09-05-2023 Measuring intake and output [facility] Start: 09-05-2023 Notification of physician [facility] Start: 09-05-2023 Procedure discontinued [facility] Start: 09-05-2023 Provision of activit y privileges [facility] Start: 09-05-2023 Vital signs measurements [facility] Start: 09-05-2023 [facility] Start: 09-05-2023 [facility] Start: 09-04-2023 Notification of physician [facility] Start: 09-04-2023 [facility] Start: 09-04-2023 acoustic stimulation test [facility] Start: 09-04-2023 Intrauterine catheterization [facility] Start: 09-04-2023 End: 09-04-2023 [facility] Start: 09-04-2023 End: 09-04-2023 Notification of physician [facility] Start: 09-04-2023 Admission procedure [facility] Start: 09-04-2023 Anesthesia consultation [facility] Start: 09-04-2023 Application of intermittent pneumatic compression device [facility] Start: 09-04-2023 Insertion of cathete r into peripheral vein [facility] Start: 09-04-2023 Introduction of urin senia catheter [facility] Start: 09-04-2023 Obstetric monitoring [facility] Start: 09-04-2023 Provision of activit y privileges [facility] Start: 09-04-2023 Verification routine [facility] Start: 09-04-2023 Vital signs measurements [facility] Start: 06-16-2023 Patient discharge [facility] Start: 04-01-2022 Influenza vaccination INFLUENZA (#1) [facility] Start: 02-07-2019 Skin test tuberculos is intradermal PPD (47570) [facility] Work Phone: Comment on above: lot [id number] October 12ite right forearm subcdose 0.1mlJC, LPNABN signed Start: 2018 PAP TESTING PAP TESTING [facility] Start: 02-14-2016 Urine microalbumin profile DTAP,TDAP,TD (1 - Tdap) [facility] Start: 2015 HEPATITIS C SCREENING HEPATITIS C SC REEELSA [facility] Start: 2015 HIV SCREENING HIV SCREENING [facility] Start: 2011 PEDS TO ADULT TRANSI TION ANNUAL ASSESSMENT PEDS TO ADULT TRANSITION ANNUAL ASSESSMENT [facility] Start: 2009 Adult depression screening assessment DEPRESSION SCREENING [facility] Start: 2009 PEDS TO ADULT TRANSI TION INITIAL DISCUSSION PEDS TO ADULT TRANSITION INITIAL DISCUSSION [facility] Start: 02-14-2008 HPV VACCINE (1 - 2-d ose series) HPV VACCINE (1 - 2-dose series) [facility] Bacteria identified in Urine by Culture URINE CULTURE Microbiology Routine Leukocytes in urine Ordered: 02/16/2022 [facility] Work Phone: Comment on above: Ordered: 02/16/2022 CBC W Auto Different ial panel - Blood [facility] CBC W Auto Different ial panel - Blood [facility] CBC W Auto Different ial panel - Blood [facility] Biophysical pr ofile panel US [facility] Glucose [Mass/volume ] in Serum or Plasma --1 hour post 50 g glucose PO [facility] Hepatitis B surface antigen measurement [facility] Hepatitis C antibody measurement [facility] HIV 1+2 Ab+HIV1 p24 Ag [Presence] in Serum or Plasma by Immunoassay [facility] HIV 1+2 Ab+HIV1 p24 Ag [Presence] in Serum or Plasma by Immunoassay [facility] Patient Education ED Methotrexat e for Ectopic ... [facility] Work Phone: Patient referral [facility] Work Phone: Rubella IgG measurement [facility] Thyroid stimulating hormone measurement [facility] Thyroperoxidase Ab [Units/volume] in Serum or Plasma [facility] Treponema sp Ab [Presence] in Serum [facility] Treponema sp Ab [Presence] in Serum [facility] Work Phone: [facility] Immunizations Immunization Date Immunization Notes Care Provider Shahnaz medel 05-04-2024 influenza, seasonal, injectable, preservative free Heath HALE Work Phone: [facility] 06-27-2023 tetanus toxoid, redu kathy diphtheria toxoid, and acellular pertussis vaccine, adsorbed No Primary Care Physician [facility] 05-17-2023 influenza, injectabl e, quadrivalent, preservative free No Primary Care Physician [facility] 05-04-2022 influenza, injectabl e, quadrivalent, preservative free No Primary Care Physician [facility] 05-04-2022 influenza, seasonal, injectable Dr. Oma Bentley Work Phone: [facility] 05-07-2021 influenza, injectabl e, quadrivalent, preservative free No Primary Care Physician [facility] 05-07-2021 influenza, seasonal, injectable [facility] 10-03-2020 Covid (Moderna) [facility] 09-05-2020 Covid (Moderna) [facility] 04-30-2020 hepatitis B vaccine, adult dosage [facility] 04-29-2020 influenza, injectabl e, quadrivalent, preservative free No Primary Care Physician [facility] 04-29-2020 influenza, seasonal, injectable [facility] 11-21-2019 hepatitis B vaccine, adult dosage [facility] 10-08-2019 hepatitis B vaccine, adult dosage [facility] Payers Date Payer Category Payer Self-pay [id number] 2024 Unknown [id number] 2020 Unknown RICHARDSON SALAZAR PPO [id number] 2020-Present [phone] [facility] [id number] [place] [address] PPO [id number] 2016 Unknown [id number] 1995 Unknown [id number] 1997 Unknown [id number] Unknown Richardson BC/BS Unknown [id number] Unknown BC ANTHEM 332 COMM CHOICE XY [id number] Unknown [id number] Unknown [id number] Unknown [id number] Unknown [id number] Unknown [id number] Unknown [id number] Social History Date Type Detail Facility Start: 02-16-2022 End: 10-19-2023 Tobacco smoking status NHIS Never smoked tobacco [facility] Start: 02-16-2022 Tobacco use and exposure Smokeless tobacco non-user [facility] Start: 1995 Sex Assigned At Not on file [facility] Start: 02-06-2022 End: 02-16-2022 Exposure to SARS-CoV-2 (event) Not sure [facility] Start: 03-07-2022 End: 10-19-2023 Tobacco smoking status VTIS Unknown if ever smoked [facility] Start: 1995 Sex Assigned At Female [facility] Start: 10-18-2024 End: 10-25-2024 Sex Female (finding) [facility] Sex Female [facility] Goals Date Patient Goal Desired Activity /State Clinical Notes 02-16-2022 to 04-29-2025 Note Date & Type Note Facility 04-29-2025 Progress note [facility] 04-29-2025 Progress note Note Date/Time April 29, 2025 3:37pm [facility] [address], [address] [place] [address] OFFICE VISIT Date of Service: 04/29/25 MR#: [id number] Acct: [id number] Name: CHELITA ROMERO Rep #: [id number] : 1995 Provider: Dr. Berenice Bentley DO Age/Sex: 30/F [place] [facility] [place]: Signed Intake Vital Signs 10/21/23 16:10 [...] Removal *copay $20 Chief Complaint: Mirena Removal Chain Dyer Required: No Is patient in pain?: No Allergies No Known Allergies Allergy (Verified 04/29/25 15:16) Medications ?Medication ?Instructions ?Recorded ?Confirmed ?Type multivit-min no.71-iron fum 28 1 cap PO 01/18/2304/29 History mg-folate no.1 1 mg-dha 300 mg capsule (PNV-[place]) Compound Semaglutide subcut 01/04/25 04/29/25 His tory [...] spouse current occupational status: employed current occupation: [employer] pets and animals: Yes (not managing litterbox [...] 1-2 times per week duration: 30-45 minutes/day lindsay/adventist: Sabianism seatbelt use: always do you feel safe at home: Yes 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 Date Name GA/Weeks Outcome Route Bth Weight Gen Labor Lgth Anesthesia Del Locatn Provider FOB 03/08/22 ectopic 09/05/23 Alicia 40 live - full term Female [facility] [place] Delivery Date: 03/08/22 Last Updated [...] Cosigner Signature: Date (if applicable) CC: ~ [facility] Work Phone: 1(792) 710-402409-08-2025 Evaluation note* Diagnosis Onset Date Resolution Status Admit Date Bruno's thyroiditis chronic S eptember 2024 9:35am PCOS (polycystic ovarian syndrome) chronic April 08 025 9:35am Encounter for IUD removal acute April 29, 2025 3:08pm History of infertility acute Se ptember 2024 3:08pm PCOS (polycystic ovarian syndrome) chronic April 29, 2025 3:08pm [facility] Work Phone: 1(729) 316-957803-21-2025 Radiology Diagnostic study note [facility] Imaging Services [address] [place], [place] [address] Thyroid MR#: [id number] Acct: [id number] Name: CHELITA ROMERO Rep #: [id number] : 1995 F 29 From: Francine Roman MD PCP: ALEXIA Sanderson Status: REG CLI Study:Thyroid Date of Exam: 10/19/24 Exam# [id number] Ordering Dr: Monet Sebastian [facility] CORE FITTER-C PROCEDURE: THYROID 10/19/2024 REASON FOR EXAM: 29-year-old [...] IMPRESSION: NORMAL THYROID ULTRASOUND Reading Location: [facility] CC: ALEXIA Sebastian ~ Training And Documentation Specialist: Signed [facility]03-20-2024 NotePap Smear Specimen AdequacyMarch 2023 11:59pmComment.Satisfactory for evaluation. Endocervical and/or squamous metaplasticcells (endocervical component)are present.[facility] INTER[facility]ACED A#[id number] Hospital DaytonComment on above:Satisfactory for evaluation. Endocervical and/or squamous metaplasticcells (endocervical component)are present.09-06-2023 Progress note Author Mireya So [facility] September 06, 2023 8:34am Note Date/Time September 06, 2023 8 :34am [facility] Medical Records Department [address] [place] [address] Progress Note - OBGYN 09/06/23 0832 MR#: [id number] Acct: [id number] Name: CHELITA ROMERO Rep #:[id number] : 1995 28 From: Mireya So CNM PCP: Care Physician,No Primary Status :ADM IN Location: [place] [address] Subjective Subjective Patient doing well without complaints. [...] Cosigner Signature (if applicable): CC: ~ Signed [facility] Work Phone: 1(734) 397-696802-05-2024 Discharge summary Author Oma Catherine [facility] September 05, 2023 11:14am Note Date/Time September 05, 2023 1 1:14am [facility] Medical Records Department [address] [place] [address] Instructions for Home/Discharge Instructions 09/05/23 1114 MR#: [id number] Acct: [id number] Name: CHELITA ROMERO Rep #:[id number] : [...] Up With: Oma Bentley DO When: Call [phone] to make an appointment with your doctor [...] (5,000 unit) capsule 125 mcg PO DAILY PNV-[place] 28-1-300 mg capsule 1 cap PO Referrals / Follow Up: Care Physician,No Primary [Primary Care Provider] - 09/05/23 1114<Electronically signed by Oma Bentley DO>Oma Bentley DO CC: No Primary Care Physician ~ Signed [facility] Work Phone: 1(940) 880-546502-05-[address] [facility] 09-05-2023 Progress note Author Oma Catherine [facility] September 05, 2023 6:57am Note Date/Time September 05, 2023 6 :57am [facility] Medical Records Department [address] [place] [address] Progress Note 09/05/23 0656 MR#: [id number] Acct: [id number] Name: CHELITA ROMERO Rep #:[id number] : 1995 28 From: Oma Bentley DO PCP: Care Physician,No Primary Status :ADM IN Location: [id number] Progress Note pt is sitting up in bed without complaints. epidural in place current tracing: FHT: Moderate variability reactive no decelerations category I tracing [employer]: q 2-4 min Contractions cx: per nurse- 7 cm A/P: IOL- progressing well. continue current management 09/05/23 06 <Electronically signed by Oma Bentley DO> Oma Bentley DO Cosigner Signature (if applicable): CC: ~ Signed [facility] Work Phone: 1(678) 995-412302-05-2024 Progress note Author Claribel Marino [facility] September 05, 2023 2:12am Note Date/Time September 05, 2023 2 :12am [facility] Medical Records Department [address] [place] [address] Progress Note 09/05/23210 MR#: [id number] Acct: [id number] Name: CHELITA ROMERO Rep #:[id number] : 1995 28 From: Claribel hawthorne MD PCP: Care Physician,No Primary Status :ADM IN Location: [place] [address] Progress Note fb out and cervical change to 5-6 cm current tracing: FHT: 130 min- Moderate variability reactive occasional early decelerations category I tracing [employer]: q 2-3 Contractions reviewed tracing abnormalities since last note: no signficiant A/P: arom clear fluid, will obtain epidural 09/05/23211 <Electronically signed by Claribel Marino MD> Claribel Marino MD Cosigner Signature (if applicable): CC: ~ Signed [facility] Work Phone: 1(774) 781-399402-05-2024 History and physical note Author Claribel Marino [facility] September 05, 2023 2:11am Note Date/Time September 05, 2023 2 :11am [facility] Medical Records Department [address] [place] [address] H&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 09/05/23207 MR#: [id number] Acct: [id number] Name: CHELITA ROMERO Rep #:[id number] : 1995 28 From: Claribel hawthorne MD PCP: Care Physician,No Primary Status :ADM IN Location: [id number] HPI - General General Date of Admission: [...] no.1 1 mg-dha 300 mg capsule (PNV- [place]) 1 cap PO 01/18/23 [History Last Taken Unknown] Allergy/AdvReac Type Severity Reaction Status Date / Time No Known Allergies Allergy Verified 09/04/23 19:44 Family History Grandfather CVA (cerebral vascular accident) Grandmother CVA (cerebral vascular accident) Diabetes Other Idiopathic pulmonary fibrosis Social History adopted: No household members: spouse current occupational status: employed current occupation: [employer] pets and animals: Yes (not managing litterbox while ) pets and animals:cat(s) and dog(s) history of recent travel: Yes ([place]undarlene [place] 08/23) out of state: No out of country: Yes sexually active: Yes Smoking Status: Never smoker alcohol intake: never substance use type: does not use well-balanced diet: daily or most days caffeine: No eating out: 1-3 times/week during the past year weight has: remained stable what type of physical activity do you participate in: walking frequency: 1-2 times per week duration: 30-45 minutes/day lindsay/adventist: Sabianism seatbelt use: always do you feel safe at home: Yes 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 Marivel Chatman Diane [facility] History 2 Elective abortions Hx Para 0 [...] no vb/crampi ng. discussed and declines afp. [facility] anatomy ordered. LC- no vb/cramping. its a GI RL!discussed and declines afp. [facility] anatomy ordered. 03/22/23 -?-?-?-?-?-?-?-?-?-?-?-?- 16w [...] high risk , unspecified, second trimester COMMENT: [id number], DOMITILA 09/01/23 GIRL! Alicia Compa prefers doc [...] complications: see a/p I have reviewed the [facility] and made any clinically relevant updates. 09/05/23210 <Electronically signed by Claribel Marino MD> Cosigner Signature (if applicable): CC: Dr. Claribel Marino MD; No Primary Care Physician~ Signed [facility] Work Phone: [phone]) 821-543707-19-2022 NoteHNO ID: [id number] Author: Shai Baires PA-C Service: ? Author Type: Physician Spooler Type: Progress Notes Filed: 02/16/2022 11:24 AM Note Text: Subjective Chelita Romero is a 27 year old female with no significant past medical history who presents to [facility] today for evaluation of urinary urgency [...] which included preparing to see the patient, [id number] patient care, completing clinical documentation, performing a medically appropriate examination, counseling and educating the patient/family/caregiver and ordering medications, tests, or procedures.[facility]07-19-2022 Instructions* Patient Instructions* Shai Baires PA-C - [...] treated. A physician, nurse practitioner or physician research assistant member may treat with a short course of [...] women if symptoms resolve. [facility] History of Present illness Narrative* Shai Baires PA-C - 02/16/2022 11:02 AM EDT Subjective Chelita Romero is a 27 year old female with no significant past medical history who presents to [facility] today for evaluation of urinary urgency [...] which included preparing to see the patient, [id number] patient care, completing clinical documentation, performing a medically appropriate examination, counseling and educating the patient/family/caregiver and ordering medications, tests, or procedures. documented in [facility] encounterPro[facility]* Diagnosis Leukocytes in urine- Primary Other cells and casts in urine Urinary frequency Abnormal urine odor Other nonspecific finding on examination of urine documented in this encounter [facility] noteNo assessment information availableWKindred Hospital [facility] Work Phone: Enigma Technologiesaluation note* Diagnosis Onset Date Resolution Status Ectopic [facility] Work Phone: Syncronexation note* Diagnosis Onset Date Resolution Status Polycystic ovarian syndrome [facility] Work Phone: [employer] Technologiesaluation note* Diagnosis Onset Date Resolution Status Polycystic ovarian syndrome acute acute Supervision of high-risk [facility] Work Phone: evaluation note* Diagnosis Onset Date Resolution Status Polycystic ovarian syndrome acute acute Supervision of high-risk acute Obesity affecting acute Polycystic ovarian syndrome acute acute Supervision of high-risk acute Obesity affecting acute Polycystic ovarian syndrome acute acute Supervision of high-risk [facility] Work Phone: evaluation note* Diagnosis Onset Date Resolution Status Polycystic ovarian syndrome acute acute Supervision of high-risk acute Obesity affecting acute Polycystic ovarian syndrome acute acute Supervision of high-risk acute Obesity affecting acute Polycystic ovarian syndrome acute acute Supervision of high-risk acute Obesity affecting acute Polycystic ovarian syndrome acute acute Pyelectasis of fetus on ultrasound acute Supervision of high-risk [facility] Work Phone: evaluation note* Diagnosis Onset Date [...] fetus on ultrasound acute Supervision of high-risk [facility] Work Phone: Evaluation note* Diagnosis Onset Date [...] fetus on ultrasound acute Supervision of high-risk [facility] Work Phone: Evaluation note* Diagnosis Onset Date [...] fetus on ultrasound acute Supervision of high-risk [facility] Work Phone: Evaluation note* Diagnosis Onset Date [...] fetus on ultrasound acute Supervision of high-risk [facility] Work Phone: Evaluation note* Diagnosis Onset Date [...] on ultrasound resolved Supervision of high-risk resolved [facility] Work Phone: Evaluation note* Diagnosis Onset Date [...] Follow-Up noneactive Encounter for IUD insertion acute [facility] Work Phone: Evaluation note* Diagnosis Onset Date Resolution Status Admit Date Bruno's thyroiditis acute [facility] 2024 9:35am [facility] Work Phone: Reason for referral (narrative)No reason for referral information availableWKindred Hospital [facility] Work Phone: Summary Purpose Family History No Family History Records Found Relationship Condition Age at Onset Recorded Date/T iain Not Specified Idiopathic pulmonary fibrosis Unknown grandfather Cerebrovascular accident (CVA) Unknown grandmother Cerebrovascular accident (CVA) Unknown Diabetes mellitus Unknown Advance Directives No Advanced Directives Records Found Advance Directive Response Recorded Date/ Time Living Will No March 07, 2022 1:29pm Power of Canine Enforcement Officer No March 07 1:29pm Advance Directive Response Recorded Date/ Time Living Will No March 07, 2022 12:29pm Power of Canine Enforcement Officer No March 07 12:29pm Advance Directive Response Recorded Date/ Time Living Will No September 04 7:45pm Power of Canine Enforcement Officer No September 04, 2023 7:45pm Advance Directive Response Recorded Date/ Time Living Will No September 04 8:45pm Power of Canine Enforcement Officer No September 04, 2023 8:45pm Chief Complaint [...] 36 WK OB, pt has us @ [facility] before appt Reason for Visit Obesity affecting [...] 36 WK OB, pt has us @ [facility] before appt 37 WK OB 38 WK [...] section and content) DATE CREATED AUTHOR 01/25/2018 [facility] Latisha Neal DATE CREATED AUTHOR AUTHOR'S ORGANIZ ATION 02/19/2022 [facility] DATE CREATED AUTHOR AUTHOR'S ORGANIZ ATION 08/13/2023 [facility] DATE CREATED AUTHOR AUTHOR'S ORGANIZ ATION 05/25/2025 [facility] Source Comments (unrecognize d section and content) In the event this informatio n is protected by the Federal Confidentiality of Alcohol and Drug Abuse Patient Records regulations: The Federal rules restrict any use of the information to criminally investigate or prosecute any alcohol or drug abuse patient.[facility] Reason for Visit (unrecogniz ed section [...] Primary Care Provider Active Vanna Tracey NP, CORE FITTER-C Attending Provider, Referring Provider Active Team Status: [...] Provider, Refer ring Provider Active Vanna Tracey CORE FITTER, CORE FITTER-C Attending Provider Active Team Status: Inactive Member [...] Physician Primary Care Provider Active Vanna Tracey CORE FITTER, CORE FITTER-C Attending Provider, Referring Provider Active Dr. Claribel [...] Member Role Status Dates Heath Sebastian VSC, CORE FITTER-C Primary Care Provider Active Team Status: Inactive Member Role Status Dates Heath Sebastian VSC, CORE FITTER-C Primary Care Provider Active Start: October 10, 2024 End: October 10, 2024 Heath Romulo VSC, CORE FITTER-C Attending Provider Active S tart: October 10, 2024 End: October 10, 2024 Team Status: Inactive Member Role Status Dates Heath Romulo VSC, CORE FITTER-C Primary Care Provider Active Start: October 19, 2024 End: October 19, 2024 Heath Romulo VSC, CORE FITTER-C Attending Provider Active S tart: October 19, 2024 End: October 19, 2024 Heath Sebastian VSC, CORE FITTER-C Referring Provider Active S tart: October 19, 2024 End: October 19, 2024 Team Status: Inactive Member Role Status Dates Heath Romulo VSC, CORE FITTER-C Primary Care Provider Active Start: January 02, 2025 End: January 02, 2025 Heath Sebastian VSC, CORE FITTER-C Attending Provider Active S tart: January 02, 2025 End: January 02, 2025 Team Status: Active Member Role/Relationship Status Dates Heath Sebastian VSC, CORE FITTER-C Primary Care Provider Active Team Status: Inactive Member Role/Relationship Status Dates Heath Romulo VSC, CORE FITTER-C Primary Care Provider Active Start: January 02, 2025 End: January 02, 2025 Heath Romulo VSC, CORE FITTER-C Attending Provider Active S tart: January 02, 2025 End: January 02, 2025 Team Status: Inactive Member Role/Relationship Status Dates Heath Romulo VSC, CORE FITTER-C Primary Care Provider Active Start: April 08, 2025 End: April 08, 2025 Heath Sebastian VSC, CORE FITTER-C Referring Provider Active S tart: April 08, 2025 End: April 08, 2025 Dr. Omar Boothe MD Attending Provider Active Sta rt: April 08, 2025 End: April 08, 2025 Team Status: Active Member Role/Relationship Status Dates Heath Sebastian VSC, CORE FITTER-C Primary care physician Active Team Status: Inactive Member Role/Relationship Status Dates Heath Sebastian VSC, CORE FITTER-C Primary care physician Active Start: January 02, 2025 End: January 02, 2025 Heath Sebastian VSC, CORE FITTER-C Attending physician Active Start: January 02, 2025 End: January 02, 2025 Team Status: Inactive Member Role/Relationship Status Dates Heath Sebastian VSC, CORE FITTER-C Primary care physician Active Start: April 08, 2025 End: April 08, 2025 Heath Sebastian VSC, CORE FITTER-C Referring Provider Active S tart: April 08, 2025 End: April 08, 2025 Dr. Omar Boothe MD Attending physician Active St art: April 08, 2025 End: April 08, 2025 Team Status: Inactive Member Role/Relationship Status Dates Heath BANDA, CORE FITTER-C Primary care physician Active Start: April 09, 2025 End: April 09, 2025 Dr. Omar Boothe MD Attending physician Active St art: April 09, 2025 End: April 09, 2025 Dr. Omar Boothe MD Referring Provider Active Sta rt: April 09, 2025 End: April 09, 2025 Team Status: Inactive Member Role/Relationship Status Dates Heath Romulo BANDA CORE FITTER-C Primary care physician Active Start: April 29, 2025 End: April 29, 2025 Heath BANDA, CORE FITTER-C Referring Provider Active S tart: April 29, [...] BE BASED ON THE PRIMARY CLINICAL RECORDS. [employer] provides no warranty or guarantee of the accuracy or completeness of information in this document.
[2025-07-12 08:45] LABS: hCG Titer Quant., Serum 170 mIU/mL (<9 non-preg)
== END | disposition home or self-care (01) ==
LOC: LAB 07:24
PROVIDERS: PCP Nurse Practitioner Family; Referring Provider Student in an Organized Health Care Education/Training Program; Visit Provider Student in an Organized Health Care Education/Training Program
DX: N91.1 Secondary amenorrhea (principal)
CPT/HCPCS: 36415; 84702

== ENCOUNTER → 2025-07-19 | Outpatient (CLI) | payer OTHER, SELFPAY ==
--- OUTSIDE RECORDS SUMMARY | 2025-07-19 06:53 | XMS RPT_ITS | CCD ---
Author Organization [facility] Care Team Providers Care Energy Consultant Name Role Phone Clifton Chidi Devi Unavailable [...] JABARI Dao Attending Provider [phone] Alexy INDIRECT SALES EXEC, INDIRECT SALES EXEC-C Vanna Attending Provider [phone] JABARI So [...] No Primary Referring Provider Un available Alexy INDIRECT SALES EXEC, INDIRECT SALES EXEC-C Vanna Attending Provider [phone] DEJA YOUNG [...] Other Provider JABARI Dao Attending Provider Sebastian INDIRECT SALES EXEC-C, Heath Primary Care Provider Sebastian INDIRECT SALES EXEC-C, Heath Attending Provider Sebastian INDIRECT SALES EXEC-C, Heath Referring Provider Sebastian INDIRECT SALES EXEC-C, Heath Primary Care Provider Sebastian INDIRECT SALES EXEC-C, Heath Attending Provider Sebastian INDIRECT SALES EXEC-C, Heath Referring Provider King TAVARES, Dr. Nelson Attending Provider Sebastian INDIRECT SALES EXEC-C, Heath Primary Care Physician Sebastian INDIRECT SALES EXEC-C, Heath Attending Physician King TAVARES, Dr. Nelson [...] 2022 1:00am January 18, 2023 11:12am Mv-Mins 47-Ahzy-Gqbvw No.1-D gonzalez (Pnv-Kenvir) 28-1-300 mg capsule (20 sources) Start: 01-18-2023 Mv-Mins 71-Iro n-Folic No.1-Dha (Pnv-Kenvir) 28-1-300 mg capsule Active 1 NMA PO January 18, 2023 12:00am Complies with drug therapy Start: 01-18-2023 Mv-Mins 71-Iro n-Folic No.1-Dha (Pnv-Kenvir) 28-1-300 mg capsule Active 1 NMA PO January 18, 2023 12:00am Start: 01-18-2023 take 1 capsule by mouth once M v-Mins 48-Pttb-Rzinq No.1-Dha (Pnv-Kenvir) 28-1-300 mg capsule Active 1 CAP PO January 18, 2023 12:00am Start: 01-18-2023 take 1 capsule by mouth once M v-Mins 20-Ryhf-Uotyf No.1-Dha (Pnv-Kenvir) 28-1-300 mg capsule Active 1 CAP PO January 17, 2023 11:00pm Start: 01-18-2023 take 1 capsule by mouth once M v-Mins 34-Jfbq-Uwjue No.1-Dha (Pnv-Kenvir) 28-1-300 mg capsule Active CAP PO January 17, 2023 11:00pm Start: 01-18-2023 take 1 capsule by mouth once M v-Mins 86-Oxtk-Jgkzj No.1-Dha (Pnv-Kenvir) 28-1-300 mg capsule Active CAP PO January [...] on above: Take [address] [facility] twice daily for 5 days. Completed/Discontinued [...] unspecified trimester] 01-18-2023 Episodic Comment on above: [id number], DOMITILA 4 GIRL! Alicia Brandonprefers doc only for delivery Other complications of (20 sources) Supervision of high risk , unspecified, unspecified trimester; Translations: [Supervision of unspecified high-risk ] 01-26-2023 Episodic Other complications of (14 sources) Disease caused by 2019-nCoV; Translations: [Other viral diseases complicating , unspecified trimester] 06-08-2023 Episodic Comment on above: asa 81mg daily, Health system 32 & 36 weeks: 32 wk: 41% [...] Test Name Value Interpretation Reference Range Facility [facility] Office Visit Reporton 04-29-2025 [facility] Office Visit Report [facility] [address], [address] [place] [address] OFFICE VISIT Date of Service: 04/29/25 MR#: [id number] Acct: [id number] Name: CHELITA ROMERO Rep #: [id number] : 1995 Provider: Dr. Oma Lawrence DO Age/Sex: 30/F [place] [facility] [place]: Signed with Addenda ADDENDUM by Dr. [...] Removal *copay $20 Chief Complaint: Mirena Removal [employer]'S Swim Coach Required: No Is patient in pain?: No Allergies No Known Allergies Allergy (Verified 04/29/25 15:16) Medications ???Medication ???Instructions ???Recorded ???Confirmed ???Type multivit-min no.71-iron fum 28 1 cap PO 01/18/23 04/29/25 History mg-folate no.1 1 mg-dha 300 mg capsule (PNV-Kenvir) Compound Semaglutide subcut 01/04/25 04/29/25 History cholecalciferol [...] menopausal: No Patient : No : [facility] History Bruno's thyroiditis Thyroid disease Ectopic PCOS (polycystic ovarian syndrome) Family History Grandfather CVA (cerebral vascular accident) Grandmother CVA (cerebral vascular accident) Diabetes Other Idiopathic pulmonary fibrosis Social History adopted: No household members: spouse current occupational status: employed current occupation: [employer] pets and animals: Yes (not managing litterbox [...] 1-2 times per week duration: 30-45 minutes/day lindsay/restorationist: Yarsanism seatbelt use: always do you feel safe at home: Yes 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 Date Name GA/Weeks Outcome Route Bth Weight Infant Gen Labor Lgth Anesthesia Del Locatn Provider FOB 03/08/22 ectopic 09/05/23 Alicia 40 live - full term Female [facility] [place] Delivery Date: 03/08/22 [...] the urethra (more content not included)... Normal [facility] Thyroid Peroxidase ABon 09- THYR PEROX AB 41 IU/mL High 0-34 [facility] Comment on above: Result Comment: Perf ormed at: - [facility] [address] [id number] Electronics Technician Apprentice: Asa Bateman PhD, Phone: [phone] Performed By: #### L 3300.6750, L500.4050, L100.0100, L501.20049, L501.9520, L503.0106, L506.1001, L500.4100, L501.9985 #### [facility] [address] [place], [place], [id number] Serum or plasma thyroperoxid ase antibody assay (units/volume)Ordered By: Omar Boothe on 04-09-2025 TPO Ab Qn 41 [IU]/mL High 0-34 [facility] Comment on above: Performed at: [address] [id number] Director: Asa Bateman PhD, Phone: [phone] TSH DL <= 0.005 mIU/L QnOrde red By: Omar Boothe on 04-09-2025 TSH Qn 1.570 uIU/mL 0.300-4.200 [facility] Thyroid Stim Hormone (TSH)on 04-09-2025 TSH 1.570 uIU/mL Normal 0.300-4.200 [facility] Comment on above: Performed By: #### L 3300.6750, L500.4050, L100.0100, L501.83741, L501.9520, L503.0106, L506.1001, L500.4100, L501.9985 #### [facility] [address] [facility] [place], [place], [id number] Endocrinology Visit Reporton 04-08-2025 Endocrinology Visit Report [facility] [address] [place], [place] [address] OFFICE VISIT Date of Service: 04/08/25 MR#: [id number] Acct: [id number] Name: CHELITA ROMERO Rep #: [id number] : 1995 Provider: Zeynep Ellison Age/Sex: 30/F Location: [facility] Status: Signed Intake Vital Signs 10/21/23 16:10 04/08/25 09:35 Height 5 ft 11 in 5 ft 11 in Weight: 205 lb BMI 28.5 BP 107/70 Blood Pressure Location Lt brachial Position Sitting Pulse 77 Pulse Source Monitor Pulse Oximetry (%) 98 Oxygen Delivery Method room air Intake Visit Reasons: Thyroid Chief Complaint: Thyroid, PCOS Men'S Swim Coach Required: No Accompanied by: Self Is patient in pain?: No Allergies No Known Allergies Allergy (Verified 04/08/25 09:35) Medications ???Medication ???Instructions ???Recorded ???Confirmed ???Type multivit-min no.71-iron fum 28 1 cap PO 01/18/23 04/08/25 History mg-folate no.1 1 mg-dha 300 mg capsule (PNV-Kenvir) Compound Semaglutide subcut 01/04/25 04/08/25 History cholecalciferol (vitamin D3) 125 125 mcg PO QDAY 04/08/25 04/08/25 History mcg (5,000 unit) capsule levothyroxine 25 mcg tablet 25 mcg PO QDAY 04/08/25 04/08/25 H istory [facility] Medical History (Updated 04/08/25 @ 10:[address] Omar Boothe MD) Bruno's thyroiditis Thyroid disease Ectopic PCOS (polycystic ovarian syndrome) Family History Grandfather CVA (cerebral vascular accident) Grandmother CVA (cerebral vascular accident) Diabetes Other Idiopathic pulmonary fibrosis Social History adopted: No household members: spouse current occupational status: employed current occupation: [employer] pets and animals: Yes (not managing litterbox while ) pets and animals: cat(s) and dog(s) history of recent travel: Yes ([place] 08/23) out of state: No out of country: Yes sexually active: Yes Smoking Status: Never smoker alcohol intake: never substance use type: does not use well-balanced diet: daily or most days caffeine: No eating out: 1-3 times/week during the past year weight has: remained stable what type of physical activity do you participate in: walking frequency: 1-2 times per week duration: 30-45 minutes/day lindsay/restorationist: Yarsanism seatbelt use: always do you feel safe at home: Yes 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 Normal [facility] T4 Free Directon 01-02-2025 T4 FREE DIRECT 1.50 ng/dL High 0.76-1.46 [facility] Comment on above: Performed By: #### L 3300.6750, L500.4050, L100.0100, L501.90927, L501.9520, L503.0106, L506.1001, L500.4100, L501.9985 #### [facility] [address] [place], [address] T4 freeOrdered By: Heath garcia on 01-02-2025 Free T4 [Mass/Vol] 1.50 ng/dL High 0.76-1.46 [facility] TSH DL <= 0.005 mIU/L QnOrde red By: Heath Sebastian on 01-02-2025 TSH Qn 0.037 uIU/mL Low 0.300-4.200 [facility] Thyroid Stim Hormone (TSH)on 01-02-2025 TSH 0.037 uIU/mL Low 0.300-4.200 [facility] Comment on above: Performed By: #### L 3300.6750, L500.4050, L100.0100, L501.75213, L501.9520, L503.0106, L506.1001, L500.4100, L501.9985 #### [facility] [address], [place], [id number] Thyroidon 10-19-2024 Thyroid [facility] [address] [place] [address] Thyroid MR#: [id number] Acct: [id number] Name: CHELITA ROMERO Rep #: [id number] : 1995 F 29 From: Gayla Aguirre nd, MD PCP: Heath Sebastian INDIRECT SALES EXEC-C Status: REG CLI Study: Thyroid Date of Exam: 10/19/24 Exam# [id number] Ordering Dr: Heath Sebastian [facility] ALEXIA PROCEDURE: THYROID 10/19/2024 REASON FOR [...] US/Thyroid IMPRESSION: NORMAL THYROID ULTRASOUND Reading Location: [facility] CC: ALEXIA Sebastian Dam Tender: Signed Normal [facility] Thyroid Antibodieson 025 TG AB < 1.0 Normal 0.0-0.9 [facility] Comment on above: Result Comment: Thyr oglobulin Antibody measured by Michael [place] Methodology It should be noted that the presence of thyroglobulin antibodies may not be pathogenic nor diagnostic, especially at very low levels. The assay press secretary has found that four percent of individuals without evidence of thyroid disease or autoimmunity will have positive TgAb levels up to 4 IU/mL. Performed at: [address] [id number] Electronics Technician Apprentice: Asa Bateman PhD, Phone: [phone] Performed By: #### L 3300.6750, L500.4050, L100.0100, L501.14450, L501.9520, L503.0106, L506.1001, L500.4100, L501.9985 #### [facility] [address] [place], [address] THYR PEROX AB 38 IU/mL High 0-34 [facility] Comment on above: Performed By: #### L 3300.6750, L500.4050, L100.0100, L501.18363, L501.9520, L503.0106, L506.1001, L500.4100, L501.9985 #### [facility] [address] [place], [address] Absolute lymphocyte countOrd ered By: Heath Romulo on 10-10-2024 Lymphocytes Auto (Unsp spec) [#/Vol] 2.39 10*3/uL 0.83-4.51 [facility] Absolute neutrophil countOrd ered By: Heath Romulo on 10-10-2024 Neutrophils (Bld) [#/Vol] 5.6 10*3/uL 2.0-7.7 [facility] Anion gap in Serum or Plasma Ordered By: Heath Sebastian on 10-10-2024 Anion gap [Moles/Vol] 13 mmol/L 5- [facility] Automated lymphocyte count a s percentage of total leukocytesOrdered By: Heath Sebastian on 10-10-2024 Lymphocytes/100 WBC Auto (Unsp spec) 27.9 % - [facility] BUN/creatinine ratioOrdered By: Heath Sebastian on 10-10-2024 Urea nitrogen/Creatinine [Mass ratio] 16.5 mg/mg 10- [facility] Basophil percentageOrdered B y: Heath Sebastian on 10-10-2024 Basophils/100 WBC (Bld) 0.5 % 0- [facility] Bilirubin, totalOrdered By: Heath Romulo on 10-10-2024 Bilirubin [Mass/Vol] 0.35 mg/dL 0.00-1.30 [facility] CBC W/Diff, Automatedon 09-29 Absolute Lymph 2.39 X10 3/uL Normal 0.83-4.51 [facility] Comment on above: Performed By: #### L 3300.6750, L500.4050, L100.0100, L501.23433, L501.9520, L503.0106, L506.1001, L500.4100, L501.9985 #### [facility] [address] [place], [address] Absolute Neut 5.6 X10 3/uL Normal 2.0-7.7 [facility] Comment on above: Performed By: #### L 3300.6750, L500.4050, L100.0100, L501.80487, L501.9520, L503.0106, L506.1001, L500.4100, L501.9985 #### [facility] [address] [place], [address] Basophils/100 WBC (Bld) 0.5 % Normal 0-1 [facility] Comment on above: Performed By: #### L 3300.6750, L500.4050, L100.0100, L501.96923, L501.9520, L503.0106, L506.1001, L500.4100, L501.9985 #### [facility] [address] [place], [address] Eosinophils/100 WBC (Bld) 0.7 % Normal 0-5 [facility] Comment on above: Performed By: #### L 3300.6750, L500.4050, L100.0100, L501.89109, L501.9520, L503.0106, L506.1001, L500.4100, L501.9985 #### [facility] [address] [place], [address] Erythrocyte distribution width (RBC) [Ratio] 12.7 % Normal 11.6-14.6 [facility] Comment on above: Performed By: #### L 3300.6750, L500.4050, L100.0100, L501.16592, L501.9520, L503.0106, L506.1001, L500.4100, L501.9985 #### [facility] [address] [place], [address] Hematocrit (Bld) [Volume fraction] 39.1 % Normal 37-47 [facility] Comment on above: Performed By: #### L 3300.6750, L500.4050, L100.0100, L501.13206, L501.9520, L503.0106, L506.1001, L500.4100, L501.9985 #### [facility] [address] [place], [address] Hemoglobin (Bld) [Mass/Vol] 13.2 g/dL Normal 12.0-15.0 [facility] Comment on above: Performed By: #### L 3300.6750, L500.4050, L100.0100, L501.61816, L501.9520, L503.0106, L506.1001, L500.4100, L501.9985 #### [facility] [address] [place], [address] IG% 0.400 Normal 0.0-0.9 [facility] Comment on above: Result Comment: IG% - Immature Granulocytes (promyelocytes, myelocytes and metamyelocytes) > 1% indicates that a LEFT SHIFT is Present. Performed By: #### L 3300.6750, L500.4050, L100.0100, L501.40231, L501.9520, L503.0106, L506.1001, L500.4100, L501.9985 #### [facility] [address] [place], [address] Lymphocytes/100 WBC (Bld) 27.9 % Normal 19-41 [facility] Comment on above: Performed By: #### L 3300.6750, L500.4050, L100.0100, L501.42301, L501.9520, L503.0106, L506.1001, L500.4100, L501.9985 #### [facility] [address] [place], [address] MCH (RBC) [Entitic mass] 27.9 pg Normal 27.0-32.0 [facility] Comment on above: Performed By: #### L 3300.6750, L500.4050, L100.0100, L501.06672, L501.9520, L503.0106, L506.1001, L500.4100, L501.9985 #### [facility] [address] [place], [address] MCHC (RBC) [Mass/Vol] 33.8 g/dL Normal 32-36 [facility] Comment on above: Performed By: #### L 3300.6750, L500.4050, L100.0100, L501.02157, L501.9520, L503.0106, L506.1001, L500.4100, L501.9985 #### [facility] [address] [place], [address] MCV (RBC) [Entitic vol] 82.7 fL Normal 81-99 [facility] Comment on above: Performed By: #### L 3300.6750, L500.4050, L100.0100, L501.40166, L501.9520, L503.0106, L506.1001, L500.4100, L501.9985 #### [facility] [address] [facility] [place], [address] Monocytes/100 WBC (Bld) 5.4 % Normal 0-10 [facility] Comment on above: Performed By: #### L 3300.6750, L500.4050, L100.0100, L501.23171, L501.9520, L503.0106, L506.1001, L500.4100, L501.9985 #### [facility] [address] [facility], [address] Neutrophils/100 WBC (Bld) 65.1 % Normal 47-70 [facility] Comment on above: Performed By: #### L 3300.6750, L500.4050, L100.0100, L501.06886, L501.9520, L503.0106, L506.1001, L500.4100, L501.9985 #### [facility] [address] [place], [address] Nucleated RBC (Bld) [#/Vol] 0 10*3/uL Normal 0-5 [facility] Comment on above: Performed By: #### L 3300.6750, L500.4050, L100.0100, L501.33673, L501.9520, L503.0106, L506.1001, L500.4100, L501.9985 #### [facility] [address] [place], [address] Platelet mean volume (Bld) [Entitic vol] 9.0 fL Normal 6.2-12.0 [facility] Comment on above: Performed By: #### L 3300.6750, L500.4050, L100.0100, L501.45204, L501.9520, L503.0106, L506.1001, L500.4100, L501.9985 #### [facility] [address] [place], [address] Platelets (Bld) [#/Vol] 342 10*3/uL Normal 150-450 [facility] Comment on above: Performed By: #### L 3300.6750, L500.4050, L100.0100, L501.53852, L501.9520, L503.0106, L506.1001, L500.4100, L501.9985 #### [facility] [address] [place], [address] RBC (Bld) [#/Vol] 4.73 10*6/uL Normal 4.2-5.4 [facility] Comment on above: Performed By: #### L 3300.6750, L500.4050, L100.0100, L501.76701, L501.9520, L503.0106, L506.1001, L500.4100, L501.9985 #### [facility] [address] [place], [place], [address] RDW SD 38.3 fl Normal 35.1-43.9 [facility] Comment on above: Performed By: #### L 3300.6750, L500.4050, L100.0100, L501.30534, L501.9520, L503.0106, L506.1001, L500.4100, L501.9985 #### [facility] [address] [place], [address] WBC (Bld) [#/Vol] 8.6 10*3/uL Normal 4.4-11.0 [facility] Comment on above: Performed By: #### L 3300.6750, L500.4050, L100.0100, L501.65976, L501.9520, L503.0106, L506.1001, L500.4100, L501.9985 #### [facility] [address] [place], [place], [id number] Calculated very low density lipoprotein (VLDL) cholesterol measurementOrdered By: Heath Sebastian on 10-10-2024 Calculated very low density lipoprotein (VLDL) cholesterol measurement 17 mg/dL 5-40 [facility] VLDL Cholesterol 17 mg/dL 5-40 [facility] Carbon dioxide, total [Moles /volume] in Central venous bloodOrdered By: Heath Sebastian on 10-10-2024 CO2 [Moles/Vol] 23.7 mmol/L 21.0-32.0 [facility] Chloride assayOrdered By: Monet Sebastian on 10-10-2024 Chloride [Moles/Vol] 102 mmol/L 98-108 [facility] Comprehensive Metabolic Prof ilon 10-10-2024 Albumin [Mass/Vol] 4.4 g/dL Normal 3.5-5.0 [facility] Comment on above: Performed By: #### L 3300.6750, L500.4050, L100.0100, L501.43533, L501.9520, L503.0106, L506.1001, L500.4100, L501.9985 #### [facility] [address] [place], [place], [address] Albumin/Globulin [Mass ratio] 1.2 {ratio} Normal 0.9-2.4 [facility] Comment on above: Performed By: #### L 3300.6750, L500.4050, L100.0100, L501.76642, L501.9520, L503.0106, L506.1001, L500.4100, L501.9985 #### [facility] [address] [place], [address] ALK PHOS 159 U/L High 35-104 [facility] Comment on above: Performed By: #### L 3300.6750, L500.4050, L100.0100, L501.32386, L501.9520, L503.0106, L506.1001, L500.4100, L501.9985 #### [facility] [address] [place], [place], [id number] ALT [Catalytic activity/Vol] 12 U/L Normal <=34 [facility] Comment on above: Performed By: #### L 3300.6750, L500.4050, L100.0100, L501.18709, L501.9520, L503.0106, L506.1001, L500.4100, L501.9985 #### [facility] [address] [place], [address] AST [Catalytic activity/Vol] 20 U/L Normal <=31 [facility] Comment on above: Performed By: #### L 3300.6750, L500.4050, L100.0100, L501.75763, L501.9520, L503.0106, L506.1001, L500.4100, L501.9985 #### [facility] [address] [place], [address] Bilirubin [Mass/Vol] 0.35 mg/dL Normal 0.00-1.30 [facility] Comment on above: Performed By: #### L 3300.6750, L500.4050, L100.0100, L501.33582, L501.9520, L503.0106, L506.1001, L500.4100, L501.9985 #### [facility] [address] [place], [address] BUN/CRE 16.5 RATIO Normal 10-20 [facility] Comment on above: Performed By: #### L 3300.6750, L500.4050, L100.0100, L501.53033, L501.9520, L503.0106, L506.1001, L500.4100, L501.9985 #### [facility] [address] [place], [address] Calcium [Mass/Vol] 9.6 mg/dL Normal 7.6-11.0 [facility] Comment on above: Performed By: #### L 3300.6750, L500.4050, L100.0100, L501.90312, L501.9520, L503.0106, L506.1001, L500.4100, L501.9985 #### [facility] [address] [place], [address] Chloride [Moles/Vol] 102 mmol/L Normal 98-108 [facility] Comment on above: Performed By: #### L 3300.6750, L500.4050, L100.0100, L501.42087, L501.9520, L503.0106, L506.1001, L500.4100, L501.9985 #### [facility] [address] [place], [place], [address] CO2 [Moles/Vol] 23.7 mmol/L Normal 21.0-32.0 [facility] Comment on above: Performed By: #### L 3300.6750, L500.4050, L100.0100, L501.70550, L501.9520, L503.0106, L506.1001, L500.4100, L501.9985 #### [facility] [address] [place], [address] Creatinine [Mass/Vol] 0.82 mg/dL Normal 0.70-1.20 [facility] Comment on above: Performed By: #### L 3300.6750, L500.4050, L100.0100, L501.24449, L501.9520, L503.0106, L506.1001, L500.4100, L501.9985 #### [facility] [address] [place], [place], [id number] GAP 13 Normal 5-15 [facility] Comment on above: Performed By: #### L 3300.6750, L500.4050, L100.0100, L501.31706, L501.9520, L503.0106, L506.1001, L500.4100, L501.9985 #### [facility] [address] [place], [address] GFR/1.73 sq M.predicted among non-blacks MDRD (S/P/Bld) [Vol rate/Area] 101 mL/min/{1.73_m2} Normal >60 [facility] Comment on above: Result Comment: mL/m in/1.73m2 CKD-EPI Creatinine Equation (2020) Performed By: #### L 3300.6750, L500.4050, L100.0100, L501.38691, L501.9520, L503.0106, L506.1001, L500.4100, L501.9985 #### [facility] [address] [place], [address] Globulin (S) [Mass/Vol] 3.6 g/dL Normal 2.2-4.2 [facility] Comment on above: Performed By: #### L 3300.6750, L500.4050, L100.0100, L501.43670, L501.9520, L503.0106, L506.1001, L500.4100, L501.9985 #### [facility] [address] [place], [address] Glucose [Mass/Vol] 81 mg/dL Normal 70-99 [facility] Comment on above: Performed By: #### L 3300.6750, L500.4050, L100.0100, L501.86101, L501.9520, L503.0106, L506.1001, L500.4100, L501.9985 #### [facility] [address] [place], [address] Potassium [Moles/Vol] 4.1 mmol/L Normal 3.3-5.1 [facility] Comment on above: Performed By: #### L 3300.6750, L500.4050, L100.0100, L501.99368, L501.9520, L503.0106, L506.1001, L500.4100, L501.9985 #### [facility] [address] [place], [address] Sodium [Moles/Vol] 138 mmol/L Normal 133-145 [facility] Comment on above: Performed By: #### L 3300.6750, L500.4050, L100.0100, L501.99002, L501.9520, L503.0106, L506.1001, L500.4100, L501.9985 #### [facility] [address] [place], [address] T PROT 8.0 g/dL Normal 5.9-8.4 [facility] Comment on above: Performed By: #### L 3300.6750, L500.4050, L100.0100, L501.67822, L501.9520, L503.0106, L506.1001, L500.4100, L501.9985 #### [facility] [address] [place], [address] Urea nitrogen [Mass/Vol] 14 mg/dL Normal 4-19 [facility] Comment on above: Performed By: #### L 3300.6750, L500.4050, L100.0100, L501.41551, L501.9520, L503.0106, L506.1001, L500.4100, L501.9985 #### [facility] [address] [place], [address] Eosinophil percentageOrdered By: Heath Sebastian on 10-10-2024 Eosinophils/100 WBC (Bld) 0.7 % 0-5 [facility] Erythrocyte distribution wid th ratioOrdered By: Heath Sebastian on 10-10-2024 Erythrocyte distribution width (RBC) [Ratio] 12.7 % 11.6-14.6 [facility] Erythrocyte distribution wid th standard deviationOrdered By: Heath Sebastian on 10-10-2024 Erythrocyte distribution width (RBC) [Entitic vol] 38.3 fL 35.1-43.9 [facility] Erythrocyte distribution width (RBC) [Ratio] 38.3 fl 35.1-43.9 [facility] Free T3on 10-10-2024 Free T3 [Mass/Vol] 3.2 pg/mL Normal 2.18-3.98 [facility] Comment on above: Performed By: #### L 3300.6750, L500.4050, L100.0100, L501.15471, L501.9520, L503.0106, L506.1001, L500.4100, L501.9985 #### [facility] [address] [place], [place], [id number] Free P8Mgdkxqh By: Heath garcia on 10-10-2024 Free T3 [Mass/Vol] 3.2 pg/mL 2.18-3.98 [facility] Free Triiodothyronine (T3) pg/dL 3.2 pg/mL 2.18-3.98 [facility] GFR/1.73 sq M.predicted jasvir g non-blacks MDRD (S/P/Bld) [Vol rate/Area]Ordered By: Heath Sebastian on 10-10-2024 Estimated GFR (MDRD) Non-Af Amer 101 >60 [facility] Comment on above: mL/min/1.73m2 CKD-EP I Creatinine Equation (2020) Glomerular filtration rate ( GFR) estimation/1.73 sq m using serum, plasma, or whole bOrdered By: Heath Sebastian on 10-10-2024 GFR/1.73 sq M.predicted among non-blacks MDRD (S/P/Bld) [Vol rate/Area] 101 mL/min/{1.73_m2} >60 [facility] Comment on above: mL/min/1.73m2 CKD-EP I Creatinine Equation (2020) Hematocrit Auto (Bld) [Volum e fraction]Ordered By: Heath Sebastian on 10-10-2024 Hematocrit (Bld) [Volume fraction] 39.1 % 37-47 [facility] Hemoglobin A1con 10-10-2024 HbA1c (Bld) [Mass fraction] 5.5 % Low <=5.6 [facility] Comment on above: Performed By: #### L 3300.6750, L500.4050, L100.0100, L501.65616, L501.9520, L503.0106, L506.1001, L500.4100, L501.9985 #### [facility] [address] [place], [place], [id number] Hemoglobin A1c percentageOrd ered By: Heath Sebastian on 10-10-2024 HbA1c (Bld) [Mass fraction] 5.5 % Low >5.7 [facility] Hemoglobin measurementOrdere d By: Heath Sebastian on 10-10-2024 Hemoglobin (Bld) [Mass/Vol] 13.2 g/dL 12.0-15.0 [facility] Immature granulocytes/100 WB C Auto (Bld)Ordered By: Heath Sebastian on 10-10-2024 Immature granulocytes/100 WBC (Bld) 0.400 % 0.0-0.9 [facility] Comment on above: IG% - Immature Granu locytes (promyelocytes, myelocytes and metamyelocytes) > 1% indicates that a LEFT SHIFT is Present. L503.0106on 10-10-2024 Cobalamin (Vitamin B12) [Mass/Vol] 652 pg/mL Normal 180-914 [facility] Comment on above: Performed By: #### L 3300.6750, L500.4050, L100.0100, L501.57279, L501.9520, L503.0106, L506.1001, L500.4100, L501.9985 #### [facility] [address] [place], [place], [id number] L506.1001on 10-10-2024 Vitamin D 25-OH 17.0 ng/mL Low 30-100 [facility] Comment on above: Result Comment: Nimco min D Status Deficiency: <20 ng/mL (50nmol/L) Insufficiency: 20-30 ng/mL (50-75 nmol/L) Sufficiency: 30-100 ng/mL (75-250 nmol/L) Toxicity: >100 ng/mL (>250 nmol/L) Performed By: #### L 3300.6750, L500.4050, L100.0100, L501.48846, L501.9520, L503.0106, L506.1001, L500.4100, L501.9985 #### [facility] [address] [place], [place], [id number] LDL calc ser/plasOrdered By: Heath Sebastian on 10-10-2024 Cholesterol in LDL [Mass/Vol] 99 mg/dL [facility] Comment on above: Iyrubikske=019-561 m g/dL & Higher Xvzg=488 mg/dL or greater LDL Cholesterol, Calculated 99 mg/dL [facility] Comment on above: Laqyvtowlb=827-517 m g/dL & Higher Bcjn=138 mg/dL or greater Laboratory - Chemistry and C hemistry - challengeOrdered By: Heath Sebastian on 10-10-2024 AST [Catalytic activity/Vol] 20 U/L <32 [facility] Lipid Profileon 10-10-2024 CHOL:HDL 3.90 Normal [facility] Comment on above: Performed By: #### L 3300.6750, L500.4050, L100.0100, L501.99601, L501.9520, L503.0106, L506.1001, L500.4100, L501.9985 #### [facility] [address] [place], [address] Cholesterol [Mass/Vol] 155 mg/dL Normal <=200 [facility] Comment on above: Result Comment: Chol esterol level, Desirable <200 mg/dL Borderline high cholesterol 200-239 mg/dL High cholesterol >=240 mg/dL Recommendations of the NCEP Adult Treatment Panel for the following risk-cutoff thresholds for the [place] population. Performed By: #### L 3300.6750, L500.4050, L100.0100, L501.69096, L501.9520, L503.0106, L506.1001, L500.4100, L501.9985 #### [facility] [address] [place], [address] Cholesterol in HDL [Mass/Vol] 40 mg/dL Normal [facility] Comment on above: Result Comment: Judy onal Cholesterol Education Program (NCEP) guidelines: <40 mg/dL: Low HDL-cholesterol (major risk factor for CHD) >= 60 mg/dL: High HDL-cholesterol (negative risk factor for CHD) HDL-cholesterol is affected by a number of factors, e.g. smoking, exercise, hormones, sex and age. Performed By: #### L 3300.6750, L500.4050, L100.0100, L501.94265, L501.9520, L503.0106, L506.1001, L500.4100, L501.9985 #### [facility] [address] [place], [address] Cholesterol in LDL [Mass/Vol] 99 mg/dL Normal [facility] Comment on above: Result Comment: Bord tvxlpn=064-587 mg/dL Higher Tpzt=356 mg/dL or greater Performed By: #### L 3300.6750, L500.4050, L100.0100, L501.99121, L501.9520, L503.0106, L506.1001, L500.4100, L501.9985 #### [facility] [address] [place], [address] Cholesterol in VLDL [Mass/Vol] 17 mg/dL Normal 5-40 [facility] Comment on above: Performed By: #### L 3300.6750, L500.4050, L100.0100, L501.44703, L501.9520, L503.0106, L506.1001, L500.4100, L501.9985 #### [facility] [address] [place], [address] Triglyceride [Mass/Vol] 83 mg/dL Normal [facility] Comment on above: Result Comment: The drugs N-Acetylcysteine and Metamizole may falsely depress this assay. Normal range: <150 mg/dL Borderline High: 150-199 mg/dL High: 200-499 mg/dL Very High: >500 mg/dL Performed By: #### L 3300.6750, L500.4050, L100.0100, L501.83797, L501.9520, L503.0106, L506.1001, L500.4100, L501.9985 #### [facility] [address] [place], [address] Lymphocytes Auto (Unsp spec) [#/Vol]Ordered By: Heath Sebastian on 10-10-2024 Lymphocytes (Bld) [#/Vol] 2.39 10*3/uL 0.83-4.51 [facility] Lymphocytes/100 WBC Auto (Un sp spec)Ordered By: Heath Sebastian on 10-10-2024 Lymphocytes/100 WBC (Bld) 27.9 % 19-41 [facility] MCV (mean corpuscular volume ) determinationOrdered By: Heath Sebastian on 10-10-2024 MCV (RBC) [Entitic vol] 82.7 fL 81-99 [facility] Mean corpuscular hemoglobin (MCH) determinationOrdered By: Heath Sebastian on 10-10-2024 MCH (RBC) [Entitic mass] 27.9 pg 27.0-32.0 [facility] Mean corpuscular hemoglobin concentration (MCHC) determinationOrdered By: Heath Sebastian on 10-10-2024 MCHC (RBC) [Mass/Vol] 33.8 g/dL 32-36 [facility] Mean platelet volume determi nationOrdered By: Heath Sebastian on 10-10-2024 Platelet mean volume (Bld) [Entitic vol] 9.0 fL 6.2-12.0 [facility] Monocyte percentageOrdered B y: Heath Sebastian on 10-10-2024 Monocytes/100 WBC (Bld) 5.4 % 0-10 [facility] Neutrophil percentageOrdered By: Heath Sebastian on 10-10-2024 Neutrophils/100 WBC (Bld) 65.1 % 47-70 [facility] Nucleated red blood cell per centageOrdered By: Heath Sebastian on 10-10-2024 Nucleated RBC/100 WBC (Bld) [Ratio] 0 % 0-5 [facility] Platelet countOrdered By: Monet Sebastian on 10-10-2024 Platelets (Bld) [#/Vol] 342 10*3/uL 150-450 [facility] Potassium (Unsp spec) [Mass/ Vol]Ordered By: Heath Sebastian on 10-10-2024 Potassium [Moles/Vol] 4.1 mmol/L 3.3-5.1 [facility] Potassium measurement (mass/ volume)Ordered By: Heath Sebastian on 10-10-2024 Potassium (Unsp spec) [Mass/Vol] 4.1 mmol/L 3.3-5.1 [facility] RBC Auto (Bld) [#/Vol]Ordere d By: Heath Sebastian on 10-10-2024 RBC (Bld) [#/Vol] 4.73 10*6/uL 4.2-5.4 [facility] Screening total cholesterol/ high density lipoprotein (HDL) cholesterol ratioOrdered By: Heath Sebastian on 10-10-2024 Cholesterol.total/Chol esterol in HDL [Mass ratio] 3.90 {ratio} [facility] Serum creatinine measurement (mass/volume)Ordered By: Heath Sebastian on 10-10-2024 Creatinine [Mass/Vol] 0.82 mg/dL 0.70-1.20 [facility] Serum globulin measurementOr dered By: Heath Sebastian on 10-10-2024 Globulin (S) [Mass/Vol] 3.6 g/dL 2.2-4.2 [facility] Serum glucose measurement (m ass/volume)Ordered By: Heath Sebastian on 10-10-2024 Glucose [Mass/Vol] 81 mg/dL 70-99 [facility] Serum or plasma alanine linda otransferase (ALT) measurementOrdered By: Heath Sebastian on 10-10-2024 ALT [Catalytic activity/Vol] 12 U/L <35 [facility] Serum or plasma albumin christiane urement (mass/volume)Ordered By: Heath Sebastian on 10-10-2024 Albumin [Mass/Vol] 4.4 g/dL 3.5-5.0 [facility] Serum or plasma albumin/glob ulin mass ratioOrdered By: Heath Sebastian on 10-10-2024 Albumin/Globulin [Mass ratio] 1.2 {ratio} 0.9-2.4 [facility] Serum or plasma alkaline jadon sphatase measurementOrdered By: Heath Sebastian on 10-10-2024 ALP [Catalytic activity/Vol] 159 U/L High 35-104 [facility] Serum or plasma calcium christiane urement (mass/volume)Ordered By: Heath Sebastian on 10-10-2024 Calcium [Mass/Vol] 9.6 mg/dL 7.6-11.0 [facility] Serum or plasma cholesterol in HDL measurement (mass/volume)Ordered By: Heath Sebastian on 10-10-2024 Cholesterol in HDL [Mass/Vol] 40 mg/dL >40 [facility] Comment on above: National Cholesterol Education Program (NCEP) guidelines:<40 mg/dL: Low HDL-cholesterol (major risk factor for CHD)>= 60 mg/dL: High HDL-cholesterol (negative risk factor for CHD)HDL-cholesterol is affected by a number of factors, e.g. smoking, exercise, hormones, sex and age. Serum or plasma cholesterol measurement (mass/volume)Ordered By: Heath Sebastian on 10-10-2024 Cholesterol [Mass/Vol] 155 mg/dL <201 [facility] Comment on above: Cholesterol level, D esirable <200 mg/dLBorderline high cholesterol 200-239 mg/dLHigh cholesterol >=240 mg/dLRecommendations of the NCEP Adult Treatment Panel for the following risk-cutoff thresholds for the [place] population. Serum or plasma thyroperoxid ase antibody assay (units/volume)Ordered By: Heath Sebastian on 10-10-2024 TPO Ab Qn 38 [IU]/mL High 0-34 [facility] Serum or plasma urea nitroge n measurement (mass/volume)Ordered By: Heath Sebastian on 10-10-2024 Urea nitrogen [Mass/Vol] 14 mg/dL 4-19 [facility] Sodium levelOrdered By: Heath Sebastian on 10-10-2024 Sodium [Moles/Vol] 138 mmol/L 133-145 [facility] TPO Ab QnOrdered By: Heath basurto on 10-10-2024 Thyroid Peroxidase Antibodies 38 IU/mL High 0-34 [facility] TSH DL <= 0.005 mIU/L QnOrde red By: Heath Sebastian on 10-10-2024 Thyroid Stimulating Hormone (TSH) 1.190 uIU/mL 0.300-4.200 [facility] TSH Qn 1.190 uIU/mL 0.300-4.200 [facility] Thyroglobulin Ab serumOrdere d By: Heath Sebastian on 10-10-2024 Thyroglobulin Antibody < 1.0 IU/mL 0.0-0.9 [facility] Comment on above: Thyroglobulin Antibo dy measured by WordinaireMethodologyIt should be noted that the presence of thyroglobulinantibodies may not be pathogenic nor diagnostic, especiallyat very low levels. The assay press secretary has found thatfour percent of individuals without evidence of thyroiddisease or autoimmunity will have positive TgAb levels upto 4 IU/mL.Performed at: [address] [id number] Director: Asa Bateman PhD, Phone: [phone] Thyroid Stim Hormone (TSH)on 10-10-2024 TSH 1.190 uIU/mL Normal 0.300-4.200 [facility] Comment on above: Performed By: #### L 3300.6750, L500.4050, L100.0100, L501.08300, L501.9520, L503.0106, L506.1001, L500.4100, L501.9985 #### [facility] [address] [place], [address] Total proteinOrdered By: Mariposa Sebastian on 10-10-2024 Protein [Mass/Vol] 8.0 g/dL 5.9-8.4 [facility] Triglycerides measurementOrd ered By: Heath Sebastian on 10-10-2024 Triglyceride [Mass/Vol] 83 mg/dL <199 [facility] Comment on above: The drugs N-Acetylcy steine and Metamizole may falsely depress this assay. Normal range: <150 mg/dLBorderline High: 150-199 mg/dLHigh: 200-499 mg/dLVery High: >500 mg/dL Vitamin B12 ser/plasOrdered By: Heath Sebastian on 10-10-2024 Cobalamin (Vitamin B12) [Mass/Vol] 652 pg/mL 180-914 [facility] Vitamin D, 25-hydroxyOrdered By: Heath Sebastian on 10-10-2024 Vitamin D 25-Hydroxy 17.0 ng/mL Low 30-100 [facility] Comment on above: Vitamin D StatusDefi ciency: <20 ng/mL (50nmol/L)Insufficiency: 20-30 ng/mL (50-75 nmol/L)Sufficiency: 30-100 ng/mL (75-250 nmol/L)Toxicity: >100 ng/mL (>250 nmol/L) White blood cell (WBC) count Ordered By: Heath Sebastian on 10-10-2024 WBC (Bld) [#/Vol] 8.6 10*3/uL 4.4-11.0 [facility] Laboratory - Chemistry and C hemistry - challengeon 10-21-2023 HCG ( test) Ql (U) Negative [facility] Cervical or vagninal specime n microscopic examination by cytology stain (reported asOrdered By: Jes Dao on 10-19-2023 Cytology report Cyto stain Doc (Cvx/Vag) Comment . [facility] Comment on above: The Pap smear is a s creening test designed to aid in thedetection of premalignant and malignant conditions of theuterine cervix. It is not a diagnostic procedure andshould not be used as the sole means of detecting cervicalcancer. Both false-positive and false-negative reports dooccur. Laboratory - CytologyOrdered By: Jes Dao on 10-19-2023 Veterinary Anatomist Cyto stain Nom (Cvx/Vag) [ID] Comment . [facility] Comment on above: Duke Koenig totechnologist (ASCP) Laboratory - Miscellaneous t estsOrdered By: Jse Dao on 10-19-2023 Service comment (Unsp spec) [Interp] . . [facility] No Panel InformationOrdered By: Jes Dao on 10-19-2023 Human Papillomavirus Screen Comment . [facility] Comment on above: The HPV DNA reflex jemal leyva were not met with this specimenresult therefore, no HPV testing was performed.Performed at: [address] [id number] Director: Yanira Coffey MD, Phone: [phone] Thin prep Papanicolaou smear with manual screeningOrdered By: Jes Dao on 10-19-2023 Thin prep Papanicolaou smear with manual screening Comment . [facility] Comment on above: NEGATIVE FOR INTRAEP ITHELIAL LESION OR MALIGNANCY. This liquid based Th inPrep(R) pap test was screened withthe use of an image guided system. Absolute lymphocyte countOrd ered By: Oma Catherine on 09-04-2023 Lymphocytes Auto (Unsp spec) [#/Vol] 2.24 10*3/uL 0.83-4.51 [facility] Automated lymphocyte count a s percentage of total leukocytesOrdered By: Oma Catherine on 09-04-2023 Lymphocytes/100 WBC Auto (Unsp spec) 17.7 % 19-41 [facility] Basophil percentageOrdered B y: Oma Catherine on 09-04-2023 Basophils/100 WBC (Bld) 0.2 % 0-1 [facility] Eosinophils/100 WBC (Bld) 0.4 % 0-5 [facility] Hemoglobin (Bld) [Mass/Vol] 11.3 g/dL 12.0-15.0 [facility] Monocytes/100 WBC (Bld) 6.2 % 0-10 [facility] Neutrophils (Bld) [#/Vol] 9.5 10*3/uL 2.0-7.7 [facility] Neutrophils/100 WBC (Bld) 75.0 % 47-70 [facility] WBC (Bld) [#/Vol] 12.7 10*3/uL 4.4-11.0 [facility] Determination of erythrocyte mean corpuscular volume (MCV)Ordered By: Oma Catherine on 09-04-2023 MCV (RBC) [Entitic vol] 87.8 fL 81-99 [facility] Erythrocyte distribution wid th ratioOrdered By: Oma Catherine on 09-04-2023 Erythrocyte distribution width (RBC) [Ratio] 13.2 % 11.6-14.6 [facility] Erythrocyte distribution wid th standard deviationOrdered By: Omasuzanne Catherine on 09-04-2023 Erythrocyte distribution width (RBC) [Entitic vol] 42.2 fL 35.1-43.9 [facility] Hematocrit Auto (Bld) [Volum e fraction]Ordered By: Omasuzanne Catherine on 09-04-2023 Hematocrit (Bld) [Volume fraction] 33.8 % 37-47 [facility] Immature granulocytes/100 WB C Auto (Bld)Ordered By: Oma Catherine on 09-04-2023 Immature granulocytes/100 WBC (Bld) 0.500 % 0.0-0.9 [facility] Comment on above: IG% - Immature Granu locytes (promyelocytes, myelocytes and metamyelocytes) > 1% indicates that a LEFT SHIFT is Present. Laboratory - Hematology and Cell countsOrdered By: Oma Catherine on 09-04-2023 MCH (RBC) [Entitic mass] 29.4 pg 27.0-32.0 [facility] MCHC (RBC) [Mass/Vol] 33.4 g/dL 32-36 [facility] Nucleated RBC/100 WBC (Bld) [Ratio] 0 % 0-5 [facility] Platelets (Bld) [#/Vol] 300 10*3/uL 150-450 [facility] Platelet mean volume Aftab-Ec ker (Bld) [Entitic vol]Ordered By: Oma Catherine on 09-04-2023 Platelet mean volume (Bld) [Entitic vol] 9.7 fL 6.2-12.0 [facility] RBC Auto (Bld) [#/Vol]Ordere d By: Oam Catherine on 09-04-2023 RBC (Bld) [#/Vol] 3.85 10*6/uL 4.2-5.4 [facility] Serum Treponema species anti body detectionOrdered By: Oma Catherine on 09-04-2023 Treponema sp Ab Ql (S) Non-Reactive [facility] Laboratory - Chemistry and C hemistry - challengeon 08-24-2023 Glucose Ql (U) Negative [facility] Laboratory - Urinalysison Protein Ql (U) Negative [facility] Laboratory - Chemistry and C hemistry - challengeon 08-19-2023 Glucose Ql (U) Negative [facility] Laboratory - Urinalysison Protein Ql (U) Negative [facility] Progress Noteon 08-10-2023 [employer] Authentication Interface Message Text MFM attending note: [...] urinary obstruction, aneuploidy, and/or a genetic syndrome. [facility] Plan of Care Diagnosis: UTD A2-3, left UTD A2-3 and large bladder. Possible intermittent bladder neck obstruction. Low risk Cell free DNA aneuploidy screening Plan: 1. Continued obstetrical care with her primary pen tender is recommended. 2. Follow up q4 weeks to evaluate biometric parameters and renals. These are planned with the [facility]. 3. surveillance as follows: as clinically [...] within 1 week after . Please call [facility] at [phone]. 10. Possible additional imaging and follow up as per Pediatric Urology. 11. Other follow up as clinically indicated. Chart review and preparation: 10 minutes. Face to face: 20 minutes. Documentation and care coordination: 10 minutes. Total time spent on patient care today: 40 minutes. Normal [facility] Laboratory - Chemistry and C hemistry - challengeon 08-05-2023 Glucose Ql (U) Negative [facility] Laboratory - Urinalysison Protein Ql (U) Negative [facility] No Panel InformationOrdered By: Claribel Marino on 08-05-2023 Group B Streptococcus Culture Group B Beta Streptococcus is not isolated. [facility] Group B Streptococcus Culture Group B Beta Streptococcus is not isolated. [facility] Laboratory - Chemistry and C hemistry - challengeon 07-29-2023 Glucose Ql (U) Negative [facility] Laboratory - Urinalysison Protein Ql (U) Negative [facility] Absolute lymphocyte countOrd ered By: Oma Catherine on 07-14-2023 Lymphocytes Auto (Unsp spec) [#/Vol] 2.72 10*3/uL 0.83-4.51 [facility] Basophil percentageOrdered B y: Oma Catherine on 07-14-2023 Basophils/100 WBC (Bld) 0.4 % 0-1 [facility] Eosinophils/100 WBC (Bld) 0.6 % 0-5 [facility] Neutrophils (Bld) [#/Vol] 7.3 10*3/uL 2.0-7.7 [facility] Neutrophils/100 WBC (Bld) 67.3 % 47-70 [facility] WBC (Bld) [#/Vol] 10.9 10*3/uL 4.4-11.0 [facility] Blood erythrocytes count (nu mber/volume)Ordered By: Oma Catherine on 07-14-2023 RBC (Bld) [#/Vol] 3.64 10*6/uL 4.2-5.4 [facility] Blood hemoglobin measurement (mass/volume)Ordered By: Oma Catherine on 07-14-2023 Hemoglobin (Bld) [Mass/Vol] 10.8 g/dL 12.0-15.0 [facility] Blood lymphocytes/100 leukoc ytesOrdered By: Oma Catherine on 07-14-2023 Lymphocytes/100 WBC (Bld) 25.0 % 19-41 [facility] Blood monocytes/100 leukocyt esOrdered By: Oma Catherine on 07-14-2023 Monocytes/100 WBC (Bld) 6.2 % 0-10 [facility] Blood platelet mean volumeOr dered By: Oma Catherine on 07-14-2023 Platelet mean volume (Bld) [Entitic vol] 9.3 fL 6.2-12.0 [facility] Determination of erythrocyte mean corpuscular volume (MCV)Ordered By: Oma Catherine on 07-14-2023 MCV (RBC) [Entitic vol] 88.5 fL 81-99 [facility] Hematocrit Auto (Bld) [Volum e fraction]Ordered By: Oma Catherine on 07-14-2023 Hematocrit (Bld) [Volume fraction] 32.2 % 37-47 [facility] Laboratory - Chemistry and C hemistry - challengeon 07-14-2023 Glucose Ql (U) Negative [facility] Laboratory - Hematology and Cell countsOrdered By: Oma Catherine on 07-14-2023 Erythrocyte distribution width (RBC) [Entitic vol] 40.2 fL 35.1-43.9 [facility] Erythrocyte distribution width (RBC) [Ratio] 12.6 % 11.6-14.6 [facility] Immature granulocytes/100 WBC (Bld) 0.500 % 0.0-0.9 [facility] Comment on above: IG% - Immature Granu locytes (promyelocytes, myelocytes and metamyelocytes) > 1% indicates that a LEFT SHIFT is Present. MCH (RBC) [Entitic mass] 29.7 pg 27.0-32.0 [facility] Nucleated RBC/100 WBC (Bld) [Ratio] 0 % 0-5 [facility] Laboratory - Urinalysison Protein Ql (U) Negative [facility] MCHC Auto (RBC) [Mass/Vol]Or dered By: Oma Catherine on 07-14-2023 MCHC (RBC) [Mass/Vol] 33.5 g/dL 32-36 [facility] Platelets bldOrdered By: Brittney Catherine on 07-14-2023 Platelets (Bld) [#/Vol] 274 10*3/uL 150-450 [facility] Laboratory - Chemistry and C hemistry - challengeon 06-27-2023 Glucose Ql (U) Negative [facility] Laboratory - Urinalysison Protein Ql (U) Negative [facility] Quantitative serum or plasma 3 hour gestational glucose tolerance panelOrdered By: Vanna Tracey on 06-13-2023 Glucose tolerance 3 hours gestational panel See comment [facility] Comment on above: FASTING 83 Col: 06/01 [...] Auto (Unsp spec) [#/Vol] 1.60 10*3/uL 0.83-4.51 [facility] Basophil percentageOrdered B y: Oma Catherine on 06-07-2023 Basophils/100 WBC (Bld) 0.3 % 0-1 [facility] Eosinophils/100 WBC (Bld) 0.1 % 0-5 [facility] Neutrophils (Bld) [#/Vol] 7.0 10*3/uL 2.0-7.7 [facility] Neutrophils/100 WBC (Bld) 77.5 % 47-70 [facility] WBC (Bld) [#/Vol] 9.0 10*3/uL 4.4-11.0 [facility] Blood erythrocytes count (nu mber/volume)Ordered By: Oma Catherine on 06-07-2023 RBC (Bld) [#/Vol] 3.50 10*6/uL 4.2-5.4 [facility] Blood hemoglobin measurement (mass/volume)Ordered By: Oma Catherine on 06-07-2023 Hemoglobin (Bld) [Mass/Vol] 10.7 g/dL 12.0-15.0 [facility] Blood lymphocytes/100 leukoc ytesOrdered By: Oma Catherine on 06-07-2023 Lymphocytes/100 WBC (Bld) 17.7 % 19-41 [facility] Blood monocytes/100 leukocyt esOrdered By: Oma Catherine on 06-07-2023 Monocytes/100 WBC (Bld) 4.1 % 0-10 [facility] Blood platelet mean volumeOr dered By: Oma Catherine on 06-07-2023 Platelet mean volume (Bld) [Entitic vol] 9.1 fL 6.2-12.0 [facility] Determination of erythrocyte mean corpuscular volume (MCV)Ordered By: Oma Catherine on 06-07-2023 MCV (RBC) [Entitic vol] 89.1 fL 81-99 [facility] Gestational diabetes screen 1-hour screen with 50g oral glucose loadOrdered By: Oma Catherine on 06-07-2023 Glucose 1 Hr post 50 g glucose PO [Mass/Vol] 170 mg/dL 70-140 [facility] HIV 1 and HIV-2 antibody ass ay with HIV-1 p24 antigen detectionOrdered By: Oma Catherine on 06-07-2023 HIV 1+2 Ab+HIV1 p24 Ag IA Ql Non-Reactive Nonreactive [facility] Hematocrit Auto (Bld) [Volum e fraction]Ordered By: Oma Catherine on 06-07-2023 Hematocrit (Bld) [Volume fraction] 31.2 % 37-47 [facility] Laboratory - Chemistry and C hemistry - challengeon 06-07-2023 Glucose Ql (U) Negative [facility] Laboratory - Hematology and Cell countsOrdered By: Oma Catherine on 06-07-2023 Erythrocyte distribution width (RBC) [Entitic vol] 41.2 fL 35.1-43.9 [facility] Erythrocyte distribution width (RBC) [Ratio] 12.7 % 11.6-14.6 [facility] Immature granulocytes/100 WBC (Bld) 0.300 % 0.0-0.9 [facility] Comment on above: IG% - Immature Granu locytes (promyelocytes, myelocytes and metamyelocytes) > 1% indicates that a LEFT SHIFT is Present. MCH (RBC) [Entitic mass] 30.6 pg 27.0-32.0 [facility] Nucleated RBC/100 WBC (Bld) [Ratio] 0 % 0-5 [facility] Laboratory - Urinalysison Protein Ql (U) Negative [facility] MCHC Auto (RBC) [Mass/Vol]Or dered By: Oma Catherine on 06-07-2023 MCHC (RBC) [Mass/Vol] 34.3 g/dL 32-36 [facility] Platelets bldOrdered By: Brittney Catherine on 06-07-2023 Platelets (Bld) [#/Vol] 252 10*3/uL 150-450 [facility] Serum Treponema species anti body detectionOrdered By: Oma Catherine on 06-07-2023 Treponema sp Ab Ql (S) Non-Reactive [facility] Laboratory - Chemistry and C hemistry - challengeon 05-19-2023 Glucose Ql (U) Negative [facility] Laboratory - Urinalysison Protein Ql (U) Negative [facility] Laboratory - Chemistry and C hemistry - challengeon 04-21-2023 Glucose Ql (U) Negative [facility] Laboratory - Urinalysison Protein Ql (U) Negative [facility] Laboratory - Chemistry and C hemistry - challengeon 03-22-2023 Glucose Ql (U) Negative [facility] Laboratory - Urinalysison Protein Ql (U) Negative [facility] Culture, urineOrdered By: Benjamín Catherine on 02-16-2023 Bacteria identified Cx Nom (U) Positive [facility] Bacteria identified Cx Nom (U) Positive [facility] Laboratory - Chemistry and C hemistry - challengeon 02-16-2023 Bilirubin Ql (U) Negative [facility] Glucose Ql (U) Negative [facility] Ketones Ql (U) Trace (5) [facility] Specific gravity (U) [Rel density] 1.005 [facility] Urobilinogen (U) [Mass/Vol] Negative [facility] Laboratory - Hematology and Cell countson 02-16-2023 Hemoglobin Ql (U) Negative [facility] Laboratory - Specimen inform ationon 02-16-2023 Clarity (U) Clear [facility] Color (U) Colorless [facility] Laboratory - Urinalysison Nitrite Ql (U) Negative [facility] Protein Ql (U) Negative [facility] No Panel Informationon 02-16 Urine Leukocytes Negatve [facility] Urine Non-Hemolyzed Blood [facility] Absolute lymphocyte countOrd ered By: Oma Catherine on 02-07-2023 Lymphocytes Auto (Unsp spec) [#/Vol] 3.15 10*3/uL 0.83-4.51 [facility] Basophil percentageOrdered B y: Oma Catherine on 02-07-2023 Basophils/100 WBC (Bld) 0.4 % 0-1 [facility] Eosinophils/100 WBC (Bld) 0.8 % 0-5 [facility] Neutrophils (Bld) [#/Vol] 5.2 10*3/uL 2.0-7.7 [facility] Neutrophils/100 WBC (Bld) 57.6 % 47-70 [facility] WBC (Bld) [#/Vol] 9.1 10*3/uL 4.4-11.0 [facility] Blood erythrocytes count (nu mber/volume)Ordered By: Oma Catherine on 02-07-2023 RBC (Bld) [#/Vol] 3.91 10*6/uL 4.2-5.4 [facility] Blood hemoglobin measurement (mass/volume)Ordered By: Oma Catherine on 02-07-2023 Hemoglobin (Bld) [Mass/Vol] 11.5 g/dL 12.0-15.0 [facility] Blood lymphocytes/100 leukoc ytesOrdered By: Oma Catherine on 02-07-2023 Lymphocytes/100 WBC (Bld) 34.8 % 19-41 [facility] Blood monocytes/100 leukocyt esOrdered By: Oma Catherine on 02-07-2023 Monocytes/100 WBC (Bld) 6.1 % 0-10 [facility] Blood platelet mean volumeOr dered By: Oma Catherine on 02-07-2023 Platelet mean volume (Bld) [Entitic vol] 9.7 fL 6.2-12.0 [facility] Determination of erythrocyte mean corpuscular volume (MCV)Ordered By: Oma Catherine on 02-07-2023 MCV (RBC) [Entitic vol] 87.5 fL 81-99 [facility] Gestational diabetes screen 1-hour screen with 50g oral glucose loadOrdered By: Oma Catherine on 02-07-2023 Glucose 1 Hr post 50 g glucose PO [Mass/Vol] 84 mg/dL 70-140 [facility] HIV 1 and HIV-2 antibody ass ay with HIV-1 p24 antigen detectionOrdered By: Oma Catherine on 02-07-2023 HIV 1+2 Ab+HIV1 p24 Ag IA Ql Non-Reactive Nonreactive [facility] Hematocrit Auto (Bld) [Volum e fraction]Ordered By: Oma Catherine on 02-07-2023 Hematocrit (Bld) [Volume fraction] 34.2 % 37-47 [facility] Laboratory - Hematology and Cell countsOrdered By: Oma Catherine on 02-07-2023 Erythrocyte distribution width (RBC) [Entitic vol] 40.0 fL 35.1-43.9 [facility] Erythrocyte distribution width (RBC) [Ratio] 12.5 % 11.6-14.6 [facility] Immature granulocytes/100 WBC (Bld) 0.300 % 0.0-0.9 [facility] Comment on above: IG% - Immature Granu locytes (promyelocytes, myelocytes and metamyelocytes) > 1% indicates that a LEFT SHIFT is Present. MCH (RBC) [Entitic mass] 29.4 pg 27.0-32.0 [facility] Nucleated RBC/100 WBC (Bld) [Ratio] 0 % 0-[address] [facility] Auto (RBC) [Mass/Vol]Or dered By: Oma Catherine on 02-07-2023 MCHC (RBC) [Mass/Vol] 33.6 g/dL 32-36 [facility] No Panel InformationOrdered By: Oma Catherine on 02-07-2023 Hepatitis B Surface Antigen Non-Reactive Nonreactive [facility] Hepatitis C Antibody Non-Reactive Nonreactive [facility] Comment on above: Non Reactive: < 0.8 Equivocal: >/= 0.8 to < 1.0 Reactive: >/= 1.0The CDC recommends that a reactive/equivocal HCV antibody result be followed up by the HCV Nucleic Acid Amplificationtest (280171) Miscellaneous Test Comment MAILED SPECIMEN [facility] Rubella IgG Antibody Reactive Nonreactive [facility] Comment on above: Antibody Results Int erpretation of Immune Status Non Reactive Presumed Non-Immune Equivocal Equivocal Reactive Presumed Immune Platelets bldOrdered By: Brittney Catherine on 02-07-2023 Platelets (Bld) [#/Vol] 267 10*3/uL 150-450 [facility] Serum Treponema species anti body detectionOrdered By: Oma Catherine on 02-07-2023 Treponema sp Ab Ql (S) Non-Reactive [facility] Chlamydia trachomatis rRNA d etection by probe and target amplification methodOrdered By: Oma Catherine on 01-26-2023 C. trachomatis rRNA LEXII+probe Ql (Unsp spec) Negative Negative [facility] Culture, urineOrdered By: Benjamín Catherine on 01-26-2023 Bacteria identified Cx Nom (U) Presumptive C albicans [facility] Laboratory - Microbiology an d Antimicrobial susceptibilityOrdered By: Oma Catherine on 01-26-2023 N. gonorrhoeae DNA LEXII+probe Ql (Unsp spec) Negative Negative [facility] Comment on above: Performed at: =[address] [place] [id number] Director: Yanira Coffey MD, Phone: [phone] Serum or plasma choriogonado tropin detectionOrdered By: Dr. Marino on 12-23-2022 HCG ( test) Ql 73 mIU/mL <4 [facility] Comment on above: hCG levels with Gest ational AgeGestational Age hCG mIU/mL (IU/L)0.2 - 1 week 5 - 501-2 weeks 50 - 5002-3 weeks 100 - 05655-7 weeks 500 - 542554-9 weeks 1000 - 402084-4 weeks 35076 - 100,0006-8 weeks 05793 - 200,0002-3 months 95395 - 100,000 Serum or plasma choriogonado tropin detectionOrdered By: Dr. Marino on 12-21-2022 HCG ( test) Ql 26 mIU/mL <4 [facility] Comment on above: hCG levels with Gest ational AgeGestational Age hCG mIU/mL (IU/L)0.2 - 1 week 5 - 501-2 weeks 50 - 5002-3 weeks 100 - 16264-0 weeks 500 - 747139-7 weeks 1000 - 683712-0 weeks 76889 - 100,0006-8 weeks 64055 - 200,0002-3 months 13384 - 100,000 Serum or plasma choriogonado tropin detectionOrdered By: Dr. Marino on 11-23-2022 HCG ( test) Ql < 1 mIU/mL <4 [facility] Comment on above: hCG levels with Gest ational AgeGestational Age hCG mIU/mL (IU/L)0.2 - 1 week 5 - 501-2 weeks 50 - 5002-3 weeks 100 - 48326-0 weeks 500 - 296233-8 weeks 1000 - 223624-6 weeks 90609 - 100,0006-8 weeks 46068 - 200,0002-3 months 91245 - 100,000 Serum or plasma progesterone measurement (mass/volume)Ordered By: Jes Dao on 11-09-2022 Progesterone [Mass/Vol] 1.05 ng/mL See Comment [facility] Comment on above: Progesterone Referen ce Table: [...] 10-01-2022 Progesterone [Mass/Vol] 0.50 ng/mL See Comment [facility] Comment on above: Progesterone Referen ce Table: UNITS Female: Follicular 0.15 - 1.40 ng/mL Luteal 3.34 - 25.56 ng/mL Mid-luteal 4.44 - 28.03 ng/mL Postmenopausal 0.0 - 0.73 ng/mL : 1st Trimester 11.22 - 90.00 ng/mL 2nd Trimester 25.55 - 89.40 ng/mL 3rd Trimester 48.40 -422.50 ng/mL Serum or plasma choriogonado tropin detectionon 04-06-2022 HCG ( test) Ql 1 mIU/mL <4 [facility] Work Phone: Comment on above: hCG levels with Gest ational AgeGestational Age hCG mIU/mL (IU/L)0.2 - 1 week 5 - 501-2 weeks 50 - 5002-3 weeks 100 - 48917-0 weeks 500 - 208414-8 weeks 1000 - 246824-7 weeks 72651 - 100,0006-8 weeks 00564 - 200,0002-3 months 82351 - 100,000 Serum or plasma choriogonado tropin detectionon 03-29-2022 HCG ( test) Ql 17 mIU/mL <4 [facility] Work Phone: Comment on above: hCG levels with Gest ational AgeGestational Age hCG mIU/mL (IU/L)0.2 - 1 week 5 - 501-2 weeks 50 - 5002-3 weeks 100 - 71277-1 weeks 500 - 541873-9 weeks 1000 - 561060-1 weeks 85235 - 100,0006-8 weeks 02991 - 200,0002-3 months 28749 - 100,000 Serum or plasma choriogonado tropin detectionon 03-22-2022 HCG ( test) Ql 203 mIU/mL <4 [facility] Work Phone: Comment on above: hCG levels with Gest ational AgeGestational Age hCG mIU/mL (IU/L)0.2 - 1 week 5 - 501-2 weeks 50 - 5002-3 weeks 100 - 33558-6 weeks 500 - 388617-4 weeks 1000 - 145102-0 weeks 97458 - 100,0006-8 weeks 81999 - 200,0002-3 months 99338 - 100,000 Serum or plasma choriogonado tropin detectionon 03-14-2022 HCG ( test) Ql 734 mIU/mL <4 [facility] Work Phone: Comment on above: hCG levels with Gest ational AgeGestational Age hCG mIU/mL (IU/L)0.2 - 1 week 5 - 501-2 weeks 50 - 5002-3 weeks 100 - 50395-4 weeks 500 - 646801-5 weeks 1000 - 766142-6 weeks 04698 - 100,0006-8 weeks 06157 - 200,0002-3 months 52730 - 100,000 Serum or plasma choriogonado tropin detectionon 03-11-2022 HCG ( test) Ql 940 mIU/mL <4 [facility] Work Phone: Comment on above: hCG levels with Gest ational AgeGestational Age hCG mIU/mL (IU/L)0.2 - 1 week 5 - 501-2 weeks 50 - 5002-3 weeks 100 - 16129-9 weeks 500 - 002390-0 weeks 1000 - 115388-8 weeks 22841 - 100,0006-8 weeks 60267 - 200,0002-3 months 25551 - 100,000 Absolute lymphocyte counton 03-07-2022 Lymphocytes Auto (Unsp spec) [#/Vol] 2.67 10*3/uL 0.83-4.51 [facility] Work Phone: Basophil percentageon 2021 Basophils/100 WBC (Bld) 0.5 % 0-1 [facility] Work Phone: Bilirubin [Mass/Vol] 0.30 mg/dL 0.20-1.00 [facility] Work Phone: Comment on above: For patients on eltr ombopag therapy, use of Dimension Bennett TBIL is not recommended. Chloride [Moles/Vol] 109 mmol/L 98-107 [facility] Work Phone: Eosinophils/100 WBC (Bld) 0.5 % 0-5 [facility] Work Phone: Glucose [Mass/Vol] 96 mg/dL 74-106 [facility] Work Phone: Neutrophils (Bld) [#/Vol] 4.3 10*3/uL 2.0-7.7 [facility] Work Phone: Neutrophils/100 WBC (Bld) 57.4 % 47-70 [facility] Work Phone: Potassium [Moles/Vol] 4.1 mmol/L 3.5-5.1 [facility] Work Phone: Protein [Mass/Vol] 7.2 g/dL 6.4-8.2 [facility] Work Phone: Sodium [Moles/Vol] 139 mmol/L 136-145 [facility] Work Phone: WBC (Bld) [#/Vol] 7.6 10*3/uL 4.4-11.0 [facility] Work Phone: Basophil percentage 0 SEEN /hpf 0-5 [facility] Work Phone: Bilirubin Test strip Ql (U)o n 03-07-2022 Bilirubin Ql (U) Negative Negative [facility] Work Phone: Blood erythrocytes count (nu mber/volume)on 03-07-2022 RBC (Bld) [#/Vol] 4.45 10*6/uL 4.2-5.4 [facility] Work Phone: Blood hemoglobin measurement (mass/volume)on 03-07-2022 Hemoglobin (Bld) [Mass/Vol] 12.6 g/dL 12.0-15.0 [facility] Work Phone: Blood lymphocytes/100 leukoc yteson 03-07-2022 Lymphocytes/100 WBC (Bld) 35.3 % 19-41 [facility] Work Phone: Blood monocytes/100 leukocyt eson 03-07-2022 Monocytes/100 WBC (Bld) 6.0 % 0-10 [facility] Work Phone: Blood platelet mean volumeon 03-07-2022 Platelet mean volume (Bld) [Entitic vol] 9.3 fL 6.2-12.0 [facility] Work Phone: Determination of erythrocyte mean corpuscular volume (MCV)on 03-07-2022 MCV (RBC) [Entitic vol] 84.0 fL 81-99 [facility] Work Phone: Hematocrit Auto (Bld) [Volum e fraction]on 03-07-2022 Hematocrit (Bld) [Volume fraction] 37.4 % 37-47 [facility] Work Phone: Ketones Test strip Ql (U)on 03-07-2022 Ketones Ql (U) Negative Negative [facility] Work Phone: Laboratory - Chemistry and C hemistry - challengeon 03-07-2022 ALP [Catalytic activity/Vol] 90 U/L 45-117 [facility] Work Phone: ALT [Catalytic activity/Vol] 43 U/L 13-56 [facility] Work Phone: CO2 [Moles/Vol] 25.0 mmol/L 21.0-32.0 [facility] Work Phone: Globulin (S) [Mass/Vol] 3.5 g/dL 2.2-4.2 [facility] Work Phone: Urea nitrogen/Creatinine [Mass ratio] 9.1 mg/mg 10-20 [facility] Work Phone: Laboratory - Hematology and Cell countson 03-07-2022 Erythrocyte distribution width (RBC) [Entitic vol] 39.3 fL 35.1-43.9 [facility] Work Phone: Erythrocyte distribution width (RBC) [Ratio] 12.9 % 11.6-14.6 [facility] Work Phone: Immature granulocytes/100 WBC (Bld) 0.300 % 0.0-0.9 [facility] Work Phone: Comment on above: IG% - Immature Granu locytes (promyelocytes, myelocytes and metamyelocytes) > 1% indicates that a LEFT SHIFT is Present. MCH (RBC) [Entitic mass] 28.3 pg 27.0-32.0 [facility] Work Phone: Nucleated RBC/100 WBC (Bld) [Ratio] 0 % 0-5 [facility] Work Phone: MCHC Auto (RBC) [Mass/Vol]on 03-07-2022 MCHC (RBC) [Mass/Vol] 33.7 g/dL 32-36 [facility] Work Phone: Mucus LM Ql (Urine sed)on Mucus Ql (Urine sed) 0 SEEN /hpf [facility] Work Phone: Nitrite Test strip Ql (U)on 03-07-2022 Nitrite Ql (U) Negative Negative [facility] Work Phone: No Panel Informationon 03-07 Estimated Creatinine Clearance Calc 120.78 ml/min [facility] Work Phone: Estimated GFR (MDRD) Amer 117 mL/min >60 [facility] Work Phone: Comment on above: GFR Calc Estimated GFR (MDRD) Non-Af Amer 97 mL/min >60 [facility] Work Phone: Comment on above: Non- GFR Calc Platelets bldon 03-07-2022 Platelets (Bld) [#/Vol] 287 10*3/uL 150-450 [facility] Work Phone: Protein Test strip Ql (U)on 03-07-2022 Protein Ql (U) Negative Negative [facility] Work Phone: Serum or plasma albumin christiane urement (mass/volume)on 03-07-2022 Albumin [Mass/Vol] 3.7 g/dL 3.2-5.0 [facility] Work Phone: Serum or plasma albumin/glob ulin mass ratioon 03-07-2022 Albumin/Globulin [Mass ratio] 1.1 {ratio} 0.9-2.4 [facility] Work Phone: Serum or plasma calcium christiane urement (mass/volume)on 03-07-2022 Calcium [Mass/Vol] 9.3 mg/dL 8.5-10.1 [facility] Work Phone: Serum or plasma choriogonado tropin detectionon 03-07-2022 HCG ( test) Ql 562 mIU/mL <4 [facility] Work Phone: Comment on above: hCG levels with Gest ational AgeGestational Age hCG mIU/mL (IU/L)0.2 - 1 week 5 - 501-2 weeks 50 - 5002-3 weeks 100 - 95460-0 weeks 500 - 542275-9 weeks 1000 - 917604-0 weeks 49454 - 100,0006-8 weeks 33458 - 200,0002-3 months 95731 - 100,000 Serum or plasma creatinine m easurement (mass/volume)on 03-07-2022 Creatinine [Mass/Vol] 0.77 mg/dL 0.55-1.02 [facility] Work Phone: Comment on above: The validity of the calculated GFR & GFRAA in patients over 70 years has not been determined. Clinical correlation is essential. Serum or plasma urea nitroge n measurement (mass/volume)on 03-07-2022 Urea nitrogen [Mass/Vol] 7 mg/dL 7-18 [facility] Work Phone: Squamous epithelial cells de tection in urine sediment by light microscopyon 03-07-2022 Epithelial cells.squamous LM Ql (Urine sed) 0-5 SEEN /hpf 5-10 [facility] Work Phone: Thin prep Papanicolaou smear with manual screeningon 03-07-2022 Thin prep Papanicolaou smear with manual screening 32 U/L 15-37 [facility] Work Phone: Thin prep Papanicolaou smear with manual screening 5 5-15 [facility] Work Phone: Urine blood detectionon 08-0 RBC Ql (U) 150 /ul Negative [facility] Work Phone: RBC Ql (U) 10-25 SEEN /hpf 0-5 [facility] Work Phone: Urine clarityon 03-07-2022 Clarity (U) Sl. Cloudy Clear [facility] Work Phone: Urine color determinationon 03-07-2022 Color (U) Yellow Yellow [facility] Work Phone: Urine glucose detectionon Glucose Ql (U) Normal mg/dl Normal [facility] Work Phone: Urine leukocyte esterase det ection by dipstickon 03-07-2022 Leukocyte esterase Test strip Ql (U) Negative Negative [facility] Work Phone: Urine pHon 03-07-2022 pH (U) 6.5 [pH] 5.0 - 8.0 [facility] Work Phone: Urine sediment bacteria coun t by microscopy (number/high power field)on 03-07-2022 Bacteria LM.HPF (Urine sed) [#/Area] 1 /[HPF] None Seen [facility] Work Phone: Urine specific gravity measu rementon 03-07-2022 Specific gravity (U) [Rel density] 1.015 1.002-1.030 [facility] Work Phone: Urobilinogen Auto test strip Ql (U)on 03-07-2022 Urobilinogen Ql (U) 1 mg/dl Normal [facility] Work Phone: Serum or plasma choriogonado tropin detectionon 03-06-2022 HCG ( test) Ql 487 mIU/mL <4 [facility] Work Phone: Comment on above: hCG levels with Gest ational AgeGestational Age hCG mIU/mL (IU/L)0.2 - 1 week 5 - 501-2 weeks 50 - 5002-3 weeks 100 - 91616-4 weeks 500 - 711451-8 weeks 1000 - 413161-3 weeks 28650 - 100,0006-8 weeks 98133 - 200,0002-3 months 39531 - 100,000 Serum or plasma choriogonado tropin detectionon 03-04-2022 HCG ( test) Ql 350 mIU/mL <4 [facility] Work Phone: Comment on above: hCG levels with Gest ational AgeGestational Age hCG mIU/mL (IU/L)0.2 - 1 week 5 - 501-2 weeks 50 - 5002-3 weeks 100 - 86688-5 weeks 500 - 752294-3 weeks 1000 - 398763-7 weeks 05487 - 100,0006-8 weeks 75511 - 200,0002-3 months 33242 - 100,000 Bacteria Ur Culton 2 Bacteria [...] F Susceptible <=40 , Resistant >40 Abnormal [facility] Comment on above: Performed By: #### 6 30-4 #### [facility] CLIA [id number] [address] [place] [address] OF [facility] CNOVon 02-16-2022 CNOV Office Visit (KAVITA ) CHELITA ROMERO ([id number]) 1995 F Date Time Provider Department 02/16/22 [...] significant past medical history who presents to [facility] today for evaluation of urinary [...] which included preparing to see the patient, [id number] patient care, completing clinical documentation, performing a medically appropriate examination, counseling and educating the patient/family/caregiv er and ordering medications, tests, or procedures. Sahi Baires PA-C 02/16/2022 11:18 AM Signed Urinary [...] treated. A physician, nurse practitioner or physician asset protection assistant may treat with a short course of an antibiotic. Delaying treatment can lead to worsening sympto (more content not included)... Normal [facility] UA DIP, URINE (POC)on 2021 BILIRUBIN UA (POCT) Negative Negative [facility] CLARITY UA (POCT) Clear [facility] COLOR UA (POCT) Yellow [facility] GLUCOSE UA (POCT) Negative Negative mg/dL [facility] HEMOGLOBIN/BLOOD UA (POCT) Trace-intact Abnormal Negative [facility] KETONE UA (POCT) Negative Negative mg/dL [facility] LEUKOCYTES UA (POCT) Trace Abnormal Negative [facility] NITRITE UA (POCT) Positive Abnormal Negative [facility] PH UA (POCT) 6.0 4.5 - 8.0 [facility] Protein Ql (U) Negative Negative mg/dL [facility] SPECIFIC GRAVITY UA (POCT) 1.020 1.005 - 1.030 [facility] UROBILINOGEN UA (POCT) 0.2 E.U./dL Alyssa l E.U./dL [facility] PPD (89886)Ordered By: Khoa Jackson on 02-09-2019 PPD (74995) 0mm Normal [facility] Work Phone: Comment on above: Negative SKIN TEST INTRADERMAL TB (86 580)Ordered By: MELLISSA Kimball on 03-08-2018 SKIN TEST INTRADERMAL TB (24198) Negative Normal [facility] Work Phone: Comment on above: read and negative lot:[id number] te:intra dermal Left forearm dose:0.5mlgiven by:stan Koehler LPN V ZOSTER IGG ABon 03-18-2017 V ZOSTER IGG AB < 135 Low Immune >165 [facility] Comment on above: Result Comment: Plea se Note: Specimen is hemolyzed. Negative <135 Equivocal 135 - 165 Positive >165A positive result generally indicates exposure to thepathogen or administration of specific immunoglobulins,but it is not indication of active infection or stageof disease.Performed At: [facility] [place], [place] [id number] Vincent [id number] Performed By: #### L [phone] ####[facility] [place] [address]Ya# [phone] Vital Signs Date Time Vital Sign Value Performing Clinician Camille glze 04-29-2025 15:18-0400 Body height 180.34 cm Heath BRENNANC Work Phone: [facility] 04-29-2025 15:18-0400 Body mass index (BMI) [Ratio] 27.1 kg/m2 Heath Sebastian NP-C Work Phone: [facility] 04-29-2025 15:18-0400 Body weight 88.16 kg Heath Sebastian NP-C Work Phone: [facility] 04-29-2025 15:18-0400 Diastolic blood pressure 76 mm[Hg] Heath Sebastian [employer] Work Phone: [phone])070-085351 [place] [address] 04-29-2025 15:18-0400 Systolic blood pressure 130 mm[Hg] Heath Sebastian [employer] Work Phone: [phone] [address] 04-08-2025 09:35-0400 Body height 180.34 cm Heath Sebastian [employer] Work Phone: [phone] [place] [address] 04-08-2025 09:35-0400 Body mass index (BMI) [Ratio] 28.5 kg/m2 Heath Sebastian [employer] Work Phone: [phone])[phone] [address] 04-08-2025 09:35-0400 Body weight 92.98 kg Heath Sebastian [employer] Work Phone: [phone] [place] [address] 04-08-2025 09:35-0400 Diastolic blood pressure 70 mm[Hg] Heath Sebastian [employer] Work Phone: [phone] [place] [address] 04-08-2025 09:35-0400 Heart rate 77 /min Haeth Sebastian [employer] Work Phone: [phone])[phone] [place] [address] 04-08-2025 09:35-0400 SaO2% (BldA) [Mass fraction] 98 % Heath Sebastian [employer] Work Phone: [phone] [place] [address] 04-08-2025 09:35-0400 Systolic blood pressure 107 mm[Hg] Heath Sebastian [employer] Work Phone: [phone])[phone] [address] 10-21-2023 16:10-0400 Body height 180.34 cm No Primary Care Physician [facility] 10-21-2023 15:36-0400 Body mass index (BMI) [Ratio] 37.6 kg/m2 No Primary Care Physician [facility] 10-21-2023 15:36-0400 Body weight 122.52 kg No Primary Care Physician [facility] 10-21-2023 15:36-0400 Diastolic blood pressure 68 mm[Hg] No Primary Care Physician [facility] 10-21-2023 15:36-0400 Systolic blood pressure 118 mm[Hg] No Primary Care Physician [facility] 10-19-2023 15:41-0400 Body mass index (BMI) [Ratio] 37.5 kg/m2 No Primary Care Physician [facility] 10-19-2023 15:41-0400 Body weight 122.24 kg No Primary Care Physician [facility] 10-19-2023 15:41-0400 Diastolic blood pressure 71 mm[Hg] No Primary Care Physician [facility] 10-19-2023 15:41-0400 Systolic blood pressure 120 mm[Hg] No Primary Care Physician [facility] 09-06-2023 13:15-0500 Body temperature 97.6 [degF] No Primary Care Physician [facility] 09-06-2023 13:15-0500 Diastolic blood pressure 70 mm[Hg] No Primary Care Physician [facility] 09-06-2023 13:15-0500 Heart rate 72 /min No Primary Care Physician [facility] 09-06-2023 13:15-0500 Respiratory rate 16 /min No Primary Care Physician [facility] 09-06-2023 13:15-0500 SaO2% (BldA) [Mass fraction] 99 % No Primary Care Physician [facility] 09-06-2023 13:15-0500 Systolic blood pressure 115 mm[Hg] No Primary Care Physician [facility] 09-05-2023 06:50-0500 Body temperature 97.9 [degF] No Primary Care Physician [facility] 09-05-2023 06:50-0500 Diastolic blood pressure 59 mm[Hg] No Primary Care Physician [facility] 09-05-2023 06:50-0500 Heart rate 71 /min No Primary Care Physician [facility] 09-05-2023 06:50-0500 SaO2% (BldA) [Mass fraction] 100 % No Primary Care Physician [facility] 09-05-2023 06:50-0500 Systolic blood pressure 106 mm[Hg] No Primary Care Physician [facility] 09-04-2023 19:42-0500 Body height 180.34 cm No Primary Care Physician [facility] 09-04-2023 19:42-0500 Body mass index (BMI) [Ratio] 38.9 kg/m2 No Primary Care Physician [facility] 09-04-2023 19:42-0500 Body weight 126.55 kg No Primary Care Physician [facility] 08-31-2023 14:06-0500 Body mass index (BMI) [Ratio] 40 kg/m2 No Primary Care Physician [facility] 08-31-2023 14:06-0500 Body weight 126.55 kg No Primary Care Physician [facility] 08-31-2023 14:06-0500 Diastolic blood pressure 71 mm[Hg] No Primary Care Physician [facility] 08-31-2023 14:06-0500 Systolic blood pressure 107 mm[Hg] No Primary Care Physician [facility] 08-24-2023 10:27-0500 Body mass index (BMI) [Ratio] 39.9 kg/m2 No Primary Care Physician [facility] 08-24-2023 10:27-0500 Body weight 126.32 kg No Primary Care Physician [facility] 08-24-2023 10:27-0500 Diastolic blood pressure 77 mm[Hg] No Primary Care Physician [facility] 08-24-2023 10:27-0500 Systolic blood pressure 122 mm[Hg] No Primary Care Physician [facility] 08-19-2023 08:13-0500 Body mass index (BMI) [Ratio] 40.1 kg/m2 No Primary Care Physician [facility] 08-19-2023 08:13-0500 Body weight 126.72 kg No Primary Care Physician [facility] 08-19-2023 08:13-0500 Diastolic blood pressure 89 mm[Hg] No Primary Care Physician [facility] 08-19-2023 08:13-0500 Systolic blood pressure 126 mm[Hg] No Primary Care Physician [facility] 08-11-2023 14:13-0500 Body mass index (BMI) [Ratio] 39 kg/m2 No Primary Care Physician [facility] 08-11-2023 14:13-0500 Body weight 123.37 kg No Primary Care Physician [facility] 08-11-2023 14:13-0500 Diastolic blood pressure 79 mm[Hg] No Primary Care Physician [facility] 08-11-2023 14:13-0500 Systolic blood pressure 125 mm[Hg] No Primary Care Physician [facility] 08-05-2023 15:14-0500 Body height 177.8 cm No Primary Care Physician [facility] 08-05-2023 15:14-0500 Body mass index (BMI) [Ratio] 38.7 kg/m2 No Primary Care Physician [facility] 08-05-2023 15:14-0500 Body weight 122.46 kg No Primary Care Physician [facility] 08-05-2023 15:14-0500 Diastolic blood pressure 83 mm[Hg] No Primary Care Physician [facility] 08-05-2023 15:14-0500 Systolic blood pressure 128 mm[Hg] No Primary Care Physician [facility] 07-29-2023 14:06-0500 Body mass index (BMI) [Ratio] 38.7 kg/m2 No Primary Care Physician [facility] 07-29-2023 14:06-0500 Body weight 122.52 kg No Primary Care Physician [facility] 07-29-2023 14:06-0500 Diastolic blood pressure 73 mm[Hg] No Primary Care Physician [facility] 07-29-2023 14:06-0500 Systolic blood pressure 106 mm[Hg] No Primary Care Physician [facility] 07-14-2023 15:07-0500 Body mass index (BMI) [Ratio] 38.3 kg/m2 No Primary Care Physician [facility] 07-14-2023 15:07-0500 Body weight 121.33 kg No Primary Care Physician [facility] 07-14-2023 15:07-0500 Diastolic blood pressure 73 mm[Hg] No Primary Care Physician [facility] 07-14-2023 15:07-0500 Systolic blood pressure 115 mm[Hg] No Primary Care Physician [facility] 06-27-2023 10:25-0500 Body height 177.8 cm No Primary Care Physician [facility] 06-27-2023 10:24-0500 Body mass index (BMI) [Ratio] 37.7 kg/m2 No Primary Care Physician [facility] 06-27-2023 10:24-0500 Body weight 119.29 kg No Primary Care Physician [facility] 06-27-2023 10:24-0500 Diastolic blood pressure 69 mm[Hg] No Primary Care Physician [facility] 06-27-2023 10:24-0500 Systolic blood pressure 113 mm[Hg] No Primary Care Physician [facility] 06-16-2023 19:48-0500 Diastolic blood pressure 73 mm[Hg] No Primary Care Physician [facility] 06-16-2023 19:48-0500 Heart rate 83 /min No Primary Care Physician [facility] 06-16-2023 19:48-0500 SaO2% (BldA) [Mass fraction] 89 % No Primary Care Physician [facility] 06-16-2023 19:48-0500 Systolic blood pressure 121 mm[Hg] No Primary Care Physician [facility] 06-16-2023 18:55-0500 Body height 177.8 cm No Primary Care Physician [facility] 06-16-2023 18:55-0500 Body mass index (BMI) [Ratio] 37.7 kg/m2 No Primary Care Physician [facility] 06-16-2023 18:55-0500 Body weight 119.2 kg No Primary Care Physician [facility] 06-16-2023 18:51-0500 Body temperature 97 [degF] No Primary Care Physician [facility] 06-07-2023 09:56-0500 Body height 177.8 cm No Primary Care Physician [facility] 06-07-2023 09:56-0500 Body mass index (BMI) [Ratio] 36.9 kg/m2 No Primary Care Physician [facility] 06-07-2023 09:56-0500 Body weight 116.68 kg No Primary Care Physician [facility] 06-07-2023 09:56-0500 Diastolic blood pressure 70 mm[Hg] No Primary Care Physician [facility] 06-07-2023 09:56-0500 Systolic blood pressure 114 mm[Hg] No Primary Care Physician [facility] 05-19-2023 10:37-0400 Body mass index (BMI) [Ratio] 36.2 kg/m2 No Primary Care Physician [facility] 05-19-2023 10:37-0400 Body weight 114.47 kg No Primary Care Physician [facility] 05-19-2023 10:37-0400 Diastolic blood pressure 74 mm[Hg] No Primary Care Physician [facility] 05-19-2023 10:37-0400 Systolic blood pressure 114 mm[Hg] No Primary Care Physician [facility] 04-21-2023 14:16-0400 Body height 177.8 cm No Primary Care Physician [facility] 04-21-2023 14:15-0400 Body mass index (BMI) [Ratio] 35 kg/m2 No Primary Care Physician [facility] 04-21-2023 14:15-0400 Body weight 110.78 kg No Primary Care Physician [facility] 04-21-2023 14:15-0400 Diastolic blood pressure 68 mm[Hg] No Primary Care Physician [facility] 04-21-2023 14:15-0400 Systolic blood pressure 107 mm[Hg] No Primary Care Physician [facility] 03-22-2023 09:05-0400 Body height 177.8 cm No Primary Care Physician [facility] 03-22-2023 09:05-0400 Body mass index (BMI) [Ratio] 34.5 kg/m2 No Primary Care Physician [facility] 03-22-2023 09:05-0400 Body weight 109.31 kg No Primary Care Physician [facility] 03-22-2023 09:05-0400 Diastolic blood pressure 60 mm[Hg] No Primary Care Physician [facility] 03-22-2023 09:05-0400 Systolic blood pressure 110 mm[Hg] No Primary Care Physician [facility] 02-23-2023 09:58-0400 Body mass index (BMI) [Ratio] 34.1 kg/m2 No Primary Care Physician [facility] 02-23-2023 09:58-0400 Body weight 108.01 kg No Primary Care Physician [facility] 02-23-2023 09:58-0400 Diastolic blood pressure 75 mm[Hg] No Primary Care Physician [facility] 02-23-2023 09:58-0400 Systolic blood pressure 119 mm[Hg] No Primary Care Physician [facility] 02-16-2023 07:56-0400 Body mass index (BMI) [Ratio] 34.4 kg/m2 No Primary Care Physician [facility] 02-16-2023 07:56-0400 Body weight 108.91 kg No Primary Care Physician [facility] 01-26-2023 09:08-0400 Body height 177.8 cm No Primary Care Physician [facility] 01-26-2023 09:08-0400 Body mass index (BMI) [Ratio] 34.4 kg/m2 No Primary Care Physician [facility] 01-26-2023 09:08-0400 Body weight 108.91 kg No Primary Care Physician [facility] 01-26-2023 09:08-0400 Diastolic blood pressure 74 mm[Hg] No Primary Care Physician [facility] 01-26-2023 09:08-0400 Systolic blood pressure 116 mm[Hg] No Primary Care Physician [facility] 09-14-2022 15:02-0500 Body height 177.8 cm No Primary Care Physician [facility] 09-14-2022 14:59-0500 Body mass index (BMI) [Ratio] 31.8 kg/m2 No Primary Care Physician [facility] 09-14-2022 14:59-0500 Body weight 100.86 kg No Primary Care Physician [facility] 09-14-2022 14:59-0500 Diastolic blood pressure 84 mm[Hg] No Primary Care Physician [facility] 09-14-2022 14:59-0500 Systolic blood pressure 130 mm[Hg] No Primary Care Physician [facility] 03-24-2022 14:42-0400 Body height 177.[address] Oma Bentley Work Phone: [facility] Work Phone: 03-24-2022 14:42-0400 Body mass index (BMI) [Ratio] 34.6 kg/m2 Dr. Oma Bentley Work Phone: [facility] Work Phone: 03-24-2022 14:28-0400 Body weight 109.[address] Oma Bentley Work Phone: [facility] Work Phone: 03-24-2022 14:28-0400 Diastolic blood pressure 72 mm[Hg] Dr. Oma Bentley Work Phone: [facility] Work Phone: 03-24-2022 14:28-0400 Systolic blood pressure 110 mm[Hg] Dr. Oma Bentley Work Phone: [facility] Work Phone: 03-07-2022 15:57-0400 Respiratory rate 16 /min [facility] Work Phone: 03-07-2022 13:23-0400 Body height 177.8 cm [facility] Work Phone: 03-07-2022 13:23-0400 Body mass index (BMI) [Ratio] 34.3 kg/m2 [facility] Work Phone: 03-07-2022 13:23-0400 Body temperature 97.2 [degF] [facility] Work Phone: 03-07-2022 13:23-0400 Body weight 108.5 kg [facility] Work Phone: 03-07-2022 13:23-0400 Diastolic blood pressure 78 mm[Hg] [facility] Work Phone: 03-07-2022 13:23-0400 Heart rate 80 /min [facility] Work Phone: 03-07-2022 13:23-0400 SaO2% (BldA) [Mass fraction] 100 % [facility] Work Phone: 03-07-2022 13:23-0400 Systolic blood pressure 130 mm[Hg] [facility] Work Phone: 02-16-2022 11:10-0400 Body height 177.8 cm Shai Wormald PA-C Work Phone: [facility] 02-16-2022 11:10-0400 Body temperature 98.6 [degF] Shai Wormald PA-C Work Phone: [facility] 02-16-2022 11:10-0400 Body weight 109.77 kg Shai Wormald PA-C Work Phone: [facility] 02-16-2022 11:10-0400 Diastolic blood pressure 70 mm[Hg] Shai Wormald PA-C Work Phone: [facility] 02-16-2022 11:10-0400 Heart rate 70 /min Shai Wormald PA-C Work Phone: [facility] 02-16-2022 11:10-0400 Respiratory rate 16 /min Shai Wormald PA-C Work Phone: [facility] 02-16-2022 11:10-0400 SaO2% (BldA) [Mass fraction] 97 % Shai Wormald PA-C Work Phone: [facility] 02-16-2022 11:10-0400 Systolic blood pressure 110 mm[Hg] Shai Wormald PA-C Work Phone: [facility] Encounters Encounter Date Encounter Type Care Provider Facility Start: 04-29-2025 End: 04-29-[address] Oma Bentley DO -[facility] Work Phone: Start: 04-29-2025 End: 04-29-2025 ambulatory Heath Sebastian [employer] Work Phone: -[facility] Start: 04-09-2025 End: 04-09-2025 ambulatory Heath Sebastian [employer] SAL[employer]C Work Phone: [facility] Start: 04-09-2025 End: 04-09-[address] Omar Boothe MD -[facility] Start: 04-08-2025 End: 04-08-[address] Omar Boothe MD -[facility] Work Phone: Start: 04-08-2025 End: 04-09-2025 ambulatory Heath Sebastian INDIRECT SALES EX[employer]-C Work Phone: [facility] Start: 01-02-2025 End: 01-02-2025 ambulatory Heath Sebastian INDIRECT SAL[employer] Work Phone: [facility] Work Phone: Start: 01-02-2025 End: 01-02-2025 Patient encounter procedure Heath Sebastian INDIRECT SALES EXEC-C -[facility] Start: 01-02-2025 End: 01-02-2025 ambulatory Heath Sebastian VSC Facility:[facility] Start: 10-19-2024 End: 10-19-2024 ambulatory Heath Sebastian [employer] Work Phone: [facility] Work Phone: Start: 10-19-2024 End: 10-19-2024 Patient encounter procedure Heath Sebastian INDIRECT SALES EXEC-C -[facility] Work Phone: Start: 10-19-2024 End: 10-19-2024 ambulatory Heath Sebastian VSC Facility:[facility] Start: 10-10-2024 End: 10-10-2024 ambulatory Heath Sebastian [employer] Work Phone: [facility] Work Phone: Start: 10-10-2024 End: 10-10-2024 Patient encounter procedure Heath Sebastian INDIRECT SALES EXEC-C -[facility], [facility] Start: 10-10-2024 End: 10-10-2024 ambulatory Heath Sebastian C Facility:[facility] Start: 10-21-2023 End: 10-21-2023 Patient encounter procedure No Primary Care Physician [facility] Work Phone: Start: 10-19-2023 End: 10-19-2023 ambulatory No Primary Care Physician [facility] Work Phone: Start: 10-19-2023 End: 10-19-2023 Patient encounter procedure No Primary Care Physician [facility]-Laboratory, Spec[facility] Work Phone: Start: 10-19-2023 End: 10-19-2023 Patient encounter procedure No Primary Care Physician [facility] Work Phone: Start: 09-06-2023 Non-patient / Non-visit No Primary Care Physician [facility] Start: 09-05-2023 Non-patient / Non-visit No Primary Care Physician [facility] Start: 09-04-2023 End: 09-06-2023 Evaluation and management of inpatient No Primary Care Physician [facility] Work Phone: Start: 08-31-2023 End: 08-31-2023 Patient encounter procedure No Primary Care Physician [facility] Work Phone: Start: 08-31-2023 End: 08-31-2023 ambulatory No Primary Care Physician [facility] Work Phone: Start: 08-31-2023 End: 08-31-2023 Patient encounter procedure No Primary Care Physician [facility] Work Phone: Start: 08-24-2023 End: 08-24-2023 Patient encounter procedure No Primary Care Physician [facility] Work Phone: Start: 08-23-2023 End: 08-23-2023 Patient encounter procedure No Primary Care Physician [facility] Work Phone: Start: 08-19-2023 End: 08-19-2023 Patient encounter procedure No Primary Care Physician [facility] Work Phone: Start: 08-11-2023 End: 08-11-2023 Patient encounter procedure No Primary Care Physician [facility] Work Phone: Start: 08-10-2023 End: 08-10-2023 ambulatory [facility] Start: 08-05-2023 End: 08-05-2023 ambulatory No Primary Care Physician [facility] Work Phone: Start: 08-05-2023 End: 08-05-2023 Patient encounter procedure No Primary Care Physician [facility] Work Phone: Start: 07-29-2023 End: 07-29-2023 Patient encounter procedure No Primary Care Physician [facility] Work Phone: Start: 07-14-2023 End: 07-14-2023 Patient encounter procedure No Primary Care Physician [facility] Work Phone: Start: 07-08-2023 End: 07-08-2023 ambulatory No Primary Care Physician [facility] Work Phone: Start: 07-08-2023 End: 07-08-2023 Patient encounter procedure No Primary Care Physician [facility]Outpatient Pav[facility] Ultrasound Work Phone: Start: 06-27-2023 End: 06-27-2023 Patient encounter procedure No Primary Care Physician [facility] Work Phone: Start: 06-21-2023 Non-patient / Non-visit No Primary Care Physician [facility] Start: 06-16-2023 End: 06-16-2023 ambulatory No Primary Care Physician [facility] Work Phone: Start: 06-16-2023 End: 06-16-2023 Patient encounter procedure No Primary Care Physician [facility]Women's Pavilion, Outpatients Work Phone: Start: 06-13-2023 End: 06-13-2023 ambulatory No Primary Care Physician [facility] Work Phone: Start: 06-13-2023 End: 06-13-2023 Patient encounter procedure No Primary Care Physician [facility]-Laboratory Work Phone: Start: 06-07-2023 End: 06-07-2023 ambulatory No Primary Care Physician [facility] Work Phone: Start: 06-07-2023 End: 06-07-2023 Patient encounter procedure No Primary Care Physician [facility] Work Phone: Start: 05-19-2023 End: 05-19-2023 Patient encounter procedure No Primary Care Physician [facility] Work Phone: Start: 05-12-2023 End: 05-12-2023 ambulatory No Primary Care Physician [facility] Work Phone: Start: 05-12-2023 End: 05-12-2023 Patient encounter procedure No Primary Care Physician [facility]-Ultrasound, [facility] Work Phone: Start: 04-21-2023 End: 04-21-2023 Patient encounter procedure No Primary Care Physician [facility] Work Phone: Start: 04-12-2023 End: 04-12-2023 ambulatory No Primary Care Physician [facility] Work Phone: Start: 04-12-2023 End: 04-12-2023 Patient encounter procedure No Primary Care Physician [facility] Ultrasound Work Phone: Start: 03-22-2023 End: 03-22-2023 Patient encounter procedure No Primary Care Physician [facility] Work Phone: Start: 02-23-2023 End: 02-23-2023 Patient encounter procedure No Primary Care Physician [facility] Work Phone: Start: 02-16-2023 End: 02-16-2023 Patient encounter procedure No Primary Care Physician [facility]-Laboratory, Specimen Work Phone: Start: 02-16-2023 End: 02-16-2023 Patient encounter procedure No Primary Care Physician [facility] Work Phone: Start: 02-07-2023 End: 02-07-2023 ambulatory No Primary Care Physician [facility] Work Phone: Start: 02-07-2023 End: 02-07-2023 Patient encounter procedure No Primary Care Physician [facility]-Laboratory Work Phone: Start: 01-26-2023 End: 01-26-2023 ambulatory No Primary Care Physician [facility] Work Phone: Start: 01-26-2023 End: 01-26-2023 Patient encounter procedure No Primary Care Physician [facility] Work Phone: Start: 01-12-2023 End: 01-12-2023 ambulatory [facility] Work Phone: Start: 01-12-2023 End: 01-12-2023 Patient encounter procedure [facility]Ultrasound, [facility] Start: 01-07-2023 End: 01-07-2023 Patient encounter procedure [facility] Ultras[facility] Start: 12-23-2022 End: 12-23-2022 ambulatory No Primary Care Physician [facility] Work Phone: Start: 12-23-2022 End: 12-23-2022 Patient encounter procedure [facility]-Laboratory, OP Pavilion Start: 12-21-2022 End: 12-21-2022 ambulatory No Primary Care Physician [facility] Work Phone: Start: 12-21-2022 End: 12-21-2022 Patient encounter procedure [facility]-Laboratory, OP Pavilion Start: 11-23-2022 End: 11-23-2022 ambulatory No Primary Care Physician [facility] Work Phone: Start: 11-23-2022 End: 11-23-2022 Patient encounter procedure No Primary Care Physician [facility]-Laboratory, OP Pavilion Start: 11-09-2022 End: 11-09-2022 ambulatory No Primary Care Physician [facility] Work Phone: Start: 11-09-2022 End: 11-09-2022 Patient encounter procedure No Primary Care Physician [facility]-Laboratory, OP Pavilion Start: 10-01-2022 End: 10-01-2022 ambulatory No Primary Care Physician [facility] Work Phone: Start: 10-01-2022 End: 10-01-2022 Patient encounter procedure No Primary Care Physician [facility]-Laboratory, OP Pavilion Start: 09-14-2022 End: 09-14-2022 Patient encounter procedure No Primary Care Physician [facility] Start: 06-03-2022 End: 06-03-[address] Oma Bentley Work Phone: [facility] Work Phone: Start: 06-03-2022 End: 06-03-[address] Oma Bentley Work Phone: [facility]-Radiology, [facility] Start: 04-06-2022 End: 04-06-[address] Oma Bentley Work Phone: [facility] Work Phone: Start: 04-06-2022 End: 04-06-[address] Oma Bentley Work Phone: [facility]-Laboratory, OP Pavilion Start: 03-29-2022 End: 03-29-[address] Oma Bentley Work Phone: [facility] Work Phone: Start: 03-29-2022 End: 03-29-[address] [facility] Start: 03-24-2022 End: 03-24-[address] Oma Bentley Work Phone: [facility] Start: 03-22-2022 End: 03-22-[address] Oma Bentley Work Phone: [facility] Work Phone: Start: 03-22-2022 End: 03-22-[address] [facility] Bentley [facility] Start: 03-14-2022 End: 03-14-2022 Patient encounter procedure [facility]Labor[facility] Start: 03-11-2022 End: 03-11-2022 [facility] Start: 03-07-2022 End: 03-07-2022 Emergency department patient visit [facility]-Emergency Department Start: 03-07-2022 End: 03-07-2022 [facility] Start: 03-06-2022 End: 03-06-2022 Patient encounter procedure [facility]-Laboratory, Specimen Start: 03-04-2022 End: 03-04-2022 Patient encounter procedure [facility]Laboratory, OP Pavilion Start: 02-16-2022 End: 02-16-2022 Patient encounter procedure Shai Baires PA-C Work Phone: [facility] Comment on above: Leukocytes in urine (Primary Dx); Urinary frequency; Abnormal urine odor Start: 02-09-2019 End: 02-09-2019 Office outpatient visit 5 minutes [facility] Start: 02-07-2019 End: 02-07-2019 Office outpatient visit 5 minutes [facility] Start: 03-10-2018 End: 03-10-2018 Office outpatient visit 5 minutes [facility] Start: 03-08-2018 End: 03-08-2018 Office outpatient visit 5 minutes [facility] Start: 03-14-2017 Ambulatory Chidi Stephenson y:[facility] Procedures Date Procedure Procedure Detail Performing Clinician Start: 10-19-2024 US scan of thyroid Heath Sebastian NP-C Work Phone: Start: 10-10-2024 Thyroglobulin antibo dy measurement Heath Sebastian NP-C Work Phone: Comment on above: Thyroglobulin Antibo dy measured by Michael CoulterMethodologyIt should be noted that the presence of thyroglobulinantibodies may not be pathogenic nor diagnostic, especiallyat very low levels. The assay press secretary has found thatfour percent of individuals without evidence of thyroiddisease or autoimmunity will have positive TgAb levels upto 4 IU/mL.Performed at: [address] [id number] Director: Asa Bateman PhD, Phone: [phone] Start: 10-10-2024 Vitamin D, 25-hydrox y measurement [...] Patient encounter procedure Encounter for IUD removal [facility] Work Phone: Start: 04-29-2025 [facility] Start: 09-06-2023 Patient discharge [facility] Start: 09-05-2023 Administration of medication [facility] Start: 09-05-2023 Application of ice collar, cap or bag [facility] Start: 09-05-2023 Catheterization of vein [facility] Start: 09-05-2023 Introduction of urin senia catheter [facility] Start: 09-05-2023 Measuring intake and output [facility] Start: 09-05-2023 Notification of physician [facility] Start: 09-05-2023 Procedure discontinued [facility] Start: 09-05-2023 Provision of activit y privileges [facility] Start: 09-05-2023 Vital signs measurements [facility] Start: 09-05-2023 [facility] Start: 09-05-2023 [facility] Start: 09-04-2023 Notification of physician [facility] Start: 09-04-2023 [facility] Start: 09-04-2023 acoustic stimulation test [facility] Start: 09-04-2023 Intrauterine catheterization [facility] Start: 09-04-2023 End: 09-04-2023 [facility] Start: 09-04-2023 End: 09-04-[address] [facility] Start: 09-04-2023 Admission procedure [facility] Start: 09-04-2023 Anesthesia consultation [facility] Start: 09-04-2023 Application of intermittent pneumatic compression device [facility] Start: 09-04-2023 Insertion of cathete r into peripheral vein [facility] Start: 09-04-2023 Introduction of urin senia catheter [facility] Start: 09-04-2023 Obstetric monitoring [facility] Start: 09-04-2023 Provision of activit y privileges [facility] Start: 09-04-2023 Verification routine [facility] Start: 09-04-2023 Vital signs measurements [facility] Start: 06-16-2023 Patient discharge [facility] Start: 04-01-2022 Influenza vaccination INFLUENZA (#1) [facility] Start: 02-07-2019 Skin test tuberculos is intradermal PPD (32916) [facility] Work Phone: Comment on above: lot [id number] October 12ite right forearm subcdose 0.1mlJC, LPNABN signed Start: 2018 PAP TESTING PAP TESTING [facility] Start: 02-14-2016 Urine microalbumin profile DTAP,TDAP,TD (1 - Tdap) [facility] Start: 2015 HEPATITIS C SCREENING HEPATITIS C SC REEELSA [facility] Start: 2015 HIV SCREENING HIV SCREENING [facility] Start: 2011 PEDS TO ADULT TRANSI TION ANNUAL ASSESSMENT PEDS TO ADULT TRANSITION ANNUAL ASSESSMENT [facility] Start: 2009 Adult depression screening assessment DEPRESSION SCREENING [facility] Start: 2009 PEDS TO ADULT TRANSI TION INITIAL DISCUSSION PEDS TO ADULT TRANSITION INITIAL DISCUSSION [facility] Start: 02-14-2008 HPV VACCINE (1 - 2-d ose series) HPV VACCINE (1 - 2-dose series) [facility] Bacteria identified in Urine by Culture URINE CULTURE Microbiology Routine Leukocytes in urine Ordered: 02/16/2022 [facility] Work Phone: Comment on above: Ordered: 02/16/2022 CBC W Auto Different ial panel - Blood [facility] CBC W Auto Different ial panel - Blood [facility] CBC W Auto Different ial panel - Blood [facility] Biophysical pr ofile panel US [facility] Glucose [Mass/volume ] in Serum or Plasma --1 hour post 50 g glucose PO [facility] Hepatitis B surface antigen measurement [facility] Hepatitis C antibody measurement [facility] HIV 1+2 Ab+HIV1 p24 Ag [Presence] in Serum or Plasma by Immunoassay [facility] HIV 1+2 Ab+HIV1 p24 Ag [Presence] in Serum or Plasma by Immunoassay [facility] Patient Education ED Methotrexat e for Ectopic ... [facility] Work Phone: Patient referral [facility] Work Phone: Rubella IgG measurement [facility] Thyroid stimulating hormone measurement [facility] Thyroperoxidase Ab [Units/volume] in Serum or Plasma [facility] Treponema sp Ab [Presence] in Serum [facility] Treponema sp Ab [Presence] in Serum [facility] Work Phone: [facility] Immunizations Immunization Date Immunization Notes Care Provider Shahnaz medel 05-04-2024 influenza, seasonal, injectable, preservative free Heath HALE Work Phone: [facility] 06-27-2023 tetanus toxoid, redu kathy diphtheria toxoid, and acellular pertussis vaccine, adsorbed No Primary Care Physician [facility] 05-17-2023 influenza, injectabl e, quadrivalent, preservative free No Primary Care Physician [facility] 05-04-2022 influenza, injectabl e, quadrivalent, preservative free No Primary Care Physician [facility] 05-04-2022 influenza, seasonal, injectable Dr. Oma Bentley Work Phone: [facility] 05-07-2021 influenza, injectabl e, quadrivalent, preservative free No Primary Care Physician [facility] 05-07-2021 influenza, seasonal, injectable [facility] 10-03-2020 Covid (Moderna) [facility] 09-05-2020 Covid (Moderna) [facility] 04-30-2020 hepatitis B vaccine, adult dosage [facility] 04-29-2020 influenza, injectabl e, quadrivalent, preservative free No Primary Care Physician [facility] 04-29-2020 influenza, seasonal, injectable [facility] 11-21-2019 hepatitis B vaccine, adult dosage [facility] 10-08-2019 hepatitis B vaccine, adult dosage [facility] Payers Date Payer Category Payer Self-pay [id number] 2024 Unknown [id number] 2020 Unknown RICHARDSON SALAZAR PPO [id number] 2020-Present [phone] [facility] [id number] [place] [address] PPO [id number] 2016 Unknown [id number] 1995 Unknown [id number] 1995 Unknown [id number] Unknown Richardson BC/BS Unknown [id number] Unknown BC ANTHEM 332 COMM CHOICE XY [id number] Unknown [id number] Unknown [id number] Unknown [id number] Unknown [id number] Unknown [id number] Unknown [id number] Social History Date Type Detail Facility Start: 02-16-2022 End: 10-19-2023 Tobacco smoking status NHIS Never smoked tobacco [facility] Start: 02-16-2022 Tobacco use and exposure Smokeless tobacco non-user [facility] Start: 1995 Sex Assigned At Not on file [facility] Start: 02-06-2022 End: 02-16-2022 Exposure to SARS-CoV-2 (event) Not sure [facility] Start: 03-07-2022 End: 10-19-2023 Tobacco smoking status SCIS Unknown if ever smoked [facility] Start: 1995 Sex Assigned At Female [facility] Start: 10-18-2024 End: 10-25-2024 Sex Female (finding) [facility] Sex Female [facility] Goals Date Patient Goal Desired Activity /State Clinical Notes 02-16-2022 to 04-29-2025 Note Date & Type Note Facility 04-29-2025 Progress note [facility] 04-29-2025 Progress note Note Date/Time April 29, 2025 3:37pm [facility] [address], [address] [place] [address] OFFICE VISIT Date of Service: 04/29/25 MR#: [id number] Acct: [id number] Name: CHELITA ROMERO Rep #: [id number] : 1995 Provider: Dr. Berenice Bentley DO Age/Sex: 30/F [place] [facility] [place]: Signed Intake Vital Signs 10/21/23 16:10 [...] Removal *copay $20 Chief Complaint: Mirena Removal [employer] Required: No Is patient in pain?: No Allergies No Known Allergies Allergy (Verified 04/29/25 15:16) Medications ?Medication ?Instructions ?Recorded ?Confirmed ?Type multivit-min no.71-iron fum 28 1 cap PO 01/18/2304/29 History mg-folate no.1 1 mg-dha 300 mg capsule (PNV-Kenvir) Compound Semaglutide subcut 01/04/25 04/29/25 His tory [...] spouse current occupational status: employed current occupation: [employer] pets and animals: Yes (not managing litterbox [...] 1-2 times per week duration: 30-45 minutes/day lindsay/restorationist: Yarsanism seatbelt use: always do you feel safe at home: Yes additional social history: 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 Date Name GA/Weeks Outcome Route Bth Weight Gen Labor Lgth Anesthesia Del Locatn Provider FOB 03/08/22 ectopic 09/05/23 Alicia 40 live - full term Female [facility] [place] Delivery Date: 03/08/22 [...] Cosigner Signature: Date (if applicable) CC: ~ [facility] Work Phone: 1(641) 462-917609-08-2025 Evaluation note* Diagnosis Onset Date Resolution Status Admit Date Bruno's thyroiditis chronic S eptember 2024 9:35am PCOS (polycystic ovarian syndrome) chronic April 08 025 9:35am Encounter for IUD removal acute April 29, 2025 3:08pm History of infertility acute Se ptember 2024 3:08pm PCOS (polycystic ovarian syndrome) chronic April 29, 2025 3:08pm [facility] Work Phone: 1(795) 217-472303-21-2025 Radiology Diagnostic study note [facility] [address] [place], [place] [address] Thyroid MR#: [id number] Acct: [id number] Name: CHELITA ROMERO Rep #: [id number] : 1995 F 29 From: Francine Roman MD PCP: ALEXIA Sanderson Status: REG CLI Study:Thyroid Date of Exam: 10/19/24 Exam# [id number] Ordering Dr: Monet Sebastian [facility] INDIRECT SALES EXEC-C PROCEDURE: THYROID 10/19/2024 REASON FOR EXAM: 29-year-old [...] US/Thyroid IMPRESSION: NORMAL THYROID ULTRASOUND Reading Location: [facility] CC: ALEXIA Sebastian ~ Dam Tender: Signed [facility]03-20-2024 NotePap Smear Specimen AdequacyMarch 2023 11:59pmComment.Satisfactory for evaluation. Endocervical and/or squamous metaplasticcells (endocervical component)are present.[facility]ED A#[id number] Hospital[facility] on above:Satisfactory for evaluation. Endocervical and/or squamous metaplasticcells (endocervical component)are present.09-06-2023 Progress note Author Mireya So [facility] September 06, 2023 8:34am Note Date/Time September 06, 2023 8 :34am [facility] Medical Records Department [address] [place] [address] Progress Note - OBGYN 09/06/23 0832 MR#: [id number] Acct: [id number] Name: CHELITA ROMERO Rep #:[id number] : 1995 28 From: Mireya So CNM PCP: Care Physician,No Primary Status :ADM IN Location: [place] [address] Subjective Subjective Patient doing well without complaints. [...] Cosigner Signature (if applicable): CC: ~ Signed [facility] Work Phone: 1(598) 370-190402-05-2024 Discharge summary Author Oma Catherine [facility] September 05, 2023 11:14am Note Date/Time September 05, 2023 1 1:14am [facility] Medical Records Department [address] [place] [address] Instructions for Home/Discharge Instructions 09/05/23 1114 MR#: [id number] Acct: [id number] Name: CHELITA ROMERO Rep #:[id number] : [...] Up With: Oma Bentley DO When: Call [phone] to make an appointment with your doctor [...] (5,000 unit) capsule 125 mcg PO DAILY PNV-Kenvir 28-1-300 mg capsule 1 cap PO Referrals / Follow Up: Care Physician,No Primary [Primary Care Provider] - 09/05/23 1114<Electronically signed by Oma Bentley DO>Oma Bentley DO CC: No Primary Care Physician ~ Signed [facility] Work Phone: 1(108) 126-920502-05-2024 Procedure [facility] 09-05-2023 Progress note Author Oma Catherine [facility] September 05, 2023 6:57am Note Date/Time September 05, 2023 6 :57am [facility] Medical Records Department [address] [place] [address] Progress Note 09/05/23 0656 MR#: [id number] Acct: [id number] Name: CHELITA ROMERO Rep #:[id number] : 1995 28 From: Oma Bentley DO PCP: Care Physician,No Primary Status :ADM IN Location: [id number] Progress Note pt is sitting up in bed without complaints. epidural in place current tracing: FHT: Moderate variability reactive no decelerations category I tracing [place]: q 2-4 min Contractions cx: per nurse- 7 cm A/P: IOL- progressing well. continue current management 09/05/23 06 <Electronically signed by Oma Bentley DO> Oma Bentley DO Cosigner Signature (if applicable): CC: ~ Signed [facility] Work Phone: 1(593) 996-510402-05-2024 Progress note Author Claribel Marino [facility] September 05, 2023 2:12am Note Date/Time September 05, 2023 2 :12am [facility] Medical Records Department [address] [place] [address] Progress Note 09/05/23210 MR#: [id number] Acct: [id number] Name: CHELITA ROMERO Rep #:[id number] : 1995 28 From: Claribel hawthorne MD PCP: Care Physician,No Primary Status :ADM IN Location: [place] [address] Progress Note fb out and cervical change to 5-6 cm current tracing: FHT: 130 min- Moderate variability reactive occasional early decelerations category I tracing [place]: q 2-3 Contractions reviewed tracing abnormalities since last note: no signficiant A/P: arom clear fluid, will obtain epidural 09/05/23211 <Electronically signed by Claribel Marino MD> Claribel Marino MD Cosigner Signature (if applicable): CC: ~ Signed [facility] Work Phone: 1([phone]) 174-453702-05-2024 History and physical note Author Claribel Marino [facility] [facility] September 05, 2023 2:11am Note Date/Time September 05, 2023 2 :11am [facility] Medical Records Department [address] [place] [address] H&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 09/05/23207 MR#: [id number] Acct: [id number] Name: CHELITA ROMERO Rep #:[id number] : 1995 28 From: Claribel hawthorne MD PCP: Care Physician,No Primary Status :ADM IN Location: [id number] HPI - General General Date of Admission: [...] no.1 1 mg-dha 300 mg capsule (PNV- Kenvir) 1 cap PO 01/18/23 [History Last Taken Unknown] Allergy/AdvReac Type Severity Reaction Status Date / Time No Known Allergies Allergy Verified 09/04/23 19:44 Family History Grandfather CVA (cerebral vascular accident) Grandmother CVA (cerebral vascular accident) Diabetes Other Idiopathic pulmonary fibrosis Social History adopted: No household members: spouse current occupational status: employed current occupation: [employer] pets and animals: Yes (not managing litterbox while ) pets and animals:cat(s) and dog(s) history of recent travel: Yes ([place] 08/23) out of state: No out of country: Yes sexually active: Yes Smoking Status: Never smoker alcohol intake: never substance use type: does not use well-balanced diet: daily or most days caffeine: No eating out: 1-3 times/week during the past year weight has: remained stable what type of physical activity do you participate in: walking frequency: 1-2 times per week duration: 30-45 minutes/day lindsay/restorationist: Yarsanism seatbelt use: always do you feel safe at home: Yes additional 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 discussed and declines afp. [facility] anatomy ordered. LC- no vb/cramping. its a GI RL!discussed and declines afp. [facility] anatomy ordered. 03/22/23 -?-?-?-?-?-?-?-?-?-?-?-?- 16w [...] high risk , unspecified, second trimester COMMENT: [id number], DOMITILA 09/01/23 GIRL! Alicia Compa prefers doc [...] complications: see a/p I have reviewed the [facility] and made any clinically relevant updates. 09/05/23210 <Electronically signed by Claribel Marino MD> Cosigner Signature (if applicable): CC: Dr. Claribel Marino MD; No Primary Care Physician~ Signed [facility] Work Phone: 1(810) 771-242807-19-2022 NoteHNO ID: [id number] Author: Shai Baires PA-C Service: ? 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 Type: Progress Notes Filed: 02/16/2022 11:24 AM Note Text: Subjective Chelita Romero is a 27 year old female with no significant past medical history who presents to [facility] today for evaluation of urinary [...] which included preparing to see the patient, gqea-[id number] patient care, completing clinical documentation, performing a medically appropriate examination, counseling and educating the patient/family/caregiver and ordering medications, tests, or procedures.[facility]07-19-2022 Instructions* Patient Instructions* Shai Baires PA-C - [...] treated. A physician, nurse practitioner or physician asset protection assistant may treat with a short course [...] women if symptoms resolve. [facility] History of Present illness Narrative* Shai Baires PA-C - 02/16/2022 11:02 AM EDT Subjective Chelita Romero is a 27 year old female with no significant past medical history who presents to [facility] today for evaluation of urinary [...] which included preparing to see the patient, [id number] patient care, completing clinical documentation, performing a medically appropriate examination, counseling and educating the patient/family/caregiver and ordering medications, tests, or procedures. [facility]* Diagnosis Leukocytes in urine- Primary Other cells and casts in urine Urinary frequency Abnormal urine odor Other nonspecific finding on examination of urine documented in this encounter [facility] noteNo assessment information availableWCleveland [facility] Work Phone: Fonmatchaluation note* Diagnosis Onset Date Resolution Status Ectopic [facility] Work Phone: CTQuanation note* Diagnosis Onset Date Resolution Status Polycystic ovarian syndrome [facility] Work Phone: Fonmatchaluation note* Diagnosis Onset Date Resolution Status Polycystic ovarian syndrome acute acute Supervision of high-risk [facility] Work Phone: evaluation note* Diagnosis Onset Date Resolution Status Polycystic ovarian syndrome acute acute Supervision of high-risk acute Obesity affecting acute Polycystic ovarian syndrome acute acute Supervision of high-risk acute Obesity affecting acute Polycystic ovarian syndrome acute acute Supervision of high-risk [facility] Work Phone: evaluation note* Diagnosis Onset Date Resolution Status Polycystic ovarian syndrome acute acute Supervision of high-risk acute Obesity affecting acute Polycystic ovarian syndrome acute acute Supervision of high-risk acute Obesity affecting acute Polycystic ovarian syndrome acute acute Supervision of high-risk acute Obesity affecting acute Polycystic ovarian syndrome acute acute Pyelectasis of fetus on ultrasound acute Supervision of high-risk [facility] Work Phone: evaluation note* Diagnosis Onset Date [...] fetus on ultrasound acute Supervision of high-risk [facility] Work Phone: Evaluation note* Diagnosis Onset Date [...] fetus on ultrasound acute Supervision of high-risk [facility] Work Phone: Evaluation note* Diagnosis Onset Date [...] fetus on ultrasound acute Supervision of high-risk [facility] Work Phone: Evaluation note* Diagnosis Onset Date [...] fetus on ultrasound acute Supervision of high-risk [facility] Work Phone: Evaluation note* Diagnosis Onset Date [...] on ultrasound resolved Supervision of high-risk resolved [facility] Work Phone: Evaluation note* Diagnosis Onset [...] Follow-Up noneactive Encounter for IUD insertion acute [facility] Work Phone: Evaluation note* Diagnosis Onset Date Resolution Status Admit Date Bruno's thyroiditis acute S [facility] 2024 9:35am [facility] Work Phone: Reason for referral (narrative)No reason for referral information availableWCleveland Clinic [facility] Work Phone: Summary Purpose Family History No Family History Records Found Relationship Condition Age at Onset Recorded Date/T iain Not Specified Idiopathic pulmonary fibrosis Unknown grandfather Cerebrovascular accident (CVA) Unknown grandmother Cerebrovascular accident (CVA) Unknown Diabetes mellitus Unknown Advance Directives No Advanced Directives Records Found Advance Directive Response Recorded Date/ Time Living Will No March 07, 2022 1:29pm Power of Shirrer No March 07 1:29pm Advance Directive Response Recorded Date/ Time Living Will No March 07, 2022 12:29pm Power of Shirrer No March 07 12:29pm Advance Directive Response Recorded Date/ Time Living Will No September 04 7:45pm Power of Shirrer No September 04, 2023 7:45pm Advance Directive Response Recorded Date/ Time Living Will No September 04 8:45pm Power of Shirrer No September 04, 2023 8:45pm Chief Complaint [...] 38 WK OB, pt has us @ [facility] before appt Reason for Visit Obesity [...] 38 WK OB, pt has us @ [facility] before appt 39 WK OB 40 [...] section and content) DATE CREATED AUTHOR 01/25/2018 [facility] Latisha Neal DATE CREATED AUTHOR AUTHOR'S ORGANIZ ATION 02/19/2022 [facility] DATE CREATED AUTHOR AUTHOR'S ORGANIZ ATION 08/13/2023 [facility] DATE CREATED AUTHOR AUTHOR'S ORGANIZ ATION 05/25/2025 [facility] Source Comments (unrecognize d section and content) In the event this informatio n is protected by the Federal Confidentiality of Alcohol and Drug Abuse Patient Records regulations: The Federal rules restrict any use of the information to criminally investigate or prosecute any alcohol or drug abuse patient.[facility] Reason for Visit (unrecogniz ed section and [...] Primary Care Provider Active Vanna Tracey NP, INDIRECT SALES EXEC-C Attending Provider, Referring Provider Active Team Status: [...] Provider, Refer ring Provider Active Vanna Tracey INDIRECT SALES EXEC, INDIRECT SALES EXEC-C Attending Provider Active Team Status: Inactive Member [...] Physician Primary Care Provider Active Vanna Tracey INDIRECT SALES EXEC, INDIRECT SALES EXEC-C Attending Provider, Referring Provider Active Dr. Claribel [...] Member Role Status Dates Heath Sebastian VSC, INDIRECT SALES EXEC-C Primary Care Provider Active Team Status: Inactive Member Role Status Dates Heath Sebastian VSC, INDIRECT SALES EXEC-C Primary Care Provider Active Start: October 10, 2024 End: October 10, 2024 Heath Romulo VSC, INDIRECT SALES EXEC-C Attending Provider Active S tart: October 10, 2024 End: October 10, 2024 Team Status: Inactive Member Role Status Dates Heath Romulo VSC, INDIRECT SALES EXEC-C Primary Care Provider Active Start: October 19, 2024 End: October 19, 2024 Heath Romulo VSC, INDIRECT SALES EXEC-C Attending Provider Active S tart: October 19, 2024 End: October 19, 2024 Heath Sebastian VSC, INDIRECT SALES EXEC-C Referring Provider Active S tart: October 19, 2024 End: October 19, 2024 Team Status: Inactive Member Role Status Dates Heath Romulo VSC, INDIRECT SALES EXEC-C Primary Care Provider Active Start: January 02, 2025 End: January 02, 2025 Heath Sebastian VSC, INDIRECT SALES EXEC-C Attending Provider Active S tart: January 02, 2025 End: January 02, 2025 Team Status: Active Member Role/Relationship Status Dates Heath Sebastian VSC, INDIRECT SALES EXEC-C Primary Care Provider Active Team Status: Inactive Member Role/Relationship Status Dates Heath Romulo VSC, INDIRECT SALES EXEC-C Primary Care Provider Active Start: January 02, 2025 End: January 02, 2025 Heath Romulo VSC, INDIRECT SALES EXEC-C Attending Provider Active S tart: January 02, 2025 End: January 02, 2025 Team Status: Inactive Member Role/Relationship Status Dates Heath Romulo VSC, INDIRECT SALES EXEC-C Primary Care Provider Active Start: April 08, 2025 End: April 08, 2025 Heath Sebastian VSC, INDIRECT SALES EXEC-C Referring Provider Active S tart: April 08, 2025 End: April 08, 2025 Dr. Omar Boothe MD Attending Provider Active Sta rt: April 08, 2025 End: April 08, 2025 Team Status: Active Member Role/Relationship Status Dates Heath Sebastian VSC, INDIRECT SALES EXEC-C Primary care physician Active Team Status: Inactive Member Role/Relationship Status Dates Heath Sebastian VSC, INDIRECT SALES EXEC-C Primary care physician Active Start: January 02, 2025 End: January 02, 2025 Heath Sebastian VSC, INDIRECT SALES EXEC-C Attending physician Active Start: January 02, 2025 End: January 02, 2025 Team Status: Inactive Member Role/Relationship Status Dates Heath Sebastian VSC, INDIRECT SALES EXEC-C Primary care physician Active Start: April 08, 2025 End: April 08, 2025 Heath Sebastian VSC, INDIRECT SALES EXEC-C Referring Provider Active S tart: April 08, 2025 End: April 08, 2025 Dr. Omar Boothe MD Attending physician Active St art: April 08, 2025 End: April 08, 2025 Team Status: Inactive Member Role/Relationship Status Dates Heath BANDA, INDIRECT SALES EXEC-C Primary care physician Active Start: April 09, 2025 End: April 09, 2025 Dr. Omar Boothe MD Attending physician Active St art: April 09, 2025 End: April 09, 2025 Dr. Omar Boothe MD Referring Provider Active Sta rt: April 09, 2025 End: April 09, 2025 Team Status: Inactive Member Role/Relationship Status Dates Heath Romulo BANDA INDIRECT SALES EXEC-C Primary care physician Active Start: April 29, 2025 End: April 29, 2025 Heath BANDA, INDIRECT SALES EXEC-C Referring Provider Active S tart: April 29, [...] BE BASED ON THE PRIMARY CLINICAL RECORDS. [employer] provides no warranty or guarantee of the accuracy or completeness of information in this document.
[2025-07-19 08:34] LABS: hCG Titer Quant., Serum 2064 mIU/mL (<9 non-preg)
== END | disposition home or self-care (01) ==
LOC: LAB 06:37
PROVIDERS: PCP Nurse Practitioner Family; Referring Provider Student in an Organized Health Care Education/Training Program; Visit Provider Student in an Organized Health Care Education/Training Program
DX: N91.1 Secondary amenorrhea (principal)
CPT/HCPCS: 36415; 84702

== ENCOUNTER → 2025-07-24 | Outpatient (CLI) | payer OTHER, SELFPAY ==
--- NOTE | 2025-07-24 09:54 | US_ITS ---
PROCEDURE: TRANSVAGINAL W/PREG US 07/24/2025 REASON FOR EXAM: VIABILITY TECHNIQUE: Procedure Code: USTVAGP Modality: US Procedure: TRANSVAGINAL W/PREG US COMPARISON: None. FINDINGS The uterus measures 8.5 x6.4 x 4.7 cm. Normal flow cervix. Single, live intrauterine gestation. heart rate 111 beats per minute. The gestational sac measures 10 mm, 5 weeks and 5 days. The yolk sac measures 2 mm. The crown-rump length measures 3 mm, 6 weeks and 1 day. Estimated gestational age 6 weeks and 2 days. Estimated delivery date on 03/19/2026. The right ovary measures 4.4 x 2.4 x 2.6 cm. Right ovarian corpus luteum cyst measuring 2.5 x 1.8 x 1.6 cm. The left ovary measures 3.6 x2 0.3 x 1.9 cm. Minimal amount of free fluid in the pelvic cul-de-sac. Normal bilateral ovarian flow. US/Transvaginal w/Preg US IMPRESSION: Single, live intrauterine gestation. No abnormality is noted. Right ovarian corpus luteum cyst measuring 2.5 cm. Normal bilateral ovarian flow. Minimal amount of free fluid in the pelvic cul-de-sac. Reading Location: [facility]
--- OUTSIDE RECORDS SUMMARY | 2025-07-24 10:13 | XMS RPT_ITS | CCD ---
Author Organization [facility] Care Team Providers Care Eclectic Doctor Name Role Phone Clifton Chidi Devi Unavailable [...] JABARI Dao Attending Provider [phone] Alexy SEARCH ENGINE OPTIMIZER, SEARCH ENGINE OPTIMIZER-C Vanna Attending Provider [phone] [phone] JABARI So [...] No Primary Referring Provider Un available Alexy SEARCH ENGINE OPTIMIZER, SEARCH ENGINE OPTIMIZER-C Vanna Attending Provider 1(330 [phone] DEJA YOUNG [...] Claribel Marino Attending Provider [phone] [phone] JABARI oS Attending Provider 1(330) Dr. Oma Bentley Attending Provider 1([phone]) Dr. Oma Bentley Admit Provider Dr. Oma Bentley Referring Provider 1(3 [phone]) Dr. Oma Bentley Other Provider JABARI Dao Attending Provider Sebastian SEARCH ENGINE OPTIMIZER-C, Heath Primary Care Provider Sebastian SEARCH ENGINE OPTIMIZER-C, Heath Attending Provider Sebastian SEARCH ENGINE OPTIMIZER-C, Heath Referring Provider Sebastian SEARCH ENGINE OPTIMIZER-C, Heath Primary Care Provider Sebastian SEARCH ENGINE OPTIMIZER-C, Heath Attending Provider Sebastian SEARCH ENGINE OPTIMIZER-C, Heath Referring Provider King TAVARES, Dr. Nelson Attending Provider Sebastian SEARCH ENGINE OPTIMIZER-C, Heath Primary Care Physician Sebastian SEARCH ENGINE OPTIMIZER-C, Heath Attending Physician King TAVARES, Dr. Nelson [...] 2022 1:00am January 18, 2023 11:12am Mv-Mins 38-Xhlh-Pbuty No.1-D gonzalez (Pnv-Helton) 28-1-300 mg capsule (20 sources) Start: 01-18-2023 Mv-Mins 71-Iro n-Folic No.1-Dha (Pnv-Helton) 28-1-300 mg capsule Active 1 NMA PO January 18, 2023 12:00am Complies with drug therapy Start: 01-18-2023 Mv-Mins 71-Iro n-Folic No.1-Dha (Pnv-Helton) 28-1-300 mg capsule Active 1 NMA PO January 18, 2023 12:00am Start: 01-18-2023 take 1 capsule by mouth once M v-Mins 98-Dlii-Wwdzn No.1-Dha (Pnv-Helton) 28-1-300 mg capsule Active 1 CAP PO January 18, 2023 12:00am Start: 01-18-2023 take 1 capsule by mouth once M v-Mins 01-Pdvc-Sofco No.1-Dha (Pnv-Helton) 28-1-300 mg capsule Active 1 CAP PO January 17, 2023 11:00pm Start: 01-18-2023 take 1 capsule by mouth once M v-Mins 61-Zetx-Aiype No.1-Dha (Pnv-Helton) 28-1-300 mg capsule Active CAP PO January 17, 2023 11:00pm Start: 01-18-2023 take 1 capsule by mouth once M v-Mins 03-Paae-Lerdw No.1-Dha (Pnv-Helton) 28-1-300 mg capsule Active CAP PO January [...] on above: Take 1 capsule by mo [facility] twice daily for 5 days. Completed/Discontinued Medications [...] unspecified trimester] 01-18-2023 Episodic Comment on above: [id number], DOMITILA 4 GIRL! Alicia Brandonprefers doc only for delivery Other complications of (20 sources) Supervision of high risk , unspecified, unspecified trimester; Translations: [Supervision of unspecified high-risk ] 01-26-2023 Episodic Other complications of (14 sources) Disease caused by 2019-nCoV; Translations: [Other viral diseases complicating , unspecified trimester] 06-08-2023 Episodic Comment on above: asa 81mg daily, [facility] 32 & 36 weeks: 32 wk: 41% [...] Test Name Value Interpretation Reference Range Facility Rand Cementer Office Visit Reporton 04-29-2025 Rand Cementer Office Visit Report [facility] [address], [address] [place] [address] OFFICE VISIT Date of Service: 04/29/25 MR#: [id number] Acct: [id number] Name: CHELITA ROMERO Rep #: [id number] : 1995 Provider: Dr. Oma Lawrence DO Age/Sex: 30/F Location[place] [facility] [place] Status: Signed with Addenda ADDENDUM by Dr. [...] Removal *copay $20 Chief Complaint: Mirena Removal Jacquard Plate Maker Required: No Is patient in pain?: No Allergies No Known Allergies Allergy (Verified 04/29/25 15:16) Medications ???Medication ???Instructions ???Recorded ???Confirmed ???Type multivit-min no.71-iron fum 28 1 cap PO 01/18/23 04/29/25 History mg-folate no.1 1 mg-dha 300 mg capsule (PNV-Helton) Compound Semaglutide subcut 01/04/25 04/29/25 History cholecalciferol [...] menopausal: No Patient : No : [facility] History Bruno's thyroiditis Thyroid disease Ectopic PCOS (polycystic ovarian syndrome) Family History Grandfather CVA (cerebral vascular accident) Grandmother CVA (cerebral vascular accident) Diabetes Other Idiopathic pulmonary fibrosis Social History adopted: No household members: spouse current occupational status: employed current occupation: [employer] pets and animals: Yes (not managing [...] 1-2 times per week duration: 30-45 minutes/day lindsay/anabaptist: Spiritism seatbelt use: always do you feel safe at home: Yes 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 Date Name GA/Weeks Outcome Route Bth Weight Infant Gen Labor Lgth Anesthesia Del Locatn Provider FOB 03/08/22 ectopic 09/05/23 Alicia 40 live - full term Female [facility] [place] Delivery Date: 03/08/22 [...] the urethra (more content not included)... Normal [facility] Thyroid Peroxidase ABon 09- THYR PEROX AB 41 IU/mL High 0-34 [facility] Comment on above: Result Comment: Perf ormed at: - [facility] [address] [id number] Sales Estimator: Asa Bateman PhD, Phone: [phone] Performed By: #### L 3300.6750, L500.4050, L100.0100, L501.86855, L501.9520, L503.0106, L506.1001, L500.4100, L501.9985 #### [facility] [address] [place], [place], [id number] Serum or plasma thyroperoxid ase antibody assay (units/volume)Ordered By: Omar Boothe on 04-09-2025 TPO Ab Qn 41 [IU]/mL High 0-34 [facility] Comment on above: Performed at: [address] [id number] Director: Asa Bateman PhD, Phone: [phone] TSH DL <= 0.005 mIU/L QnOrde red By: Omar Boothe on 04-09-2025 TSH Qn 1.570 uIU/mL 0.300-4.200 [facility] Thyroid Stim Hormone (TSH)on 04-09-2025 TSH 1.570 uIU/mL Normal 0.300-4.200 [facility] Comment on above: Performed By: #### L 3300.6750, L500.4050, L100.0100, L501.97794, L501.9520, L503.0106, L506.1001, L500.4100, L501.9985 #### [facility] [address] [place], [place], [id number] Endocrinology Visit Reporton 04-08-2025 Endocrinology Visit Report [facility] [address] [place], [place] [address] OFFICE VISIT Date of Service: 04/08/25 MR#: [id number] Acct: [id number] Name: CHELITA ROMERO Rep #: [id number] : 1995 Provider: Zeynep Ellison Age/Sex: 30/F Location[place] [facility] [place] Status: Signed Intake Vital Signs 10/21/23 16:10 04/08/25 09:35 Height 5 ft 11 in 5 ft 11 in Weight: 205 lb BMI 28.5 BP 107/70 Blood Pressure Location Lt brachial Position Sitting Pulse 77 Pulse Source Monitor Pulse Oximetry (%) 98 Oxygen Delivery Method room air Intake Visit Reasons: Thyroid Chief Complaint: Thyroid, PCOS Jacquard Plate Maker Required: No Accompanied by: Self Is patient in pain?: No Allergies No Known Allergies Allergy (Verified 04/08/25 09:35) Medications ???Medication ???Instructions ???Recorded ???Confirmed ???Type multivit-min no.71-iron fum 28 1 cap PO 01/18/23 04/08/25 History mg-folate no.1 1 mg-dha 300 mg capsule (PNV-Helton) Compound Semaglutide subcut 01/04/25 04/08/25 History cholecalciferol (vitamin D3) 125 125 mcg PO QDAY 04/08/25 04/08/25 History mcg (5,000 unit) capsule levothyroxine 25 mcg tablet 25 mcg PO QDAY 04/08/25 04/08/25 H istory [facility] Medical History (Updated 04/08/25 @ 10:[address] Omar Boothe MD) Bruno's thyroiditis Thyroid disease Ectopic PCOS (polycystic ovarian syndrome) Family History Grandfather CVA (cerebral vascular accident) Grandmother CVA (cerebral vascular accident) Diabetes Other Idiopathic pulmonary fibrosis Social History adopted: No household members: spouse current occupational status: employed current occupation: [employer] pets and animals: Yes (not managing litterbox while ) pets and animals: cat(s) and dog(s) history of recent travel: Yes ([place] 08/23) out of state: No out of country: Yes sexually active: Yes Smoking Status: Never smoker alcohol intake: never substance use type: does not use well-balanced diet: daily or most days caffeine: No eating out: 1-3 times/week during the past year weight has: remained stable what type of physical activity do you participate in: walking frequency: 1-2 times per week duration: 30-45 minutes/day lindsay/anabaptist: Spiritism seatbelt use: always do you feel safe at home: Yes 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 Normal [facility] T4 Free Directon 01-02-2025 T4 FREE DIRECT 1.50 ng/dL High 0.76-1.46 [facility] Comment on above: Performed By: #### L 3300.6750, L500.4050, L100.0100, L501.45936, L501.9520, L503.0106, L506.1001, L500.4100, L501.9985 #### [facility] [address] [place], [address] T4 freeOrdered By: Heath garcia on 01-02-2025 Free T4 [Mass/Vol] 1.50 ng/dL High 0.76-1.46 [facility] TSH DL <= 0.005 mIU/L QnOrde red By: Heath Sebastian on 01-02-2025 TSH Qn 0.037 uIU/mL Low 0.300-4.200 [facility] Thyroid Stim Hormone (TSH)on 01-02-2025 TSH 0.037 uIU/mL Low 0.300-4.200 [facility] Comment on above: Performed By: #### L 3300.6750, L500.4050, L100.0100, L501.92694, L501.9520, L503.0106, L506.1001, L500.4100, L501.9985 #### [facility] [address] [place], [place], [id number] Thyroidon 10-19-2024 Thyroid [facility] [address] [place] [address] Thyroid MR#: [id number] Acct: [id number] Name: CHELITA ROMERO Rep #: [id number] : 1995 F 29 From: Gayla Aguirre nd, MD PCP: Heath Sebastian SEARCH ENGINE OPTIMIZER-C Status: REG CLI Study: Thyroid Date of Exam: 10/19/24 Exam# [id number] Ordering Dr: Heath Sebastian [facility] ALEXIA PROCEDURE: THYROID 10/19/2024 REASON FOR EXAM: [...] US/Thyroid IMPRESSION: NORMAL THYROID ULTRASOUND Reading Location: [facility] CC: ALEXIA Sebastian Hand Worker: Signed Normal [facility] Thyroid Antibodieson 025 TG AB < 1.0 Normal 0.0-0.9 [facility] Comment on above: Result Comment: Thyr oglobulin Antibody measured by [facility] [place] Methodology It should be noted that the presence of thyroglobulin antibodies may not be pathogenic nor diagnostic, especially at very low levels. The assay spray gun striper has found that four percent of individuals without evidence of thyroid disease or autoimmunity will have positive TgAb levels up to 4 IU/mL. Performed at: [address] [id number] Sales Estimator: Asa Bateman PhD, Phone: [phone] Performed By: #### L 3300.6750, L500.4050, L100.0100, L501.80598, L501.9520, L503.0106, L506.1001, L500.4100, L501.9985 #### [facility] [address] [place], [address] THYR PEROX AB 38 IU/mL High 0-34 [facility] Comment on above: Performed By: #### L 3300.6750, L500.4050, L100.0100, L501.17584, L501.9520, L503.0106, L506.1001, L500.4100, L501.9985 #### [facility] [address] [place], [address] Absolute lymphocyte countOrd ered By: Heath Romulo on 10-10-2024 Lymphocytes Auto (Unsp spec) [#/Vol] 2.39 10*3/uL 0.83-4.51 [facility] Absolute neutrophil countOrd ered By: Heath Romulo on 10-10-2024 Neutrophils (Bld) [#/Vol] 5.6 10*3/uL 2.0-7.7 [facility] Anion gap in Serum or Plasma Ordered By: Heath Sebastian on 10-10-2024 Anion gap [Moles/Vol] 13 mmol/L 5- [facility] Automated lymphocyte count a s percentage of total leukocytesOrdered By: Heath Sebastian on 10-10-2024 Lymphocytes/100 WBC Auto (Unsp spec) 27.9 % - [facility] BUN/creatinine ratioOrdered By: Heath Sebastian on 10-10-2024 Urea nitrogen/Creatinine [Mass ratio] 16.5 mg/mg 10- [facility] Basophil percentageOrdered B y: Heath Sebastian on 10-10-2024 Basophils/100 WBC (Bld) 0.5 % 0- [facility] Bilirubin, totalOrdered By: Heath Romulo on 10-10-2024 Bilirubin [Mass/Vol] 0.35 mg/dL 0.00-1.30 [facility] CBC W/Diff, Automatedon 09-29 Absolute Lymph 2.39 X10 3/uL Normal 0.83-4.51 [facility] Comment on above: Performed By: #### L 3300.6750, L500.4050, L100.0100, L501.82961, L501.9520, L503.0106, L506.1001, L500.4100, L501.9985 #### [facility] [address] [place], [address] Absolute Neut 5.6 X10 3/uL Normal 2.0-7.7 [facility] Comment on above: Performed By: #### L 3300.6750, L500.4050, L100.0100, L501.27189, L501.9520, L503.0106, L506.1001, L500.4100, L501.9985 #### [facility] [address] [place], [address] Basophils/100 WBC (Bld) 0.5 % Normal 0-1 [facility] Comment on above: Performed By: #### L 3300.6750, L500.4050, L100.0100, L501.16174, L501.9520, L503.0106, L506.1001, L500.4100, L501.9985 #### [facility] [address] [place], [address] Eosinophils/100 WBC (Bld) 0.7 % Normal 0-5 [facility] Comment on above: Performed By: #### L 3300.6750, L500.4050, L100.0100, L501.60907, L501.9520, L503.0106, L506.1001, L500.4100, L501.9985 #### [facility] [address] [place], [address] Erythrocyte distribution width (RBC) [Ratio] 12.7 % Normal 11.6-14.6 [facility] Comment on above: Performed By: #### L 3300.6750, L500.4050, L100.0100, L501.33304, L501.9520, L503.0106, L506.1001, L500.4100, L501.9985 #### [facility] [address] [place], [address] Hematocrit (Bld) [Volume fraction] 39.1 % Normal 37-47 [facility] Comment on above: Performed By: #### L 3300.6750, L500.4050, L100.0100, L501.46652, L501.9520, L503.0106, L506.1001, L500.4100, L501.9985 #### [facility] [address] [place], [address] Hemoglobin (Bld) [Mass/Vol] 13.2 g/dL Normal 12.0-15.0 [facility] Comment on above: Performed By: #### L 3300.6750, L500.4050, L100.0100, L501.62987, L501.9520, L503.0106, L506.1001, L500.4100, L501.9985 #### [facility] [address] [place], [address] IG% 0.400 Normal 0.0-0.9 [facility] Comment on above: Result Comment: IG% - Immature Granulocytes (promyelocytes, myelocytes and metamyelocytes) > 1% indicates that a LEFT SHIFT is Present. Performed By: #### L 3300.6750, L500.4050, L100.0100, L501.15611, L501.9520, L503.0106, L506.1001, L500.4100, L501.9985 #### [facility] [address] [place], [address] Lymphocytes/100 WBC (Bld) 27.9 % Normal 19-41 [facility] Comment on above: Performed By: #### L 3300.6750, L500.4050, L100.0100, L501.42432, L501.9520, L503.0106, L506.1001, L500.4100, L501.9985 #### [facility] [address] [place], [address] MCH (RBC) [Entitic mass] 27.9 pg Normal 27.0-32.0 [facility] Comment on above: Performed By: #### L 3300.6750, L500.4050, L100.0100, L501.01327, L501.9520, L503.0106, L506.1001, L500.4100, L501.9985 #### [facility] [address] [place], [address] MCHC (RBC) [Mass/Vol] 33.8 g/dL Normal 32-36 [facility] Comment on above: Performed By: #### L 3300.6750, L500.4050, L100.0100, L501.92366, L501.9520, L503.0106, L506.1001, L500.4100, L501.9985 #### [facility] [address] [place], [address] MCV (RBC) [Entitic vol] 82.7 fL Normal 81-99 [facility] Comment on above: Performed By: #### L 3300.6750, L500.4050, L100.0100, L501.16430, L501.9520, L503.0106, L506.1001, L500.4100, L501.9985 #### [facility] [address] [facility] [place], [address] Monocytes/100 WBC (Bld) 5.4 % Normal 0-10 [facility] Comment on above: Performed By: #### L 3300.6750, L500.4050, L100.0100, L501.92092, L501.9520, L503.0106, L506.1001, L500.4100, L501.9985 #### [facility] [address] [place], [address] Neutrophils/100 WBC (Bld) 65.1 % Normal 47-70 [facility] Comment on above: Performed By: #### L 3300.6750, L500.4050, L100.0100, L501.64955, L501.9520, L503.0106, L506.1001, L500.4100, L501.9985 #### [facility] [address] [place], [address] Nucleated RBC (Bld) [#/Vol] 0 10*3/uL Normal 0-5 [facility] Comment on above: Performed By: #### L 3300.6750, L500.4050, L100.0100, L501.60921, L501.9520, L503.0106, L506.1001, L500.4100, L501.9985 #### [facility] [address] [place], [address] Platelet mean volume (Bld) [Entitic vol] 9.0 fL Normal 6.2-12.0 [facility] Comment on above: Performed By: #### L 3300.6750, L500.4050, L100.0100, L501.16673, L501.9520, L503.0106, L506.1001, L500.4100, L501.9985 #### [facility] [address] [place], [address] Platelets (Bld) [#/Vol] 342 10*3/uL Normal 150-450 [facility] Comment on above: Performed By: #### L 3300.6750, L500.4050, L100.0100, L501.77459, L501.9520, L503.0106, L506.1001, L500.4100, L501.9985 #### [facility] [address] [place], [address] RBC (Bld) [#/Vol] 4.73 10*6/uL Normal 4.2-5.[address] [facility] Comment on above: Performed By: #### L 3300.6750, L500.4050, L100.0100, L501.63793, L501.9520, L503.0106, L506.1001, L500.4100, L501.9985 #### [facility] [address] [place], [place], [id number] RDW SD 38.3 fl Normal 35.1-43.9 [facility] Comment on above: Performed By: #### L 3300.6750, L500.4050, L100.0100, L501.56120, L501.9520, L503.0106, L506.1001, L500.4100, L501.9985 #### [facility] [address] [place], [address] WBC (Bld) [#/Vol] 8.6 10*3/uL Normal 4.4-11.0 [facility] Comment on above: Performed By: #### L 3300.6750, L500.4050, L100.0100, L501.08642, L501.9520, L503.0106, L506.1001, L500.4100, L501.9985 #### [facility] [address] [place], [place], [id number] Calculated very low density lipoprotein (VLDL) cholesterol measurementOrdered By: Heath Sebastian on 10-10-2024 Calculated very low density lipoprotein (VLDL) cholesterol measurement 17 mg/dL 5-40 [facility] VLDL Cholesterol 17 mg/dL 5-40 [facility] Carbon dioxide, total [Moles /volume] in Central venous bloodOrdered By: Heath Sebastian on 10-10-2024 CO2 [Moles/Vol] 23.7 mmol/L 21.0-32.0 [facility] Chloride assayOrdered By: Monet Sebastian on 10-10-2024 Chloride [Moles/Vol] 102 mmol/L 98-108 [facility] Comprehensive Metabolic Prof ilon 10-10-2024 Albumin [Mass/Vol] 4.4 g/dL Normal 3.5-5.0 [facility] Comment on above: Performed By: #### L 3300.6750, L500.4050, L100.0100, L501.18822, L501.9520, L503.0106, L506.1001, L500.4100, L501.9985 #### [facility] [address] [place], [place], [id number] Albumin/Globulin [Mass ratio] 1.2 {ratio} Normal 0.9-2.4 [facility] Comment on above: Performed By: #### L 3300.6750, L500.4050, L100.0100, L501.02043, L501.9520, L503.0106, L506.1001, L500.4100, L501.9985 #### [facility] [address] [place], [address] ALK PHOS 159 U/L High 35-104 [facility] Comment on above: Performed By: #### L 3300.6750, L500.4050, L100.0100, L501.80289, L501.9520, L503.0106, L506.1001, L500.4100, L501.9985 #### [facility] [address] [place], [place], [id number] ALT [Catalytic activity/Vol] 12 U/L Normal <=34 [facility] Comment on above: Performed By: #### L 3300.6750, L500.4050, L100.0100, L501.48128, L501.9520, L503.0106, L506.1001, L500.4100, L501.9985 #### [facility] [address] [place], [address] AST [Catalytic activity/Vol] 20 U/L Normal <=31 [facility] Comment on above: Performed By: #### L 3300.6750, L500.4050, L100.0100, L501.11160, L501.9520, L503.0106, L506.1001, L500.4100, L501.9985 #### [facility] [address] [place], [address] Bilirubin [Mass/Vol] 0.35 mg/dL Normal 0.00-1.30 [facility] Comment on above: Performed By: #### L 3300.6750, L500.4050, L100.0100, L501.86332, L501.9520, L503.0106, L506.1001, L500.4100, L501.9985 #### [facility] [address] [place], [address] BUN/CRE 16.5 RATIO Normal 10-20 [facility] Comment on above: Performed By: #### L 3300.6750, L500.4050, L100.0100, L501.39798, L501.9520, L503.0106, L506.1001, L500.4100, L501.9985 #### [facility] [address] [place], [address] Calcium [Mass/Vol] 9.6 mg/dL Normal 7.6-11.0 [facility] Comment on above: Performed By: #### L 3300.6750, L500.4050, L100.0100, L501.04404, L501.9520, L503.0106, L506.1001, L500.4100, L501.9985 #### [facility] [address] [place], [address] Chloride [Moles/Vol] 102 mmol/L Normal 98-108 [facility] Comment on above: Performed By: #### L 3300.6750, L500.4050, L100.0100, L501.11980, L501.9520, L503.0106, L506.1001, L500.4100, L501.9985 #### [facility] [address] [place], [place], [id number] CO2 [Moles/Vol] 23.7 mmol/L Normal 21.0-32.0 [facility] Comment on above: Performed By: #### L 3300.6750, L500.4050, L100.0100, L501.99769, L501.9520, L503.0106, L506.1001, L500.4100, L501.9985 #### [facility] [address] [place], [address] Creatinine [Mass/Vol] 0.82 mg/dL Normal 0.70-1.20 [facility] Comment on above: Performed By: #### L 3300.6750, L500.4050, L100.0100, L501.85570, L501.9520, L503.0106, L506.1001, L500.4100, L501.9985 #### [facility] [address] [place], [place], [id number] GAP 13 Normal 5-15 [facility] Comment on above: Performed By: #### L 3300.6750, L500.4050, L100.0100, L501.77592, L501.9520, L503.0106, L506.1001, L500.4100, L501.9985 #### [facility] [address] [place], [address] GFR/1.73 sq M.predicted among non-blacks MDRD (S/P/Bld) [Vol rate/Area] 101 mL/min/{1.73_m2} Normal >60 [facility] Comment on above: Result Comment: mL/m in/1.73m2 CKD-EPI Creatinine Equation (2020) Performed By: #### L 3300.6750, L500.4050, L100.0100, L501.29399, L501.9520, L503.0106, L506.1001, L500.4100, L501.9985 #### [facility] [address] [place], [address] Globulin (S) [Mass/Vol] 3.6 g/dL Normal 2.2-4.2 [facility] Comment on above: Performed By: #### L 3300.6750, L500.4050, L100.0100, L501.40364, L501.9520, L503.0106, L506.1001, L500.4100, L501.9985 #### [facility] [address] [place], [address] Glucose [Mass/Vol] 81 mg/dL Normal 70-99 [facility] Comment on above: Performed By: #### L 3300.6750, L500.4050, L100.0100, L501.12572, L501.9520, L503.0106, L506.1001, L500.4100, L501.9985 #### [facility] [address] [place], [address] Potassium [Moles/Vol] 4.1 mmol/L Normal 3.3-5.1 [facility] Comment on above: Performed By: #### L 3300.6750, L500.4050, L100.0100, L501.20293, L501.9520, L503.0106, L506.1001, L500.4100, L501.9985 #### [facility] [address] [place], [address] Sodium [Moles/Vol] 138 mmol/L Normal 133-145 [facility] Comment on above: Performed By: #### L 3300.6750, L500.4050, L100.0100, L501.99149, L501.9520, L503.0106, L506.1001, L500.4100, L501.9985 #### [facility] [address] [place], [address] T PROT 8.0 g/dL Normal 5.9-8.4 [facility] Comment on above: Performed By: #### L 3300.6750, L500.4050, L100.0100, L501.81061, L501.9520, L503.0106, L506.1001, L500.4100, L501.9985 #### [facility] [address] [place], [address] Urea nitrogen [Mass/Vol] 14 mg/dL Normal 4-19 [facility] Comment on above: Performed By: #### L 3300.6750, L500.4050, L100.0100, L501.07916, L501.9520, L503.0106, L506.1001, L500.4100, L501.9985 #### [facility] [address] [place], [address] Eosinophil percentageOrdered By: Heath Sebastian on 10-10-2024 Eosinophils/100 WBC (Bld) 0.7 % 0-5 [facility] Erythrocyte distribution wid th ratioOrdered By: Heath Sebastian on 10-10-2024 Erythrocyte distribution width (RBC) [Ratio] 12.7 % 11.6-14.6 [facility] Erythrocyte distribution wid th standard deviationOrdered By: Heath Sebastian on 10-10-2024 Erythrocyte distribution width (RBC) [Entitic vol] 38.3 fL 35.1-43.9 [facility] Erythrocyte distribution width (RBC) [Ratio] 38.3 fl 35.1-43.9 [facility] Free T3on 10-10-2024 Free T3 [Mass/Vol] 3.2 pg/mL Normal 2.18-3.98 [facility] Comment on above: Performed By: #### L 3300.6750, L500.4050, L100.0100, L501.58473, L501.9520, L503.0106, L506.1001, L500.4100, L501.9985 #### [facility] [address] [place], [place], [id number] Free [id number] By: Heath garcia on 10-10-2024 Free T3 [Mass/Vol] 3.2 pg/mL 2.18-3.98 [facility] Free Triiodothyronine (T3) pg/dL 3.2 pg/mL 2.18-3.98 [facility] GFR/1.73 sq M.predicted jasvir g non-blacks MDRD (S/P/Bld) [Vol rate/Area]Ordered By: Heath Sebastian on 10-10-2024 Estimated GFR (MDRD) Non-Af Amer 101 >60 [facility] Comment on above: mL/min/1.73m2 CKD-EP I Creatinine Equation (2020) Glomerular filtration rate ( GFR) estimation/1.73 sq m using serum, plasma, or whole bOrdered By: Heath Sebastian on 10-10-2024 GFR/1.73 sq M.predicted among non-blacks MDRD (S/P/Bld) [Vol rate/Area] 101 mL/min/{1.73_m2} >60 [facility] Comment on above: mL/min/1.73m2 CKD-EP I Creatinine Equation (2020) Hematocrit Auto (Bld) [Volum e fraction]Ordered By: Heath Sebastian on 10-10-2024 Hematocrit (Bld) [Volume fraction] 39.1 % 37-47 [facility] Hemoglobin A1con 10-10-2024 HbA1c (Bld) [Mass fraction] 5.5 % Low <=5.6 [facility] Comment on above: Performed By: #### L 3300.6750, L500.4050, L100.0100, L501.52806, L501.9520, L503.0106, L506.1001, L500.4100, L501.9985 #### [facility] [address] [place], [place], [id number] Hemoglobin A1c percentageOrd ered By: Heath Sebastian on 10-10-2024 HbA1c (Bld) [Mass fraction] 5.5 % Low >5.7 [facility] Hemoglobin measurementOrdere d By: Heath Sebastian on 10-10-2024 Hemoglobin (Bld) [Mass/Vol] 13.2 g/dL 12.0-15.0 [facility] Immature granulocytes/100 WB C Auto (Bld)Ordered By: Heath Sebastian on 10-10-2024 Immature granulocytes/100 WBC (Bld) 0.400 % 0.0-0.9 [facility] Comment on above: IG% - Immature Granu locytes (promyelocytes, myelocytes and metamyelocytes) > 1% indicates that a LEFT SHIFT is Present. L503.0106on 10-10-2024 Cobalamin (Vitamin B12) [Mass/Vol] 652 pg/mL Normal 180-914 [facility] Comment on above: Performed By: #### L 3300.6750, L500.4050, L100.0100, L501.35100, L501.9520, L503.0106, L506.1001, L500.4100, L501.9985 #### [facility] [address] [place], [place], [id number] L506.1001on 10-10-2024 Vitamin D 25-OH 17.0 ng/mL Low 30-100 [facility] Comment on above: Result Comment: Nimco min D Status Deficiency: <20 ng/mL (50nmol/L) Insufficiency: 20-30 ng/mL (50-75 nmol/L) Sufficiency: 30-100 ng/mL (75-250 nmol/L) Toxicity: >100 ng/mL (>250 nmol/L) Performed By: #### L 3300.6750, L500.4050, L100.0100, L501.43907, L501.9520, L503.0106, L506.1001, L500.4100, L501.9985 #### [facility] [address] [place], [place], [id number] LDL calc ser/plasOrdered By: Heath Sebastian on 10-10-2024 Cholesterol in LDL [Mass/Vol] 99 mg/dL [facility] Comment on above: Anzkjctugw=921-102 m g/dL & Higher Pirb=418 mg/dL or greater LDL Cholesterol, Calculated 99 mg/dL [facility] Comment on above: Kthuqyhjnz=939-054 m g/dL & Higher Daei=259 mg/dL or greater Laboratory - Chemistry and C hemistry - challengeOrdered By: Heath Sebastian on 10-10-2024 AST [Catalytic activity/Vol] 20 U/L <32 [facility] Lipid Profileon 10-10-2024 CHOL:HDL 3.90 Normal [facility] Comment on above: Performed By: #### L 3300.6750, L500.4050, L100.0100, L501.83368, L501.9520, L503.0106, L506.1001, L500.4100, L501.9985 #### [facility] [address] [place], [address] Cholesterol [Mass/Vol] 155 mg/dL Normal <=200 [facility] Comment on above: Result Comment: Chol esterol level, Desirable <200 mg/dL Borderline high cholesterol 200-239 mg/dL High cholesterol >=240 mg/dL Recommendations of the NCEP Adult Treatment Panel for the following risk-cutoff thresholds for the [place] population. Performed By: #### L 3300.6750, L500.4050, L100.0100, L501.81406, L501.9520, L503.0106, L506.1001, L500.4100, L501.9985 #### [facility] [address] [place], [address] Cholesterol in HDL [Mass/Vol] 40 mg/dL Normal [facility] Comment on above: Result Comment: Judy onal Cholesterol Education Program (NCEP) guidelines: <40 mg/dL: Low HDL-cholesterol (major risk factor for CHD) >= 60 mg/dL: High HDL-cholesterol (negative risk factor for CHD) HDL-cholesterol is affected by a number of factors, e.g. smoking, exercise, hormones, sex and age. Performed By: #### L 3300.6750, L500.4050, L100.0100, L501.17090, L501.9520, L503.0106, L506.1001, L500.4100, L501.9985 #### [facility] [address] [place], [address] Cholesterol in LDL [Mass/Vol] 99 mg/dL Normal [facility] Comment on above: Result Comment: Bord ktqpan=438-526 mg/dL Higher Rxyd=076 mg/dL or greater Performed By: #### L 3300.6750, L500.4050, L100.0100, L501.75796, L501.9520, L503.0106, L506.1001, L500.4100, L501.9985 #### [facility] [address] [place], [address] Cholesterol in VLDL [Mass/Vol] 17 mg/dL Normal 5-40 [facility] Comment on above: Performed By: #### L 3300.6750, L500.4050, L100.0100, L501.70229, L501.9520, L503.0106, L506.1001, L500.4100, L501.9985 #### [facility] [address] [place], [address] Triglyceride [Mass/Vol] 83 mg/dL Normal [facility] Comment on above: Result Comment: The drugs N-Acetylcysteine and Metamizole may falsely depress this assay. Normal range: <150 mg/dL Borderline High: 150-199 mg/dL High: 200-499 mg/dL Very High: >500 mg/dL Performed By: #### L 3300.6750, L500.4050, L100.0100, L501.63687, L501.9520, L503.0106, L506.1001, L500.4100, L501.9985 #### [facility] [address] [place], [address] Lymphocytes Auto (Unsp spec) [#/Vol]Ordered By: Heath Sebastian on 10-10-2024 Lymphocytes (Bld) [#/Vol] 2.39 10*3/uL 0.83-4.51 [facility] Lymphocytes/100 WBC Auto (Un sp spec)Ordered By: Heath Sebastian on 10-10-2024 Lymphocytes/100 WBC (Bld) 27.9 % 19-41 [facility] MCV (mean corpuscular volume ) determinationOrdered By: Heath Sebastian on 10-10-2024 MCV (RBC) [Entitic vol] 82.7 fL 81-99 [facility] Mean corpuscular hemoglobin (MCH) determinationOrdered By: Heath Sebastian on 10-10-2024 MCH (RBC) [Entitic mass] 27.9 pg 27.0-32.0 [facility] Mean corpuscular hemoglobin concentration (MCHC) determinationOrdered By: Heath Sebastian on 10-10-2024 MCHC (RBC) [Mass/Vol] 33.8 g/dL 32-36 [facility] Mean platelet volume determi nationOrdered By: Heath Sebastian on 10-10-2024 Platelet mean volume (Bld) [Entitic vol] 9.0 fL 6.2-12.0 [facility] Monocyte percentageOrdered B y: Heath Sebastian on 10-10-2024 Monocytes/100 WBC (Bld) 5.4 % 0-10 [facility] Neutrophil percentageOrdered By: Heath Sebastian on 10-10-2024 Neutrophils/100 WBC (Bld) 65.1 % 47-70 [facility] Nucleated red blood cell per centageOrdered By: Heath Sebastian on 10-10-2024 Nucleated RBC/100 WBC (Bld) [Ratio] 0 % 0-5 [facility] Platelet countOrdered By: Monet Sebastian on 10-10-2024 Platelets (Bld) [#/Vol] 342 10*3/uL 150-450 [facility] Potassium (Unsp spec) [Mass/ Vol]Ordered By: Heath Sebastian on 10-10-2024 Potassium [Moles/Vol] 4.1 mmol/L 3.3-5.1 [facility] Potassium measurement (mass/ volume)Ordered By: Heath Sebastian on 10-10-2024 Potassium (Unsp spec) [Mass/Vol] 4.1 mmol/L 3.3-5.1 [facility] RBC Auto (Bld) [#/Vol]Ordere d By: Heath Sebastian on 10-10-2024 RBC (Bld) [#/Vol] 4.73 10*6/uL 4.2-5.[address] [facility] Screening total cholesterol/ high density lipoprotein (HDL) cholesterol ratioOrdered By: Heath Sebastian on 10-10-2024 Cholesterol.total/Chol esterol in HDL [Mass ratio] 3.90 {ratio} [facility] Serum creatinine measurement (mass/volume)Ordered By: Heath Sebastian on 10-10-2024 Creatinine [Mass/Vol] 0.82 mg/dL 0.70-1.20 [facility] Serum globulin measurementOr dered By: Heath Sebastian on 10-10-2024 Globulin (S) [Mass/Vol] 3.6 g/dL 2.2-4.2 [facility] Serum glucose measurement (m ass/volume)Ordered By: Heath Sebastian on 10-10-2024 Glucose [Mass/Vol] 81 mg/dL 70-99 [facility] Serum or plasma alanine linda otransferase (ALT) measurementOrdered By: Heath Sebastian on 10-10-2024 ALT [Catalytic activity/Vol] 12 U/L <35 [facility] Serum or plasma albumin christiane urement (mass/volume)Ordered By: Heath Sebastian on 10-10-2024 Albumin [Mass/Vol] 4.4 g/dL 3.5-5.0 [facility] Serum or plasma albumin/glob ulin mass ratioOrdered By: Heath Sebastian on 10-10-2024 Albumin/Globulin [Mass ratio] 1.2 {ratio} 0.9-2.4 [facility] Serum or plasma alkaline jadon sphatase measurementOrdered By: Heath Sebastian on 10-10-2024 ALP [Catalytic activity/Vol] 159 U/L High 35-104 [facility] Serum or plasma calcium christiane urement (mass/volume)Ordered By: Heath Sebastian on 10-10-2024 Calcium [Mass/Vol] 9.6 mg/dL 7.6-11.0 [facility] Serum or plasma cholesterol in HDL measurement (mass/volume)Ordered By: Heath Sebastian on 10-10-2024 Cholesterol in HDL [Mass/Vol] 40 mg/dL >40 [facility] Comment on above: National Cholesterol Education Program (NCEP) guidelines:<40 mg/dL: Low HDL-cholesterol (major risk factor for CHD)>= 60 mg/dL: High HDL-cholesterol (negative risk factor for CHD)HDL-cholesterol is affected by a number of factors, e.g. smoking, exercise, hormones, sex and age. Serum or plasma cholesterol measurement (mass/volume)Ordered By: Heath Sebastian on 10-10-2024 Cholesterol [Mass/Vol] 155 mg/dL <201 [facility] Comment on above: Cholesterol level, D esirable <200 mg/dLBorderline high cholesterol 200-239 mg/dLHigh cholesterol >=240 mg/dLRecommendations of the NCEP Adult Treatment Panel for the following risk-cutoff thresholds for the [place] population. Serum or plasma thyroperoxid ase antibody assay (units/volume)Ordered By: Heath Sebastian on 10-10-2024 TPO Ab Qn 38 [IU]/mL High 0-34 [facility] Serum or plasma urea nitroge n measurement (mass/volume)Ordered By: Heath Sebastian on 10-10-2024 Urea nitrogen [Mass/Vol] 14 mg/dL 4-19 [facility] Sodium levelOrdered By: Heath Sebastian on 10-10-2024 Sodium [Moles/Vol] 138 mmol/L 133-145 [facility] TPO Ab QnOrdered By: Heath basurto on 10-10-2024 Thyroid Peroxidase Antibodies 38 IU/mL High 0-34 [facility] TSH DL <= 0.005 mIU/L QnOrde red By: Heath Sebastian on 10-10-2024 Thyroid Stimulating Hormone (TSH) 1.190 uIU/mL 0.300-4.200 [facility] TSH Qn 1.190 uIU/mL 0.300-4.200 [facility] Thyroglobulin Ab serumOrdere d By: Heath Sebastian on 10-10-2024 Thyroglobulin Antibody < 1.0 IU/mL 0.0-0.9 [facility] Comment on above: Thyroglobulin Antibo dy measured by OpenQMethodologyIt should be noted that the presence of thyroglobulinantibodies may not be pathogenic nor diagnostic, especiallyat very low levels. The assay spray gun striper has found thatfour percent of individuals without evidence of thyroiddisease or autoimmunity will have positive TgAb levels upto 4 IU/mL.Performed at: [facility] [id number] Director: Asa Bateman PhD, Phone: [phone] Thyroid Stim Hormone (TSH)on 10-10-2024 TSH 1.190 uIU/mL Normal 0.300-4.200 [facility] Comment on above: Performed By: #### L 3300.6750, L500.4050, L100.0100, L501.22443, L501.9520, L503.0106, L506.1001, L500.4100, L501.9985 #### [facility] [address] [place], [address] Total proteinOrdered By: Mariposa Sebastian on 10-10-2024 Protein [Mass/Vol] 8.0 g/dL 5.9-8.4 [facility] Triglycerides measurementOrd ered By: Heath Sebastian on 10-10-2024 Triglyceride [Mass/Vol] 83 mg/dL <199 [facility] Comment on above: The drugs N-Acetylcy steine and Metamizole may falsely depress this assay. Normal range: <150 mg/dLBorderline High: 150-199 mg/dLHigh: 200-499 mg/dLVery High: >500 mg/dL Vitamin B12 ser/plasOrdered By: Heath Sebastian on 10-10-2024 Cobalamin (Vitamin B12) [Mass/Vol] 652 pg/mL 180-914 [facility] Vitamin D, 25-hydroxyOrdered By: Heath Sebastian on 10-10-2024 Vitamin D 25-Hydroxy 17.0 ng/mL Low 30-100 [facility] Comment on above: Vitamin D StatusDefi ciency: <20 ng/mL (50nmol/L)Insufficiency: 20-30 ng/mL (50-75 nmol/L)Sufficiency: 30-100 ng/mL (75-250 nmol/L)Toxicity: >100 ng/mL (>250 nmol/L) White blood cell (WBC) count Ordered By: Heath Sebastian on 10-10-2024 WBC (Bld) [#/Vol] 8.6 10*3/uL 4.4-11.0 [facility] Laboratory - Chemistry and C hemistry - challengeon 10-21-2023 HCG ( test) Ql (U) Negative [facility] Cervical or vagninal specime n microscopic examination by cytology stain (reported asOrdered By: Jes Dao on 10-19-2023 Cytology report Cyto stain Doc (Cvx/Vag) Comment . [facility] Comment on above: The Pap smear is a s creening test designed to aid in thedetection of premalignant and malignant conditions of theuterine cervix. It is not a diagnostic procedure andshould not be used as the sole means of detecting cervicalcancer. Both false-positive and false-negative reports dooccur. Laboratory - CytologyOrdered By: Jes Dao on 10-19-2023 Help Desk Specialist Cyto stain Nom (Cvx/Vag) [ID] Comment . [facility] Comment on above: Duke Koenig totechnologist (ASCP) Laboratory - Miscellaneous t estsOrdered By: Jes Dao on 10-19-2023 Service comment (Unsp spec) [Interp] . . [facility] No Panel InformationOrdered By: Jes Dao on 10-19-2023 Human Papillomavirus Screen Comment . [facility] Comment on above: The HPV DNA reflex jemal leyva were not met with this specimenresult therefore, no HPV testing was performed.Performed at: [address] [id number] Director: Yanira Coffey MD, Phone: [phone] Thin prep Papanicolaou smear with manual screeningOrdered By: Jes Dao on 10-19-2023 Thin prep Papanicolaou smear with manual screening Comment . [facility] Comment on above: NEGATIVE FOR INTRAEP ITHELIAL LESION OR MALIGNANCY. This liquid based Th inPrep(R) pap test was screened withthe use of an image guided system. Absolute lymphocyte countOrd ered By: Oma Catherine on 09-04-2023 Lymphocytes Auto (Unsp spec) [#/Vol] 2.24 10*3/uL 0.83-4.51 [facility] Automated lymphocyte count a s percentage of total leukocytesOrdered By: Oma Catherine on 09-04-2023 Lymphocytes/100 WBC Auto (Unsp spec) 17.7 % 19-41 [facility] Basophil percentageOrdered B y: Oma Catherine on 09-04-2023 Basophils/100 WBC (Bld) 0.2 % 0-1 [facility] Eosinophils/100 WBC (Bld) 0.4 % 0-5 [facility] Hemoglobin (Bld) [Mass/Vol] 11.3 g/dL 12.0-15.0 [facility] Monocytes/100 WBC (Bld) 6.2 % 0-10 [facility] Neutrophils (Bld) [#/Vol] 9.5 10*3/uL 2.0-7.7 [facility] Neutrophils/100 WBC (Bld) 75.0 % 47-70 [facility] WBC (Bld) [#/Vol] 12.7 10*3/uL 4.4-11.[address] [facility] Determination of erythrocyte mean corpuscular volume (MCV)Ordered By: Oma Catherine on 09-04-2023 MCV (RBC) [Entitic vol] 87.8 fL 81-99 [facility] Erythrocyte distribution wid th ratioOrdered By: Oma Catherine on 09-04-2023 Erythrocyte distribution width (RBC) [Ratio] 13.2 % 11.6-14.6 [facility] Erythrocyte distribution wid th standard deviationOrdered By: Omasuzanne Catherine on 09-04-2023 Erythrocyte distribution width (RBC) [Entitic vol] 42.2 fL 35.1-43.9 [facility] Hematocrit Auto (Bld) [Volum e fraction]Ordered By: Omasuzanne Catherine on 09-04-2023 Hematocrit (Bld) [Volume fraction] 33.8 % 37-47 [facility] Immature granulocytes/100 WB C Auto (Bld)Ordered By: Oma Catherine on 09-04-2023 Immature granulocytes/100 WBC (Bld) 0.500 % 0.0-0.9 [facility] Comment on above: IG% - Immature Granu locytes (promyelocytes, myelocytes and metamyelocytes) > 1% indicates that a LEFT SHIFT is Present. Laboratory - Hematology and Cell countsOrdered By: Oma Catherine on 09-04-2023 MCH (RBC) [Entitic mass] 29.4 pg 27.0-32.0 [facility] MCHC (RBC) [Mass/Vol] 33.4 g/dL 32-36 [facility] Nucleated RBC/100 WBC (Bld) [Ratio] 0 % 0-5 [facility] Platelets (Bld) [#/Vol] 300 10*3/uL 150-450 [facility] Platelet mean volume Aftab-Ec ker (Bld) [Entitic vol]Ordered By: Oma Catherine on 09-04-2023 Platelet mean volume (Bld) [Entitic vol] 9.7 fL 6.2-12.0 [facility] RBC Auto (Bld) [#/Vol]Ordere d By: Oma Catherine on 09-04-2023 RBC (Bld) [#/Vol] 3.85 10*6/uL 4.2-5.[address] [facility] Serum Treponema species anti body detectionOrdered By: Oma Catherine on 09-04-2023 Treponema sp Ab Ql (S) Non-Reactive [facility] Laboratory - Chemistry and C hemistry - challengeon 08-24-2023 Glucose Ql (U) Negative [facility] Laboratory - Urinalysison Protein Ql (U) Negative [facility] Laboratory - Chemistry and C hemistry - challengeon 08-19-2023 Glucose Ql (U) Negative [facility] Laboratory - Urinalysison Protein Ql (U) Negative [facility] Progress Noteon 08-10-2023 Procurement Consultant Authentication Interface Message Text MFM attending note: [...] urinary obstruction, aneuploidy, and/or a genetic syndrome. [facility] Plan of Care Diagnosis: UTD A2-3, left UTD A2-3 and large bladder. Possible intermittent bladder neck obstruction. Low risk Cell free DNA aneuploidy screening Plan: 1. 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 2. Follow up q4 weeks to evaluate biometric parameters and renals. These are planned with the [facility]. 3. surveillance as follows: as [...] within 1 week after . Please call [facility] at [phone]. 10. Possible additional imaging and follow up as per Pediatric Urology. 11. Other follow up as clinically indicated. Chart review and preparation: 10 minutes. Face to face: 20 minutes. Documentation and care coordination: 10 minutes. Total time spent on patient care today: 40 minutes. Normal [facility] Laboratory - Chemistry and C hemistry - challengeon 08-05-2023 Glucose Ql (U) Negative [facility] Laboratory - Urinalysison Protein Ql (U) Negative [facility] No Panel InformationOrdered By: Claribel Marino on 08-05-2023 Group B Streptococcus Culture Group B Beta Streptococcus is not isolated. [facility] Group B Streptococcus Culture Group B Beta Streptococcus is not isolated. [facility] Laboratory - Chemistry and C hemistry - challengeon 07-29-2023 Glucose Ql (U) Negative [facility] Laboratory - Urinalysison Protein Ql (U) Negative [facility] Absolute lymphocyte countOrd ered By: Oma Catherine on 07-14-2023 Lymphocytes Auto (Unsp spec) [#/Vol] 2.72 10*3/uL 0.83-4.51 [facility] Basophil percentageOrdered B y: Oma Catherine on 07-14-2023 Basophils/100 WBC (Bld) 0.4 % 0-1 [facility] Eosinophils/100 WBC (Bld) 0.6 % 0-5 [facility] Neutrophils (Bld) [#/Vol] 7.3 10*3/uL 2.0-7.7 [facility] Neutrophils/100 WBC (Bld) 67.3 % 47-70 [facility] WBC (Bld) [#/Vol] 10.9 10*3/uL 4.4-11.[address] [facility] Blood erythrocytes count (nu mber/volume)Ordered By: Oma Catherine on 07-14-2023 RBC (Bld) [#/Vol] 3.64 10*6/uL 4.2-5.[address] [facility] Blood hemoglobin measurement (mass/volume)Ordered By: Oma Catherine on 07-14-2023 Hemoglobin (Bld) [Mass/Vol] 10.8 g/dL 12.0-15.0 [facility] Blood lymphocytes/100 leukoc ytesOrdered By: Oma Catherine on 07-14-2023 Lymphocytes/100 WBC (Bld) 25.0 % 19-41 [facility] Blood monocytes/100 leukocyt esOrdered By: Oma Catherine on 07-14-2023 Monocytes/100 WBC (Bld) 6.2 % 0-10 [facility] Blood platelet mean volumeOr dered By: Oma Catherine on 07-14-2023 Platelet mean volume (Bld) [Entitic vol] 9.3 fL 6.2-12.0 [facility] Determination of erythrocyte mean corpuscular volume (MCV)Ordered By: Oma Catherine on 07-14-2023 MCV (RBC) [Entitic vol] 88.5 fL 81-99 [facility] Hematocrit Auto (Bld) [Volum e fraction]Ordered By: Oma Catherine on 07-14-2023 Hematocrit (Bld) [Volume fraction] 32.2 % 37-47 [facility] Laboratory - Chemistry and C hemistry - challengeon 07-14-2023 Glucose Ql (U) Negative [facility] Laboratory - Hematology and Cell countsOrdered By: Oma Catherine on 07-14-2023 Erythrocyte distribution width (RBC) [Entitic vol] 40.2 fL 35.1-43.9 [facility] Erythrocyte distribution width (RBC) [Ratio] 12.6 % 11.6-14.6 [facility] Immature granulocytes/100 WBC (Bld) 0.500 % 0.0-0.9 [facility] Comment on above: IG% - Immature Granu locytes (promyelocytes, myelocytes and metamyelocytes) > 1% indicates that a LEFT SHIFT is Present. MCH (RBC) [Entitic mass] 29.7 pg 27.0-32.0 [facility] Nucleated RBC/100 WBC (Bld) [Ratio] 0 % 0-5 [facility] Laboratory - Urinalysison Protein Ql (U) Negative [facility] MCHC Auto (RBC) [Mass/Vol]Or dered By: Oma Catherine on 07-14-2023 MCHC (RBC) [Mass/Vol] 33.5 g/dL 32-36 [facility] Platelets bldOrdered By: Brittney Catherine on 07-14-2023 Platelets (Bld) [#/Vol] 274 10*3/uL 150-450 [facility] Laboratory - Chemistry and C hemistry - challengeon 06-27-2023 Glucose Ql (U) Negative [facility] Laboratory - Urinalysison Protein Ql (U) Negative [facility] Quantitative serum or plasma 3 hour gestational glucose tolerance panelOrdered By: Vanna Tracey on 06-13-2023 Glucose tolerance 3 hours gestational panel See comment [facility] Comment on above: FASTING 83 Col: 06/01 10/21 [id number] TOLERANCE TEST FOR Reference Interval GESTATIONAL DIABETES Fasting <105 mg/dL 1 hour <190 mg/dl 2 hour <165 mg/dl 3 hour <145 mg/dl 1 HR GLU 162 Col: 06/13/23 0801 2 HR GLU 121 Col: 06/13/23 0859 3 HR GLU 76 Col: 06/13/23 1004 Absolute lymphocyte countOrd ered By: Oma aCtherine on 06-07-2023 Lymphocytes Auto (Unsp spec) [#/Vol] 1.60 10*3/uL 0.83-4.51 [facility] Basophil percentageOrdered B y: Oma Catherine on 06-07-2023 Basophils/100 WBC (Bld) 0.3 % 0-1 [facility] Eosinophils/100 WBC (Bld) 0.1 % 0-5 [facility] Neutrophils (Bld) [#/Vol] 7.0 10*3/uL 2.0-7.7 [facility] Neutrophils/100 WBC (Bld) 77.5 % 47-70 [facility] WBC (Bld) [#/Vol] 9.0 10*3/uL 4.4-11.0 [facility] Blood erythrocytes count (nu mber/volume)Ordered By: Oma Catherine on 06-07-2023 RBC (Bld) [#/Vol] 3.50 10*6/uL 4.2-5.[address] [facility] Blood hemoglobin measurement (mass/volume)Ordered By: Oma Catherine on 06-07-2023 Hemoglobin (Bld) [Mass/Vol] 10.7 g/dL 12.0-15.0 [facility] Blood lymphocytes/100 leukoc ytesOrdered By: Oma Catherine on 06-07-2023 Lymphocytes/100 WBC (Bld) 17.7 % 19-41 [facility] Blood monocytes/100 leukocyt esOrdered By: Oma Catherine on 06-07-2023 Monocytes/100 WBC (Bld) 4.1 % 0-10 [facility] Blood platelet mean volumeOr dered By: Oma Catherine on 06-07-2023 Platelet mean volume (Bld) [Entitic vol] 9.1 fL 6.2-12.0 [facility] Determination of erythrocyte mean corpuscular volume (MCV)Ordered By: Oma Catherine on 06-07-2023 MCV (RBC) [Entitic vol] 89.1 fL 81-99 [facility] Gestational diabetes screen 1-hour screen with 50g oral glucose loadOrdered By: Oma Catherine on 06-07-2023 Glucose 1 Hr post 50 g glucose PO [Mass/Vol] 170 mg/dL 70-140 [facility] HIV 1 and HIV-2 antibody ass ay with HIV-1 p24 antigen detectionOrdered By: Oma Catherine on 06-07-2023 HIV 1+2 Ab+HIV1 p24 Ag IA Ql Non-Reactive Nonreactive [facility] Hematocrit Auto (Bld) [Volum e fraction]Ordered By: Oma Catherine on 06-07-2023 Hematocrit (Bld) [Volume fraction] 31.2 % 37-47 [facility] Laboratory - Chemistry and C hemistry - challengeon 06-07-2023 Glucose Ql (U) Negative [facility] Laboratory - Hematology and Cell countsOrdered By: Oma Catherine on 06-07-2023 Erythrocyte distribution width (RBC) [Entitic vol] 41.2 fL 35.1-43.9 [facility] Erythrocyte distribution width (RBC) [Ratio] 12.7 % 11.6-14.6 [facility] Immature granulocytes/100 WBC (Bld) 0.300 % 0.0-0.9 [facility] Comment on above: IG% - Immature Granu locytes (promyelocytes, myelocytes and metamyelocytes) > 1% indicates that a LEFT SHIFT is Present. MCH (RBC) [Entitic mass] 30.6 pg 27.0-32.0 [facility] Nucleated RBC/100 WBC (Bld) [Ratio] 0 % 0-5 [facility] Laboratory - Urinalysison Protein Ql (U) Negative [facility] MCHC Auto (RBC) [Mass/Vol]Or dered By: Oma Catherine on 06-07-2023 MCHC (RBC) [Mass/Vol] 34.3 g/dL 32-36 [facility] Platelets bldOrdered By: Brittney Catherine on 06-07-2023 Platelets (Bld) [#/Vol] 252 10*3/uL 150-450 [facility] Serum Treponema species anti body detectionOrdered By: Oma Catherine on 06-07-2023 Treponema sp Ab Ql (S) Non-Reactive [facility] Laboratory - Chemistry and C hemistry - challengeon 05-19-2023 Glucose Ql (U) Negative [facility] Laboratory - Urinalysison Protein Ql (U) Negative [facility] Laboratory - Chemistry and C hemistry - challengeon 04-21-2023 Glucose Ql (U) Negative [facility] Laboratory - Urinalysison Protein Ql (U) Negative [facility] Laboratory - Chemistry and C hemistry - challengeon 03-22-2023 Glucose Ql (U) Negative [facility] Laboratory - Urinalysison Protein Ql (U) Negative [facility] Culture, urineOrdered By: Benjamín Catherine on 02-16-2023 Bacteria identified Cx Nom (U) Positive [facility] Bacteria identified Cx Nom (U) Positive [facility] Laboratory - Chemistry and C hemistry - challengeon 02-16-2023 Bilirubin Ql (U) Negative [facility] Glucose Ql (U) Negative [facility] Ketones Ql (U) Trace (5) [facility] Specific gravity (U) [Rel density] 1.005 [facility] Urobilinogen (U) [Mass/Vol] Negative [facility] Laboratory - Hematology and Cell countson 02-16-2023 Hemoglobin Ql (U) Negative [facility] Laboratory - Specimen inform ationon 02-16-2023 Clarity (U) Clear [facility] Color (U) Colorless [facility] Laboratory - Urinalysison Nitrite Ql (U) Negative [facility] Protein Ql (U) Negative [facility] No Panel Informationon 02-16 Urine Leukocytes Negatve [facility] Urine Non-Hemolyzed Blood [facility] Absolute lymphocyte countOrd ered By: Oma Catherine on 02-07-2023 Lymphocytes Auto (Unsp spec) [#/Vol] 3.15 10*3/uL 0.83-4.51 [facility] Basophil percentageOrdered B y: Oma Catherine on 02-07-2023 Basophils/100 WBC (Bld) 0.4 % 0-1 [facility] Eosinophils/100 WBC (Bld) 0.8 % 0-5 [facility] Neutrophils (Bld) [#/Vol] 5.2 10*3/uL 2.0-7.7 [facility] Neutrophils/100 WBC (Bld) 57.6 % 47-70 [facility] WBC (Bld) [#/Vol] 9.1 10*3/uL 4.4-11.0 [facility] Blood erythrocytes count (nu mber/volume)Ordered By: Oma Catherine on 02-07-2023 RBC (Bld) [#/Vol] 3.91 10*6/uL 4.2-5.[address] [facility] Blood hemoglobin measurement (mass/volume)Ordered By: Oma Catherine on 02-07-2023 Hemoglobin (Bld) [Mass/Vol] 11.5 g/dL 12.0-15.0 [facility] Blood lymphocytes/100 leukoc ytesOrdered By: Oma Catherine on 02-07-2023 Lymphocytes/100 WBC (Bld) 34.8 % 19-41 [facility] Blood monocytes/100 leukocyt esOrdered By: Oma Catherine on 02-07-2023 Monocytes/100 WBC (Bld) 6.1 % 0-10 [facility] Blood platelet mean volumeOr dered By: Oma Catherine on 02-07-2023 Platelet mean volume (Bld) [Entitic vol] 9.7 fL 6.2-12.0 [facility] Determination of erythrocyte mean corpuscular volume (MCV)Ordered By: Oma Catherine on 02-07-2023 MCV (RBC) [Entitic vol] 87.5 fL 81-99 [facility] Gestational diabetes screen 1-hour screen with 50g oral glucose loadOrdered By: Oma Catherine on 02-07-2023 Glucose 1 Hr post 50 g glucose PO [Mass/Vol] 84 mg/dL 70-140 [facility] HIV 1 and HIV-2 antibody ass ay with HIV-1 p24 antigen detectionOrdered By: Oma Catherine on 02-07-2023 HIV 1+2 Ab+HIV1 p24 Ag IA Ql Non-Reactive Nonreactive [facility] Hematocrit Auto (Bld) [Volum e fraction]Ordered By: Oma Catherine on 02-07-2023 Hematocrit (Bld) [Volume fraction] 34.2 % 37-47 [facility] Laboratory - Hematology and Cell countsOrdered By: Oma Catherine on 02-07-2023 Erythrocyte distribution width (RBC) [Entitic vol] 40.0 fL 35.1-43.9 [facility] Erythrocyte distribution width (RBC) [Ratio] 12.5 % 11.6-14.6 [facility] Immature granulocytes/100 WBC (Bld) 0.300 % 0.0-0.9 [facility] Comment on above: IG% - Immature Granu locytes (promyelocytes, myelocytes and metamyelocytes) > 1% indicates that a LEFT SHIFT is Present. MCH (RBC) [Entitic mass] 29.4 pg 27.0-32.0 [facility] Nucleated RBC/100 WBC (Bld) [Ratio] 0 % 0-5 [facility] Auto (RBC) [Mass/Vol]Or dered By: Oma Catherine on 02-07-2023 MCHC (RBC) [Mass/Vol] 33.6 g/dL 32-36 [facility] No Panel InformationOrdered By: Oma Catherine on 02-07-2023 Hepatitis B Surface Antigen Non-Reactive Nonreactive [facility] Hepatitis C Antibody Non-Reactive Nonreactive [facility] Comment on above: Non Reactive: < 0.8 Equivocal: >/= 0.8 to < 1.0 Reactive: >/= 1.0The CDC recommends that a reactive/equivocal HCV antibody result be followed up by the HCV Nucleic Acid Amplificationtest (170767) Miscellaneous Test Comment MAILED SPECIMEN [facility] Rubella IgG Antibody Reactive Nonreactive [facility] Comment on above: Antibody Results Int erpretation of Immune Status Non Reactive Presumed Non-Immune Equivocal Equivocal Reactive Presumed Immune Platelets bldOrdered By: Brittney Catherine on 02-07-2023 Platelets (Bld) [#/Vol] 267 10*3/uL 150-450 [facility] Serum Treponema species anti body detectionOrdered By: Oma Catherine on 02-07-2023 Treponema sp Ab Ql (S) Non-Reactive [facility] Chlamydia trachomatis rRNA d etection by probe and target amplification methodOrdered By: Oma Catherine on 01-26-2023 C. trachomatis rRNA LEXII+probe Ql (Unsp spec) Negative Negative [facility] Culture, urineOrdered By: Benjamín Catherine on 01-26-2023 Bacteria identified Cx Nom (U) Presumptive C albicans [facility] Laboratory - Microbiology an d Antimicrobial susceptibilityOrdered By: Oma Catherine on 01-26-2023 N. gonorrhoeae DNA LEXII+probe Ql (Unsp spec) Negative Negative [facility] Comment on above: Performed at: =[address] [place] [id number] Director: Yanira Coffey MD, Phone: [phone] Serum or plasma choriogonado tropin detectionOrdered By: Dr. Marino on 12-23-2022 HCG ( test) Ql 73 mIU/mL <4 [facility] Comment on above: hCG levels with Gest ational AgeGestational Age hCG mIU/mL (IU/L)0.2 - 1 week 5 - 501-2 weeks 50 - 5002-3 weeks 100 - 62970-0 weeks 500 - 887965-8 weeks 1000 - 867711-1 weeks 04651 - 100,0006-8 weeks 60747 - 200,0002-3 months 16138 - 100,000 Serum or plasma choriogonado tropin detectionOrdered By: Dr. Marino on 12-21-2022 HCG ( test) Ql 26 mIU/mL <4 [facility] Comment on above: hCG levels with Gest ational AgeGestational Age hCG mIU/mL (IU/L)0.2 - 1 week 5 - 501-2 weeks 50 - 5002-3 weeks 100 - 90562-9 weeks 500 - 543496-9 weeks 1000 - 593623-2 weeks 17512 - 100,0006-8 weeks 19158 - 200,0002-3 months 01100 - 100,000 Serum or plasma choriogonado tropin detectionOrdered By: Dr. Marino on 11-23-2022 HCG ( test) Ql < 1 mIU/mL <4 [facility] Comment on above: hCG levels with Gest ational AgeGestational Age hCG mIU/mL (IU/L)0.2 - 1 week 5 - 501-2 weeks 50 - 5002-3 weeks 100 - 54819-4 weeks 500 - 735340-7 weeks 1000 - 896691-8 weeks 38402 - 100,0006-8 weeks 43152 - 200,0002-3 months 46611 - 100,000 Serum or plasma progesterone measurement (mass/volume)Ordered By: Jes Dao on 11-09-2022 Progesterone [Mass/Vol] 1.05 ng/mL See Comment [facility] Comment on above: Progesterone Referen [...] 10-01-2022 Progesterone [Mass/Vol] 0.50 ng/mL See Comment [facility] Comment on above: Progesterone Referen ce Table: UNITS Female: Follicular 0.15 - 1.40 ng/mL Luteal 3.34 - 25.56 ng/mL Mid-luteal 4.44 - 28.03 ng/mL Postmenopausal 0.0 - 0.73 ng/mL : 1st Trimester 11.22 - 90.00 ng/mL 2nd Trimester 25.55 - 89.40 ng/mL 3rd Trimester 48.40 -422.50 ng/mL Serum or plasma choriogonado tropin detectionon 04-06-2022 HCG ( test) Ql 1 mIU/mL <4 [facility] Work Phone: Comment on above: hCG levels with Gest ational AgeGestational Age hCG mIU/mL (IU/L)0.2 - 1 week 5 - 501-2 weeks 50 - 5002-3 weeks 100 - 73879-8 weeks 500 - 977723-2 weeks 1000 - 679716-2 weeks 10424 - 100,0006-8 weeks 89844 - 200,0002-3 months 86166 - 100,000 Serum or plasma choriogonado tropin detectionon 03-29-2022 HCG ( test) Ql 17 mIU/mL <4 [facility] Work Phone: Comment on above: hCG levels with Gest ational AgeGestational Age hCG mIU/mL (IU/L)0.2 - 1 week 5 - 501-2 weeks 50 - 5002-3 weeks 100 - 24702-2 weeks 500 - 080571-6 weeks 1000 - 908011-5 weeks 10651 - 100,0006-8 weeks 99702 - 200,0002-3 months 45910 - 100,000 Serum or plasma choriogonado tropin detectionon 03-22-2022 HCG ( test) Ql 203 mIU/mL <4 [facility] Work Phone: Comment on above: hCG levels with Gest ational AgeGestational Age hCG mIU/mL (IU/L)0.2 - 1 week 5 - 501-2 weeks 50 - 5002-3 weeks 100 - 49798-2 weeks 500 - 509267-1 weeks 1000 - 330412-6 weeks 86530 - 100,0006-8 weeks 06324 - 200,0002-3 months 02747 - 100,000 Serum or plasma choriogonado tropin detectionon 03-14-2022 HCG ( test) Ql 734 mIU/mL <4 [facility] Work Phone: Comment on above: hCG levels with Gest ational AgeGestational Age hCG mIU/mL (IU/L)0.2 - 1 week 5 - 501-2 weeks 50 - 5002-3 weeks 100 - 74434-7 weeks 500 - 939039-8 weeks 1000 - 376861-6 weeks 33748 - 100,0006-8 weeks 23381 - 200,0002-3 months 32733 - 100,000 Serum or plasma choriogonado tropin detectionon 03-11-2022 HCG ( test) Ql 940 mIU/mL <4 [facility] Work Phone: Comment on above: hCG levels with Gest ational AgeGestational Age hCG mIU/mL (IU/L)0.2 - 1 week 5 - 501-2 weeks 50 - 5002-3 weeks 100 - 24440-2 weeks 500 - 396058-3 weeks 1000 - 638947-6 weeks 12628 - 100,0006-8 weeks 72682 - 200,0002-3 months 73417 - 100,000 Absolute lymphocyte counton 03-07-2022 Lymphocytes Auto (Unsp spec) [#/Vol] 2.67 10*3/uL 0.83-4.51 [facility] Work Phone: Basophil percentageon 2021 Basophils/100 WBC (Bld) 0.5 % 0-1 [facility] Work Phone: Bilirubin [Mass/Vol] 0.30 mg/dL 0.20-1.00 [facility] Work Phone: Comment on above: For patients on eltr ombopag therapy, use of Dimension [place] TBIL is not recommended. Chloride [Moles/Vol] 109 mmol/L 98-107 [facility] Work Phone: Eosinophils/100 WBC (Bld) 0.5 % 0-5 [facility] Work Phone: Glucose [Mass/Vol] 96 mg/dL 74-106 [facility] Work Phone: Neutrophils (Bld) [#/Vol] 4.3 10*3/uL 2.0-7.7 [facility] Work Phone: Neutrophils/100 WBC (Bld) 57.4 % 47-70 [facility] Work Phone: Potassium [Moles/Vol] 4.1 mmol/L 3.5-5.1 [facility] Work Phone: Protein [Mass/Vol] 7.2 g/dL 6.4-8.2 [facility] Work Phone: Sodium [Moles/Vol] 139 mmol/L 136-145 [facility] Work Phone: WBC (Bld) [#/Vol] 7.6 10*3/uL 4.4-11.0 [facility] Work Phone: [facility]ophil percentage 0 [facility]: Bilirubin Test strip Ql (U)o n 03-07-2022 Bilirubin Ql (U) Negative Negative [facility] Work Phone: Blood erythrocytes count (nu mber/volume)on 03-07-2022 RBC (Bld) [#/Vol] 4.45 10*6/uL 4.2-5.[address] [facility] Work Phone: Blood hemoglobin measurement (mass/volume)on 03-07-2022 Hemoglobin (Bld) [Mass/Vol] 12.6 g/dL 12.0-15.0 [facility] Work Phone: Blood lymphocytes/100 leukoc yteson 03-07-2022 Lymphocytes/100 WBC (Bld) 35.3 % 19-41 [facility] Work Phone: Blood monocytes/100 leukocyt eson 03-07-2022 Monocytes/100 WBC (Bld) 6.0 % 0-10 [facility] Work Phone: Blood platelet mean volumeon 03-07-2022 Platelet mean volume (Bld) [Entitic vol] 9.3 fL 6.2-12.0 [facility] Work Phone: Determination of erythrocyte mean corpuscular volume (MCV)on 03-07-2022 MCV (RBC) [Entitic vol] 84.0 fL 81-99 [facility] Work Phone: Hematocrit Auto (Bld) [Volum e fraction]on 03-07-2022 Hematocrit (Bld) [Volume fraction] 37.4 % 37-47 [facility] Work Phone: Ketones Test strip Ql (U)on 03-07-2022 Ketones Ql (U) Negative Negative [facility] Work Phone: Laboratory - Chemistry and C hemistry - challengeon 03-07-2022 ALP [Catalytic activity/Vol] 90 U/L 45-117 [facility] Work Phone: ALT [Catalytic activity/Vol] 43 U/L 13-56 [facility] Work Phone: CO2 [Moles/Vol] 25.0 mmol/L 21.0-32.0 [facility] Work Phone: Globulin (S) [Mass/Vol] 3.5 g/dL 2.2-4.2 [facility] Work Phone: Urea nitrogen/Creatinine [Mass ratio] 9.1 mg/mg 10-20 [facility] Work Phone: Laboratory - Hematology and Cell countson 03-07-2022 Erythrocyte distribution width (RBC) [Entitic vol] 39.3 fL 35.1-43.9 [facility] Work Phone: Erythrocyte distribution width (RBC) [Ratio] 12.9 % 11.6-14.6 [facility] Work Phone: Immature granulocytes/100 WBC (Bld) 0.300 % 0.0-0.9 [facility] Work Phone: Comment on above: IG% - Immature Granu locytes (promyelocytes, myelocytes and metamyelocytes) > 1% indicates that a LEFT SHIFT is Present. MCH (RBC) [Entitic mass] 28.3 pg 27.0-32.0 [facility] Work Phone: Nucleated RBC/100 WBC (Bld) [Ratio] 0 % 0-5 [facility] Work Phone: MCHC Auto (RBC) [Mass/Vol]on 03-07-2022 MCHC (RBC) [Mass/Vol] 33.7 g/dL 32-36 [facility] Work Phone: Mucus LM Ql (Urine sed)on Mucus Ql (Urine sed) 0 SEEN /hpf [facility] Work Phone: Nitrite Test strip Ql (U)on 03-07-2022 Nitrite Ql (U) Negative Negative [facility] Work Phone: No Panel Informationon 03-07 Estimated Creatinine Clearance Calc 120.78 ml/min [facility] Work Phone: Estimated GFR (MDRD) Amer 117 mL/min >60 [facility] Work Phone: Comment on above: GFR Calc Estimated GFR (MDRD) Non-Af Amer 97 mL/min >60 [facility] Work Phone: Comment on above: Non- GFR Calc Platelets bldon 03-07-2022 Platelets (Bld) [#/Vol] 287 10*3/uL 150-450 [facility] Work Phone: Protein Test strip Ql (U)on 03-07-2022 Protein Ql (U) Negative Negative [facility] Work Phone: Serum or plasma albumin christiane urement (mass/volume)on 03-07-2022 Albumin [Mass/Vol] 3.7 g/dL 3.2-5.0 [facility] Work Phone: Serum or plasma albumin/glob ulin mass ratioon 03-07-2022 Albumin/Globulin [Mass ratio] 1.1 {ratio} 0.9-2.4 [facility] Work Phone: Serum or plasma calcium christiane urement (mass/volume)on 03-07-2022 Calcium [Mass/Vol] 9.3 mg/dL 8.5-10.1 [facility] Work Phone: Serum or plasma choriogonado tropin detectionon 03-07-2022 HCG ( test) Ql 562 mIU/mL <4 [facility] Work Phone: Comment on above: hCG levels with Gest ational AgeGestational Age hCG mIU/mL (IU/L)0.2 - 1 week 5 - 501-2 weeks 50 - 5002-3 weeks 100 - 41904-1 weeks 500 - 089168-3 weeks 1000 - 342532-1 weeks 66653 - 100,0006-8 weeks 21981 - 200,0002-3 months 45980 - 100,000 Serum or plasma creatinine m easurement (mass/volume)on 03-07-2022 Creatinine [Mass/Vol] 0.77 mg/dL 0.55-1.02 [facility] Work Phone: Comment on above: The validity of the calculated GFR & GFRAA in patients over 70 years has not been determined. Clinical correlation is essential. Serum or plasma urea nitroge n measurement (mass/volume)on 03-07-2022 Urea nitrogen [Mass/Vol] 7 mg/dL 7-18 [facility] Work Phone: Squamous epithelial cells de tection in urine sediment by light microscopyon 03-07-2022 Epithelial cells.squamous LM Ql (Urine sed) 0-5 SEEN /hpf 5-10 [facility] Work Phone: Thin prep Papanicolaou smear with manual screeningon 03-07-2022 Thin prep Papanicolaou smear with manual screening 32 U/L 15-37 [facility] Work Phone: Thin prep Papanicolaou smear with manual screening 5 5-15 [facility] Work Phone: Urine blood detectionon 08-0 RBC Ql (U) 150 /ul Negative [facility] Work Phone: RBC Ql (U) 10-25 SEEN /hpf 0-5 [facility] Work Phone: Urine clarityon 03-07-2022 Clarity (U) Sl. Cloudy Clear [facility] Work Phone: Urine color determinationon 03-07-2022 Color (U) Yellow Yellow [facility] Work Phone: Urine glucose detectionon Glucose Ql (U) Normal mg/dl Normal [facility] Work Phone: Urine leukocyte esterase det ection by dipstickon 03-07-2022 Leukocyte esterase Test strip Ql (U) Negative Negative [facility] Work Phone: Urine pHon 03-07-2022 pH (U) 6.5 [pH] 5.0 - 8.0 [facility] Work Phone: Urine sediment bacteria coun t by microscopy (number/high power field)on 03-07-2022 Bacteria LM.HPF (Urine sed) [#/Area] 1 /[HPF] None Seen [facility] Work Phone: Urine specific gravity measu rementon 03-07-2022 Specific gravity (U) [Rel density] 1.015 1.002-1.030 [facility] Work Phone: Urobilinogen Auto test strip Ql (U)on 03-07-2022 Urobilinogen Ql (U) 1 mg/dl Normal [facility] Work Phone: Serum or plasma choriogonado tropin detectionon 03-06-2022 HCG ( test) Ql 487 mIU/mL <4 [facility] Work Phone: Comment on above: hCG levels with Gest ational AgeGestational Age hCG mIU/mL (IU/L)0.2 - 1 week 5 - 501-2 weeks 50 - 5002-3 weeks 100 - 61183-3 weeks 500 - 100500-4 weeks 1000 - 735781-2 weeks 19758 - 100,0006-8 weeks 98929 - 200,0002-3 months 88586 - 100,000 Serum or plasma choriogonado tropin detectionon 03-04-2022 HCG ( test) Ql 350 mIU/mL <4 [facility] Work Phone: Comment on above: hCG levels with Gest ational AgeGestational Age hCG mIU/mL (IU/L)0.2 - 1 week 5 - 501-2 weeks 50 - 5002-3 weeks 100 - 47465-0 weeks 500 - 272077-5 weeks 1000 - 000702-1 weeks 19877 - 100,0006-8 weeks 38681 - 200,0002-3 months 19185 - 100,000 Bacteria Ur Culton 2 Bacteria [...] F Susceptible <=40 , Resistant >40 Abnormal [facility] Comment on above: Performed By: #### 6 30-4 #### [facility] CLIA [id number] [address] [place] [address] OF [facility] CNOVon 02-16-2022 CNOV Office Visit (KAVITA ) CHELITA ROMERO ([id number]) 1995 F Date Time Provider Department 02/16/22 [...] significant past medical history who presents to [facility] today for evaluation of urinary [...] which included preparing to see the patient, [id number] patient care, completing clinical documentation, performing a [...] treated. A physician, nurse practitioner or physician staff physical therapy assistant may treat with a short course of an antibiotic. Delaying treatment can lead to worsening sympto (more content not included)... Normal [facility] UA DIP, URINE (POC)on 2021 BILIRUBIN UA (POCT) Negative Negative [facility] CLARITY UA (POCT) Clear [facility] COLOR UA (POCT) Yellow [facility] GLUCOSE UA (POCT) Negative Negative mg/dL [facility] HEMOGLOBIN/BLOOD UA (POCT) Trace-intact Abnormal Negative [facility] KETONE UA (POCT) Negative Negative mg/dL [facility] LEUKOCYTES UA (POCT) Trace Abnormal Negative [facility] NITRITE UA (POCT) Positive Abnormal Negative [facility] PH UA (POCT) 6.0 4.5 - 8.0 [facility] Protein Ql (U) Negative Negative mg/dL [facility] SPECIFIC GRAVITY UA (POCT) 1.020 1.005 - 1.030 [facility] UROBILINOGEN UA (POCT) 0.2 E.U./dL Alyssa l E.U./dL [facility] PPD (22054)Ordered By: Khoa Jackson on 02-09-2019 PPD (61065) 0mm Normal [facility] Work Phone: Comment on above: Negative SKIN TEST INTRADERMAL TB (86 580)Ordered By: MELLISSA Kimball on 03-08-2018 SKIN TEST INTRADERMAL TB (67491) Negative Normal [facility] Work Phone: Comment on above: read and negative lot:[id number] te:intra dermal Left forearm dose:0.5mlgiven by:stan Koehler LPN V ZOSTER IGG ABon 03-18-2017 V ZOSTER IGG AB < 135 Low Immune >165 [facility] Comment on above: Result Comment: Plea se Note: Specimen is hemolyzed. Negative <135 Equivocal 135 - 165 Positive >165A positive result generally indicates exposure to thepathogen or administration of specific immunoglobulins,but it is not indication of active infection or stageof disease.Performed At: [facility], [place] [id number] Vincent [id number] Performed By: #### L [id number] ####[facility] [place] [address]Xf# [phone] Vital Signs Date Time Vital Sign Value Performing Clinician Camille glez 04-29-2025 15:18-0400 Body height 180.34 cm Heath BRENNANC Work Phone: [facility] 04-29-2025 15:18-0400 Body mass index (BMI) [Ratio] 27.1 kg/m2 Heath Sebastian NP-C Work Phone: [facility] 04-29-2025 15:18-0400 Body weight 88.16 kg Heath Sebastian NP-C Work Phone: [facility] 04-29-2025 15:18-0400 Diastolic blood pressure 76 mm[Hg] Heath Sebastian SEARCH ENGINE [employer]IMIZER-C Work Phone: [phone] [place] [address] 04-29-2025 15:18-0400 Systolic blood pressure 130 mm[Hg] Heath Sebastian SEARCH ENGINE [employer]IMIZER-C Work Phone: [phone] [address] 04-08-2025 09:35-0400 Body height 180.34 cm Heath Sebastian SEARCH ENGINE [employer]IMIZER-C Work Phone: [phone])430-658020 [place] [address] 04-08-2025 09:35-0400 Body mass index (BMI) [Ratio] 28.5 kg/m2 Heath Sebastian SEARCH ENGINE [employer]IM[employer]ER-C Work Phone: [phone] [address] 04-08-2025 09:35-0400 Body weight 92.98 kg Heath Sebastian SEARCH ENGINE [employer]IMIZER-C Work Phone: [phone] [place] [address] 04-08-2025 09:35-0400 Diastolic blood pressure 70 mm[Hg] Heath Sebastian SEARCH ENGINE [employer]IM[employer]ER-C Work Phone: [phone] [place] [address] 04-08-2025 09:35-0400 Heart rate 77 /min Heath Sebastian SEARCH ENGINE [employer]IMIZER-C Work Phone: [phone] [place] [address] 04-08-2025 09:35-0400 SaO2% (BldA) [Mass fraction] 98 % Heath Sebastian SEARCH ENGINE [employer]IMIZER-C Work Phone: [phone] [place] [address] 04-08-2025 09:35-0400 Systolic blood pressure 107 mm[Hg] Heath Sebastian SEARCH ENGINE [employer]IMIZER-C Work Phone: [phone] [address] 10-21-2023 16:10-0400 Body height 180.34 cm No Primary Care Physician [facility] 10-21-2023 15:36-0400 Body mass index (BMI) [Ratio] 37.6 kg/m2 No Primary Care Physician [facility] 10-21-2023 15:36-0400 Body weight 122.52 kg No Primary Care Physician [facility] 10-21-2023 15:36-0400 Diastolic blood pressure 68 mm[Hg] No Primary Care Physician [facility] 10-21-2023 15:36-0400 Systolic blood pressure 118 mm[Hg] No Primary Care Physician [facility] 10-19-2023 15:41-0400 Body mass index (BMI) [Ratio] 37.5 kg/m2 No Primary Care Physician [facility] 10-19-2023 15:41-0400 Body weight 122.24 kg No Primary Care Physician [facility] 10-19-2023 15:41-0400 Diastolic blood pressure 71 mm[Hg] No Primary Care Physician [facility] 10-19-2023 15:41-0400 Systolic blood pressure 120 mm[Hg] No Primary Care Physician [facility] 09-06-2023 13:15-0500 Body temperature 97.6 [degF] No Primary Care Physician [facility] 09-06-2023 13:15-0500 Diastolic blood pressure 70 mm[Hg] No Primary Care Physician [facility] 09-06-2023 13:15-0500 Heart rate 72 /min No Primary Care Physician [facility] 09-06-2023 13:15-0500 Respiratory rate 16 /min No Primary Care Physician [facility] 09-06-2023 13:15-0500 SaO2% (BldA) [Mass fraction] 99 % No Primary Care Physician [facility] 09-06-2023 13:15-0500 Systolic blood pressure 115 mm[Hg] No Primary Care Physician [facility] 09-05-2023 06:50-0500 Body temperature 97.9 [degF] No Primary Care Physician [facility] 09-05-2023 06:50-0500 Diastolic blood pressure 59 mm[Hg] No Primary Care Physician [facility] 09-05-2023 06:50-0500 Heart rate 71 /min No Primary Care Physician [facility] 09-05-2023 06:50-0500 SaO2% (BldA) [Mass fraction] 100 % No Primary Care Physician [facility] 09-05-2023 06:50-0500 Systolic blood pressure 106 mm[Hg] No Primary Care Physician [facility] 09-04-2023 19:42-0500 Body height 180.34 cm No Primary Care Physician [facility] 09-04-2023 19:42-0500 Body mass index (BMI) [Ratio] 38.9 kg/m2 No Primary Care Physician [facility] 09-04-2023 19:42-0500 Body weight 126.55 kg No Primary Care Physician [facility] 08-31-2023 14:06-0500 Body mass index (BMI) [Ratio] 40 kg/m2 No Primary Care Physician [facility] 08-31-2023 14:06-0500 Body weight 126.55 kg No Primary Care Physician [facility] 08-31-2023 14:06-0500 Diastolic blood pressure 71 mm[Hg] No Primary Care Physician [facility] 08-31-2023 14:06-0500 Systolic blood pressure 107 mm[Hg] No Primary Care Physician [facility] 08-24-2023 10:27-0500 Body mass index (BMI) [Ratio] 39.9 kg/m2 No Primary Care Physician [facility] 08-24-2023 10:27-0500 Body weight 126.32 kg No Primary Care Physician [facility] 08-24-2023 10:27-0500 Diastolic blood pressure 77 mm[Hg] No Primary Care Physician [facility] 08-24-2023 10:27-0500 Systolic blood pressure 122 mm[Hg] No Primary Care Physician [facility] 08-19-2023 08:13-0500 Body mass index (BMI) [Ratio] 40.1 kg/m2 No Primary Care Physician [facility] 08-19-2023 08:13-0500 Body weight 126.72 kg No Primary Care Physician [facility] 08-19-2023 08:13-0500 Diastolic blood pressure 89 mm[Hg] No Primary Care Physician [facility] 08-19-2023 08:13-0500 Systolic blood pressure 126 mm[Hg] No Primary Care Physician [facility] 08-11-2023 14:13-0500 Body mass index (BMI) [Ratio] 39 kg/m2 No Primary Care Physician [facility] 08-11-2023 14:13-0500 Body weight 123.37 kg No Primary Care Physician [facility] 08-11-2023 14:13-0500 Diastolic blood pressure 79 mm[Hg] No Primary Care Physician [facility] 08-11-2023 14:13-0500 Systolic blood pressure 125 mm[Hg] No Primary Care Physician [facility] 08-05-2023 15:14-0500 Body height 177.8 cm No Primary Care Physician [facility] 08-05-2023 15:14-0500 Body mass index (BMI) [Ratio] 38.7 kg/m2 No Primary Care Physician [facility] 08-05-2023 15:14-0500 Body weight 122.46 kg No Primary Care Physician [facility] 08-05-2023 15:14-0500 Diastolic blood pressure 83 mm[Hg] No Primary Care Physician [facility] 08-05-2023 15:14-0500 Systolic blood pressure 128 mm[Hg] No Primary Care Physician [facility] 07-29-2023 14:06-0500 Body mass index (BMI) [Ratio] 38.7 kg/m2 No Primary Care Physician [facility] 07-29-2023 14:06-0500 Body weight 122.52 kg No Primary Care Physician [facility] 07-29-2023 14:06-0500 Diastolic blood pressure 73 mm[Hg] No Primary Care Physician [facility] 07-29-2023 14:06-0500 Systolic blood pressure 106 mm[Hg] No Primary Care Physician [facility] 07-14-2023 15:07-0500 Body mass index (BMI) [Ratio] 38.3 kg/m2 No Primary Care Physician [facility] 07-14-2023 15:07-0500 Body weight 121.33 kg No Primary Care Physician [facility] 07-14-2023 15:07-0500 Diastolic blood pressure 73 mm[Hg] No Primary Care Physician [facility] 07-14-2023 15:07-0500 Systolic blood pressure 115 mm[Hg] No Primary Care Physician [facility] 06-27-2023 10:25-0500 Body height 177.8 cm No Primary Care Physician [facility] 06-27-2023 10:24-0500 Body mass index (BMI) [Ratio] 37.7 kg/m2 No Primary Care Physician [facility] 06-27-2023 10:24-0500 Body weight 119.29 kg No Primary Care Physician [facility] 06-27-2023 10:24-0500 Diastolic blood pressure 69 mm[Hg] No Primary Care Physician [facility] 06-27-2023 10:24-0500 Systolic blood pressure 113 mm[Hg] No Primary Care Physician [facility] 06-16-2023 19:48-0500 Diastolic blood pressure 73 mm[Hg] No Primary Care Physician [facility] 06-16-2023 19:48-0500 Heart rate 83 /min No Primary Care Physician [facility] 06-16-2023 19:48-0500 SaO2% (BldA) [Mass fraction] 89 % No Primary Care Physician [facility] 06-16-2023 19:48-0500 Systolic blood pressure 121 mm[Hg] No Primary Care Physician [facility] 06-16-2023 18:55-0500 Body height 177.8 cm No Primary Care Physician [facility] 06-16-2023 18:55-0500 Body mass index (BMI) [Ratio] 37.7 kg/m2 No Primary Care Physician [facility] 06-16-2023 18:55-0500 Body weight 119.2 kg No Primary Care Physician [facility] 06-16-2023 18:51-0500 Body temperature 97 [degF] No Primary Care Physician [facility] 06-07-2023 09:56-0500 Body height 177.8 cm No Primary Care Physician [facility] 06-07-2023 09:56-0500 Body mass index (BMI) [Ratio] 36.9 kg/m2 No Primary Care Physician [facility] 06-07-2023 09:56-0500 Body weight 116.68 kg No Primary Care Physician [facility] 06-07-2023 09:56-0500 Diastolic blood pressure 70 mm[Hg] No Primary Care Physician [facility] 06-07-2023 09:56-0500 Systolic blood pressure 114 mm[Hg] No Primary Care Physician [facility] 05-19-2023 10:37-0400 Body mass index (BMI) [Ratio] 36.2 kg/m2 No Primary Care Physician [facility] 05-19-2023 10:37-0400 Body weight 114.47 kg No Primary Care Physician [facility] 05-19-2023 10:37-0400 Diastolic blood pressure 74 mm[Hg] No Primary Care Physician [facility] 05-19-2023 10:37-0400 Systolic blood pressure 114 mm[Hg] No Primary Care Physician [facility] 04-21-2023 14:16-0400 Body height 177.8 cm No Primary Care Physician [facility] 04-21-2023 14:15-0400 Body mass index (BMI) [Ratio] 35 kg/m2 No Primary Care Physician [facility] 04-21-2023 14:15-0400 Body weight 110.78 kg No Primary Care Physician [facility] 04-21-2023 14:15-0400 Diastolic blood pressure 68 mm[Hg] No Primary Care Physician [facility] 04-21-2023 14:15-0400 Systolic blood pressure 107 mm[Hg] No Primary Care Physician [facility] 03-22-2023 09:05-0400 Body height 177.8 cm No Primary Care Physician [facility] 03-22-2023 09:05-0400 Body mass index (BMI) [Ratio] 34.5 kg/m2 No Primary Care Physician [facility] 03-22-2023 09:05-0400 Body weight 109.31 kg No Primary Care Physician [facility] 03-22-2023 09:05-0400 Diastolic blood pressure 60 mm[Hg] No Primary Care Physician [facility] 03-22-2023 09:05-0400 Systolic blood pressure 110 mm[Hg] No Primary Care Physician [facility] 02-23-2023 09:58-0400 Body mass index (BMI) [Ratio] 34.1 kg/m2 No Primary Care Physician [facility] 02-23-2023 09:58-0400 Body weight 108.01 kg No Primary Care Physician [facility] 02-23-2023 09:58-0400 Diastolic blood pressure 75 mm[Hg] No Primary Care Physician [facility] 02-23-2023 09:58-0400 Systolic blood pressure 119 mm[Hg] No Primary Care Physician [facility] 02-16-2023 07:56-0400 Body mass index (BMI) [Ratio] 34.4 kg/m2 No Primary Care Physician [facility] 02-16-2023 07:56-0400 Body weight 108.91 kg No Primary Care Physician [facility] 01-26-2023 09:08-0400 Body height 177.8 cm No Primary Care Physician [facility] 01-26-2023 09:08-0400 Body mass index (BMI) [Ratio] 34.4 kg/m2 No Primary Care Physician [facility] 01-26-2023 09:08-0400 Body weight 108.91 kg No Primary Care Physician [facility] 01-26-2023 09:08-0400 Diastolic blood pressure 74 mm[Hg] No Primary Care Physician [facility] 01-26-2023 09:08-0400 Systolic blood pressure 116 mm[Hg] No Primary Care Physician [facility] 09-14-2022 15:02-0500 Body height 177.8 cm No Primary Care Physician [facility] 09-14-2022 14:59-0500 Body mass index (BMI) [Ratio] 31.8 kg/m2 No Primary Care Physician [facility] 09-14-2022 14:59-0500 Body weight 100.86 kg No Primary Care Physician [facility] 09-14-2022 14:59-0500 Diastolic blood pressure 84 mm[Hg] No Primary Care Physician [facility] 09-14-2022 14:59-0500 Systolic blood pressure 130 mm[Hg] No Primary Care Physician [facility] 03-24-2022 14:42-0400 Body height 177.[address] Oma Bentley Work Phone: [facility] Work Phone: 03-24-2022 14:42-0400 Body mass index (BMI) [Ratio] 34.6 kg/m2 Dr. Oma Bentley Work Phone: [facility] Work Phone: 03-24-2022 14:28-0400 Body weight 109.[address] Oma Bentley Work Phone: [facility] Work Phone: 03-24-2022 14:28-0400 Diastolic blood pressure 72 mm[Hg] Dr. Oma Bentley Work Phone: [facility] Work Phone: 03-24-2022 14:28-0400 Systolic blood pressure 110 mm[Hg] Dr. Oma Bentley Work Phone: [facility] Work Phone: 03-07-2022 15:57-0400 Respiratory rate 16 /min [facility] Work Phone: 03-07-2022 13:23-0400 Body height 177.8 cm [facility] Work Phone: 03-07-2022 13:23-0400 Body mass index (BMI) [Ratio] 34.3 kg/m2 [facility] Work Phone: 03-07-2022 13:23-0400 Body temperature 97.2 [degF] [facility] Work Phone: 03-07-2022 13:23-0400 Body weight 108.5 kg [facility] Work Phone: 03-07-2022 13:23-0400 Diastolic blood pressure 78 mm[Hg] [facility] Work Phone: 03-07-2022 13:23-0400 Heart rate 80 /min [facility] Work Phone: 03-07-2022 13:23-0400 SaO2% (BldA) [Mass fraction] 100 % [facility] Work Phone: 03-07-2022 13:23-0400 Systolic blood pressure 130 mm[Hg] [facility] Work Phone: 02-16-2022 11:10-0400 Body height 177.8 cm Shai Wormald PA-C Work Phone: [facility] 02-16-2022 11:10-0400 Body temperature 98.6 [degF] Shai Wormald PA-C Work Phone: [facility] 02-16-2022 11:10-0400 Body weight 109.77 kg Shai Wormald PA-C Work Phone: [facility] 02-16-2022 11:10-0400 Diastolic blood pressure 70 mm[Hg] Shai Wormald PA-C Work Phone: [facility] 02-16-2022 11:10-0400 Heart rate 70 /min Shai Wormald PA-C Work Phone: [facility] 02-16-2022 11:10-0400 Respiratory rate 16 /min Shai Wormald PA-C Work Phone: [facility] 02-16-2022 11:10-0400 SaO2% (BldA) [Mass fraction] 97 % Shai Wormald PA-C Work Phone: [facility] 02-16-2022 11:10-0400 Systolic blood pressure 110 mm[Hg] Shai Wormald PA-C Work Phone: [facility] Encounters Encounter Date Encounter Type Care Provider Facility Start: 04-29-2025 End: 04-29-[address] Oma Bentley DO -[facility] Work Phone: Start: 04-29-2025 End: 04-29-2025 ambulatory Heath Sebastian SEARCH ENGINE [employer]IMIZER-C Work Phone: -[facility] Start: 04-09-2025 End: 04-09-2025 ambulatory Heath Sebastian SEARCH ENGINE OPTIMIZER-C Work Phone: [facility] Start: 04-09-2025 End: 04-09-[address] Omar Boothe MD -[facility] Start: 04-08-2025 End: 04-08-[address] Omar Boothe MD -[facility] Work Phone: Start: 04-08-2025 End: 04-09-2025 ambulatory Heath Sebastian SEARCH ENGINE OPTIMIZER-C Work Phone: [facility] Start: 01-02-2025 End: 01-02-2025 ambulatory Heath Sebastian SEARCH ENGINE OPTIMIZER-C Work Phone: [facility] Work Phone: Start: 01-02-2025 End: 01-02-2025 Patient encounter procedure Heath Sebastian SEARCH ENGINE OPTIMIZER-C -[facility] Start: 01-02-2025 End: 01-02-2025 ambulatory Heath Sebastian VSC Facility:[facility] Start: 10-19-2024 End: 10-19-2024 ambulatory Heath Sebastian SEARCH ENGINE OPTIMIZER-C Work Phone: [facility] Work Phone: Start: 10-19-2024 End: 10-19-2024 Patient encounter procedure Heath Sebastian SEARCH ENGINE OPTIMIZER-C -[facility] Work Phone: Start: 10-19-2024 End: 10-19-2024 ambulatory Heath Sebastian VSC Facility:[facility] Start: 10-10-2024 End: 10-10-2024 ambulatory Heath Sebastian SEARCH ENGINE OPTIMIZER-C Work Phone: [facility] Work Phone: Start: 10-10-2024 End: 10-10-2024 Patient encounter procedure Heath Sebastian SEARCH ENGINE OPTIMIZER-C -Laboratory, [facility] Start: 10-10-2024 End: 10-10-2024 ambulatory Heath Sebastian C Facility:[facility] Start: 10-21-2023 End: 10-21-2023 Patient encounter procedure No Primary Care Physician [facility] [place] Work Phone: Start: 10-19-2023 End: 10-19-2023 ambulatory No Primary Care Physician [facility] Work Phone: Start: 10-19-2023 End: 10-19-2023 Patient encounter procedure No Primary Care Physician [facility]-Laboratory, Specimen Work Phone: Start: 10-19-2023 End: 10-19-2023 Patient encounter procedure No Primary Care Physician [facility] Work Phone: Start: 09-06-2023 Non-patient / Non-visit No Primary Care Physician [facility] Start: 09-05-2023 Non-patient / Non-visit No Primary Care Physician [id number] Start: 09-04-2023 End: 09-06-2023 Evaluation and management of inpatient No Primary Care Physician [facility] Work Phone: Start: 08-31-2023 End: 08-31-2023 Patient encounter procedure No Primary Care Physician [facility] [place] Work Phone: Start: 08-31-2023 End: 08-31-2023 ambulatory No Primary Care Physician [facility] Work Phone: Start: 08-31-2023 End: 08-31-2023 Patient encounter procedure No Primary Care Physician [facility] Work Phone: Start: 08-24-2023 End: 08-24-2023 Patient encounter procedure No Primary Care Physician [facility] [place] Work Phone: Start: 08-23-2023 End: 08-23-2023 Patient encounter procedure No Primary Care Physician [facility] Work Phone: Start: 08-19-2023 End: 08-19-2023 Patient encounter procedure No Primary Care Physician [facility] Work Phone: Start: 08-11-2023 End: 08-11-2023 Patient encounter procedure No Primary Care Physician [facility] [place] Work Phone: Start: 08-10-2023 End: 08-10-2023 ambulatory [facility] Start: 08-05-2023 End: 08-05-2023 ambulatory No Primary Care Physician [facility] Work Phone: Start: 08-05-2023 End: 08-05-2023 Patient encounter procedure No Primary Care Physician [facility] Work Phone: Start: 07-29-2023 End: 07-29-2023 Patient encounter procedure No Primary Care Physician [facility] Work Phone: Start: 07-14-2023 End: 07-14-2023 Patient encounter procedure No Primary Care Physician [facility] Work Phone: Start: 07-08-2023 End: 07-08-2023 ambulatory No Primary Care Physician [facility] Work Phone: Start: 07-08-2023 End: 07-08-2023 Patient encounter procedure No Primary Care Physician [facility] Work Phone: Start: 06-27-2023 End: 06-27-2023 Patient encounter procedure No Primary Care Physician [place] [facility] Work Phone: Start: 06-21-2023 Non-patient / Non-visit No Primary Care Physician [facility] Start: 06-16-2023 End: 06-16-2023 ambulatory No Primary Care Physician [facility] Work Phone: Start: 06-16-2023 End: 06-16-2023 Patient encounter procedure No Primary Care Physician [facility], Outpatients Work Phone: Start: 06-13-2023 End: 06-13-2023 ambulatory No Primary Care Physician [facility] Work Phone: Start: 06-13-2023 End: 06-13-2023 Patient encounter procedure No Primary Care Physician [facility]-Laboratory Work Phone: Start: 06-07-2023 End: 06-07-2023 ambulatory No Primary Care Physician [facility] Work Phone: Start: 06-07-2023 End: 06-07-2023 Patient encounter procedure No Primary Care Physician [facility] Work Phone: Start: 05-19-2023 End: 05-19-2023 Patient encounter procedure No Primary Care Physician [facility] Work Phone: Start: 05-12-2023 End: 05-12-2023 ambulatory No Primary Care Physician [facility] Work Phone: Start: 05-12-2023 End: 05-12-2023 Patient encounter procedure No Primary Care Physician [facility]-Ultrasound, [facility] Work Phone: Start: 04-21-2023 End: 04-21-2023 Patient encounter procedure No Primary Care Physician [facility] [place] Work Phone: Start: 04-12-2023 End: 04-12-2023 ambulatory No Primary Care Physician [facility] Work Phone: Start: 04-12-2023 End: 04-12-2023 Patient encounter procedure No Primary Care Physician [facility]Outpatient [facility] Ultrasound Work Phone: Start: 03-22-2023 End: 03-22-2023 Patient encounter procedure No Primary Care Physician [facility] Work Phone: Start: 02-23-2023 End: 02-23-2023 Patient encounter procedure No Primary Care Physician [facility] Work Phone: Start: 02-16-2023 End: 02-16-2023 Patient encounter procedure No Primary Care Physician [facility]-Laboratory, Specimen Work Phone: Start: 02-16-2023 End: 02-16-2023 Patient encounter procedure No Primary Care Physician [facility] [place] Work Phone: Start: 02-07-2023 End: 02-07-2023 ambulatory No Primary Care Physician [facility] Work Phone: Start: 02-07-2023 End: 02-07-2023 Patient encounter procedure No Primary Care Physician [facility]Labor[facility] Work Phone: Start: 01-26-2023 End: 01-26-2023 ambulatory No Primary Care Physician [facility] Work Phone: Start: 01-26-2023 End: 01-26-2023 Patient encounter procedure No Primary Care Physician [facility] [place] Work Phone: Start: 01-12-2023 End: 01-12-2023 ambulatory [facility] Work Phone: Start: 01-12-2023 End: 01-12-2023 Patient encounter procedure [facility]Ultrasound, [facility] Start: 01-07-2023 End: 01-07-2023 Patient encounter procedure [facility] Ultrasound Start: 12-23-2022 End: 12-23-2022 ambulatory No Primary Care Physician [facility] Work Phone: Start: 12-23-2022 End: 12-23-2022 Patient encounter procedure [facility]-Laboratory, OP Pavilion Start: 12-21-2022 End: 12-21-2022 ambulatory No Primary Care Physician [facility] Work Phone: Start: 12-21-2022 End: 12-21-2022 Patient encounter procedure [facility]Laboratory, OP Pavilion Start: 11-23-2022 End: 11-23-2022 ambulatory No Primary Care Physician [facility] Work Phone: Start: 11-23-2022 End: 11-23-2022 Patient encounter procedure No Primary Care Physician [facility]-Laboratory, OP Pavilion Start: 11-09-2022 End: 11-09-2022 ambulatory No Primary Care Physician [facility] Work Phone: Start: 11-09-2022 End: 11-09-2022 Patient encounter procedure No Primary Care Physician [facility]Laboratory, OP Pavilion Start: 10-01-2022 End: 10-01-2022 ambulatory No Primary Care Physician [facility] Work Phone: Start: 10-01-2022 End: 10-01-2022 Patient encounter procedure No Primary Care Physician [facility]Laboratory, OP Pavilion Start: 09-14-2022 End: 09-14-2022 Patient encounter procedure No Primary Care Physician [facility] Start: 06-03-2022 End: 06-03-[address] Oma Bentley Work Phone: [facility] Work Phone: Start: 06-03-2022 End: 06-03-[address] Oma Bentley Work Phone: [facility]-Radiology, [facility] Start: 04-06-2022 End: 04-06-[address] Oma Bentley Work Phone: [facility] Work Phone: Start: 04-06-2022 End: 04-06-[address] Oma Bentley Work Phone: [facility]-Laboratory, OP Pavilion Start: 03-29-2022 End: 03-29-[address] Oma Bentley Work Phone: [facility] Work Phone: Start: 03-29-2022 End: 03-29-[address] [facility] Start: 03-24-2022 End: 03-24-[address] Oma Bentley Work Phone: [facility] Start: 03-22-2022 End: 03-22-[address] Oma Bentley Work Phone: [facility] Work Phone: Start: 03-22-2022 End: 03-22-[address] [facility] Start: 03-14-2022 End: 03-14-2022 Patient encounter procedure [facility] Start: 03-11-2022 End: 03-11-2022 [facility] Start: 03-07-2022 End: 03-07-2022 Emergency department patient visit [facility]Emergency [facility] Start: 03-07-2022 End: 03-07-2022 [facility] Start: 03-06-2022 End: 03-06-2022 Patient encounter procedure [facility]Laboratory, Specimen Start: 03-04-2022 End: 03-04-2022 Patient encounter procedure [facility]Laboratory, OP Pavilion Start: 02-16-2022 End: 02-16-2022 Patient encounter procedure Shai Baires PA-C Work Phone: [facility] Comment on above: Leukocytes in urine (Primary Dx); Urinary frequency; Abnormal urine odor Start: 02-09-2019 End: 02-09-2019 Office outpatient visit 5 minutes [facility] Start: 02-07-2019 End: 02-07-2019 Office outpatient visit 5 minutes [facility] Start: 03-10-2018 End: 03-10-2018 Office outpatient visit 5 minutes [facility] Start: 03-08-2018 End: 03-08-2018 Office outpatient visit 5 minutes [facility] Start: 03-14-2017 Ambulatory Chidi Stephenson y:[facility] Procedures Date Procedure Procedure Detail Performing Clinician Start: 10-19-2024 US scan of thyroid Heath Sebastian NP-C Work Phone: Start: 10-10-2024 Thyroglobulin antibo dy measurement Heath Sebastian NP-C Work Phone: Comment on above: Thyroglobulin Antibo dy measured by Michael CoulterMethodologyIt should be noted that the presence of thyroglobulinantibodies may not be pathogenic nor diagnostic, especiallyat very low levels. The assay spray gun striper has found thatfour percent of individuals without evidence of thyroiddisease or autoimmunity will have positive TgAb levels upto 4 IU/mL.Performed at: [address] [id number] Director: Asa Bateman PhD, Phone: [phone] Start: 10-10-2024 Vitamin D, 25-hydrox y measurement [...] Patient encounter procedure Encounter for IUD removal -[facility] [place] Work Phone: Start: 04-29-2025 [facility] Start: 09-06-2023 Patient discharge [facility] Start: 09-05-2023 Administration of medication [facility] Start: 09-05-2023 Application of ice collar, cap or bag [facility] Start: 09-05-2023 Catheterization of vein [facility] Start: 09-05-2023 Introduction of urin senia catheter [facility] Start: 09-05-2023 Measuring intake and output [facility] Start: 09-05-2023 Notification of physician [facility] Start: 09-05-2023 Procedure discontinued [facility] Start: 09-05-2023 Provision of activit y privileges [facility] Start: 09-05-2023 Vital signs measurements [facility] Start: 09-05-2023 [facility] Start: 09-05-2023 [facility] Start: 09-04-2023 Notification of physician [facility] Start: 09-04-2023 [facility] Start: 09-04-2023 acoustic stimulation test [facility] Start: 09-04-2023 Intrauterine catheterization [facility] Start: 09-04-2023 End: 09-04-2023 [facility] Start: 09-04-2023 End: 09-04-2023 Notification of physician [facility] Start: 09-04-[address] [facility] Start: 09-04-2023 Anesthesia consultation [facility] Start: 09-04-2023 Application of intermittent pneumatic compression device [facility] Start: 09-04-2023 Insertion of cathete r into peripheral vein [facility] Start: 09-04-2023 Introduction of urin senia catheter [facility] Start: 09-04-2023 Obstetric monitoring [facility] Start: 09-04-2023 Provision of activit y privileges [facility] Start: 09-04-2023 Verification routine [facility] Start: 09-04-2023 Vital signs measurements [facility] Start: 06-16-2023 Patient discharge [facility] Start: 04-01-2022 Influenza vaccination INFLUENZA (#1) [facility] Start: 02-07-2019 Skin test tuberculos is intradermal PPD (17928) [facility] Work Phone: Comment on above: lot [id number] October 12ite right forearm subcdose 0.1mlJC, LPNABN signed Start: 2018 PAP TESTING PAP TESTING [facility] Start: 02-14-2016 Urine microalbumin profile DTAP,TDAP,TD (1 - Tdap) [facility] Start: 2015 HEPATITIS C SCREENING HEPATITIS C SC REEELSA [facility] Start: 2015 HIV SCREENING HIV SCREENING [facility] Start: 2011 PEDS TO ADULT TRANSI TION ANNUAL ASSESSMENT PEDS TO ADULT TRANSITION ANNUAL ASSESSMENT [facility] Start: 2009 Adult depression screening assessment DEPRESSION SCREENING [facility] Start: 2009 PEDS TO ADULT TRANSI TION INITIAL DISCUSSION PEDS TO ADULT TRANSITION INITIAL DISCUSSION [facility] Start: 02-14-2008 HPV VACCINE (1 - 2-d ose series) HPV VACCINE (1 - 2-dose series) [facility] Bacteria identified in Urine by Culture URINE CULTURE Microbiology Routine Leukocytes in urine Ordered: 02/16/2022 [facility] Work Phone: Comment on above: Ordered: 02/16/2022 CBC W Auto Different ial panel - Blood [facility] CBC W Auto Different ial panel - Blood [facility] CBC W Auto Different ial panel - Blood [facility] Biophysical pr ofile panel US [facility] Glucose [Mass/volume ] in Serum or Plasma --1 hour post 50 g glucose PO [facility] Hepatitis B surface antigen measurement [facility] Hepatitis C antibody measurement [facility] HIV 1+2 Ab+HIV1 p24 Ag [Presence] in Serum or Plasma by Immunoassay [facility] HIV 1+2 Ab+HIV1 p24 Ag [Presence] in Serum or Plasma by Immunoassay [facility] Patient Education ED Methotrexat e for Ectopic ... [facility] Work Phone: Patient referral [facility] Work Phone: Rubella IgG measurement [facility] Thyroid stimulating hormone measurement [facility] Thyroperoxidase Ab [Units/volume] in Serum or Plasma [facility] Treponema sp Ab [Presence] in Serum [facility] Treponema sp Ab [Presence] in Serum [facility] Work Phone: [facility] Immunizations Immunization Date Immunization Notes Care Provider Shahnaz medel 05-04-2024 influenza, seasonal, injectable, preservative free Heath HALE Work Phone: [facility] 06-27-2023 tetanus toxoid, redu kathy diphtheria toxoid, and acellular pertussis vaccine, adsorbed No Primary Care Physician [facility] 05-17-2023 influenza, injectabl e, quadrivalent, preservative free No Primary Care Physician [facility] 05-04-2022 influenza, injectabl e, quadrivalent, preservative free No Primary Care Physician [facility] 05-04-2022 influenza, seasonal, injectable Dr. Oma Bentley Work Phone: [facility] 05-07-2021 influenza, injectabl e, quadrivalent, preservative free No Primary Care Physician [facility] 05-07-2021 influenza, seasonal, injectable [facility] 10-03-2020 Covid (Moderna) [facility] 09-05-2020 Covid (Moderna) [facility] 04-30-2020 hepatitis B vaccine, adult dosage [facility] 04-29-2020 influenza, injectabl e, quadrivalent, preservative free No Primary Care Physician [facility] 04-29-2020 influenza, seasonal, injectable [facility] 11-21-2019 hepatitis B vaccine, adult dosage [facility] 10-08-2019 hepatitis B vaccine, adult dosage [facility] Payers Date Payer Category Payer Self-pay [id number] 2024 Unknown [id number] 2020 Unknown RICHARDSON SALAZAR PPO [id number] 2020-Present [phone] [facility] [id number] [place] [address] PPO [id number] 2016 Unknown [id number] 1997 Unknown [id number] 1997 Unknown [id number] Unknown Richardson BC/BS Unknown [id number] Unknown BC ANTHEM 332 COMM CHOICE XY [id number] Unknown [id number] Unknown [id number] Unknown [id number] Unknown [id number] Unknown [id number] Unknown [id number] Social History Date Type Detail Facility Start: 02-16-2022 End: 10-19-2023 Tobacco smoking status NHIS Never smoked tobacco [facility] Start: 02-16-2022 Tobacco use and exposure Smokeless tobacco non-user [facility] Start: 1995 Sex Assigned At Not on file [facility] Start: 02-06-2022 End: 02-16-2022 Exposure to SARS-CoV-2 (event) Not sure [facility] Start: 03-07-2022 End: 10-19-2023 Tobacco smoking status RIIS Unknown if ever smoked [facility] Start: 1995 Sex Assigned At Female [facility] Start: 10-18-2024 End: 10-25-2024 Sex Female (finding) [facility] Sex Female [facility] Goals Date Patient Goal Desired Activity /State Clinical Notes 02-16-2022 to 04-29-2025 Note Date & Type Note Facility 04-29-2025 Progress note [facility] 04-29-2025 Progress note Note Date/Time April 29, 2025 3:37pm [facility] [address], [address] [place] [address] OFFICE VISIT Date of Service: 04/29/25 MR#: [id number] Acct: [id number] Name: CHELITA ROMERO Rep #: [id number] : 1995 Provider: Dr. Berenice Bentley DO Age/Sex: 30/F Location[facility] Status: Signed Intake Vital Signs 10/21/23 16:10 [...] Removal *copay $20 Chief Complaint: Mirena Removal Jacquard Plate Maker Required: No Is patient in pain?: No Allergies No Known Allergies Allergy (Verified 04/29/25 15:16) Medications ?Medication ?Instructions ?Recorded ?Confirmed ?Type multivit-min no.71-iron fum 28 1 cap PO 01/18/2304/29 History mg-folate no.1 1 mg-dha 300 mg capsule (PNV-Helton) Compound Semaglutide subcut 01/04/25 04/29/25 His tory [...] spouse current occupational status: employed current occupation: [employer] pets and animals: Yes (not managing [...] 1-2 times per week duration: 30-45 minutes/day lindsay/anabaptist: Spiritism seatbelt use: always do you feel safe at home: Yes 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 Date Name GA/Weeks Outcome Route Bth Weight Gen Labor Lgth Anesthesia Del Locatn Provider FOB 03/08/22 ectopic 09/05/23 Alicia 40 live - full term Female [facility] [place] Delivery Date: 03/08/22 [...] Cosigner Signature: Date (if applicable) CC: ~ [facility] Work Phone: 1(638) 555-656509-08-2025 Evaluation note* Diagnosis Onset Date Resolution Status Admit Date Bruno's thyroiditis chronic S eptember 2024 9:35am PCOS (polycystic ovarian syndrome) chronic April 08 025 9:35am Encounter for IUD removal acute April 29, 2025 3:08pm History of infertility acute Se ptember 2024 3:08pm PCOS (polycystic ovarian syndrome) chronic April 29, 2025 3:08pm [facility] Work Phone: 1(164) 784-869003-21-2025 Radiology Diagnostic study note [facility] Imaging Services [address] [place], [place] [address] Thyroid MR#: [id number] Acct: [id number] Name: CHELITA ROMERO Rep #: [id number] : 1995 F 29 From: Francine Roman MD PCP: ALEXIA Sanderson Status: REG CLI Study:Thyroid Date of Exam: 10/19/24 Exam# [id number] Ordering Dr: Monet Sebastian [facility] SEARCH ENGINE OPTIMIZER-C PROCEDURE: THYROID 10/19/2024 REASON FOR EXAM: 29-year-old [...] US/Thyroid IMPRESSION: NORMAL THYROID ULTRASOUND Reading Location: [facility] CC: ALEXIA Sebastian ~ Hand Worker: Signed [facility]03-20-2024 NotePap Smear Specimen AdequacyMarch 2023 11:59pmComment.Satisfactory for evaluation. Endocervical and/or squamous metaplasticcells (endocervical component)are present.[facility]ACED A#[id number] City HospitalComment on above:Satisfactory for evaluation. Endocervical and/or squamous metaplasticcells (endocervical component)are present.09-06-2023 Progress note Author Mireya So [facility] September 06, 2023 8:34am Note Date/Time September 06, 2023 8 :34am [facility] Medical Records Department [address] [place] [address] Progress Note - OBGYN 09/06/23 0832 MR#: [id number] Acct: [id number] Name: CHELITA ROMERO Rep #:[id number] : 1995 28 From: Mireya So CNM PCP: Care Physician,No Primary Status :ADM IN Location: [place] [address] Subjective Subjective Patient doing well without complaints. [...] Cosigner Signature (if applicable): CC: ~ Signed [facility] Work Phone: 1(105) 108-480002-05-2024 Discharge summary Author Oma Catherine [facility] September 05, 2023 11:14am Note Date/Time September 05, 2023 1 1:14am [facility] Medical Records Department [address] [place] [address] Instructions for Home/Discharge Instructions 09/05/23 1114 MR#: [id number] Acct: [id number] Name: CHELITA ROMERO Rep #:[id number] : [...] Up With: Oma Bentley DO When: Call [phone] to make an appointment with your doctor [...] (5,000 unit) capsule 125 mcg PO DAILY PNV-Helton 28-1-300 mg capsule 1 cap PO Referrals / Follow Up: Care Physician,No Primary [Primary Care Provider] - 09/05/23 1114<Electronically signed by Oma Bentley DO>Oma Bentley DO CC: No Primary Care Physician ~ Signed [facility] Work Phone: 1(825) 616-455502-05-2024 Procedure [facility] 09-05-2023 Progress note Author Oma Catherine [facility] September 05, 2023 6:57am Note Date/Time September 05, 2023 6 :57am [facility] Medical Records Department [address] [place] [address] Progress Note 09/05/23 0656 MR#: [id number] Acct: [id number] Name: CHELITA ROMERO Rep #:[id number] : 1995 28 From: Oma Bentley DO PCP: Care Physician,No Primary Status :ADM IN Location: [id number] Progress Note pt is sitting up in bed without complaints. epidural in place current tracing: FHT: Moderate variability reactive no decelerations category I tracing [place]: q 2-4 min Contractions cx: per nurse- 7 cm A/P: IOL- progressing well. continue current management 09/05/23 06 <Electronically signed by Oma Bentley DO> Oma Bentley DO Cosigner Signature (if applicable): CC: ~ Signed [facility] Work Phone: 1(500) 464-760202-05-2024 Progress note Author Claribel Marino [facility] September 05, 2023 2:12am Note Date/Time September 05, 2023 2 :12am [facility] Medical Records Department [address] [place] [address] Progress Note 09/05/23210 MR#: [id number] Acct: [id number] Name: CHELITA ROMERO Rep #:[id number] : 1995 28 From: Claribel hawthorne MD PCP: Care Physician,No Primary Status :ADM IN Location: [place] [address] Progress Note fb out and cervical change to 5-6 cm current tracing: FHT: 130 min- Moderate variability reactive occasional early decelerations category I tracing [place]: q 2-3 Contractions reviewed tracing abnormalities since last note: no signficiant A/P: arom clear fluid, will obtain epidural 09/05/23211 <Electronically signed by Claribel Marino MD> Claribel Marino MD Cosigner Signature (if applicable): CC: ~ Signed [facility] Work Phone: 1(103) 195-620702-05-2024 History and physical note Author Claribel Marino [facility] September 05, 2023 2:11am Note Date/Time September 05, 2023 2 :11am [facility] Medical Records Department [address] [place] [address] H&P 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 09/05/23207 MR#: [id number] Acct: [id number] Name: CHELITA ROMERO Rep #:[id number] : 1995 28 From: Claribel hawthorne MD PCP: Care Physician,No Primary Status :ADM IN Location: [id number] HPI - General General Date of Admission: [...] no.1 1 mg-dha 300 mg capsule (PNV- [place]) 1 cap PO 01/18/23 [History Last Taken Unknown] Allergy/AdvReac Type Severity Reaction Status Date / Time No Known Allergies Allergy Verified 09/04/23 19:44 Family History Grandfather CVA (cerebral vascular accident) Grandmother CVA (cerebral vascular accident) Diabetes Other Idiopathic pulmonary fibrosis Social History adopted: No household members: spouse current occupational status: employed current occupation: [employer] pets and animals: Yes (not managing litterbox while ) pets and animals:cat(s) and dog(s) history of recent travel: Yes ([place] 08/23) out of state: No out of country: Yes sexually active: Yes Smoking Status: Never smoker alcohol intake: never substance use type: does not use well-balanced diet: daily or most days caffeine: No eating out: 1-3 times/week during the past year weight has: remained stable what type of physical activity do you participate in: walking frequency: 1-2 times per week duration: 30-45 minutes/day lindsay/anabaptist: Spiritism seatbelt use: always do you feel safe at home: Yes 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 discussed and declines afp. [facility] anatomy ordered. LC- no vb/cramping. its a GI RL!discussed and declines afp. [facility] anatomy ordered. 03/22/23 -?-?-?-?-?-?-?-?-?-?-?-?- 16w 5d 241 [...] high risk , unspecified, second trimester COMMENT: [id number], DOMITILA 09/01/23 GIRL! Alicia Compa prefers doc [...] complications: see a/p I have reviewed the [facility] and made any clinically relevant updates. 09/05/23210 <Electronically signed by Claribel Marino MD> Cosigner Signature (if applicable): CC: Dr. Claribel Marino MD; No Primary Care Physician~ Signed [facility] Work Phone: [phone]) 785-294707-19-2022 NoteHNO ID: [id number] Author: Shai Baires PA-C Service: ? Author Type: Physician Computer Analyst Type: Progress Notes Filed: 02/16/2022 11:24 AM Note Text: Subjective Chelita Romero is a 27 year old female with no significant past medical history who presents to [facility] today for evaluation of urinary [...] which included preparing to see the patient, [id number] patient care, completing clinical documentation, performing a medically appropriate examination, counseling and educating the patient/family/caregiver and ordering medications, tests, or procedures.[facility]07-19-2022 Instructions* Patient Instructions* Shai Baires PA-C [...] treated. A physician, nurse practitioner or physician staff physical therapy assistant may treat with a short course [...] women if symptoms resolve. documented in this [facility] History of Present illness Narrative* Shai Baires PA-C - 02/16/2022 11:02 AM EDT Subjective Chelita Romero is a 27 year old female with no significant past medical history who presents to [facility] today for evaluation of urinary [...] which included preparing to see the patient, [id number] patient care, completing clinical documentation, performing a medically appropriate examination, counseling and educating the patient/family/caregiver and ordering medications, tests, or procedures. documented in this encounterM[facility] [place] [facility]* Diagnosis Leukocytes in urine- Primary Other cells and casts in urine Urinary frequency Abnormal urine odor Other nonspecific finding on examination of urine documented in this encounter [facility] noteNo assessment information availableWSalem City Hospital Work Phone: USGI Medicalaluation note* Diagnosis Onset Date Resolution Status Ectopic [facility] Work Phone: Harperlabzation note* Diagnosis Onset Date Resolution Status Polycystic ovarian syndrome [facility] Work Phone: USGI Medicalaluation note* Diagnosis Onset Date Resolution Status Polycystic ovarian syndrome acute acute Supervision of high-risk [facility] Work Phone: evaluation note* Diagnosis Onset Date Resolution Status Polycystic ovarian syndrome acute acute Supervision of high-risk acute Obesity affecting acute Polycystic ovarian syndrome acute acute Supervision of high-risk acute Obesity affecting acute Polycystic ovarian syndrome acute acute Supervision of high-risk [facility] Work Phone: evaluation note* Diagnosis Onset Date Resolution Status Polycystic ovarian syndrome acute acute Supervision of high-risk acute Obesity affecting acute Polycystic ovarian syndrome acute acute Supervision of high-risk acute Obesity affecting acute Polycystic ovarian syndrome acute acute Supervision of high-risk acute Obesity affecting acute Polycystic ovarian syndrome acute acute Pyelectasis of fetus on ultrasound acute Supervision of high-risk [facility] Work Phone: evaluation note* Diagnosis Onset [...] fetus on ultrasound acute Supervision of high-risk [facility] Work Phone: Evaluation note* Diagnosis Onset [...] fetus on ultrasound acute Supervision of high-risk [facility] Work Phone: Evaluation note* Diagnosis Onset [...] fetus on ultrasound acute Supervision of high-risk [facility] Work Phone: Evaluation note* Diagnosis Onset [...] fetus on ultrasound acute Supervision of high-risk [facility] Work Phone: Evaluation note* Diagnosis Onset [...] on ultrasound resolved Supervision of high-risk resolved [facility] Work Phone: Evaluation note* Diagnosis [...] Follow-Up noneactive Encounter for IUD insertion acute [facility] Work Phone: Evaluation note* Diagnosis Onset Date Resolution Status Admit Date Bruno's thyroiditis acute [facility] 2024 9:35am [facility] Work Phone: Reason for referral (narrative)No reason for referral information availableWSalem City Hospital Work Phone: Summary Purpose Family History No Family History Records Found Relationship Condition Age at Onset Recorded Date/T iain Not Specified Idiopathic pulmonary fibrosis Unknown grandfather Cerebrovascular accident (CVA) Unknown grandmother Cerebrovascular accident (CVA) Unknown Diabetes mellitus Unknown Advance Directives No Advanced Directives Records Found Advance Directive Response Recorded Date/ Time Living Will No March 07, 2022 1:29pm Power of Interior Design Project Manager No March 07 1:29pm Advance Directive Response Recorded Date/ Time Living Will No March 07, 2022 12:29pm Power of Interior Design Project Manager No March 07 12:29pm Advance Directive Response Recorded Date/ Time Living Will No September 04 7:45pm Power of Interior Design Project Manager No September 04, 2023 7:45pm Advance Directive Response Recorded Date/ Time Living Will No September 04 8:45pm Power of Interior Design Project Manager No September 04, 2023 8:45pm Chief Complaint [...] 38 WK OB, pt has us @ [facility] before appt Reason for Visit [...] 36 WK OB, pt has us @ [facility] before appt 39 WK OB [...] section and content) DATE CREATED AUTHOR 01/25/2018 [facility] Latisha Neal DATE CREATED AUTHOR AUTHOR'S ORGANIZ ATION 02/19/2022 [facility] DATE CREATED AUTHOR AUTHOR'S ORGANIZ ATION 08/13/2023 [facility] DATE CREATED AUTHOR AUTHOR'S ORGANIZ ATION 05/25/2025 [facility] Source Comments (unrecognize d section and content) In the event this informatio n is protected by the Federal Confidentiality of Alcohol and Drug Abuse Patient Records regulations: The Federal rules restrict any use of the information to criminally investigate or prosecute any alcohol or drug abuse patient.[facility] Reason for Visit (unrecogniz ed [...] Primary Care Provider Active Vanna Tracey NP, SEARCH ENGINE OPTIMIZER-C Attending Provider, Referring Provider Active Team Status: [...] Provider, Refer ring Provider Active Vanna Tracey SEARCH ENGINE OPTIMIZER, SEARCH ENGINE OPTIMIZER-C Attending Provider Active Team Status: Inactive Member [...] Physician Primary Care Provider Active Vanna Tracey SEARCH ENGINE OPTIMIZER, SEARCH ENGINE OPTIMIZER-C Attending Provider, Referring Provider Active Dr. Claribel [...] Member Role Status Dates Heath Sebastian VSC, SEARCH ENGINE OPTIMIZER-C Primary Care Provider Active Team Status: Inactive Member Role Status Dates Heath Sebastian VSC, SEARCH ENGINE OPTIMIZER-C Primary Care Provider Active Start: October 10, 2024 End: October 10, 2024 Heath Romulo VSC, SEARCH ENGINE OPTIMIZER-C Attending Provider Active S tart: October 10, 2024 End: October 10, 2024 Team Status: Inactive Member Role Status Dates Heath Romulo VSC, SEARCH ENGINE OPTIMIZER-C Primary Care Provider Active Start: October 19, 2024 End: October 19, 2024 Heath Romulo VSC, SEARCH ENGINE OPTIMIZER-C Attending Provider Active S tart: October 19, 2024 End: October 19, 2024 Heath Sebastian VSC, SEARCH ENGINE OPTIMIZER-C Referring Provider Active S tart: October 19, 2024 End: October 19, 2024 Team Status: Inactive Member Role Status Dates Heath Romulo VSC, SEARCH ENGINE OPTIMIZER-C Primary Care Provider Active Start: January 02, 2025 End: January 02, 2025 Heath Sebastian VSC, SEARCH ENGINE OPTIMIZER-C Attending Provider Active S tart: January 02, 2025 End: January 02, 2025 Team Status: Active Member Role/Relationship Status Dates Heath Sebastian VSC, SEARCH ENGINE OPTIMIZER-C Primary Care Provider Active Team Status: Inactive Member Role/Relationship Status Dates Heath Romulo VSC, SEARCH ENGINE OPTIMIZER-C Primary Care Provider Active Start: January 02, 2025 End: January 02, 2025 Heath Romulo VSC, SEARCH ENGINE OPTIMIZER-C Attending Provider Active S tart: January 02, 2025 End: January 02, 2025 Team Status: Inactive Member Role/Relationship Status Dates Heath Romulo VSC, SEARCH ENGINE OPTIMIZER-C Primary Care Provider Active Start: April 08, 2025 End: April 08, 2025 Heath Sebastian VSC, SEARCH ENGINE OPTIMIZER-C Referring Provider Active S tart: April 08, 2025 End: April 08, 2025 Dr. Omar Boothe MD Attending Provider Active Sta rt: April 08, 2025 End: April 08, 2025 Team Status: Active Member Role/Relationship Status Dates Heath Sebastian VSC, SEARCH ENGINE OPTIMIZER-C Primary care physician Active Team Status: Inactive Member Role/Relationship Status Dates Heath Sebastian VSC, SEARCH ENGINE OPTIMIZER-C Primary care physician Active Start: January 02, 2025 End: January 02, 2025 Heath Sebastian VSC, SEARCH ENGINE OPTIMIZER-C Attending physician Active Start: January 02, 2025 End: January 02, 2025 Team Status: Inactive Member Role/Relationship Status Dates Heath Sebastian VSC, SEARCH ENGINE OPTIMIZER-C Primary care physician Active Start: April 08, 2025 End: April 08, 2025 Heath Sebastian VSC, SEARCH ENGINE OPTIMIZER-C Referring Provider Active S tart: April 08, 2025 End: April 08, 2025 Dr. Omar Boothe MD Attending physician Active St art: April 08, 2025 End: April 08, 2025 Team Status: Inactive Member Role/Relationship Status Dates Heath BANDA, SEARCH ENGINE OPTIMIZER-C Primary care physician Active Start: April 09, 2025 End: April 09, 2025 Dr. Omar Boothe MD Attending physician Active St art: April 09, 2025 End: April 09, 2025 Dr. Omar Boothe MD Referring Provider Active Sta rt: April 09, 2025 End: April 09, 2025 Team Status: Inactive Member Role/Relationship Status Dates Heath Romulo BANDA SEARCH ENGINE OPTIMIZER-C Primary care physician Active Start: April 29, 2025 End: April 29, 2025 Heath BANDA, SEARCH ENGINE OPTIMIZER-C Referring Provider Active S tart: April 29, [...] BE BASED ON THE PRIMARY CLINICAL RECORDS. [employer] provides no warranty or guarantee of the accuracy or completeness of information in this document.
== END | disposition home or self-care (01) ==
LOC: US 09:52
PROVIDERS: PCP Nurse Practitioner Family; Referring Provider Obstetrics & Gynecology; Visit Provider Obstetrics & Gynecology
DX: O99.891 Other specified diseases and conditions complicating pregnancy (principal); R10.9 Unspecified abdominal pain; Z3A.00 Weeks of gestation of pregnancy not specified; Z87.59 Personal history of other complications of pregnancy, childbirth and the puerperium
CPT/HCPCS: 76817